=== PATIENT | male | born 1940 | race Caucasian/White ===

== ENCOUNTER 2021-11-21 09:41 | Outpatient (REF) | payer MEDICARE, MEDICAID, SELFPAY ==
[2021-11-21 10:48] LABS: Hematocrit 37.2 % (42.0-52.0); Hemoglobin 12.4 g/dl (14.0-18.0); Mean Corpuscular HGB Conc 33.3 g/dl (31.0-36.0); Mean Corpuscular Hemoglobin 31.7 pg (27.0-33.0); Mean Corpuscular Volume 95.1 fL (80.0-98.0); Mean Platelet Volume 10.4 fL (9.4-12.4); Platelet Count 264 X10*3/uL (160-400); Red Blood Count 3.91 X10*6/uL (4.60-5.80); Red Cell Distribution Width 16.9 % (11.0-16.0); White Blood Count 9.5 X10*3/uL (4.8-10.8)
[2021-11-21 11:13] LABS: Alanine Aminotransferase 11 U/L (0-40); Albumin Level 3.8 g/dL (3.5-5.0); Alkaline Phosphatase 115 U/L (39-117); Anion Gap 11 (12-20); Aspartate Amino Transferase 11 U/L (5-37); Bilirubin Total 0.8 mg/dL (0.0-1.0); Blood Urea Nitrogen 11 mg/dL (9-16); Calcium 9.1 mg/dL (8.4-10.2); Carbon Dioxide 29 mmol/L (22-29); Chloride 108 mmol/L (96-108); Cholesterol 136 mg/dL; Estimated Glomerular Filt Rate > 60; Glucose Fasting 88 mg/dL (60-99); HDL Cholesterol 24 mg/dL; LDL Cholesterol Calculated 93 mg/dl; Potassium 4.3 mmol/L (3.3-5.1); Sodium 144 mmol/L (135-145); Total Protein 6.6 g/dL (6.5-8.0); Triglycerides 96 mg/dL
[2021-11-21 11:35] LABS: TSH reflex Free T4 1.21 uIU/mL (0.32-4.0)
== END 2021-11-21 09:42 | disposition home or self-care (01) ==
LOC: HO.LAB 09:41
PROVIDERS: PCP Hospitalist; Visit Provider Hospitalist
DX: Z00.00 Encounter for general adult medical examination without abnormal findings (principal); Z13.220 Encounter for screening for lipoid disorders; Z13.29 Encounter for screening for other suspected endocrine disorder
CPT/HCPCS: 36415; 80053; 80061; 84443; 85027

== ENCOUNTER 2021-11-22 10:37 | Outpatient (REF) | payer MEDICARE, MEDICAID, SELFPAY ==
[2021-11-22 12:06] LABS: Iron 48 mcg/dL (45-160); Percent Iron Saturation 19 % (15-50); Total Iron Binding Capacity 250 mcg/dL (228-428); Unsaturated Iron Binding 202 ug/dL
[2021-11-22 12:23] LABS: Vitamin B12 187 pg/mL (200-900)
== END 2021-11-22 10:38 | disposition home or self-care (01) ==
LOC: HO.LAB 10:37
PROVIDERS: PCP Hospitalist; Visit Provider Hospitalist
DX: D64.9 Anemia, unspecified (principal)
CPT/HCPCS: 36415; 82607; 82746; 83540

== ENCOUNTER 2023-09-08 10:22 | Outpatient (AMB) | payer MEDICARE, MEDICAID, SELFPAY ==
--- NOTE | 2023-09-08 10:42 | MHC.PC.OV ---
Vital Signs 09/08/23 10:46 Height 5 ft 6 in Weight 163 lb BMI 26.3 BP 132/74 Blood Pressure Location Lt brachial Position Sitting Pulse 71 Pulse Source Pulse Oximeter Pulse Oximetry (%) 96 Oxygen Delivery Method Room Air Intake Visit Reasons: Transfered from [facility] Intake Note: Patient is here today for transfer of care from . Patient is here to follow-up after a visit the emergency department at [facility] on 08/04/23 then transfer to [facility] from 08/06/23 to 08/12/23. Hay Rake Operator Required: Yes Hay Rake Operator Language: Joint Supervisor Name: Rekha (Niece) Information Interpreted: non-clinical & clinical Gear Lapper: Present Accompanied by: Nephew or Niece Allergies Penicillins Allergy (Severe, Verified 09/08/23 11:20) Hives lisinopril Adverse Reaction (Verified 09/08/23 11:20) cough Medication List - Last Reconciled 09/08/23 by GARETT Mccarty-LUPE acetaminophen ER (Tylenol Arthritis Pain) 650 mg PO Q12H PRN 30 days aspirin 81 mg PO DAILY 30 days atorvastatin 80 mg PO BEDTIME 30 days carvedilol 3.125 mg PO BID 30 days ergocalciferol (vitamin D2) 1,250 mcg PO QWEEK furosemide 20 mg PO DAILY 30 days gabapentin 600 mg PO TID losartan 25 mg PO DAILY 30 days miscellaneous medical supply standard wheelchair miscellaneous medical supply Shower chair with back support miscellaneous medical supply wheel walker with seat omeprazole 20 mg PO DAILY potassium chloride ER 10 mEq PO BID 30 days quetiapine (Seroquel) 100 mg PO BEDTIME tamsulosin 0.4 mg PO DAILY ticagrelor (Brilinta) 90 mg PO BID 30 days Tobacco use date assessed: 09/08/23 Fall risk assessment: No Falls in past year Last assessed Fall Risk: 09/08/23 Dental Screening Dental Screen Date: 09/08/23 Did you have a dental visit in the last 12 months?: Yes Did you have a dental problem in the last 6 months where you did not have access to dental care?: No Was dental information given to patient?: Patient has dentist HPI HPI Comments History of Present Illness Details 83-year-old male with chronic small-vessel ischemic disease, multiple old infarcts throughout the basal ganglia, thalami and coronal radiata, diffuse cerebral volume loss, coronary artery disease S/P NSTEMI 2013 with drug eluting stent x 1, BPH, neuropathy, hypertension, hyperlipidemia, anxiety and depression, tortuosity of the thoracic aorta, CHF, cardiac pacemaker, GERD, tracheomalacia & OA who presents today for hospital discharge follow-up. He is accompanied by his niece Iwona who helps provide primary care for him in the home. I do not have the medical discharge at this time however the patient presents with the discharge summary. Niece reports that he was admitted to [facility] for shortness of breath and then transferred to [facility] on 08/06/2023 where he was admitted through 08/12/2023. He was admitted with an NSTEMI. He had 3 stents placed. He was sent home with orders to follow-up with [facility]. Has his 1st appointment 09/12/2023. Discharge medications include start: Aspirin 81 mg p.o. q.day indefinitely, Brilinta 90 mg p.o. b.i.d., losartan 25 mg p.o. q.day., Lasix 20 mg p.o. q.day, potassium chloride ER 10 mEq p.o. q.day. his Coreg was changed from 6.25 to 3.125 mg p.o. b.i.d. due to bradycardia. Lisinopril was stopped as this caused a cough. That is why the losartan was started. Labs reviewed. His HGB A1c was 5.4% in the setting of anemia. I do not see a diagnosis of diabetes in the chart. Nieces it they were testing his blood sugars at home however he has never been on any insulin or any antidiabetic medications. His labs in the hospital do show mild anemia which is chronic for him. He denies any overt signs or symptoms of bleeding. He was sent home with visiting nurse. He declined physical therapy. Wheelchair-bound mostly, uses cane for short distances. Since return home has been having a small amount of chest pain, in the left side of his chest, described as stabbing, that comes and goes? rare not all the time?. Last seconds. Self-limiting. Started 3 days ago. Occurred x 1 only. Does not have nitro on hand. Reports breathing is normal. No cough or sob. No bloody sputum. Not taking all meds as directed as sampson wasnt sure what he should/shouldnt be taking. So she was only giving him the newly prescribed medications and held off on all of his other meds w/ exception of omeprazole and gabapentin as she knows what these look like. Needs refills sent to [facility] in [place] - packaged meds Also needs current meds sent to [facility] so he can take meds while waiting on Mail order meds. After patient left, I was able to obtain d/c summary from [facility] which reports he presented to [facility] for hemoptysis. He was tx empiriaclly w/ AB presuming this was a PNA. A CT of the chest was done and showed small bilat pleural eff cc/w CHF and smaller nodular changes in bother lower lobes from likely PNA. Incidental finding of L adrenal nodule 1.4 cm [facility] Medical History (Updated 09/08/23 @ 16:44 by Amy Win, [facility]) Cardiac pacemaker History of multiple strokes Pacemaker Hypertension Surgical History (Updated 09/08/23 @ 11:05 by MICHELE Calderon) History of heart artery stent Social History (Updated 09/08/23 @ 10:44 by MICHELE Calderon) Housing: House Alcohol intake: never Patient Tobacco Use Status: Former Tobacco user (09/2022) e-Cigarette/Vaping Use: Never Used Second Hand Smoke Exposure: Yes service: No Current occupational status: disabled Cognitive needs: Yes (walker, wheel chair, cane) Hearing needs: No Vision needs: Yes (Glasses) Questionnaire PHQ-9 Over the last 2 weeks, how often have you been bothered by any of the following problems? 1. Little interest or pleasure in doing things: not at all 2. Feeling down, depressed, or hopeless: not at all 3. Trouble falling or staying asleep, or sleeping too much: not at all 4. Feeling tired or having little energy: not at all 5. Poor appetite or overeating: not at all 6. Feeling bad about yourself - or that you are a failure or have let yourself or your family down: not at all 7. Trouble concentrating on things, such as reading the newspaper or watching television: not at all 8. Moving or speaking so slowly that other people could have noticed. Or the opposite - being so fidgety or restless that you have been moving around a lot more than usual: not at all 9. Thoughts that you would be better off or of hurting yourself in some way: not at all Total score: 0 Depression Screening Interpretation: Negative Depression Screening Done: Yes Source: Developed by Drs. Micah Rooney, Blanka Nunes, Yasmany Amezquita and colleagues, with an educational naila from [employer]. Thrive Questionnaire Date Thrive assessed: 09/08/23 I am a: Patient What is your living situation today?: I have a steady place to live Within the past 12 months, did the food you bought not last and you didn't have the money to get more?: Never true Within the past 12 months, did you worry whether your food would run out before you got money to buy more?: Never true Do you have trouble paying for medicines?: No Do you have trouble getting transportation to medical appointments?: No Do you have trouble paying your heating and electricity bill?: No Do you have trouble taking care of your child, family member or friend?: No Do you have trouble with day-to-day activities such as bathing, preparing meals, shopping, managing finances, etc.?: No Are you currently unemployed and looking for a job?: No Are you interested in more education?: No Currently or been in a relationship where the following occur: no concerns reported THRIVE Score: 0 AUDIT C Alcohol Use Questionnaire (AUDIT-C) 1. How often do you have a drink containing alcohol?: Never Total Score: 0 DEMETRA-7 AMB Questionnaire DEMETRA-7 Date DEMETRA - 7 assessed: 09/08/23 Feeling nervous, anxious, or on edge: 1 = Several days Not being able to stop or control worryin = Not at all Worrying too much about different things: 0 = Not at all Trouble relaxin = Not at all Being so restless that it is hard to sit still: 0 = Not at all Becoming easily annoyed or irritable: 0 = Not at all Feeling afraid as if something awful might happen: 0 = Not at all Total DEMETRA-7 score (0-4 normal; 5-9 mild; 10-14 moderate; 15-21 severe): 1 Source: Developed by Drs. Micah Rooney, Blanka Nunes, Yasmany Amezquita and colleagues, with an educational naila from [employer]. Review of Systems Const All systems reviewed & are unremarkable except as noted in HPI and below Physical exam (Primary Care) Vital Signs: Last Vital Signs Pulse 71 09/08/23 10:46 BP 132/74 09/08/23 10:46 Pulse Ox 96 09/08/23 10:46 Oxygen Delivery Method Room Air 09/08/23 10:46 BMI result Body Mass Index 26.3 Tobacco/Smoking Status: Tobacco use Status Tobacco use date assessed 09/08/23 09/08/23 10:50 Patient Tobacco Use Status Former Tobacco user (09/2022) 09/08/23 11:07 e-Cigarette/Vaping Use Never Used 09/08/23 10:50 PHQ-9: PHQ-9 Score PHQ-9: Total score 0 09/08/23 11:29 Depression Screening Interpretation: Negative Thrive Assessment: Date of Thrive Assessment Date Thrive assessed 09/08/23 09/08/23 10:50 Currently or been in a relationship where the following occur: no concerns reported Const Other: Frail, chronically ill appearing, accompanied by Neice who helps w/ language barriers MMM RRR LS CTAB , dim throughout BLE with trace edema, decreased PP bilat, skin hairless with superficial crusting. Sitting in w/c with cane Assessment and Plan Assessment & Plan (1) NSTEMI (non-ST elevated myocardial infarction): Comment: NSTEMI w/ AIME x 3 08/2023 ASA indef. Brilinta for 1 year (stop 08/12/2024) NSTEMI 2013 w/ AIME [facility] Cards to Manage Code(s): I21.4 - Non-ST elevation (NSTEMI) myocardial infarction Plan: Total time spent caring for the patient today was 70 minutes. This includes time spent before the visit reviewing the chart, time spent during the visit, and time spent after the visit on documentation (2) CHF (congestive heart failure): Comment: Echo 08/2023, Results requested from [facility] and pending at the time of this note on lasix, coreg and losartan labs from today reveal stable findings potassium is at 4.2 it is on the 20 mEq use daily we will continue this he is euvolemic on exam today. We will continue him on Lasix as well as KCl supplementation. Code(s): I50.9 - Heart failure, unspecified Qualifiers: Heart failure type: unspecified Heart failure chronicity: chronic Qualified Code(s): I50.9 - Heart failure, unspecified (3) Anemia: Comment: CrCL 50.93 08/11/2023 Cr 1.0 08/11/2023 labs today Hemoglobin 12.8 hematocrit 39.1 Code(s): D64.9 - Anemia, unspecified Qualifiers: Anemia type: due to chronic kidney disease Chronic kidney disease stage: stage 3 (moderate) Chronic kidney disease stage 3 subtype: stage 3a (GFR 45-59) Qualified Code(s): N18.31 - Chronic kidney disease, stage 3a; D63.1 - Anemia in chronic kidney disease (4) Coronary artery disease with angina pectoris: Code(s): I25.119 - Atherosclerotic heart disease of [place] coronary artery with unspecified angina pectoris Qualifiers: Coronary Disease-Associated Artery/Lesion type: [place] artery [place] vs. transplanted heart: [place] heart Qualified Code(s): I25.119 - Atherosclerotic heart disease of [place] coronary artery with unspecified angina pectoris Plan: new RX for nitro, instructions reviewed in office how to take (5) PVD (peripheral vascular disease): Comment: statin, brilinta, ASA Code(s): I73.9 - Peripheral vascular disease, unspecified (6) CKD (chronic kidney disease) stage 3, GFR 30-59 ml/min: Comment: CrCL 50.93 08/11/2023 Cr 1.0 08/11/2023 Managed by Renal at [facility] BUN 14 creatinine 1.39 GFR 49 Code(s): N18.30 - Chronic kidney disease, stage 3 unspecified Qualifiers: Chronic kidney disease stage 3 subtype: stage 3a (GFR 45-59) Qualified Code(s): N18.31 - Chronic kidney disease, stage 3a (7) Adrenal nodule: Comment: 1.4 cm Left adrenal nodule CT [facility] 08/11/23 Will have staff send this report to Renal at [facility] to coordinate care and f/u. Code(s): E27.8 - Other specified disorders of adrenal gland Orders: Orders RT home sleep study Today I21.4 - Non-ST elevation (NSTEMI) myocardial infarction, I50.9 - Heart failure, unspecified Comprehensive [place]. Panel Fast Today D64.9 - Anemia, unspecified, I21.4 - Non-ST elevation (NSTEMI) myocardial infarction, I50.9 - Heart failure, unspecified Complete Blood Count no Diff Today D64.9 - Anemia, unspecified, I21.4 - Non-ST elevation (NSTEMI) myocardial infarction, I50.9 - Heart failure, unspecified Medications: New losartan 25 mg PO DAILY 30 days 30 tabs 1RF potassium chloride ER 10 mEq PO BID 30 days 60 caps 0RF nitroglycerin do not exceed 3 doses per episode 0.3 mg sublingual Q5M PRN 90 tabs 1RF chest pain 30 days ammonium lactate 12% apply to lower ext, avoid open areas 1 appl topical BID 385 grams 3RF 30 days atorvastatin 80 mg PO BEDTIME 30 tabs 0RF 30 days ticagrelor (Brilinta) 90 mg PO BID 60 tabs 0RF 30 days carvedilol 3.125 mg PO BID 60 tabs 0RF 30 days aspirin 81 mg PO DAILY 30 days 30 tabs 3RF carvedilol 3.125 mg PO BID 30 days 60 tabs 1RF furosemide 20 mg PO DAILY 30 days 30 tabs 1RF ticagrelor (Brilinta) 90 mg PO BID 30 days 60 tabs 1RF atorvastatin 80 mg PO BEDTIME 30 days 30 tabs 0RF aspirin 81 mg PO DAILY 30 tabs 3RF 30 days omeprazole 20 mg PO DAILY 30 caps 0RF 30 days potassium chloride ER 10 mEq PO BID 60 caps 0RF 30 days losartan 25 mg PO DAILY 30 tabs 0RF 30 days furosemide 20 mg PO DAILY 30 tabs 0RF 30 days Changed From gabapentin 600 mg PO TID 90 tabs 2RF M54.41 - Lumbago with sciatica, right side To gabapentin 600 mg PO TID 90 tabs 0RF 30 days M54.41 - Lumbago with sciatica, right side From tamsulosin 0.4 mg PO DAILY 90 caps 1RF To tamsulosin 0.4 mg PO DAILY 30 caps 0RF 30 days From quetiapine (Seroquel) 100 mg PO BEDTIME 90 tabs 3RF R45.1 - Restlessness and agitation To quetiapine (Seroquel) 100 mg PO BEDTIME 30 tabs 0RF 30 days R45.1 - Restlessness and agitation Discontinued vitamin B complex (B Complex-Vitamin B12 tablet) Discontinued Reason: Patient Completed Course 1 tab PO DAILY 90 tabs 3RF atorvastatin Discontinued Reason: More recent result 40 mg PO BEDTIME 90 tabs 3RF Patient Instructions: Come back to see me in about 1 month, sooner if any problems Coding Level of Care Code Est Pt Level 5 (85368) Diagnoses NSTEMI (non-ST elevated myocardial infarction) I21.4 Chronic congestive heart failure, unspecified heart failure type I50.9 Heart failure type: unspecified Heart failure chronicity: chronic 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 chronic kidney disease N18.31; D63.1 Anemia type: due to chronic kidney disease Chronic kidney disease stage: stage 3 (moderate) Chronic kidney disease stage 3 subtype: stage 3a (GFR 45-59) Coronary artery disease involving [place] coronary artery of [place] heart with angina pectoris I25.119 Coronary Disease-Associated Artery/Lesion type: [place] artery [place] vs. transplanted heart: [place] heart PVD (peripheral vascular disease) I73.9 Stage 3a chronic kidney disease N18.31 Chronic kidney disease stage 3 subtype: stage 3a (GFR 45-59) Adrenal nodule E27.8
[2023-09-08 10:46] VITALS: BP 132/74; PULSE 71; O2SAT 96; BMI 26.3
== END 2023-09-08 12:15 | disposition home or self-care (01) ==
PROVIDERS: PCP Hospitalist; Visit Provider Nurse Practitioner Family
DX: N18.31 Chronic kidney disease, stage 3a (principal); I50.9 Heart failure, unspecified; E27.8 Other specified disorders of adrenal gland; I73.9 Peripheral vascular disease, unspecified; I21.4 Non-ST elevation (NSTEMI) myocardial infarction; I25.119 Atherosclerotic heart disease of native coronary artery with unspecified angina pectoris; D63.1 Anemia in chronic kidney disease
CPT/HCPCS: 99215

== ENCOUNTER 2023-09-08 12:06 | Outpatient (REF) | payer MEDICARE, MEDICAID, SELFPAY ==
[2023-09-08 15:03] LABS: Hematocrit 39.1 % (42.0-52.0); Hemoglobin 12.8 g/dl (14.0-18.0); Mean Corpuscular HGB Conc 32.7 g/dl (31.0-36.0); Mean Corpuscular Hemoglobin 30.8 pg (27.0-33.0); Mean Platelet Volume 10.1 fL (9.4-12.4); Platelet Count 185 X10*3/uL (160-400); Red Blood Count 4.16 X10*6/uL (4.60-5.80); Red Cell Distribution Width 18.3 % (11.0-16.0); White Blood Count 7.8 X10*3/uL (4.8-10.8)
[2023-09-08 15:48] LABS: Alanine Aminotransferase 14 U/L (0-40); Albumin Level 3.9 g/dL (3.5-5.0); Alkaline Phosphatase 115 U/L (39-117); Anion Gap 11 (12-20); Aspartate Amino Transferase 16 U/L (5-37); Bilirubin Total 0.5 mg/dL (0.0-1.0); Blood Urea Nitrogen 14 mg/dL (9-16); Calcium 10.1 mg/dL (8.4-10.2); Carbon Dioxide 31 mmol/L (22-29); Chloride 106 mmol/L (96-108); Estimated Glomerular Filt Rate 49; Glucose Fasting 79 mg/dL (60-99); Potassium 4.2 mmol/L (3.3-5.1); Sodium 144 mmol/L (135-145); Total Protein 7.2 g/dL (6.5-8.0)
== END 2023-09-08 12:07 | disposition home or self-care (01) ==
LOC: HO.WFDLDS 12:06
PROVIDERS: Visit Provider Nurse Practitioner Family
DX: I21.4 Non-ST elevation (NSTEMI) myocardial infarction (principal); I50.9 Heart failure, unspecified; D64.9 Anemia, unspecified
CPT/HCPCS: 36415; 80053; 85027

== ENCOUNTER 2023-09-15 09:18 | Outpatient (AMB) | payer MEDICARE, MEDICAID, SELFPAY ==
--- NOTE | 2023-09-15 09:23 | MHC.PC.OV ---
Vital Signs 09/15/23 09:32 Height 5 ft 6 in Weight 164 lb BMI 26.5 BP 102/60 Blood Pressure Location Lt brachial Position Sitting Pulse 71 Pulse Source Pulse Oximeter Pulse Oximetry (%) 97 Oxygen Delivery Method Room Air Intake Visit Reasons: No sight in one eye Intake Note: pt states no sight in left eye and headache [id number] Certifier Required: No Allergies Penicillins Allergy (Severe, Verified 09/15/23 10:12) Hives lisinopril Adverse Reaction (Verified 09/15/23 10:12) cough Tobacco use date assessed: 09/15/23 Fall risk assessment: No Falls in past year Last assessed Fall Risk: 09/15/23 Dental Screening Dental Screen Date: 09/15/23 HPI HPI Comments History of Present Illness Details 83-year-old male with chronic small-vessel ischemic disease, multiple old infarcts throughout the basal ganglia, thalami and coronal radiata, diffuse cerebral volume loss, coronary artery disease S/P NSTEMI 2013 with drug eluting stent x 1, NSTEMI 07/2023 status post stent, BPH, neuropathy, hypertension, hyperlipidemia, anxiety and depression, tortuosity of the thoracic aorta, CHF, cardiac pacemaker, GERD, tracheomalacia & OA Accompanied today with niece Iwona Here today w/ c/o vision loss in the left eye he mentioned this for the first time on Friday at Card office, told provider no vision in L eye, assoc w headache that is severe all the time. CT scan ordered and pending Tells me today the vision in L eye has been gone for about 3 weeks, this occurred before the last hospitalization. Right eye is normal Denies trauma to the eye Optho unsure who [facility] pt states last appt was about 4 years ago. [facility] Medical History (Updated 09/08/23 @ 16:[address] [facility] Cardiac pacemaker History of multiple strokes Pacemaker Hypertension Surgical History (Updated 09/08/23 @ 11:05 by MICHELE Calderon) History of heart artery stent Social History (Updated 09/08/23 @ 10:44 by MICHELE Calderon) Housing: House Alcohol intake: never Patient Tobacco Use Status: Former Tobacco user (09/2022) e-Cigarette/Vaping Use: Never Used Second Hand Smoke Exposure: Yes service: No Current occupational status: disabled Cognitive needs: Yes (walker, wheel chair, cane) Hearing needs: No Vision needs: Yes (Glasses) Questionnaire PHQ-9 Over the last 2 weeks, how often have you been bothered by any of the following problems? Depression Screening Interpretation: Negative Depression Screening Done: Yes Source: Developed by Drs. Micah Rooney, Blanka Nunes, Yasmany Amezquita and colleagues, with an educational naila from [employer]. Thrive Questionnaire Date Thrive assessed: 09/08/23 Currently or been in a relationship where the following occur: no concerns reported THRIVE Score: 0 AUDIT C Alcohol Use Questionnaire (AUDIT-C) 1. How often do you have a drink containing alcohol?: Never 3. How often do you have six or more drinks on one occasion?: Never Total Score: 0 DEMETRA-7 AMB Questionnaire DEMETRA-7 Date DEMETRA - 7 assessed: 09/08/23 Source: Developed by Drs. Micah Rooney, Blanka Nunes, Yasmany Amezquita and colleagues, with an educational naila from [employer]. Review of Systems Const All systems reviewed & are unremarkable except as noted in HPI and below Physical exam (Primary Care) Vital Signs: Last Vital Signs Pulse 71 09/15/23 09:32 BP 102/60 09/15/23 09:32 Pulse Ox 97 09/15/23 09:32 Oxygen Delivery Method Room Air 09/15/23 09:32 BMI result Body Mass Index 26.5 Tobacco/Smoking Status: Tobacco use Status Tobacco use date assessed 09/15/23 09/15/23 09:32 Patient Tobacco Use Status Former Tobacco user (09/2022) 09/15/23 09:23 e-Cigarette/Vaping Use Never Used 09/15/23 09:23 Depression Screening Interpretation: Negative Thrive Assessment: Date of Thrive Assessment Date Thrive assessed 09/08/23 09/15/23 09:23 Currently or been in a relationship where the following occur: no concerns reported Const Other: Frail, chronically ill appearing, accompanied by Neice who helps w/ language barriers MMM RRR LS CTAB , dim throughout BLE with trace edema, decreased PP bilat, skin hairless with superficial crusting. Sitting in w/c with cane Eyes Visual Ortega: abnormal by confrontation peripheral vision loss on the left Alignment and Position: alignment normal Periorbital: periorbital findings normal Eyelids: Yes eyelids normal Conjunctivae: conjunctivae normal Sclerae: sclerae normal Pupils: Pupils not reactive on the left EOM: EOM abnormal Direct Ophthalmoscopy: no photophobia and decreased light reflex on the left Assessment and Plan Assessment & Plan (1) Sudden visual loss, left eye: Code(s): H53.132 - Sudden visual loss, left eye (2) Headache: Code(s): R51.9 - Headache, unspecified Qualifiers: Headache chronicity pattern: acute headache Headache type: unspecified Intractability: not intractable Qualified Code(s): R51.9 - Headache, unspecified Plan: Given that the visual in the left side was present prior to his admission to the [facility] for his NSTEMI with stenting, I do not think he needs to go to the emergency room. I do think he needs an emergent exam. I spent time calling different offices to see if I can coordinate an urgent visit today. The [facility] in [place] states that they do not work with his insurance. Based GI care will not see a patient that has not already established. His niece states that she knows where the eye doctor office is on [facility]. I did search the Internet and could not find in office. I told her to bring him there right now to see if they could get him in for an appointment. Business card given so that the eye doctor can call me if needed to coordinate care. A CT scan was already ordered stat and is pending through [facility]. He has no other neuro deficits that are concerning. 190 No call from Niece. Total time spent caring for the patient today was 70 minutes. This includes time spent before the visit reviewing the chart, time spent during the visit, and time spent after the visit on documentation This note is constructed using voice recognition software. While every effort has been made to ensure accuracy in automotive sales specialist, still errors may have been included Sometimes, these errors may affect the content or meaning of the given sentence . Coding Level of Care Code Est Pt Level 5 (57602) Diagnoses Sudden visual loss, left eye H53.132 Acute nonintractable headache, unspecified headache type R51.9 Headache chronicity pattern: acute headache Headache type: unspecified Intractability: not intractable
[2023-09-15 09:32] VITALS: BP 102/60; PULSE 71; O2SAT 97; BMI 26.5
== END 2023-09-15 10:35 | disposition home or self-care (01) ==
PROVIDERS: PCP Hospitalist; Visit Provider Nurse Practitioner Family
DX: H53.132 Sudden visual loss, left eye (principal); R51.9 Headache, unspecified
CPT/HCPCS: 99215

== ENCOUNTER 2023-10-07 12:53 | Outpatient (AMB) | payer MEDICARE, MEDICAID, SELFPAY ==
[2023-10-07 13:03] VITALS: BP 136/76; PULSE 80; RESP 12; TEMP 37.1; O2SAT 99
--- NOTE | 2023-10-07 13:03 | MHC.PC.OV ---
Vital Signs 10/07/23 13:03 Height 5 ft 6 in BMI Reason not done Patient refused/unable BP 136/76 Blood Pressure Location Lt brachial Position Sitting Respiration 12 Pulse 80 Pulse Source Pulse Oximeter Temp 98.8 F Temp Source Temporal Artery Scan Pulse Oximetry (%) 99 Oxygen Delivery Method Room Air Intake Visit Reasons: 1 MTH Follow up Intake Note: Patient is accompanied by his Myla braden who is also his caregiver and translating for todays appointment. Patient reports he has been getting acid reflux despite the Omeprazole and he has been experiencing body pains as well. Patient Support Assistant Required: Yes Patient Support Assistant Name: Amy Mcnamara Accompanied by: Nephew or Niece Allergies Penicillins Allergy (Severe, Verified 10/07/23 13:32) Hives lisinopril Adverse Reaction (Verified 10/07/23 13:32) cough Medication List - Last Reconciled 10/07/23 by Amy Win, RECEPTION- acetaminophen ER (Tylenol Arthritis Pain) 650 mg PO Q12H PRN 30 days acetazolamide 125 mg PO BID ammonium lactate 12% 1 appl topical BID 30 days aspirin 81 mg PO DAILY 30 days atorvastatin 80 mg PO BEDTIME 30 days brimonidine 0.2% 1 drp ophthalmic (eye) BID carvedilol 3.125 mg PO BID 30 days ergocalciferol (vitamin D2) 1,250 mcg PO QWEEK furosemide 20 mg PO DAILY 30 days gabapentin 600 mg PO TID 30 days latanoprost 0.005% 1 drp ophthalmic (eye) QPM losartan 25 mg PO DAILY 30 days miscellaneous medical supply standard wheelchair miscellaneous medical supply Shower chair with back support miscellaneous medical supply wheel walker with seat nitroglycerin 0.3 mg sublingual Q5M PRN 30 days omeprazole 20 mg PO DAILY 30 days potassium chloride ER 10 mEq PO BID 30 days quetiapine (Seroquel) 100 mg PO BEDTIME 30 days tamsulosin 0.4 mg PO DAILY 30 days ticagrelor (Brilinta) 90 mg PO BID 30 days Tobacco use date assessed: 09/15/23 HPI HPI Comments History of Present Illness Details 83-year-old male with chronic small-vessel ischemic disease, multiple old infarcts throughout the basal ganglia, thalami and coronal radiata, diffuse cerebral volume loss, coronary artery disease S/P NSTEMI 2012 with drug eluting stent x 1, BPH, neuropathy, hypertension, hyperlipidemia, anxiety and depression, tortuosity of the thoracic aorta, CHF, cardiac pacemaker, GERD, tracheomalacia & OA, cataracts bilat, glaucoma, former smoker Niece Iwona Here today to follow-up on visual loss in the left eye as well as chronic conditions. Since last visit he was able to see [facility] in [place] Dr Willy Gerber with bilat cataracts will be having an extraction bilat in December of 2023. 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 He had a follow up visit today. He was started eye drops of which he will waste picker at the pharmacy today. I talked to the niece about who he is seeing for renal as we have been trying to send the August 2023 cat scan showing the left adrenal mass to the cyanide pot tender however we have not been able to find out who he is being followed by. She is able to pull up the information today and states that she has an appointment with Dr Oliverio Whaley [phone] at [facility] on 01/21/2024 at 11:00. States that this offices aware of the left adrenal mass and an MRI was ordered however the patient does not able to stay still, lie flat, or tolerate any imaging. She will continue to work with this office on follow-up. Reports chronic daily pain. Taking Tylenol as needed and NSAIDs without great effect. However not taking every single day. Discussion had with patient as well as niece about palliative care versus comfort care versus aggressive treatment measures. Discussed the risks and benefits of both. Patient has decided that he wishes to continue aggressive treatment measures at this time. Does not wish to do prescribe any of his medications are reduce the amount of medical intervention at this time. He is aware that this limits our options for prescribing medications that could help to control his pain. He was made aware that we need to set a realistic pain goal which would be to decrease the daily pain that he is having. However he may not be totally pain-free. He a niece are in agreement. In the decision has been made to start him on Tylenol 2 g twice per day scheduled. He can have an additional 1 g per day as needed for breakthrough pain. Encouraged to avoid NSAIDs due to renal function. Finally reports years of heavy smoking and a family history of lung cancer. Reports sister had lung cancer. Wonders about any screening or testing for this. Reports that he was referred for a screening CT scan but once again he was not able to lie still or tolerate this procedure. Additional conversation was had around this and the decision was made not to pursue anything additional at this time. With the understanding that the niece already has a CT scan that can be done ordered by another provider should he want or be able to tolerate the CT scan for lung cancer screening. Today he does not present with any overt signs or symptoms such as hemoptysis or weight loss. Niece reports that she has not been able to get any of the medications that I have sent over to the previous pharmacy. Would like all prescriptions transferred over to [facility]. Unsure what the holdup with the medications were. They were using a mail away pharmacy as well as a local [facility]. I will have the nurse navigator look into this to help transfer his medications as appropriate. This referral has been placed today. She feels like she can manage setting up medication boxes for him and does not need a blister pack. [facility] Medical History (Updated 10/08/23 @ 07:47 [facility] Cardiac pacemaker History of multiple strokes Pacemaker Hypertension Surgical History (Updated 09/08/23 @ 11:05 by Nevaeh Mullen [facility]) History of heart artery stent Social History (Updated 10/07/23 @ 13:18 by Jordana Rubio CMA) Household Members: None Housing: House Alcohol intake: never Patient Tobacco Use Status: Former Tobacco user (09/2022) e-Cigarette/Vaping Use: Never Used Second Hand Smoke Exposure: Yes service: No Current occupational status: disabled Sexual orientation: Straight/Heterosexual Gender identity: Male Cognitive needs: Yes (walker, wheel chair, cane) Hearing needs: No Vision needs: Yes (Glasses) Questionnaire Thrive Questionnaire Date Thrive assessed: 09/08/23 DEMETRA-7 AMB Questionnaire DEMETRA-7 Date DEMETRA - 7 assessed: 09/08/23 Source: Developed by Drs. Miach Rooney, Blanka Nunes, Yasmnay Amezquita and colleagues, with an educational naila from [employer]. Review of Systems Const All systems reviewed & are unremarkable except as noted in HPI and below Physical exam (Primary Care) Vital Signs: Last Vital Signs Temp 98.8 F 10/07/23 13:03 Pulse 80 10/07/23 13:03 Resp 12 10/07/23 13:03 BP 136/76 10/07/23 13:03 Pulse Ox 99 10/07/23 13:03 Oxygen Delivery Method Room Air 10/07/23 13:03 Tobacco/Smoking Status: Tobacco use Status Tobacco use date assessed 09/15/23 10/07/23 13:20 Patient Tobacco Use Status Former Tobacco user (09/2022) 10/07/23 13:20 e-Cigarette/Vaping Use Never Used 10/07/23 13:20 Thrive Assessment: Date of Thrive Assessment Date Thrive assessed 09/08/23 10/07/23 13:20 Advance Care Planning discussion: Exists, not on file Date of discussion: 10/08/23 Who was present: Jefe Bustillo inpatient Time spent: 1-15 minutes, not on file Actual minutes spent: 15 Did not discuss due to Cultural/Spiritual beliefs: Yes Const Other: Frail, chronically ill appearing, accompanied by Neice who helps w/ language barriers MMM RRR LS CTAB , dim throughout BLE with trace edema, decreased PP bilat, skin hairless with with slight scaling, better than previously assessed. Sitting in w/c with cane Eyes Visual Ortega: abnormal by confrontation peripheral vision loss on the left Alignment and Position: alignment normal Periorbital: periorbital findings normal Eyelids: Yes eyelids normal Conjunctivae: conjunctivae normal Sclerae: sclerae normal Pupils: Pupils not reactive on the left EOM: EOM abnormal Direct Ophthalmoscopy: no photophobia and decreased light reflex on the left Assessment and Plan Assessment & Plan (1) Adrenal nodule: Comment: 1.4 cm Left adrenal nodule CT [facility] 08/11/23 Dr Oliverio Whaley [phone] at [facility] on 01/21/2024 at 11:00. Jefe reports his offices aware of the CT scan findings. MRI was ordered however patient is not able to tolerate. She will continue follow up with this office for further management Code(s): E27.8 - Other specified disorders of adrenal gland (2) CKD (chronic kidney disease) stage 3, GFR 30-59 ml/min: Comment: CrCL 50.93 08/11/2023 Cr 1.0 08/11/2023 Managed by Renal at [facility] Dr Oliverio WHALEY [phone] BUN 14 creatinine 1.39 GFR 49 Code(s): N18.30 - Chronic kidney disease, stage 3 unspecified Qualifiers: Chronic kidney disease stage 3 subtype: stage 3a (GFR 45-59) Qualified Code(s): N18.31 - Chronic kidney disease, stage 3a (3) Cataracts, bilateral: Comment: He is currently being followed by [facility] in [place] Dr Willy Gerber with bilat cataracts will be having an extraction bilat in December of 2023. 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 Continue follow up with Ophthalmology as well as eyedrops prescribed as well as Acetazolamide. Code(s): H40.50X0 - Glaucoma secondary to other eye disorders, unspecified eye, stage unspecified Qualifiers: Laterality: left Glaucoma stage: severe stage Qualified Code(s): H40.52X3 - Glaucoma secondary to other eye disorders, left eye, severe stage (5) Former smoker, stopped smoking in distant past: Comment: Reports that he was referred for a screening CT scan but once again he was not able to lie still or tolerate this procedure. Additional conversation was had around this and the decision was made not to pursue anything additional at this time. With the understanding that the niece already has a CT scan that can be done ordered by another provider should he want or be able to tolerate the CT scan for lung cancer screening. Today he does not present with any overt signs or symptoms such as hemoptysis or weight loss. Code(s): Z87.891 - Personal history of nicotine dependence (6) Generalized arthritis: Comment: Start him on Tylenol 2 g twice per day scheduled. He can have an additional 1 g per day as needed for breakthrough pain. Encouraged to avoid NSAIDs due to renal function Code(s): M19.90 - Unspecified osteoarthritis, unspecified site (7) Frailty syndrome in geriatric patient: Comment: CONVERSATION ABOUT GOALS OF CARE HAD TODAY. AT THIS TIME THE PATIENT DOES NOT WISH FOR PALLIATIVE CARE MEASURES. DOES NOT WISH HER DEEP PRESCRIBING. AND DOES NOT WISH TO REDUCE HIS MEDICAL INTERVENTION. WE WILL CONTINUE TO HAVE THESE CONVERSATIONS WITH THE PATIENT WELL THE FAMILY. Code(s): R54 - Age-related physical debility (8) Blind left eye: Comment: Due to glaucoma. Being managed by Dr Willy Walsh in [place]. Continue care as per ophthalmology Code(s): H54.40 - Blindness, one eye, unspecified eye Qualifiers: Right eye visual impairment category: right - unspecified impairment Qualified Code(s): H54.40 - Blindness, one eye, unspecified eye Plan This note is constructed using voice recognition software. While every effort has been made to ensure accuracy in coal crusher operator, still errors may have been included Sometimes, these errors may affect the content or meaning of the given sentence . Total time spent caring for the patient today was 60 minutes. This includes time spent before the visit reviewing the chart, time spent during the visit, and time spent after the visit on documentation I would like to see him back in another few weeks to follow up on chronic complex conditions. Orders: Referrals Nurse Navigator Referral R53.81 - Other malaise Medications: New acetaminophen AVAILABLE OTC. DO NOT EXCEED 3GM OR 6 TABS IN 24 HOURS. 1,000 mg (2 x 500 mg) PO TID 30 days PRN 180 caps 2RF fever or pain Changed From omeprazole 20 mg PO DAILY 30 days 30 caps 0RF To omeprazole 20 mg PO BID 30 days 60 caps 3RF Discontinued acetaminophen ER (Tylenol Arthritis Pain) Discontinued Reason: Doctor's Order 650 mg PO Q12H 30 days PRN 60 tabs 1RF pain Coding Level of Care Code Est Pt Level 5 (40890) Diagnoses Adrenal nodule E27.8 Stage 3a chronic kidney disease N18.31 Chronic kidney disease stage 3 subtype: stage 3a (GFR 45-59) Age-related nuclear cataract of both eyes H25.13 Cataract type: age-related Age-related cataract type: nuclear 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, severe stage H40.52X3 Laterality: left Glaucoma stage: severe stage Former smoker, stopped smoking in distant past Z87.891 Generalized arthritis M19.90 Frailty syndrome in geriatric patient R54 Blindness of left eye, unspecified right eye visual impairment category H54.40 Right eye visual impairment category: right - unspecified impairment Additional Codes Vital Signs *Quality* - Advance Care Planning discussion: Exists, not on file ([id number]) Vital Signs *Quality* - Time spent: 1-15 minutes, not on file ([id number]) Vital Signs *Quality* - Did not discuss due to Cultural/Spiritual beliefs: Yes ([id number])
== END 2023-10-07 14:01 | disposition home or self-care (01) ==
PROVIDERS: PCP Hospitalist; Visit Provider Nurse Practitioner Family
DX: E27.8 Other specified disorders of adrenal gland (principal); N18.31 Chronic kidney disease, stage 3a; H25.13 Age-related nuclear cataract, bilateral; H40.52X3 Glaucoma secondary to other eye disorders, left eye, severe stage; Z87.891 Personal history of nicotine dependence; M19.90 Unspecified osteoarthritis, unspecified site; R54 Age-related physical debility; H54.40 Blindness, one eye, unspecified eye; Z00.00 Encounter for general adult medical examination without abnormal findings
CPT/HCPCS: 1124F; 99215

== ENCOUNTER 2023-10-14 16:03 | Outpatient (AMB) | payer MEDICARE, MEDICAID, SELFPAY ==
--- NOTE | 2023-10-14 15:55 | MHC.PC.OV ---
Intake Visit Reasons: follow up on pt's last visit Intake Note: Provider will be speaking with Patient's niece Myla [phone] Massage Coordinator Required: No Accompanied by: Nephew or Niece Allergies Penicillins Allergy (Severe, Verified 10/14/23 15:56) Hives lisinopril Adverse Reaction (Verified 10/14/23 15:56) cough Tobacco use date assessed: 09/15/23 HPI HPI Comments History of Present Illness Details Given the COVID-19 pandemic, the patient was offered and has consented to a telemedicine visit with Amy Garcia NP 10/14/23 [id number] in lieu of a traditional in-office visit. Patient understands the risks, alternatives and benefits of a telemedicine visit. The patient has been informed of the limitations of a telemedicine visit, including the quality of self-reported information (e.g. vital signs and symptoms) as well as the inability to perform a hands-on physical exam by a healthcare provider. Patient understands that a traditional in-office visit may be required based on the findings of today's telemedicine visit. Patient also understands that their insurance will be billed for services rendered and that a copayment may be required. 83-year-old male with chronic small-vessel ischemic disease, multiple old infarcts throughout the basal ganglia, thalami and coronal radiata, diffuse cerebral volume loss, coronary artery disease S/P NSTEMI 2013 with drug eluting stent x 1, BPH, neuropathy, hypertension, hyperlipidemia, anxiety and depression, tortuosity of the thoracic aorta, CHF, cardiac pacemaker, GERD, tracheomalacia & OA, cataracts bilat, glaucoma, former smoker Niece Iwona spoke w/ Iwona A few questions about Uncle L adrenal nodule he thinks this is cancer He does not want to do any more MRI or CT scan, as he doesnt want to lie flat; Renal>Cards didnt want to go to this appt with Cards Discharged from [facility] as he has met his max potential (Patricia) Cancelled 3 medical appts so far; does not want open heart surgery; does not want to leave the house to go to medical appointments ,just wants to stay home. Keep saying that he is old. Hospice discussed at last office visit. Niece would like for this referral to be placed for consultation. Her mother is also involved in the medical decision-making for Michel. Michel's wishes at this time are to remain home and comfortable with little medical intervention. He was recently discharged from [facility] who does not offer hospice services. A referral will be placed to [facility]. The family requests that the niece remains the primary contact. If at all possible request this visit to be done with a Chilean speaking person so that Michel can hear 1st hand with a conversation is about. [facility] Medical History (Updated 10/14/23 @ 16:39 [facility] Cardiac pacemaker History of multiple strokes Pacemaker Hypertension Surgical History (Updated 09/08/23 @ 11:05 by Nevaeh Mullen A) History of heart artery stent Social History (Updated 10/07/23 @ 13:18 by Jordana Rubio [facility]) Household Members: None Housing: House Alcohol intake: never Patient Tobacco Use Status: Former Tobacco user (09/2022) e-Cigarette/Vaping Use: Never Used Second Hand Smoke Exposure: Yes service: No Current occupational status: disabled Sexual orientation: Straight/Heterosexual Gender identity: Male Cognitive needs: Yes (walker, wheel chair, cane) Hearing needs: No Vision needs: Yes (Glasses) Questionnaire Thrive Questionnaire Date Thrive assessed: 09/08/23 DEMETRA-7 AMB Questionnaire DEMETRA-7 Date DEMETRA - 7 assessed: 09/08/23 Source: Developed by Drs. Micah Rooney, Blanka Nunes, Yasmany Amezquita and colleagues, with an educational naila from [employer]. Physical exam (Primary Care) Tobacco/Smoking Status: Tobacco use Status Tobacco use date assessed 09/15/23 10/14/23 16:03 Patient Tobacco Use Status Former Tobacco user (09/2022) 10/14/23 16:03 e-Cigarette/Vaping Use Never Used 10/14/23 16:03 Thrive Assessment: Date of Thrive Assessment Date Thrive assessed 09/08/23 10/14/23 16:03 Telehealth Telehealth Location of provider rendering services: practice address Location of patient: address on file Patient Identification confirmed using: Name, : Yes Telehealth method: voice only Patient verbally consented to treatment: Yes Patient verbally consented to billing insurance company: Yes Patient informed of any privacy concerns related to visit: Yes Minutes spent on Phone/Video with Pt.: 29 Assessment and Plan Assessment & Plan (1) Frailty syndrome in geriatric patient: Comment: CONVERSATION ABOUT GOALS OF CARE HAD TODAY. PLAN FOR HOSPICE CONSULT WITH JEFF DYKES. ASKED LEVI TO KEEP ME UP TO DATE Code(s): R54 - Age-related physical debility (2) CHF (congestive heart failure): Comment: Echo 08/2023, Results requested from [facility] and pending at the time of this note on lasix, coreg and losartan labs from today reveal stable findings potassium is at 4.2 it is on the 20 mEq use daily we will continue this he is euvolemic on exam today. We will continue him on Lasix as well as KCl supplementation. Code(s): I50.9 - Heart failure, unspecified Qualifiers: Heart failure type: unspecified Heart failure chronicity: chronic Qualified Code(s): I50.9 - Heart failure, unspecified Orders: Referrals [facility] Referral I50.9 - Heart failure, unspecified, R54 - Age-related physical debility Coding Level of Care Code Tele Est Pt Level 3 (00505) Diagnoses Frailty syndrome in geriatric patient R54 Chronic congestive heart failure, unspecified heart failure type I50.9 Heart failure type: unspecified Heart failure chronicity: chronic
== END 2023-10-14 16:32 | disposition home or self-care (01) ==
PROVIDERS: PCP Hospitalist; Visit Provider Nurse Practitioner Family
DX: R54 Age-related physical debility (principal); I50.9 Heart failure, unspecified
CPT/HCPCS: 99443

== ENCOUNTER 2024-01-13 13:16 | Outpatient (AMB) | payer MEDICARE, MEDICAID, SELFPAY ==
--- NOTE | 2024-01-13 13:19 | A.OFFPC_ITS ---
Vital Signs 01/13/24 13:22 01/13/24 13:26 BMI Reason not done Patient refused/unable BP 142/64 H 144/76 H Blood Pressure Location Lt radial Lt brachial Position Sitting Sitting Respiration 16 Pulse 73 Pulse Source Pulse Oximeter Temp 98 F Temp Source Oral Pulse Oximetry (%) 99 Oxygen Delivery Method Room Air Intake Visit Reasons: Follow Up Intake Note: Follow up. Need medication to sleep. Ran out of bp medicaton. Trimmer Buffing Wheel Required: No Allergies Penicillins Allergy (Severe, Verified 01/13/24 13:20) Hives lisinopril Adverse Reaction (Verified 01/13/24 13:20) cough Medication List - Last Reconciled 01/18/24 by Chika Brunner MD acetaminophen 1,000 mg (2 x 500 mg) PO TID PRN 30 days acetazolamide 125 mg PO BID ammonium lactate 12% 1 appl topical BID 30 days aspirin 81 mg PO DAILY 30 days atorvastatin 80 mg PO BEDTIME brimonidine 0.2% 1 drp ophthalmic (eye) BID carvedilol 3.125 mg PO BID 30 days ergocalciferol (vitamin D2) 1,250 mcg PO QWEEK furosemide 20 mg PO DAILY 30 days gabapentin 600 mg PO TID 30 days latanoprost 0.005% 1 drp ophthalmic (eye) QPM lorazepam 0.5 mg PO TID PRN 28 days losartan 25 mg PO DAILY 30 days miscellaneous medical supply standard wheelchair miscellaneous medical supply Shower chair with back support miscellaneous medical supply wheel walker with seat nitroglycerin 0.3 mg sublingual Q5M PRN 30 days omeprazole 20 mg PO BID 30 days potassium chloride ER 10 mEq PO BID 30 days quetiapine (Seroquel) 100 mg PO BEDTIME 30 days tamsulosin 0.4 mg PO DAILY 30 days ticagrelor (Brilinta) 90 mg PO BID 30 days tramadol 50 mg PO BID PRN 7 days Tobacco use date assessed: 01/13/24 Fall risk assessment: 1 Fall in past year Last assessed Fall Risk: 01/13/24 Dental Screening Dental Screen Date: 09/15/23 HPI HPI Comments History of Present Illness Details 83-year-old male with complex past medic al history including but not limited to CVAs coronary artery disease S/P NSTEMI 2012 with drug eluting stent x 1, BPH, neuropathy, hypertension, hyperlipidemia, anxiety and depression, CHF, cardiac pacemaker, GERD, tracheomalacia & OA, cataracts bilat, glaucoma, former smoker, anxiety, chronic pain presenting for follow up. Accompanied by Elder Bustillo Patient was previously assessed and placed on hospice. Per PCPs last noted L adrenal nodule he thinks this is cancer He does not want to do any more MRI or CT scan, as he doesnt want to lie flat; Renal>Cards didnt want to go to this appt with Cards Discharged from [facility] as he has met his max potential (Patricia) Cancelled 3 medical appts so far; does not want open heart surgery; does not want to leave the house to go to medical appointments ,just wants to stay home. Keep saying that he is old. Hospice discussed at last office visit. Niece would like for this referral to be placed for consultation. Her mother is also involved in the medical decision-making for Michel. Michel's wishes at this time are to remain home and comfortable with little medical intervention. He was recently discharged from [facility] who does not offer hospice services. A referral will be placed to [facility] hospice. The family requests that the niece remains the primary contact. If at all possible request this visit to be done with a Sammarinese speaking person so that Michel can hear 1st hand with a conversation is about. He was discharged from hospice after he fell at home, was bleeding and in pain- niece says she called hospice but they were taking awhile to come over and she instead called the ambulance to go to the ER. He is in need of medication refills. [facility] Medical History (Updated 01/18/24 @ 10:48 by Chika Brunner MD) Cardiac pacemaker History of multiple strokes Pacemaker Hypertension Surgical History (Updated 09/08/23 @ 11:05 by MICHELE Calderon) History of heart artery stent Social History (Updated 10/07/23 @ 13:18 by Jordana Rubio CMA) Household Members: None Housing: House Alcohol intake: never Patient Tobacco Use Status: Former Tobacco user (09/2022) e-Cigarette/Vaping Use: Never Used Second Hand Smoke Exposure: Yes service: No Current occupational status: disabled Sexual orientation: Straight/Heterosexual Gender identity: Male Cognitive needs: Yes (walker, wheel chair, cane) Hearing needs: No Vision needs: Yes (Glasses) Questionnaire Thrive Questionnaire Date Thrive assessed: 09/08/23 DEMETRA-7 AMB Questionnaire DEMETRA-7 Date DEMETRA - 7 assessed: 09/08/23 Source: Developed by Drs. Micah Rooney, Blanka Nunes, Yasmany Amezquita and colleagues, with an educational naila from [employer]. Review of Systems Const Details: see HPI Physical exam (Primary Care) Vital Signs: Last Vital Signs Temp 98 F 01/13/24 13:22 Pulse 73 01/13/24 13:22 Resp 16 01/13/24 13:22 BP 144/76 H 01/13/24 13:26 Pulse Ox 99 01/13/24 13:22 Oxygen Delivery Method Room Air 01/13/24 13:22 Tobacco/Smoking Status: Tobacco use Status Tobacco use date assessed 01/13/24 01/13/24 13:23 Patient Tobacco Use Status Former Tobacco user (09/2022) 01/13/24 13:20 e-Cigarette/Vaping Use Never Used 01/13/24 13:20 Thrive Assessment: Date of Thrive Assessment Date Thrive assessed 09/08/23 01/13/24 13:20 Advance Care Planning discussion: Exists, not on file Const Other: Frail, chronically ill appearing, accompanied by Nede[place] who helps w/ language barriers MMM RRR LS CTAB , dim throughout BLE with trace edema, decreased PP bilat, skin hairless with with slight scaling, better than previously assessed. Sitting in w/c with cane Assessment and Plan Assessment & Plan (1) NSTEMI (non-ST elevated myocardial infarction): Comment: NSTEMI w/ AIME x 3 08/2023 ASA indef. Brilinta for 1 year (stop 08/12/2024) NSTEMI 2012 w/ AIME [facility] Cards to Manage Code(s): I21.4 - Non-ST elevation (NSTEMI) myocardial infarction (2) Physical deconditioning: Comment: They would like to revisit hospice care Code(s): R53.81 - Other malaise (3) CHF (congestive heart failure): Comment: continue f/up cardiology Code(s): I50.9 - Heart failure, unspecified Qualifiers: Heart failure type: unspecified Heart failure chronicity: chronic Qualified Code(s): I50.9 - Heart failure, unspecified (4) Frailty syndrome in geriatric patient: Comment: consider referral again to hospice Code(s): R54 - Age-related physical debility Medications: New lorazepam 0.5 mg PO TID 28 days PRN 84 tabs 0RF anxiety tramadol 50 mg PO BID 7 days PRN 14 tabs 0RF pain Refilled acetaminophen AVAILABLE OTC. DO NOT EXCEED 3GM OR 6 TABS IN 24 HOURS. 1,000 mg (2 x 500 mg) PO TID 30 days PRN 180 caps 2RF fever or pain quetiapine (Seroquel) 100 mg PO BEDTIME 30 days 30 tabs 0RF R45.1 - Restlessness and agitation omeprazole 20 mg PO BID 30 days 60 caps 3RF losartan 25 mg PO DAILY 30 days 30 tabs 0RF gabapentin 600 mg PO TID 30 days 90 tabs 0RF M54.41 - Lumbago with sciatica, right side furosemide 20 mg PO DAILY 30 days 30 tabs 0RF carvedilol 3.125 mg PO BID 30 days 60 tabs 0RF tamsulosin 0.4 mg PO DAILY 30 days 30 caps 1RF potassium chloride ER 10 mEq PO BID 30 days 60 caps 0RF carvedilol 3.125 mg PO BID 30 days 60 tabs 0RF atorvastatin 80 mg PO BEDTIME 90 tabs 1RF aspirin 81 mg PO DAILY 30 days 30 tabs 3RF Coding Level of Care Code Est Pt Level 5 (97676) Diagnoses NSTEMI (non-ST elevated myocardial infarction) I21.4 Physical deconditioning R53.81 Chronic congestive heart failure, unspecified heart failure type I50.9 Heart failure type: unspecified Heart failure chronicity: chronic Frailty syndrome in geriatric patient R54 Additional Codes Vital Signs *Quality* - Advance Care Planning discussion: Exists, not on file ([id number])
[2024-01-13 13:22] VITALS: BP 142/64; PULSE 73; RESP 16; TEMP 36.6; O2SAT 99
[2024-01-13 13:26] VITALS: BP 144/76
== END 2024-01-13 14:07 | disposition home or self-care (01) ==
PROVIDERS: PCP Hospitalist; Visit Provider Internal Medicine
DX: I50.9 Heart failure, unspecified (principal); I25.2 Old myocardial infarction; R54 Age-related physical debility; Z00.00 Encounter for general adult medical examination without abnormal findings
CPT/HCPCS: 1123F; 99215

== ENCOUNTER 2024-07-05 09:25 | Outpatient (AMB) | payer MEDICARE, MEDICAID, SELFPAY ==
--- NOTE | 2024-07-05 09:30 | MHC.PC.OV ---
Vital Signs 07/05/24 09:34 07/05/24 10:02 Height 5 ft 6 in BMI Reason not done Patient refused/unable BP 150/80 H 138/76 Blood Pressure Location Lt brachial Lt brachial Position Sitting Sitting Respiration 14 Pulse 75 Pulse Source Pulse Oximeter Pulse Oximetry (%) 98 Oxygen Delivery Method Room Air Intake Visit Reasons: follow up/refill meds Intake Note: follow up on meds and also needs refill on lorazepam. Switchboard Mechanic Required: Yes Switchboard Mechanic Name: patient refuse intreperter Trip Motor Operator: Present (niece) Accompanied by: niece Allergies Penicillins Allergy (Severe, Verified 07/05/24 09:47) Hives lisinopril Adverse Reaction (Verified 07/05/24 09:47) cough Medication List - Last Reconciled 07/05/24 by GARETT Mccarty- acetaminophen 1,000 mg (2 x 500 mg) PO TID PRN 30 days acetazolamide 125 mg PO BID ammonium lactate 12% 1 appl topical BID 30 days aspirin 81 mg PO DAILY 30 days atorvastatin 80 mg PO BEDTIME brimonidine 0.2% 1 drp ophthalmic (eye) BID carvedilol 3.125 mg PO BID 30 days ergocalciferol (vitamin D2) 1,250 mcg PO QWEEK furosemide 20 mg PO DAILY 30 days gabapentin 600 mg PO TID 30 days latanoprost 0.005% 1 drp ophthalmic (eye) QPM lorazepam 0.5 mg PO TID PRN 28 days losartan 25 mg PO DAILY 90 days miscellaneous medical supply standard wheelchair miscellaneous medical supply Shower chair with back support miscellaneous medical supply wheel walker with seat nitroglycerin 0.3 mg sublingual Q5M PRN 30 days omeprazole 20 mg PO BID 30 days potassium chloride ER 10 mEq PO BID 90 days quetiapine (Seroquel) 100 mg PO BEDTIME 30 days tamsulosin 0.4 mg PO DAILY 30 days ticagrelor (Brilinta) 90 mg PO BID 30 days tramadol 50 mg PO BID PRN 7 days Tobacco use date assessed: 01/13/24 Dental Screening Dental Screen Date: 09/15/23 HPI HPI Comments History of Present Illness Details 83-year-old male with chronic small-vessel ischemic disease, multiple old infarcts throughout the basal ganglia, thalami and coronal radiata, diffuse cerebral volume loss, coronary artery disease S/P NSTEMI 2013 with drug eluting stent x 1, BPH, neuropathy, hypertension, hyperlipidemia, anxiety and depression, tortuosity of the thoracic aorta, CHF, cardiac pacemaker, GERD, tracheomalacia & OA, cataracts bilat, glaucoma, former smoker Niece Iwona The patient is an 83-year-old male presenting with routine f/u. Since last office visit his hospice services were discontinued after a fall that caused bleeding which required an emergency room visit. The patient and his caregivers reported dissatisfaction with previous hospice care, citing challenges with care instructions and program requirements. Since the fall, the patient has been managing with support from personal care aides, providing approximately 49 hours of weekly assistance. He has experienced issues with medication management, having discontinued potassium due to experiencing leg weakness and stopped a previously administered pain medication prescribed by hospice. He reported the inability to self-ambulate effectively without a walker and noted difficulty with hand coordination, which affects his ability to manage daily tasks independently. Social History - Lives at home with part-time assistance from personal care aides (49 hours/week via [employer]). - Dependent on family support for additional care and emergencies. - Lacks 24/ in-home care coverage, leading to challenges in fulfilling self-care needs continuously. Review of Systems - Musculoskeletal: Reports weakness in legs; difficulty with fine motor skills. - Neurological: Reports difficulty handling objects; does not require constant supervision but has coordination issues. - Urinary: Utilizes a urinal bottle due to mobility limitations. - Ears, Eyes Nose, Throat: History of vision issues potentially impacting environment navigation. Exam Frail, chronically ill appearing, accompanied by Neice who helps w/ language barriers MMM RRR LS CTAB , dim throughout BLE with trace edema, decreased PP bilat, skin hairless with with slight scaling. Sitting in w/c with cane Alert oriented, has capacity to make his own decisions Plan - Post-fall care: Continue managing symptoms, prioritizing comfort and mobility at home. Evaluate potential for increasing CUT OUT AND MARKING MACHINE OPERATOR hours or altering agency services. - Medication/Prescription Management: Discontinue potassium supplements; review alternative pain management strategies. - Preventive Health: Encourage home safety measures, e.g., potential implementation of medical alert systems for fall detection and emergency response. - Monitoring: Schedule biannual visits to assess overall health status, manage ongoing medication needs, and adapt care plans as necessary. Patient was informed and verbally consented to the use of an ambient scribe for clinic note documentation during this visit. Discussion Notes During our consultation, we reviewed the patient's current management and hospice care status. Given the complications experienced, the plan to avoid re-engaging with hospice was agreed upon, with openness to exploring other agency options if necessary. Discussed the importance of maintaining regular health evaluations, with emphasis on comfort and dignity as care priorities. Offered assistance in facilitating communication with CUT OUT AND MARKING MACHINE OPERATOR agency to explore potential hour increases or adjustments. Reiterated importance of continuing medication management post-discontinuation of consensus medications. He wishes to be full comfort measures. He does not wish to have any invasive procedures. Does not want multiple medical appointments or frequent lab monitoring. At the same time he does not want hospice at this time as he did not feel like this benefit was helpful to him. He would like to proceed with a palliative comfort care plan of care. NETTE completed today Patient Instructions - Communicate with care agency ([facility]) to discuss care hours and potential adjustments. - Resume prescribed medications except where discontinued for safety (potassium). - Monitor health status in coordination with primary caregivers for any changes or emergent needs. - Schedule biannual visits for ongoing evaluation and care adjustment. - Utilize emergency contact procedures as appropriate ensuring response preparedness. Referral placed to nurse navigation to help with getting a lifeline. Goal is comfort measures, we will need to review the prescribing at future visits. I have sent him in a prescription for morphine ER 10 mg p.o. b.i.d.. He was previously prescribed morphine 30 mg ER from the hospice doctor. He has been without this for a couple of months. Does report positive pain relief from this. He was also prescribed tramadol however this did not provide benefit. I do need to see him at least twice per year. If his condition worsens, advised with the niece to let me know. Could always change next visit to video visit if he is unable to get out of bed. Total time spent caring for the patient today was 45 minutes. This includes time spent before the visit reviewing the chart, time spent during the visit, and time spent after the visit on documentation [facility] Medical History (Updated 07/05/24 @ 17:04 by TACOS Mccarty) Cardiac pacemaker History of multiple strokes Pacemaker Hypertension Surgical History (Updated 01/29/24 @ 11:05 by MICHELE Calderon) History of heart artery stent Social History (Updated 10/07/23 @ 13:18 by Jordana Rubio CMA) Household Members: None Housing: House Alcohol intake: never Patient Tobacco Use Status: Former Tobacco user (09/2022) e-Cigarette/Vaping Use: Never Used Second Hand Smoke Exposure: Yes service: No Current occupational status: disabled Sexual orientation: Straight/Heterosexual Gender identity: Male Cognitive needs: Yes (walker, wheel chair, cane) Hearing needs: No Vision needs: Yes (Glasses) Questionnaire PHQ-9 Over the last 2 weeks, how often have you been bothered by any of the following problems? 1. Little interest or pleasure in doing things: not at all 2. Feeling down, depressed, or hopeless: nearly every day 3. Trouble falling or staying asleep, or sleeping too much: nearly every day 4. Feeling tired or having little energy: several days 5. Poor appetite or overeating: not at all 6. Feeling bad about yourself - or that you are a failure or have let yourself or your family down: not at all 7. Trouble concentrating on things, such as reading the newspaper or watching television: several days 8. Moving or speaking so slowly that other people could have noticed. Or the opposite - being so fidgety or restless that you have been moving around a lot more than usual: not at all 9. Thoughts that you would be better off or of hurting yourself in some way: not at all Total score: 8 31854 - PHQ-9 Billing: Yes Source: Developed by Drs. Micah Rooney, Blanka Nunes, Yasmany Amezquita and colleagues, with an educational naila from [employer]. Thrive Questionnaire Date Thrive assessed: 07/05/24 I am a: Parent/Caregiver What is your living situation today?: I have a steady place to live Within the past 12 months, did the food you bought not last and you didn't have the money to get more?: Never true Within the past 12 months, did you worry whether your food would run out before you got money to buy more?: Never true Do you have trouble paying for medicines?: No Do you have trouble getting transportation to medical appointments?: No Do you have trouble paying your heating and electricity bill?: No Do you have trouble taking care of your child, family member or friend?: No Do you have trouble with day-to-day activities such as bathing, preparing meals, shopping, managing finances, etc.?: Yes Are you currently unemployed and looking for a job?: No Are you interested in more education?: No Please select the resources that you would like help with: None Currently or been in a relationship where the following occur: No concerns reported THRIVE Score: 0 AUDIT C Alcohol Use Questionnaire (AUDIT-C) 1. How often do you have a drink containing alcohol?: Never Total Score: 0 DEMETRA-7 AMB Questionnaire DEMETRA-7 Date DEMETRA - 7 assessed: 07/05/24 Feeling nervous, anxious, or on edge: 3 = Nearly every day Not being able to stop or control worryin = Not at all Worrying too much about different things: 0 = Not at all Trouble relaxin = Nearly every day Being so restless that it is hard to sit still: 1 = Several days Becoming easily annoyed or irritable: 0 = Not at all Feeling afraid as if something awful might happen: 0 = Not at all Total DEMETRA-7 score (0-4 normal; 5-9 mild; 10-14 moderate; 15-21 severe): 7 Source: Developed by Drs. Micah Rooney, Blanka Nunes, Yasmany Amezquita and colleagues, with an educational naila from [employer]. DEMETRA-7 Assessment Billing DEMETRA-7 Assessment Tool: DEMETRA-7 Assessment 02792 Physical exam (Primary Care) Vital Signs: Last Vital Signs Pulse 75 07/05/24 09:34 Resp 14 07/05/24 09:34 BP 138/76 07/05/24 10:02 Pulse Ox 98 07/05/24 09:34 Oxygen Delivery Method Room Air 07/05/24 09:34 Tobacco/Smoking Status: Tobacco use Status Tobacco use date assessed 01/13/24 07/05/24 09:32 Patient Tobacco Use Status Former Tobacco user (09/2022) 07/05/24 09:32 e-Cigarette/Vaping Use Never Used 07/05/24 09:32 PHQ-9: PHQ-9 Score PHQ-9: Total score 8 07/05/24 10:14 Thrive Assessment: Date of Thrive Assessment Date Thrive assessed 07/05/24 07/05/24 09:32 Currently or been in a relationship where the following occur: No concerns reported Advance Care Planning discussion: Completed/Scanned Date of discussion: 07/05/24 Who was present: pt and neice Forms completed: Comfort care/DNR Time spent: 16-45 minutes Actual minutes spent: 16 Office Procedures Office Procedure Misc Details: 72206 FIRST 30 MIN ACP DISCUSSION/COMPLETION #16 MINUTES Office Procedure Billing Code: AMB Procedure Billing Code (41159) Coding Level of Care Code Est Pt Level 5 (47889) Complex EM visit Add On G2211 Diagnoses Palliative care status Z51.5 Frailty syndrome in geriatric patient R54 Influenza vaccination declined Z28.21 DNR (do not resuscitate) Z66 Chronic congestive heart failure, unspecified heart failure type I50.9 Heart failure type: unspecified Heart failure chronicity: chronic NSTEMI (non-ST elevated myocardial infarction) I21.4 CPT Codes Office Procedure - Office Procedure Billing Code: AMB Procedure Billing Code ([id number]) Additional Codes DEMETRA-7 Assessment Billing - DEMETRA-7 Assessment Tool: DEMETRA-7 Assessment 74755 ([id number]) PHQ-9 - 74038 - PHQ-9 Billing: Yes ([id number]) Vital Signs *Quality* - Advance Care Planning discussion: Completed/Scanned ([id number]) Vital Signs *Quality* - Time spent: 16-45 minutes ([id number]) Assessment & Plan Assessment & Plan (1) Palliative care status: Code(s): Z51.5 - Encounter for palliative care Category: Medical (2) Frailty syndrome in geriatric patient: Code(s): R54 - Age-related physical debility Category: Medical (3) Influenza vaccination declined: Code(s): Z28.21 - Immunization not carried out because of patient refusal Category: Medical (4) DNR (do not resuscitate): Code(s): Z66 - Do not resuscitate Category: Medical (5) CHF (congestive heart failure): Comment: continue f/up cardiology Code(s): I50.9 - Heart failure, unspecified Category: Medical Qualifiers: Heart failure type: unspecified Heart failure chronicity: chronic Qualified Code(s): I50.9 - Heart failure, unspecified (6) NSTEMI (non-ST elevated myocardial infarction): Comment: NSTEMI w/ AIME x 3 08/2023 ASA indef. Brilinta for 1 year (stop 08/12/2024) NSTEMI 2012 w/ AIME Code(s): I21.4 - Non-ST elevation (NSTEMI) myocardial infarction Category: Medical Plan . Orders: Referrals Nurse Navigator Referral R54 - Age-related physical debility Medications: New morphine ER PALLIATIVE CARE PATIENT 10 mg PO Q12H 28 caps 0RF Changed From aspirin 81 mg PO DAILY 30 days 30 tabs 3RF To aspirin 81 mg PO DAILY 90 tabs 3RF From carvedilol 3.125 mg PO BID 30 days 60 tabs 0RF To carvedilol 3.125 mg PO BID 90 days 180 tabs 2RF From furosemide 20 mg PO DAILY 30 days 30 tabs 0RF To furosemide 20 mg PO DAILY 90 days 90 tabs 2RF From gabapentin 600 mg PO TID 30 days 90 tabs 0RF M54.41 - Lumbago with sciatica, right side To gabapentin 600 mg PO TID 90 days 270 tabs 2RF M54.41 - Lumbago with sciatica, right side From omeprazole 20 mg PO BID 30 days 60 caps 3RF To omeprazole 20 mg PO BID 90 days 180 caps 3RF From quetiapine (Seroquel) 100 mg PO BEDTIME 30 days 30 tabs 0RF R45.1 - Restlessness and agitation To quetiapine (Seroquel) 100 mg PO BEDTIME 90 tabs 2RF R45.1 - Restlessness and agitation From ticagrelor (Brilinta) 90 mg PO BID 30 days 60 tabs 0RF To ticagrelor (Brilinta) 90 mg PO BID 90 days 180 tabs 2RF From acetazolamide 125 mg PO BID To acetazolamide 125 mg PO BID 90 days 180 tabs 2RF From ergocalciferol (vitamin D2) 1,250 mcg PO QWEEK 4 caps 0RF To ergocalciferol (vitamin D2) 1,250 mcg PO QWEEK 90 days 13 caps 2RF From tamsulosin 0.4 mg PO DAILY 30 days 30 caps 1RF To tamsulosin 0.4 mg PO DAILY 90 days 90 caps 2RF Refilled losartan 25 mg PO DAILY 90 days 90 tabs 3RF atorvastatin 80 mg PO BEDTIME 90 tabs 2RF lorazepam 0.5 mg PO TID 28 days PRN 84 tabs 0RF anxiety Discontinued tramadol Discontinued Reason: Patient no longer taking 50 mg PO BID 7 days PRN 14 tabs 0RF pain potassium chloride ER Discontinued Reason: Patient no longer taking 10 mEq PO BID 90 days 180 caps 3RF
[2024-07-05 09:34] VITALS: BP 150/80; PULSE 75; RESP 14; O2SAT 98
[2024-07-05 10:02] VITALS: BP 138/76
== END 2024-07-05 10:11 | disposition home or self-care (01) ==
PROVIDERS: PCP Nurse Practitioner Family; Visit Provider Nurse Practitioner Family
DX: I50.9 Heart failure, unspecified (principal); I21.4 Non-ST elevation (NSTEMI) myocardial infarction; Z51.5 Encounter for palliative care; Z66 Do not resuscitate; R54 Age-related physical debility; Z28.21 Immunization not carried out because of patient refusal; Z00.00 Encounter for general adult medical examination without abnormal findings

== ENCOUNTER → 2024-07-05 09:25 | Outpatient (BNVA) | payer MEDICARE, MEDICAID, SELFPAY | PROVIDERS: PCP Nurse Practitioner Family; Visit Provider Nurse Practitioner Family | DX: I50.9 Heart failure, unspecified (principal); I21.4 Non-ST elevation (NSTEMI) myocardial infarction; R54 Age-related physical debility; Z66 Do not resuscitate; Z51.5 Encounter for palliative care | CPT/HCPCS: 96127; 99212; 99497 ==

== ENCOUNTER 2024-09-21 11:09 | Outpatient (AMB) | payer MEDICARE, MEDICAID, SELFPAY ==
--- NOTE | 2024-09-21 11:32 | A.OFFPC_ITS ---
Vital Signs 09/21/24 11:42 Height 5 ft 6 in Weight 164 lb 2 oz BMI 26.5 BP 100/64 Blood Pressure Location Rt brachial Position Sitting Respiration 14 Pulse 68 Pulse Source Pulse Oximeter Pulse Oximetry (%) 98 Oxygen Delivery Method Room Air Intake Visit Reasons: discharged on 09/13 from [facility] Note: Hospital follow up Double Corner Cutter Required: Yes Double Corner Cutter Name: lead consultant declined Accompanied by: Nephew or Niece Allergies Penicillins Allergy (Severe, Verified 09/21/24 12:22) Hives lisinopril Adverse Reaction (Verified 09/21/24 12:22) cough Medication List - Last Reconciled 09/21/24 by Amy Win, APPRENTICESHIP REPRESENTATIVE- acetaminophen 1,000 mg (2 x 500 mg) PO TID PRN 30 days acetazolamide 125 mg PO BID 90 days ammonium lactate 12% 1 appl topical BID 30 days aspirin 81 mg PO DAILY atorvastatin 80 mg PO BEDTIME brimonidine 0.2% 1 drp ophthalmic (eye) BID carvedilol 3.125 mg PO BID 90 days ergocalciferol (vitamin D2) 1,250 mcg PO QWEEK 90 days furosemide 20 mg PO DAILY 90 days gabapentin 600 mg PO TID 90 days latanoprost 0.005% 1 drp ophthalmic (eye) QPM lorazepam 0.5 mg PO TID PRN 28 days losartan 25 mg PO DAILY 90 days miscellaneous medical supply standard wheelchair miscellaneous medical supply Shower chair with back support miscellaneous medical supply wheel walker with seat morphine ER 10 mg PO Q12H nitroglycerin 0.3 mg sublingual Q5M PRN 30 days omeprazole 20 mg PO BID 90 days quetiapine (Seroquel) 100 mg PO BEDTIME tamsulosin 0.4 mg PO DAILY 90 days ticagrelor (Brilinta) 90 mg PO BID 90 days Tobacco use date assessed: 01/13/24 Fall risk assessment: No Falls in past year Last assessed Fall Risk: 09/21/24 Dental Screening Dental Screen Date: 09/15/23 HPI HPI Comments History of Present Illness Details 84-year-old male with chronic small-vess el ischemic disease, multiple old infarcts throughout the basal ganglia, thalami and coronal radiata, diffuse cerebral volume loss, coronary artery disease S/P NSTEMI 2012 with drug eluting stent x 1, BPH, neuropathy, hypertension, hyperlipidemia, anxiety and depression, tortuosity of the thoracic aorta, CHF, cardiac pacemaker, GERD, tracheomalacia & OA, cataracts bilat, glaucoma, former smoker Here today for a Transitional Care Management Visit Discharge summary was not reviewed as it was not available before, during or after the visit. It was requested. All of the details are from the Elder uBstillo. I have no other records to corroborate Admission Date: unknown Discharge Date: 09/13/24 Hospital: [facility] Date of interactive contact with Nurse Navigator: as documented in chart Pending diagnostic tests/treatments: unkown Pending consults: unknown DME: none according to elder PT/OT/REBAR WORKER: [facility] Aide/MOVIE SHOT CAMERA OPERATOR: Community Resources: Asst Living: Home Health: Hospice: Support group: Other: Referrals: Medications reconciled & updated. Reports 2 antibiotics which he completed. No other med changes. During todays TCM visit, the d/c summary was reviewed, along with the need for or follow-up on pending diagnostic tests and treatments, as necessary interaction with other health wild animal caretaker who will assume or reassume care of the beneficiary?s system-specific problems was done or is being worked on, education was provided to the beneficiary, family, guardian, and/or caregiver, referrals to establish or re-establish and arrange needed community resources we completed, assistance in scheduling required follow-up with community providers and services & finally updated medication list given to patient/caregiver He was initially admitted to the hospital with a urinary tract infection and subsequently treated with antibiotics before being discharged. Approximately one week later, he was re-admitted with a diagnosis of bacterial pneumonia and completed a course of two antibiotic pills provided at discharge. The patient reports persistent right-sided pleuritic pain, exacerbated by deep breathing. He also notes intermittent shortness of breath and mild fatigue but denies cough or fever post-treatment. The patient experiences unrelieved pain currently managed with [id number] Tylenol as his prescribed morphine was not covered by insurance following his exit from hospice care. The insurance had previously covered morphine when the patient was under hospice care in November. The patient remains agitated and reports disrupted sleep due to discomfort. In regards to his other chronic conditions, he cont to take all meds as prescribed. Euvolemic. No chest pain. No edema BLE. On statin, BB and ASA. Jeremy 1 year completed Aug 2024. Exam Frail, chronically ill appearing, accompanied by Nedeacon who helps w/ language barriers MMM RRR LS CTAB , dim throughout BLE no edema, decreased PP bilat, skin hairless with with slight scaling. Sitting in w/c with cane Alert oriented, has capacity to make his own decisions Discussion Notes During this visit, we extensively discussed the patient?s pain management challenges due to insurance issues related to morphine coverage cessation post- hospice. I have informed the patient that my team will follow up with the insurance company regarding possible coverage alternatives, like oxycodone. We discussed continuing the current medication regmine and keeping vigilant for any concerning symptoms that may warrant re-evaluation or imaging. I advised on utilizing my patient portal for direct communication as phone calls were not reliably reaching me. Patient Instructions - Continue using Tylenol for pain manage ment as needed. - Monitor symptoms including pain intens ity, shortness of breath, and any new or worsening symptoms. - Contact healthcare providers through t patient portal for more efficient communication. - Follow up with home healthcare provide r for possible continuation of nursing visits and inquire about additional services. - Please send me name of hospice agency you want to work with. - If any f/u is required after HDF ppw i s rec'd, I will communicate them. Plan The primary concerns revolve around managing the patient?s pain and monitoring his recovery from the recent bacterial pneumonia and urinary tract infection. I plan to coordinate with the nursing team and pharmacies to ensure a consistent management plan, particularly addressing the insurance coverage for medications. We will review alternatives such as oxycodone for pain management. Further diagnostic imaging may be reconsidered should symptoms escalate. Additionally, the possibility of reinstating hospice through local providers will be examined. Our goal is maintaining patient comfort and monitoring for any recurrence of infection-related symptoms. Any necessary changes to this plan will be communicated through our designated patient portal to ensure porter attention and adaptation of care. Patient was informed and verbally consented to the use of an ambient scribe for clinic note documentation during this visit. Total time spent caring for the patient today was 60 minutes. This includes time spent before the visit reviewing the chart, time spent during the visit, and time spent after the visit on documentation, reviewing laboratory results, diagnostic imaging, medications, performing a medically necessary evaluation, counseling on diagnoses, care coordination, ordering appropriate tests, ordering appropriate medications, review of tests performed by other providers, reporting test results with the patient, communication with other healthcare providers. [facility] Medical History (Updated 09/21/24 @ 15:38 by Amy Win, [facility]) Cardiac pacemaker History of multiple strokes Hypertension NSTEMI (non-ST elevated myocardial infarction) Pacemaker Surgical History History of heart artery stent Social History (Updated 09/21/24 @ 11:42 by Cammy Beltran CMA) Household Members: None Housing: House Alcohol intake: never Patient Tobacco Use Status: Former Tobacco user Cigarette Packs Per Day: 2 Years Smoked: 43 e-Cigarette/Vaping Use: Never Used Second Hand Smoke Exposure: Yes service: No Current occupational status: disabled Sexual orientation: Straight/Heterosexual Gender identity: Male Cognitive needs: Yes (walker, wheel chair, cane) Hearing needs: No Vision needs: Yes (Glasses) Questionnaire PHQ-9 Over the last 2 weeks, how often have you been bothered by any of the following problems? 1. Little interest or pleasure in doing things: several days 2. Feeling down, depressed, or hopeless: not at all 3. Trouble falling or staying asleep, or sleeping too much: several days 4. Feeling tired or having little energy: not at all 5. Poor appetite or overeating: several days 6. Feeling bad about yourself - or that you are a failure or have let yourself or your family down: not at all 7. Trouble concentrating on things, such as reading the newspaper or watching television: not at all 8. Moving or speaking so slowly that other people could have noticed. Or the opposite - being so fidgety or restless that you have been moving around a lot more than usual: not at all 9. Thoughts that you would be better off or of hurting yourself in some way: not at all Total score: 3 Depression Screening Interpretation: Negative Depression Screening Done: Yes 86488 - PHQ-9 Billing: Yes Source: Developed by Drs. Micah Rooney, Blanka Nunes, Yasmany Amezquita and colleagues, with an educational naila from [employer]. Thrive Questionnaire Date Thrive assessed: 09/21/24 I am a: Patient What is your living situation today?: I have a steady place to live Within the past 12 months, did the food you bought not last and you didn't have the money to get more?: I choose not to answer this question Within the past 12 months, did you worry whether your food would run out before you got money to buy more?: I choose not to answer this question Do you have trouble paying for medicines?: No Do you have trouble getting transportation to medical appointments?: No Do you have trouble paying your heating and electricity bill?: No Do you have trouble taking care of your child, family member or friend?: No Do you have trouble with day-to-day activities such as bathing, preparing meals, shopping, managing finances, etc.?: No Are you currently unemployed and looking for a job?: No Are you interested in more education?: No Please select the resources that you would like help with: None Currently or been in a relationship where the following occur: No concerns reported THRIVE Score: 0 AUDIT C Alcohol Use Questionnaire (AUDIT-C) 1. How often do you have a drink containing alcohol?: Never 3. How often do you have six or more drinks on one occasion?: Never Total Score: 0 Score Reviewed/Action Taken: Yes DEMETRA-7 AMB Questionnaire DEMETRA-7 Date DEMETRA - 7 assessed: 09/21/24 Feeling nervous, anxious, or on edge: 0 = Not at all Not being able to stop or control worryin = Not at all Worrying too much about different things: 0 = Not at all Trouble relaxin = Not at all Being so restless that it is hard to sit still: 0 = Not at all Becoming easily annoyed or irritable: 0 = Not at all Feeling afraid as if something awful might happen: 0 = Not at all Total DEMETRA-7 score (0-4 normal; 5-9 mild; 10-14 moderate; 15-21 severe): 0 Source: Developed by Drs. Micah Rooney, Blanka Nunes, Yasmany Amezquita and colleagues, with an educational naila from [employer]. DEMETRA-7 Assessment Billing DEMETRA-7 Assessment Tool: DEMETRA-7 Assessment 80039 Physical exam (Primary Care) Vital Signs: Last Vital Signs Pulse 68 09/21/24 11:42 Resp 14 09/21/24 11:42 BP 100/64 09/21/24 11:42 Pulse Ox 98 09/21/24 11:42 Oxygen Delivery Method Room Air 09/21/24 11:42 BMI result Body Mass Index 26.5 Tobacco/Smoking Status: Tobacco use Status Tobacco use date assessed 01/13/24 09/21/24 11:33 Patient Tobacco Use Status Former Tobacco user 09/21/24 11:42 e-Cigarette/Vaping Use Never Used 09/21/24 11:42 PHQ-9: PHQ-9 Score PHQ-9: Total score 3 09/21/24 14:03 Depression Screening Interpretation: Negative Thrive Assessment: Date of Thrive Assessment Date Thrive assessed 09/21/24 09/21/24 14:03 Currently or been in a relationship where the following occur: No concerns reported Coding Level of Care Code TCM High MDM <= 14 days Complex EM visit Add On G2211 Diagnoses Hospital discharge follow-up Z09 Chronic congestive heart failure, unspecified heart failure type I50.9 Heart failure type: unspecified Heart failure chronicity: chronic Stage 3a chronic kidney disease N18.31 Chronic kidney disease stage 3 subtype: stage 3a (GFR 45-59) Coronary artery disease involving kashia coronary artery of kashia heart with angina pectoris I25.119 Coronary Disease-Associated Artery/Lesion type: kashia artery [place] vs. transplanted heart: kashia heart DNR (do not resuscitate) Z66 Frailty syndrome in geriatric patient R54 Primary hypertension I10 Hypertension type: primary hypertension Old non-ST elevation myocardial infarction (NSTEMI) I25.2 Palliative care status Z51.5 PVD (peripheral vascular disease) I73.9 Restlessness and agitation R45.1 Pneumonia due to infectious organism, unspecified laterality, unspecified part of lung J18.9 Pneumonia type: due to unspecified organism Laterality: unspecified laterality Lung location: unspecified part of lung Additional Codes DEMETRA-7 Assessment Billing - DEMETRA-7 Assessment Tool: DEMETRA-7 Assessment 07346 ([id number]) PHQ-9 - 37905 - PHQ-9 Billing: Yes ([id number]) Assessment & Plan Assessment & Plan (1) Hospital discharge follow-up: Code(s): Z09 - Encounter for follow-up examination after completed treatment for conditions other than malignant neoplasm (2) CHF (congestive heart failure): Comment: continue f/up cardiology Code(s): I50.9 - Heart failure, unspecified Category: Medical Qualifiers: Heart failure type: unspecified Heart failure chronicity: chronic Qualified Code(s): I50.9 - Heart failure, unspecified (3) CKD (chronic kidney disease) stage 3, GFR 30-59 ml/min: Comment: CrCL 50.93 08/11/2023 Cr 1.0 08/11/2023 Managed by [facility] at [facility] Dr Oliverio QUINTERO [id number] BUN 14 creatinine 1.39 GFR 49 Code(s): N18.30 - Chronic kidney disease, stage 3 unspecified Category: Medical Qualifiers: Chronic kidney disease stage 3 subtype: stage 3a (GFR 45-59) Qualified Code(s): N18.31 - Chronic kidney disease, stage 3a (4) Coronary artery disease with angina pectoris: Code(s): I25.119 - Atherosclerotic heart disease of kashia coronary artery with unspecified angina pectoris Category: Medical Qualifiers: Coronary Disease-Associated Artery/Lesion type: kashia artery [place] vs. transplanted heart: kashia heart Qualified Code(s): I25.119 - Atherosclerotic heart disease of kashia coronary artery with unspecified angina pectoris (5) DNR (do not resuscitate): Code(s): Z66 - Do not resuscitate Category: Medical (6) Frailty syndrome in geriatric patient: Code(s): R54 - Age-related physical debility Category: Medical (7) Hypertension: Code(s): I10 - Essential (primary) hypertension Category: Medical Qualifiers: Hypertension type: primary hypertension Qualified Code(s): I10 - Essential (primary) hypertension (8) Old non-ST elevation myocardial infarction (NSTEMI): Comment: NSTEMI w/ AIME x 3 08/2023 ASA indef. Brilinta for 1 year (stop 08/12/2024) NSTEMI 2012 w/ AIME Code(s): I25.2 - Old myocardial infarction Category: Medical (9) Palliative care status: Code(s): Z51.5 - Encounter for palliative care Category: Medical (10) PVD (peripheral vascular disease): Comment: statin, ASA Code(s): I73.9 - Peripheral vascular disease, unspecified Category: Medical (11) Restlessness and agitation: Code(s): R45.1 - Restlessness and agitation Category: Medical (12) Pneumonia: Code(s): J18.9 - Pneumonia, unspecified organism Category: Medical Qualifiers: Pneumonia type: due to unspecified organism Laterality: unspecified laterality Lung location: unspecified part of lung Qualified Code(s): J18.9 - Pneumonia, unspecified organism Plan . Medications: Discontinued ticagrelor (Brilinta) Discontinued Reason: Doctor's Order 90 mg PO BID 90 days 180 tabs 2RF
[2024-09-21 11:42] VITALS: BP 100/64; PULSE 68; RESP 14; O2SAT 98; BMI 26.5
--- OUTSIDE RECORDS SUMMARY | 2024-09-21 12:41 | XMS_ITS ---
Author Organization [facility] Address [address] [place] [address] Phone Care Team Providers Care Rental Coordinator Name Role Phone Physician, No Pcp Primary Care Provider Unavaila ble Transitional Care Management Status:Identified (Enrolling) Start date:08/29/2024 Enrollment reason:Identified using hospital discharge data Case Team Name Relationship Phone Monica Wright LPN Care Manager(Responsible Staf f) Continued Care and Services Coordination
--- OUTSIDE RECORDS SUMMARY | 2024-09-21 12:42 | XMS_ITS | Encounter Summary ---
Author Organization [facility] Address [address] [place] [address] Care Team Providers Care Professor Of Communication Arts Name Role Phone Physician, No Pcp Primary Care Provider Unavaila ble Encounter Details Date Type Department Care Team (Late st Contact Info) Description 08/31/2024 Nurse Triage Internal Medicine - [address] [address] [place] [id number] Alyssa Son RN Social History Tobacco Use Types Packs/Day Years Used Date Smoking Tobacco: Former Cigarettes Q uit: 09/25/2022 Smokeless Tobacco: Never Alcohol Use Standard Drinks/Week Comments No 0 (1 standard drink = 0.6 oz pur e alcohol) Interpersonal Safety Answer Date Record ed Physical Abuse 09/12/2024 Verbal Abuse 09/12/2024 Sex and Gender Information Value Date Recorded Sex Assigned at Male 08/26/2024 4:33 PM EST Legal Sex Male 4:17 AM EST Gender Identity Male 08/26/2024 4:33 PM EST Sexual Orientation Straight 08/26/2024 4: 33 PM EST documented as of this encounter Functional Status * Are you deaf or do you have serious difficulty hearing? Answer Date of Assessment Author No 08/26/2024 5:33 PM EST Beth Gimenez RN * Are you blind or do you have serious difficulty seeing, even when wearing glasses? Answer Date of Assessment Author No 08/26/2024 5:33 PM EST Beth Gimenez RN * Do you have serious difficulty walking or climbing stairs? Answer Date of Assessment Author No 08/26/2024 5:33 PM Beth Castaneda RN * Do you have serious difficulty dressing or bathing? Answer Date of Assessment Author No 08/26/2024 5:33 PM Beth Castaneda RN * Because of a physical, mental, or emotional condition, do you have serious difficulty doing errandsalone such as visiting the doctor? Answer Date of Assessment Author No 08/26/2024 5:33 PM Beth Castaneda RN documented as of this encounter Mental Status * Because of a physical, mental, or emotional condition, do you have serious difficulty concentrating, remembering, or making decisions? (5 years old or older) Answer Entry Date Author No 08/26/2024 5:33 PM Beth Castaneda RN documented in this encounter Progress Notes * Alyssa Son RN - 09/15/2024 11:17 AM EST Spoke to MAGDALENO/Elisa (vr)- reports of pt seeing another PCP for two yrs now who is affiliated with [facility]. * Ledy Avila RN - 09/01/2024 10:02 AM EST Spoke with pt's niece Elisa George, [phone] ( emergency contact listed) Attempted to schedule an appt, she declined she states she is sick, she will call back * Sarah Morin MA - 08/31/2024 1:02 PM EST Patient: Michel George : 1940 PCP: Christiano Franco MD Clerical Manager: Monica Wright LPN Telephone contact attempted with patient and niece for initial TCM encounter . Call status: no answer - second attempt. Monica Wright LPN 08/31/2024 11:04 AM EST * Alyssa Son RN - 08/31/2024 11:35 AM EST See outreach nsg care mgmt tel. enc.-needs TCM appt. documented in this encounter Plan of Treatment Not on file documented as of this encounter Visit Diagnoses Not on filedocumented in this encounter Additional Health Concerns Infection Onset Date Last Indicated Resolved Time Respiratory Rule-Out 09/11/2024 09/11/2024 025 2:55 AM EST COVID-19 Rule-Out 09/11/2024 09/11/2024 09/11/2024 2:55 AM EST documented as of this encounter Care Teams Professor Of Communication Arts Relationship Specialty Start Date End Date Physician, No Pcp PCP - General 09/15/24 documented as of this encounter
--- OUTSIDE RECORDS SUMMARY | 2024-09-21 12:42 | XMS_ITS | Encounter Summary ---
Author Organization [employer] Address [address] [place] [address] Care Team Providers Care Employer Relations Representative Name Role Phone Christiano Franco MD Primary Care Provider [phone] Reason for Visit * Reason Comments Chest Pain Per ems coming from home - family states increased weakness, and 5/10 chest pain and diarrhea. Denies nausea, vomiting. - ASA 324mg- morphine 4mg- 400 NS * Auth/Cert (Routine) Specialty Diagnoses / Procedures Referred By Contac t Referred To Contact Diagnoses Shortness of breath SIRS (systemic inflammatory response syndrome) (CMS/HCC) Sepsis (CMS/HCC) Altered mental status, unspecified altered mental status type Procedures [facility] IP/OBS CARE INITIAL MODERATE LEVEL PER DAY Erik Roldan MD [address] [place] [address] Phone: tel: fax: [facility] [address] [place] [address] Phone: tel: Referral ID Status Reason Start Date Expiration Date Visits Re quested Visits Authorized [id number] 1 1 Encounter Details Date Type Department Care Team (Latest Contact Info) Description 08/26/2024 2:38 PM EST - 08/29/2024 6:20 PM EST Hospital Encounter [facility] [address] [place] [address] Marcela Ruffin DO [address] [place] [address] Erik Roldan MD [address] [place] [address] Elaina Jacques MD [address] [place] [address] Altered mental status, unspecified altered mental status type (Primary Dx); Shortness of breath; SIRS (systemic inflammatory response syndrome) (CMS/[facility]) Discharge Disposition: Home-Health Care Svc Social History Tobacco Use Types Packs/Day Years Used Date Smoking Tobacco: Former Cigarettes Q uit: 09/25/2022 Smokeless Tobacco: Never Alcohol Use Standard Drinks/Week Comments No 0 (1 standard drink = 0.6 oz pur e alcohol) Interpersonal Safety Answer Date Record ed Physical Abuse 08/27/2024 Verbal Abuse 08/27/2024 Sex and Gender Information Value Date Recorded Sex Assigned at Male 08/26/2024 4:33 PM EST Legal Sex Male 4:17 AM EST Gender Identity Male 08/26/2024 4:33 PM EST Sexual Orientation Straight 08/26/2024 4: 33 PM EST documented as of this encounter Last Filed Vital Signs Vital Sign Reading Time Taken Comments Blood Pressure 102/44 08/29/2024 7:25 AM EST Pulse 63 08/29/2024 7:25 AM EST Temperature 36.2 ??C (97.2 ??F) 08/29/2024 7:25 AM ES T Respiratory Rate 17 08/29/2024 7:25 AM EST Oxygen Saturation 92% 08/29/2024 7:25 AM EST Inhaled Oxygen Concentration - - Weight 71.9 kg (158 lb 9.6 oz) 08/29/2024 5:00 A M EST Height 170.2 cm (5' 7 ) 08/26/2024 9:01 PM EST Body Mass Index 24.84 08/26/2024 9:01 PM EST documented in this encounter Functional Status * Are you [...] Beth Castaneda RN documented in this encounter Discharge Summaries * Elaina Jacques MD - 08/29/2024 2:39 PM EST Images from the original note were not included. [place] DISCHARGE SUMMARY Patient Information Albaro Lopez : 1940 [84 y.o.] Admitting Provider Erik Roldan MD Discharge Provider Elaina Jacques MD, Elaina Jacques MD Primary Care Physician Christiano Franco MD Admission Date 08/26/2024 Discharge Date 08/29/2024 Summary of Hospital Problems Primary Discharge Diagnosis: Sepsis (CMS/HCC) Bacterial pneumonia Heart failure Delirium CAD Hypokalemia Discharge Destination: Home with services Code Status at Discharge: No CPR/Do Not Intubate Inpatient Consultants: None Procedures Performed Discharge Medications Medication List TAKE these medications aspirin 81 mg EC tablet Take 1 tablet (81 mg total) by mouth 1 (one) time each day. atorvastatin 80 mg tablet Commonly known as: LIPITOR Take 1 tablet (80 mg total) by mouth at bedtime. at bedtime. carvediloL 3.125 mg tablet Commonly known as: COREG Take 1 tablet (3.125 mg total) by mouth 2 (two) times a day. cefpodoxime 100 mg tablet Commonly known as: VANTIN Take 2 tablets (200 mg total) by mouth 2 (two) times a day for 5 days. clopidogreL 75 mg tablet Commonly known as: PLAVIX Take 1 tablet (75 mg total) by mouth 1 (one) time each day. furosemide 20 mg tablet Commonly known as: LASIX Take 1 tablet (20 mg total) by mouth 1 (one) time each day. gabapentin 600 mg tablet Commonly known as: NEURONTIN Take 1 tablet (600 mg total) by mouth 3 (three) times a day. losartan 25 mg tablet Commonly known as: COZAAR Take 1 tablet (25 mg total) by mouth 1 (one) time each day. omeprazole [address] capsule Commonly known as: PriLOSEC Take 1 capsule (20 mg total) by mouth 2 (two) times a day. QUEtiapine 100 mg tablet Commonly known as: SEROquel Take 1 tablet (100 mg total) by mouth at bedtime. tamsulosin 0.4 mg 24 hr capsule Commonly known as: FLOMAX Take 1 capsule (0.4 mg total) by mouth 1 (one) time each day. Hospital Course Summary CHIEF COMPLAINT Chest pain and altered mental status HISTORY OF PRESENT ILLNESS Mr. 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 The patient was reportedly in his usual state of health until the night prior to presentation when he developed chest pain and diarrhea. He had no associated fevers, chills, nausea, or vomiting. Today the patient had ongoing symptoms along with generalized weakness and EMS was activated. The patient was taken to the Emergency Department for further evaluation. En route,he was administered aspirin 324 mg, morphine 4 mg IV, and 400 mL normal saline. Vital signs were remarkable for tachycardia up to 140 bpm and a fever of 38.2 ??C. Laboratories were personally reviewed. CBC demonstrated a normal white blood cell count of 9,800 /uL with 90.1% neutrophils and mild anemia with a hemoglobin of 10.8 g/dL. Chemistries revealed stable chronic kidney disease and hypomagnesemia. Serial troponins were normal at 17 pg/mL and 21 pg/mL, respectively. BNP was minimally elevated at 118 pg/mL. Lactic acid was normal at 1.5 mmol/L. Urinalysis demonstrated mild pyuria. Urine toxicology was positive for opiates. Chest x-ray was personally reviewed and was rotated with possible events of left lower lobe consolidation. CT angiogram of the chest was personall y reviewed and did not endorse pneumonia or pulmonary embolism. Mild interstitial pulmonary edema was noted. ECG was personally reviewed revealed sinus tachycardia with incomplete right bundle branchblock and left ventricular hypertrophy with repolarization abnormality. Viral respiratory panel was negative. The patient was administered ceftriaxone, azithromycin, nebulizer treatments, and 0.5 liters of crystalloid. He was reportedly agitated and was given lorazepam 4 mg IV in divided doses and olanzapine 5 mg IM x 1. The Hospitalist service was consulted for admission. On evaluation, the patient is unable to provide any significant further history other than reporting that he is having pain in his right flank. He denies shortness of breath or cough. He not experiencing any chest discomfort. 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 Patient initially admitted with sepsis with unknown cause. Likely pneumonia chest x-ray done earlier showed pneumonia as a source with CT angiogram did not show any pneumonia. Started on IV ceftriaxone and added doxycycline . Doing better can be transition to oral antibiotics on discharge. Transition to cefpodoxime to be taken for another 5 days. Patient continues to be short of breath has a history of heart failure with recovered ejection fraction Repeat chest x-ray this morning showed pulmonary vascular congestion Looks euvolemic to me today. Will hold his Lasix. Resume his home medications Patient has had history of delirium during previous hospitalizations. Seems to be confused at this time. Will continue with his home Seroquel. Has been pleasant CAD on aspirin Plavix beta-carolyn and statin Hypokalemia potassium was repleted and 3.8 today. GERD on PPI BPH on tamsulosin DVT prophylaxis on Lovenox Patient is a DNR/DNI PT evaluation was done and patient will return home with services. PT recommending home PT. Patient will be discharged today. Physical Exam at time of Discharge BP (!) 102/44 (BP Location: Right arm, Patient Position: Lying) Pulse 63 Temp 36.2 ??C (97.2 ??F) (Temporal) Resp 17 Ht 1.702 m (67 ) Wt 71.9 kg (158 lb 9.6 oz) BMI 24.84 kg/m?? Physical Exam Appearance: No Acute Distress, Alert Head Exam: Normocephalic and Atraumatic Eyes: Mild Pallor, Sclera Anicteric, PERRL, EOMI Neck: Supple, Non-tender, No carotid bruit, thyromegaly or lymphadenopathy Pulmonary: No Accessory Muscle Use, diminished air entry at bases no rhonchi heard. Cardiovascular: S1 and S2 regular rate rhythm no murmurs rubs or gallops heard Abdominal Inspection: Normal, Soft, Non-tender, Bowel Sounds Present, No Hepatosplenomegaly Extremity: Peripheral Pulses are palpable and symmetrical, Musculoskeletal: No obvious joint pain, swelling or deformity Skin: Skin Color Normal, No rash or visible ulcer on limited examination Hematological: No lymphadenopathy or mass Neurologically alert oriented x3 no focal deficit Labs/Imaging XR Chest 1 View Result Date: 08/27/2024 Procedure: AP chest radiograph. HISTORY: SOB, abn CXR, heart failure suspected. COMPARISON: 08/26/2024. FINDINGS: Mildly hypoventilatory lordotic projection exam. Right diaphragmatic eventration. Slightly blunted left costophrenic angle which could represent pleural thickening or trace fluid. Mild pulmonary vascular congestion without overt edema. Heart size within normal limits for portable technique. Atherosclerotic calcifications of the aorta. Degenerative changes of the spine and shoulders. Mild pulmonary vascular congestion. Left sided pleural thickening versus trace pleural fluid. -------- FINAL REPORT -------- Dictated By: Blu Izquierdo Dictated Date: 08/27/2024 11:42 ET Assigned Physician: Blu Izquierdo Reviewed and Electronically Signed By: Blu Izquierdo Signed Date: 08/27/2024 11:44 ET Workstation ID: [id number] Transcribed By: Self Edit Transcribed Date: 08/27/2024 11:42 ET XR Chest 1 View Result Date: 08/27/2024 XR CHEST 1 VIEW INDICATION: Pain TECHNIQUE: XR CHEST 1 VIEW COMPARISON: 11/29/2023 FINDINGS/IMPRESSION: Patchy opacity in the left lower lung zones suspicious for pneumonia. Right lung is relatively clear. No pleural effusion or pneumothorax. Cardiac silhouette is normal in size. Bones are normal. -------- FINAL REPORT -------- Dictated By: HORACIO VILLAFUERTE Dictated Date: 08/27/2024 09:12 ET Assigned Physician: HORACIO VILLAFUERTE Reviewed and Electronically Signed By: HORACIO VILLAFUERTE Signed Date:08/27/2024 09:16 ET Workstation ID: [id number] Transcribed By: Self Edit Transcribed Date: 08/27/2024 09:[address] Angio Chest wo and/or w Contrast Result Date: 08/26/2024 CT angiography chest with contrast. 3D Postprocessing. Comparison: None Findings: Heart size is approaching the upper limits in size. The thoracic aorta is normal caliber. No acute pulmonary embolus.The visualized thyroid and mediastinum are unremarkable. Mild dependent atelectasis both lungs. Small right hepatic cysts. No acute fractures. 1. No pulmonary emboli. This document has been electronically signed by: Shraddha Maciel MD on 08/26/2024 21:58:59 No results found for: INR , PROTIME Lab Results Component Value Date NA 142 08/29/2024 K 3.8 08/29/2024 CL 109 08/29/2024 CO2 28 08/29/2024 GLUCOSE 83 08/29/2024 BUN 48 (H) 08/29/2024 CREATININE 1.86 (H) 08/29/2024 CALCIUM 7.9 (L) 08/29/2024 PROT 6.9 08/26/2024 ALBUMIN 3.7 08/26/2024 BILITOT 0.8 08/26/2024 AST 30 08/26/2024 ALT 25 08/26/2024 MG 2.5 08/29/2024 ALKPHOS 72 08/26/2024 EGFR 35 (L) 08/29/2024 Lab Results Component Value Date WBC 7.8 08/29/2024 HGB 9.4 (L) 08/29/2024 HCT 28.4 (L) 08/29/2024 MCV 98.6 (H) 08/29/2024 PLT 127 (L) 08/29/2024 Follow-Up Instructions and Recommendations [facility] [address] [facility] [address] Christiano Franco MD [address] [facility] [address] Follow up in 1 week(s) More than 30 minutes spent on the discharge summary. documented in this encounter Medications at Time of Discharge aspirin 81 mg EC tablet Take 1 tablet (81 mg total) by mouth 1 (one) time each day. 08/14/2023 losartan (COZAAR) 25 mg tablet Take 1 tablet (25 mg total) by mouth 1 (one) time each day. 08/12/2023 QUEtiapine (SEROquel) 100 mg tablet Take 1 tablet (100 mg total) by mouth at bedtime. 08/06/2023 atorvastatin (LIPITOR) 80 mg tablet Take 1 tablet (80 mg total) by mouth at bedtime. at bedtime. carvediloL (COREG) 3.125 mg tablet Take 1 tablet (3.125 mg total) by mouth 2 (two) times a day. clopidogreL (PLAVIX) 75 mg tablet Take 1 tablet (75 mg total) by mouth 1 (one) time each day. furosemide (LASIX) 20 mg tablet Take 1 tablet (20 mg total) by mouth 1 (one) time each day. gabapentin (NEURONTIN) 600 mg tablet Take 1 tablet (600 mg total) by mouth 3 (three) times a day. omeprazole (PriLOSEC) [address] capsule Take 1 capsule (20 mg total) by mouth 2 (two) times a day. tamsulosin (FLOMAX) 0.4 mg 24 hr capsule Take 1 capsule (0.4 mg total) by mouth 1 (one) time each day. cefpodoxime (VANTIN) 100 mg tablet Take 2 tablets (200 mg total) by mouth 2 (two) times a day for 5 days. 20 tablet 08/29/2024 09/03/2024 documented as of this encounter Ordered Prescriptions Prescription Sig Dispense Quantity Refills Last Filled Start Date End Date cefpodoxime (VANTIN) 100 mg tablet Take 2 tablets (200 mg total) by mouth 2 (two) times a day for 5 days. 20 tablet 08/29/2024 5 cefpodoxime (VANTIN) 100 mg tablet Take 2 tablets (200 mg total) by mouth 2 (two) times a day for 5 days. 20 tablet 08/29/2024 5 documented in this encounter Discharge Disposition Disposition Code Departure Means Destination Comment s Home-Health Care [facility] documented in this encounter Progress Notes * Chika Vega RN - 08/29/2024 2:22 PM EST 08/29/24 1422 Transportation Transportation at discharge [employer] providing transportation Myla What day is the transport expected? 08/29/24 What time is the transport expected? 1700 Final Discharge Disposition Home Health Care Services ([facility]) RN updated via Isaiah MEYER spoke with Myla by phone and coordinated continuous pickling line pickler helper time at 5pm. * Zahira Jensen PT - 08/29/2024 1:30 PM EST [facility] Physical Therapy Evaluation & Treatment PT Discharge Recommendations: Home PT Staff Recommendations for safe patient handling: assist of 1 with a walker Modified [place] Scale Score: Precautions Medical Precautions: Fall Risk Safety Interventions: Call sneed within reach, ID band on, Bed alarm Swallow Precautions: Modified Diet RUE Weight Bearing Status: Full LUE Weight Bearing Status: Full RLE Weight Bearing Status: Full LLE Weight Bearing Status: Full Fall prevention education provided including use of call light in hospital, use of appropriate assistive device, safe mobility techniques, and safety measures at home. PT Received On: 08/29/24 PT Start Time: 1330 PT Stop Time: 1400 PT Time Calculation (min): 30 min General Family/Caregiver Present: No Precautions Medical Precautions: Fall Risk Safety Interventions: Call sneed within reach, ID band on, Bed alarm Swallow Precautions: Modified Diet RUE Weight Bearing Status: Full LUE Weight Bearing Status: Full RLE Weight Bearing Status: Full LLE Weight Bearing Status: Full Cognition Overall Cognitive Status: Within Functional Limits Arousal/Alertness: Appropriate responses to stimuli Orientation Level: Disoriented to situation Following Commands: Follows all commands and directions without difficulty Hearing: Intact Vision: Intact Speech: Intact Integumentary: no acute issues noted History of Present Illness: Patient is a 84 y.o. male admitted to [facility] on 08/26/2024. Patient Active Problem List Diagnosis Sepsis ([facility]) Past Medical History: Diagnosis Date Actinic keratosis, hx of DX:Actinic keratosis, hx of Agitation DX:Agitation Anxiety 11/12/2012 DX:Anxiety Asthma 11/12/2012 DX:Asthma Basal cell carcinoma of skin 01/28/2013 DX:Basal cell carcinoma of skin Chronic pain 10/06/2012 DX:Chronic pain Diet-controlled diabetes mellitus ([facility]) DX:Diet-controlled diabetes mellitus ([facility]) Dysphagia 10/06/2012 DX:Dysphagia Fall DX:Fall; COMMENT: MECHANICAL Hemiplegia following CVA (cerebrovascular accident) ([facility]) 10/06/2012 DX:Hemiplegia following CVA (cerebrovascular accident) ([facility]) Hemoptysis DX:Hemoptysis Historical Medical DX 10/06/2012 DX:Hyperlipidemia LDL goal < 100 History of basal cell carcinoma 01/28/2013 DX:History of basal cell carcinoma; COMMENT: BCC 01/21 left ear (ulcerated, nodular) HTN (hypertension) 10/06/2012 DX:HTN (hypertension) Incidental lung nodule DX:Incidental lung nodule; COMMENT: ct chest doen prior tosurgery, no evidnece, to f/u with pt Insomnia 10/06/2012 DX:Insomnia Left inguinal hernia 01/26/2014 DX:Left inguinal hernia Low back pain 11/12/2012 DX:Low back pain Lumbar disc disease 10/06/2012 DX:Lumbar disc disease Microscopic hematuria DX:Microscopic hematuria NSTEMI (non-ST elevated myocardial infarction) ([facility]) 12/30/2013 DX:NSTEMI (non-ST elevated myocardial infarction) ([facility]) Presence of stent in left circumflex coronary artery 11/03/2013 DX:Presence of stent in left circumflex coronary artery Recurrent appendicitis DX:Recurrent appendicitis; COMMENT: s/p surgery in 02/2014 Throat pain 10/06/2012 DX:Throat pain Past Surgical History: Procedure Laterality Date APPENDECTOMY 02/21 PROCEDURE: ND APPENDEC INDICATED PURPOSE OTH MAJOR PX NOT SPX ESOPHAGOGASTRODUODENOSCOPY 03/14/14 PROCEDURE: ND ESOPHAGOGASTRODUODENOSCOPY TRANSORAL DIAGNOSTIC; COMMENT: erosive esophagitis and HH OTHER SURGICAL HISTORY PROCEDURE: ---- OTHER ----; COMMENT: 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 Social History Home Living Environment: Home Living Type of Home: Apartment Lives With: Significant other Home Adaptive Equipment: Walker - rolling, Rollator, Cane Home Living Comments: the pt also has children that assist at home and 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 Home Layout: One level Home Access: Level entry Prior Function Level of [place]: Independent with mobility and functional transfers Ambulation Status: Household ambulator Receives Help From: Family, snack bar attendant Indoor Mobility Assistance: Independent Prior Device Use: Walker Which is your dominant hand?: Right General Assessment I 08/29/24 1330 PT Last Visit PT Received On 08/29/24 General Family/Caregiver Present No PT Time Calculation PT Start Time 1330 PT Stop Time 1400 PT Time Calculation (min) 30 min Precautions Medical Precautions Fall Risk Safety Interventions Call sneed within reach;ID band on;Bed alarm Swallow Precautions Modified Diet RUE Weight Bearing Status Full LUE Weight Bearing Status Full RLE Weight Bearing Status Full LLE Weight Bearing Status Full Vital Signs Patient Identification Yes Pain Assessment Pain Assessment No/denies pain Cognition Overall Cognitive Status WFL Arousal/Alertness Appropriate responses to stimuli Following Commands Follows all commands and directions without difficulty Home Living Type of Home Apartment Lives With Significant other Home Adaptive Equipment Walker - rolling;Rollator;Cane Home Living Comments the pt also has children that assist at home and 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 Home Layout One level Home Access Level entry Prior Function Level of [place] Independent with mobility and functional transfers Ambulation Status Household ambulator Receives Help From Family;snack bar attendant Indoor Mobility Assistance Independent Prior Device Use Walker Activity Tolerance Endurance Tolerates less than 10 min exercise, no significant change in vital signs Activity Tolerance Comments the pt with SOB after ambulation 15' Static Sitting Balance Static Sitting-Level of Assistance Supervision Static Sitting-Balance Support Feet supported;No upper extremity supported Dynamic Sitting Balance Dynamic Sitting-Level of Assistance Supervision Dynamic Sitting-Balance Support Right upper extremity supported;Left upper extremity supported;Feetsupported Static Standing Balance Static Standing-Level of Assistance Contact guard Static Standing-Balance Support Right upper extremity supported;Left upper extremity supported Dynamic Standing Balance Dynamic Standing-Level of Assistance Contact guard Dynamic Standing-Balance Ambulation Dynamic Standing-Balance Support Right upper extremity supported;Left upper extremity supported Bed Mobility Sitting to Lying Assistance Supervision Lying to Sitting Assistance Supervision Transfers Sit to Stand Assistance Contact guard Sit to Stand Deficit Steadying Chair/Bed to Chair/Bed Transfer Assistance Contact guard (with use of a walker) Ambulation Walking Assistance Contact guard Walking Deficit (dec step length B and fatigues quicy needing a seated rest break) Device Rolling walker Distance Ambulated (ft) 15 (the pt was able to amb 15' x2) Stairs Reason(s) not performed: Not applicable RUE Assessment RUE Assessment Within Functional Limits LUE Assessment LUE Assessment Within Functional Limits RLE Assessment RLE Assessment Impaired RLE Assessment Comments B LE strength grossly 3-/5 LLE Assessment LLE Assessment Impaired PT Assessment PT Assessment Results Decreased strength;Decreased endurance Prognosis Good Medical Staff Made Aware Yes Plan PT Discharge Recommendations Home PT PT - Evaluation Status Complete PT Evaluation Time Entry PT Evaluation (Moderate) Time Entry 30 Treatment performed during evaluation: None performed ADDITIONAL COMMENTS: Chart reviewed. RN clears pt for session. Pt agrees to participate and presented in supine upon PT arrival. All lines in place. Medical precautions observed appropriately. Initiated education on the importance of PT, bed mobility safety, Transfer Safety, Ambulation Safety , Therapy Plan of Care, Home Safety, Energy Conservations strategies, and importance of OOB activity . Pt verbalized understanding. EXIT STATUS: Session ended with patient supine in bed, tray table and call light within reach, and RN made aware. Physical Therapy Assessment/Plan Albaro Lopez is a 84 y.o. male admitted to [facility] on 08/26/2024 for Shortness of breath [R06.02] SIRS (systemic inflammatory response syndrome) (CMS/HCC) [R65.10] Sepsis (CMS/HCC) [A41.9] Altered mental status, unspecified altered mental status type [R41.82] . Pt presents with decreasedBLE strength, balance deficits, decreased activity tolerance, and far below functional baseline. Ptperformed bed mobility Supervision, , Transfers with Contact guard, FWW and ambulates Contact guardwith FWW 15 ft . PT recommends Home PT when medically stable for safe discharge and to optimize functional mobility and independence. Goals Encounter Problems Encounter Problems (Active) There are no active problems. Encounter Problems (Resolved) There are no resolved problems. Education Documentation Mobility Training, taught by Zahira Jensen PT at 08/29/2024 2:54 PM. Learner: Patient Readiness: Acceptance Method: Explanation, Demonstration Response: Verbalizes Understanding Comment: Disucssed home with the pt and he states there is always someone home with him. Clarified with [facility] and he will have 24/7 care at home so is appropriate for dc to home with previous services and home PT to address endurance Education Comments No comments found. Zahira Jensen PT * Chika Vega RN - 08/29/2024 1:28 PM EST 08/29/24 1327 Transportation Transportation at discharge [employer] providing transportation Daughter at bedside for transportation at discharge What day is the transport expected? 08/29/24 What time is the transport expected? 1400 Final Discharge Disposition Home Health Care Services ([facility]) Patient discharging home with [facility] * Elaina Jacques MD - 08/29/2024 1:16 PM EST Images from the original note were not included. MIGDALIA PROGRESS NOTE Date: 08/29/2024 Author: Elaina Jacques MD Patient ID: Albaro Lopez is a 84 y.o. male : 1940 MR#: [id number] SUBJECTIVE Patient seen and examined this morning. No overnight events. Doing much better. Complaining of painin his extremities. Awaiting to be seen by PT. Current Medications: aspirin, 81 mg, oral, Daily atorvastatin, 80 mg, oral, Nightly carvediloL, 3.125 mg, oral, BID cefTRIAXone, 1 g, intravenous, q24h clopidogreL, 75 mg, oral, Daily doxycycline, 100 mg, oral, q12h MYLES enoxaparin, 40 mg, subcutaneous, q24h MYLES [START ON 08/30/2024] furosemide, 40 mg, oral, Daily gabapentin, 300 mg, oral, TID pantoprazole, 40 mg, oral, BID AC QUEtiapine, 100 mg, oral, Nightly sodium chloride, 10 mL, intravenous, BID tamsulosin, 0.4 mg, oral, Daily PRN medications: acetaminophen, albuterol, morphine, ondansetron (ZOFRAN-ODT) disintegrating tabletOR ondansetron, prochlorperazine OR prochlorperazine OR prochlorperazine, QUEtiapine, Insert peripheral IV AND Maintain IV access AND Saline lock IV AND sodium chloride AND sodium chloride OBJECTIVE Vitals: 08/29/24 0430 08/29/24 0442 08/29/24 0500 08/29/24 0725 BP: (!) 90/41 (!) 97/48 (!) 102/44 BP Location: Left arm Lower Right arm Patient Position: Lying Lying Lying Pulse: 66 65 63 Resp: 20 17 Temp: 36.7 ??C (98.1 ??F) 36.2 ??C (97.2 ??F) TempSrc: Temporal Temporal SpO2: 93% 92% Weight: 71.9 kg (158 lb 9.6 oz) Height: Physical Exam Appearance: No Acute Distress, Alert on 2 L nasal cannula Head Exam: Normocephalic and Atraumatic Eyes: Mild Pallor, Sclera Anicteric, PERRL, EOMI Neck: Supple, Non-tender, No carotid bruit, thyromegaly or lymphadenopathy Pulmonary: No Accessory Muscle Use, diminished air entry at bases no rhonchi heard. Cardiovascular: S1 and S2 regular rate rhythm no murmurs rubs or gallops heard Abdominal Inspection: Normal, Soft, Non-tender, Bowel Sounds Present, No Hepatosplenomegaly Extremity: Peripheral Pulses are palpable and symmetrical, Musculoskeletal: No obvious joint pain, swelling or deformity Skin: Skin Color Normal, No rash or visible ulcer on limited examination Hematological: No lymphadenopathy or mass Neurologically alert oriented x3 no focal deficit Results from last 7 days Lab Units 08/29/24 0548 SODIUM mmol/L 142 POTASSIUM mmol/L 3.8 CHLORIDE mmol/L 109 CO2 mmol/L 28 BUN mg/dL 48* CREATININE mg/dL 1.86* GLUCOSE mg/dL 83 CALCIUM mg/dL 7.9* Results from last 7 days Lab Units 08/29/24 0548 WBC AUTO K/mcL 7.8 HEMOGLOBIN g/dL 9.4* HEMATOCRIT % 28.4* PLATELETS K/mcL 127* Recent Results (from the past 168 hour(s)) Respiratory virus panel molecular study Collection Time: 08/26/24 3:48 PM Specimen: Nares; Swab Result Value Ref Range Adenovirus Detection by PCR Not Detected Not Detected Influenza A PCR Not Detected Not Detected Influenza B PCR Not Detected Not Detected Coronavirus 229E Not Detected Not Detected Coronavirus HKU1 Not Detected Not Detected Coronavirus OC43 Not Detected Not Detected Coronavirus NL63 Not Detected Not Detected Parainfluenza Virus 1 Not Detected Not Detected Parainfluenza Virus 2 Not Detected Not Detected Parainfluenza Virus 3 Not Detected Not Detected Parainfluenza Virus 4 Not Detected Not Detected RSV PCR Not Detected Not Detected Human Metapneumovirus A and B Not Detected Not Detected Rhinovirus/Enterovirus Not Detected Not Detected Bordetella pertussis Not Detected Not Detected Bordetella parapertussis Not Detected Not Detected Mycoplasma pneumo by PCR Not Detected Not Detected Chlamydia pneumoniae Not Detected Not Detected SARS COV-2 Not Detected Not Detected Culture urine Collection Time: 08/26/24 7:25 PM Specimen: Urine, Clean Catch Result Value Ref Range Culture, Urine <10,000 CFU/mL gram positive cocci, insignificant count, no further workup Blood Culture, Peripheral Draw #1 Collection Time: 08/26/24 10:10 PM Specimen: Blood, Venous Result Value Ref Range Culture, Blood No growth at 2 days Blood Culture, Peripheral Draw #2 Collection Time: 08/26/24 10:10 PM Specimen: Blood, Venous Result Value Ref Range Culture, Blood No growth at 2 days Imaging: XR Chest 1 View Narrative: Procedure: AP chest radiograph. HISTORY: SOB, abn CXR, heart failure suspected. COMPARISON: 08/26/2024. FINDINGS: Mildly hypoventilatory lordotic projection exam. Right diaphragmatic eventration. Slightly blunted left costophrenic angle which could represent pleural thickening or trace fluid. Mild pulmonary vascular congestion without overt edema. Heart size within normal limits for portable technique. Atherosc lerotic calcifications of the aorta. Degenerative changes of the spine and shoulders. Impression: Mild pulmonary vascular congestion. Left sided pleural thickening versus trace pleural fluid. -------- FINAL REPORT -------- Dictated By: Blu Izquierdo Dictated Date: 08/27/2024 11:42 ET Assigned Physician: Blu Izquierdo Reviewed and Electronically Signed By: Blu Izquierdo Signed Date: 08/27/2024 11:44 ET Workstation ID: [id number] Transcribed By: Self Edit Transcribed Date: 08/27/2024 11:42 ET XR Chest 1 View Narrative: XR CHEST 1 VIEW INDICATION: Pain TECHNIQUE: XR CHEST 1 VIEW COMPARISON: 11/29/2023 Impression: FINDINGS/IMPRESSION: Patchy opacity in the left lower lung zones suspicious for pneumonia. Right lung is relatively clear. No pleural effusion or pneumothorax. Cardiac silhouette is normal in size. Bones are normal. 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 Patient initially admitted with sepsis with unknown cause. Likely pneumonia chest x-ray done earlier showed pneumonia as a source with CT angiogram did not show any pneumonia. Started on IV ceftriaxone and added doxycycline . Doing better can be transition to oral antibiotics on discharge. Patient continues to be short of breath has a history of heart failure with recovered ejection fraction Repeat chest x-ray this morning showed pulmonary vascular congestion Looks euvolemic to me today. Will hold his Lasix. Continue to monitor. Patient has had history of delirium during previous hospitalizations. Seems to be confused at this time. Will continue with his home Seroquel. Likely may need Haldol for agitation CAD on aspirin Plavix beta-carolyn and statin Hypokalemia potassium was repleted and 3.8 today. Continue to monitor. GERD on PPI BPH on tamsulosin DVT prophylaxis on Lovenox Patient is a DNR/DNI PT evaluation to be done Disposition: Awaiting PT evaluation. Likely to be discharged within next 24 to 48 hours. * PEPITO White - 08/29/2024 10:30 AM EST Images from the original note were not included. [facility] [employer] TREATMENT NOTE NAME: Albaro Lopez DATE OF : 1940 ROOM: [address] [place] [address] Pt ID by: ZARINA trejo confirmed. DATE: 08/29/24 TIME CALCULATION: [employer] Start Time: 1030 [employer] Stop Time: 1045 [employer] Time Calculation (min): 15 min Regional Training Manager Required: (Yes : SENIOR HOUSEKEEPER NUMBER: #[id number] LANGUAGE: Mohawk) ADMISSION DIAGNOSIS: Shortness of breath [R06.02] SIRS (systemic inflammatory response syndrome) (CMS/HCC) [R65.10] Sepsis (CMS/HCC) [A41.9] Altered mental status, unspecified altered mental status type [R41.82] FAMILY/CAREGIVER PRESENT: No SUBJECTIVE SUBJECTIVE: Chart reviewed, and patient seen for [employer] follow up for ongoing dysphagia tx. Cleared byTHERESE Pitts for session. Per RN, Pt is 'doing good with diet'. Denies swallowing concerns. PRECAUTIONS: Swallow Precautions: Modified Diet Alert , Responsive, and Cooperative OBJECTIVE PAIN: VITALS: OXYGEN THERAPY: Oxygen Therapy: None (Room air) TREATMENTS: Treatments: Swallow Function SWALLOW FUNCTION: Swallow/Oral Function Treatment Time Entry: 15 Swallow Activity 1: Thin liquids: adequate labial seal around straw, WFL a-p, no cough or throat clear with single or consecutive sips of thin liquids. Swallow Activity 2: Regular solids: increased mastication time but functional oral prep, min oral residue that cleared with liquid washes, no cough or throat clear, no c/o globus. Swallow Activity 3: Discussion re: rationale for tx, trialing regular solids, preference for solidsat baseline, edu re: safe swallowing strategies. Swallow Comments: Pt reports preference for IDDSI 6/0 diet. ASPIRATION RISK: Diet Solids Recommendation: IDDSI Level 6 Soft and Bite Sized Diet Liquids Recommendation: Thin liquids Liquid Administration Via: Cup, Straw Compensatory Swallowing Strategies: Upright as possible for all oral intake, Remain upright for 20-30 minutes after meals, Alternate solids and liquids, Small bites/sips, Slow rate of intake Recommended Medication Route: PO Recommended Medication Administration: One pill at a time ADDITIONAL COMMENTS: Pt reports preference for IDDSI 6/0 diet. ASSESSMENT [employer] ASSESSMENT: [employer] Assessment Results: At baseline, Within functional limits Evaluation/Treatment Tolerance: Patient tolerated treatment well Comments: Limited trials per pt's limited food preferences, recommend nutrition consult Medical Staff Made Aware: Yes Comments: MD holly. DIET SOLIDS RECOMMENDATIONS: IDDSI Level 6 Soft and Bite Sized DIET LIQUIDS RECOMMENDATIONS: Thin liquids CURRENT DIET ORDERED: Dietary Orders (From admission, onward) Start Ordered 08/28/24 1028 Adult diet [facility]; Modified Consistency Options for Liquidsand Solids; IDDSI Level 6 Soft & Bite Sized; Requires Assistance Diet effective now Question Answer Comment Location [facility] Diet Type (req) Modified Consistency Options for Liquids and Solids Modified Consistency Options for Liquids and Solids IDDSI Level 6 Soft & Bite Sized Is the patient able to participate in meal ordering? Requires Assistance 08/28/24 1027 PLAN [employer] PLAN: Treatment/Interventions: Swallow function [employer] Plan: No skilled [employer] No Skilled [employer]: Independent with swallowing, At baseline function [employer] Frequency: 1 day per week [employer] Treatments per day: 1 time per day [employer] - Evaluation Status: Complete Diet Recommendations: IDDSI 6/0, soft and bite sized and thin liquids [employer] - OK to Discharge: Yes DISCHARGE RECOMMENDATIONS No Speech-Language Pathology ([employer]) services/needs at next level of care. EDUCATION EDUCATION: Education Documentation Modified Diet Training, taught by Dasha Manzano, [employer] at 08/29/2024 10:30 AM. Learner: Patient Readiness: Acceptance Method: Explanation, Regional Training Manager Response: Verbalizes Understanding Education Comments No comments found. GOALS GOALS: Encounter Problems Encounter Problems (Active) Template: Speech Therapy Problem: Swallowing Dates: Start: 08/28/24 Goal: Patient will tolerate the least restrictive diet consistency to allow for safe consumption ofdaily meals Dates: Start: 08/28/24 Expected End: 09/04/24 Description: Goal Type: LTG, Performance Level: Independent Outcomes Date/Time User Outcome 08/29/24 1053 PEPITO White Adequate for Discharge Goal: Patient will tolerate recommended food and liquid consistencies without clinical signs and symptoms of aspirations Dates: Start: 08/28/24 Expected End: 09/04/24 Description: Goal Type: STG, Performance Level: Independent Outcomes Date/Time User Outcome 08/29/24 1053 PEPITO White Adequate for Discharge Encounter Problems (Resolved) There are no resolved problems. Cosigned by PEPITO Raphael at 08/29/2024 4:47 PM EST Associated attestation - Liv Maza SLP - 08/29/2024 4:47 PM EST I attest that I, Brigitte Maza M.S.,[facility], was physically involved in the ongoing assessment, decision making, and interventions provided during today's patient care session. I have reviewed all documentation for today's 08/29/24, entered by Speech Therapy Fellow, Dasha Gibbs, and further attest that it is an accurate clinical record of today's encounter, including accurate and appropriatecharges. * Elaina Jacques MD - 08/28/2024 1:03 PM EST Images from the original note were not included. MIGDALIA PROGRESS NOTE Date: 08/28/2024 Author: Elaina Jacques MD Patient ID: Albaro Lopez is a 84 y.o. male : 1940 MR#: [id number] SUBJECTIVE Patient seen and examined this morning along with the camp dining room attendant. Patient mentions that hestill having pain in his extremities otherwise feeling fine. No overnight events. Breathing is a lot better today. Current Medications: aspirin, 81 mg, oral, Daily atorvastatin, 80 mg, oral, Nightly carvediloL, 3.125 mg, oral, BID cefTRIAXone, 1 g, intravenous, q24h clopidogreL, 75 mg, oral, Daily doxycycline, 100 mg, intravenous, q12h enoxaparin, 40 mg, subcutaneous, q24h MYLES furosemide, 40 mg, intravenous, Daily gabapentin, 300 mg, oral, TID pantoprazole, 40 mg, oral, BID AC QUEtiapine, 100 mg, oral, Nightly sodium chloride, 10 mL, intravenous, BID tamsulosin, 0.4 mg, oral, Daily PRN medications: acetaminophen, albuterol, haloperidol, morphine, ondansetron (ZOFRAN-ODT) disintegrating tablet OR ondansetron, prochlorperazine OR prochlorperazine OR prochlorperazine, QUEtiapine, Insert peripheral IV AND Maintain IV access AND Saline lock IV AND sodium chloride AND sodium chloride OBJECTIVE Vitals: 08/28/24 0347 08/28/24 0700 08/28/24 0900 08/28/24 1055 BP: 107/51 (!) 99/37 108/57 (!) 101/41 BP Location: Right arm Right arm Right arm Patient Position: Lying Lying Lying Pulse: 77 80 73 Resp: 18 18 20 Temp: 37.3 ??C (99.2 ??F) 37.1 ??C (98.7 ??F) 36.9 ??C (98.5 ??F) TempSrc: Temporal Temporal Temporal SpO2: 100% 97% 100% Weight: Height: Physical Exam Appearance: No Acute Distress, Alert on 2 L nasal cannula Head Exam: Normocephalic and Atraumatic Eyes: Mild Pallor, Sclera Anicteric, PERRL, EOMI Neck: Supple, Non-tender, No carotid bruit, thyromegaly or lymphadenopathy Pulmonary: No Accessory Muscle Use, diminished air entry at bases no rhonchi heard. Cardiovascular: S1 and S2 regular rate rhythm no murmurs rubs or gallops heard Abdominal Inspection: Normal, Soft, Non-tender, Bowel Sounds Present, No Hepatosplenomegaly Extremity: Peripheral Pulses are palpable and symmetrical, Musculoskeletal: No obvious joint pain, swelling or deformity Skin: Skin Color Normal, No rash or visible ulcer on limited examination Hematological: No lymphadenopathy or mass Neurologically alert oriented x3 no focal deficit Results from last 7 days Lab Units 08/28/24 0617 SODIUM mmol/L 140 POTASSIUM mmol/L 3.4* CHLORIDE mmol/L 106 CO2 mmol/L 27 BUN mg/dL 36* CREATININE mg/dL 1.80* GLUCOSE mg/dL 88 CALCIUM mg/dL 8.4* Results from last 7 days Lab Units 08/28/24 0617 WBC AUTO K/mcL 12.1* HEMOGLOBIN g/dL 9.7* HEMATOCRIT % 28.9* PLATELETS K/mcL 125* Recent Results (from the past 168 hour(s)) Respiratory virus panel molecular study Collection Time: 08/26/24 3:48 PM Specimen: Nares; Swab Result Value Ref Range Adenovirus Detection by PCR Not Detected Not Detected Influenza A PCR Not Detected Not Detected Influenza B PCR Not Detected Not Detected Coronavirus 229E Not Detected Not Detected Coronavirus HKU1 Not Detected Not Detected Coronavirus OC43 Not Detected Not Detected Coronavirus NL63 Not Detected Not Detected Parainfluenza Virus 1 Not Detected Not Detected Parainfluenza Virus 2 Not Detected Not Detected Parainfluenza Virus 3 Not Detected Not Detected Parainfluenza Virus 4 Not Detected Not Detected RSV PCR Not Detected Not Detected Human Metapneumovirus A and B Not Detected Not Detected Rhinovirus/Enterovirus Not Detected Not Detected Bordetella pertussis Not Detected Not Detected Bordetella parapertussis Not Detected Not Detected Mycoplasma pneumo by PCR Not Detected Not Detected Chlamydia pneumoniae Not Detected Not Detected SARS COV-2 Not Detected Not Detected Culture urine Collection Time: 08/26/24 7:25 PM Specimen: Urine, Clean Catch Result Value Ref Range Culture, Urine <10,000 CFU/mL gram positive cocci, insignificant count, no further workup Blood Culture, Peripheral Draw #1 Collection Time: 08/26/24 10:10 PM Specimen: Blood, Venous Result Value Ref Range Culture, Blood No growth at 24 hours Blood Culture, Peripheral Draw #2 Collection Time: 08/26/24 10:10 PM Specimen: Blood, Venous Result Value Ref Range Culture, Blood No growth at 24 hours Imaging: XR Chest 1 View Narrative: Procedure: AP chest radiograph. HISTORY: SOB, abn CXR, heart failure suspected. COMPARISON: 08/26/2024. FINDINGS: Mildly hypoventilatory lordotic projection exam. Right diaphragmatic eventration. Slightly blunted left costophrenic angle which could represent pleural thickening or trace fluid. Mild pulmonary vascular congestion without overt edema. Heart size within normal limits for portable technique. Atherosc lerotic calcifications of the aorta. Degenerative changes of the spine and shoulders. Impression: Mild pulmonary vascular congestion. Left sided pleural thickening versus trace pleural fluid. -------- FINAL REPORT -------- Dictated By: Blu Izquierdo Dictated Date: 08/27/2024 11:42 ET Assigned Physician: Blu Izquierdo Reviewed and Electronically Signed By: Blu Izquierdo Signed Date: 08/27/2024 11:44 ET Workstation ID: [id number] Transcribed By: Self Edit Transcribed Date: 08/27/2024 11:42 ET XR Chest 1 View Narrative: XR CHEST 1 VIEW INDICATION: Pain TECHNIQUE: XR CHEST 1 VIEW COMPARISON: 11/29/2023 Impression: FINDINGS/IMPRESSION: Patchy opacity in the left lower lung zones suspicious for pneumonia. Right lung is relatively clear. No pleural effusion or pneumothorax. Cardiac silhouette is normal in size. Bones are normal. 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 Patient initially admitted with sepsis with unknown cause. Likely pneumonia chest x-ray done earlier showed pneumonia as a source with CT angiogram did not show any pneumonia. Started on IV ceftriaxone and added doxycycline we will continue to monitor. Patient continues to be short of breath has a history of heart failure with recovered ejection fraction Repeat chest x-ray this morning showed pulmonary vascular congestion will discontinue IV fluids andstart him on IV Lasix. Echocardiogram t pending at this time. Continue with IV diuresis. Patient has had history of delirium during previous hospitalizations. Seems to be confused at this time. Will continue with his home Seroquel. Likely may need Haldol for agitation CAD on aspirin Plavix beta-carolyn and statin Hypokalemia will replete potassium 3.4 today. GERD on PPI BPH on tamsulosin DVT prophylaxis on Lovenox Patient is a DNR/DNI PT evaluation to be done Disposition: Will continue to monitor his symptoms. Likely to be transferred out of telemetry floortoday. * Silvana Chow, [employer] - 08/28/2024 9:29 AM EST Images from the original note were not included. Speech Language Pathology [facility] [employer] BEDSIDE SWALLOW EVALUATION NAME: Albaro Lopez DATE OF : 1940 ROOM: [address] [place] [address] [employer] Received On: 08/28/24 Regional Training Manager Required: (Yes : SENIOR HOUSEKEEPER NUMBER: [id number] LANGUAGE: Mohawk) TIME IN: 0835 TIME OUT: 0900 TOTAL TIME: 25 min MISSED TIME REASON: FAMILY/CAREGIVER PRESENT: No SUBJECTIVE SUBJECTIVE: Orders acknowledged/received, chart reviewed, and patient cleared by THERESE Pitts for swallow evaluation. Patient was resting in bed on 4.0L of O2 via nasal cannula upon arrival. Pt was oriented x2 and able to follow simple commands. Pt reported no difficulty w/ swallowing and a regular diet at baseline. RN reported no significant reports overnight. Pt had limited participation in evaluation due to pt's food preferences. Principal Problem: Sepsis (CMS/[facility]) Date Noted: 08/26/2024 Resolved Problems: * No resolved hospital problems. * Shortness of breath [R06.02] SIRS (systemic inflammatory response syndrome) (CMS/HCC) [R65.10] Sepsis (CMS/HCC) [A41.9] Altered mental status, unspecified altered mental status type [R41.82] No admission procedures for hospital encounter. PAST MEDICAL HISTORY: Past Medical History: Diagnosis Date Actinic keratosis, hx of DX:Actinic keratosis, hx of Agitation DX:Agitation Anxiety 11/12/2012 DX:Anxiety Asthma 11/12/2012 DX:Asthma Basal cell carcinoma of skin 01/28/2013 DX:Basal cell carcinoma of skin Chronic pain 10/06/2012 DX:Chronic pain Diet-controlled diabetes mellitus (CMS/HCC) DX:Diet-controlled diabetes mellitus (HCC) Dysphagia 10/06/2012 DX:Dysphagia Fall DX:Fall; COMMENT: MECHANICAL Hemiplegia following CVA (cerebrovascular accident) ([facility]) 10/06/2012 DX:Hemiplegia following CVA (cerebrovascular accident) ([facility]) Hemoptysis DX:Hemoptysis Historical Medical DX 10/06/2012 DX:Hyperlipidemia LDL goal < 100 History of basal cell carcinoma 01/28/2013 DX:History of basal cell carcinoma; COMMENT: BCC 01/21 left ear (ulcerated, nodular) HTN (hypertension) 10/06/2012 DX:HTN (hypertension) Incidental lung nodule DX:Incidental lung nodule; COMMENT: ct chest doen prior tosurgery, no evidnece, to f/u with pt Insomnia 10/06/2012 DX:Insomnia Left inguinal hernia 01/26/2014 DX:Left inguinal hernia Low back pain 11/12/2012 DX:Low back pain Lumbar disc disease 10/06/2012 DX:Lumbar disc disease Microscopic hematuria DX:Microscopic hematuria NSTEMI (non-ST elevated myocardial infarction) ([facility]) 12/30/2013 DX:NSTEMI (non-ST elevated myocardial infarction) ([facility]) Presence of stent in left circumflex coronary artery 11/03/2013 DX:Presence of stent in left circumflex coronary artery Recurrent appendicitis DX:Recurrent appendicitis; COMMENT: s/p surgery in 02/2014 Throat pain 10/06/2012 DX:Throat pain PAST SURGICAL HISTORY: Past Surgical History: Procedure Laterality Date APPENDECTOMY 02/21 PROCEDURE: ND APPENDEC INDICATED PURPOSE OTH MAJOR PX NOT SPX ESOPHAGOGASTRODUODENOSCOPY 03/14/14 PROCEDURE: ND ESOPHAGOGASTRODUODENOSCOPY TRANSORAL DIAGNOSTIC; COMMENT: erosive esophagitis and HH OTHER SURGICAL HISTORY PROCEDURE: ---- OTHER ----; COMMENT: 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 PRIOR LEVEL OF FUNCTIONING: Pt reported no difficulty swallowing prior to hospitalization. Pt reported a regular diet and thin liquids at baseline. IMAGING RESULTS: MRI Brain No results found for this or any previous visit. CT Head No results found for this or any previous visit. Chest Portable Results for orders placed during the hospital encounter of 08/26/24 XR Chest 1 View Narrative Procedure: AP chest radiograph. HISTORY: SOB, abn CXR, heart failure suspected. COMPARISON: 08/26/2024. FINDINGS: Mildly hypoventilatory lordotic projection exam. Right diaphragmatic eventration. Slightly blunted left costophrenic angle which could represent pleural thickening or trace fluid. Mild pulmonary vascular congestion without overt edema. Heart size within normal limits for portable technique. Atherosc lerotic calcifications of the aorta. Degenerative changes of the spine and shoulders. Impression Mild pulmonary vascular congestion. Left sided pleural thickening versus trace pleural fluid. -------- FINAL REPORT -------- Dictated By: Blu Izquierdo Dictated Date: 08/27/2024 11:42 ET Assigned Physician: Blu Izquierdo Reviewed and Electronically Signed By: Blu Izquierdo Signed Date: 08/27/2024 11:44 ET Workstation ID: [id number] Transcribed By: Self Edit Transcribed Date: 08/27/2024 11:42 ET Chest 2 View No results found for this or any previous visit. Chest CT Results for orders placed during the hospital encounter of 08/26/24 CT Angio Chest wo and/or w Contrast Narrative CT angiography chest with contrast. 3D Postprocessing. Comparison: None Findings: Heart size is approaching the upper limits in size. The thoracic aorta is normal caliber. No acute pulmonary embolus. The visualized thyroid and mediastinum are unremarkable. Mild dependent atelectasis both lungs. Small right hepatic cysts. No acute fractures. Impression 1. No pulmonary emboli. This document has been electronically signed by: Shraddha Maciel MD on 08/26/2024 21:58:59 NIH Stroke Scale: ALLERGIES: Allergies Allergen Reactions Penicillin Penicillin G Hives OBJECTIVE VITALS: OXYGEN THERAPY: Oxygen Therapy: Supplemental oxygen O2 Delivery Method: Nasal cannula O2 Flow Rate (L/min): 4 L/min DYSPHAGIA SYMPTOMS REPORTED BY PATIENT: Denies any swallowing issues NPO: no CURRENT DIET TEXTURES ORDERED: IDDSI Level 6 Soft and Bite-Sized IDDSI Level 0 Thin FEEDING METHOD: Independent MENTAL STATUS: Alert , Responsive, and Cooperative SWALLOW BASELINE ASSESSMENT: Respiratory Status: Oxygen via nasal cannula History of Intubation: No Behavior/Cognition: Alert, Cooperative, Pleasant mood Dentition: Edentulous upper, Some missing teeth Patient Positioning: Upright in bed Baseline Vocal Quality: Within Functional Limits MOTOR SPEECH: Labial ROM: Within Functional Limits Labial Symmetry: Within Functional Limits Lingual Appearance: Dry Lingual ROM: Within Functional Limits Lingual Symmetry: Within Functional Limits Facial ROM: Within Functional Limits Facial Symmetry: Within Functional Limits Velum: Within Functional Limits Mandible: Within Functional Limits Vocal Quality: Within Functional Limits Intelligibility: Intelligible 100% CONSISTENCIES ASSESSED: Yes Thin Presentation: Cup, Self Fed Oral: Within functional limits Pharyngeal: Throat clearing - delayed (x1 throat clear after first sip in 6 trials) Puree Presentation: Self Fed, Spoon Oral: Within functional limits Pharyngeal: Within Functional Limits Chopped/Soft & Bite Sized/ Mechanical Soft Presentation: Self Fed Oral: Within functional limits Pharyngeal: Within Functional Limits Comments: Pt refused to participate in additional trials as pt reported he did not want to eat anything but fruit and coffee despite education about purpose of assessment ASSESSMENT/RECOMMENDATIONS ASPIRATION RISK: Recommendations: Dysphagia treatment Diet Solids Recommendation: IDDSI Level 6 Soft and Bite Sized Diet Liquids Recommendation: Thin liquids Liquid Administration Via: Cup Compensatory Swallowing Strategies: Upright as possible for all oral intake, Remain upright for 20-30 minutes after meals, Alternate solids and liquids, Small bites/sips, Eat/feed slowly, Slow rate of intake Recommended Medication Route: PO Recommended Medication Administration: One pill at a time [employer] ASSESSMENT: [employer] Assessment Results: Within functional limits Evaluation/Treatment Tolerance: Treatment limited secondary to agitation Comments: Limited trials per pt's limited food preferences, recommend nutrition consult Medical Staff Made Aware: Yes Comments: Discuessed w/ RN and message sent to MD CURRENT DIET: Dietary Orders (From admission, onward) Start Ordered 08/27/24 1020 Adult diet [facility]; Modified Consistency Options for Liquidsand Solids; IDDSI Level 6 Soft & Bite Sized Diet effective now Question Answer Comment Location [facility] Diet Type (req) Modified Consistency Options for Liquids and Solids Modified Consistency Options for Liquids and Solids IDDSI Level 6 Soft & Bite Sized 08/27/24 1020 PLAN OF CARE [employer] PLAN Treatment/Interventions: Swallow function [employer] Plan: Skilled [employer] Frequency: 1 day per week [employer] Treatments per day: 1 time per day [employer] - Evaluation Status: Complete Diet Recommendations: IDDSI 6/0, soft and bite sized and thin liquids DISCHARGE RECOMMENDATIONS No Speech-Language Pathology ([employer]) services/needs at next level of care. EDUCATION Education Documentation Modified Diet Training, taught by Silvana Chow, [employer] at 08/28/2024 9:29 AM. Learner: Patient Readiness: Acceptance Method: Explanation Response: Verbalizes Understanding Comment: Pt was provided education about swallowing strategies and diet modifications. Education Comments No comments found. GOALS Encounter Problems Encounter Problems (Active) Template: Speech Therapy Problem: Swallowing Dates: Start: 08/28/24 Goal: Patient will tolerate the least restrictive diet consistency to allow for safe consumption ofdaily meals Dates: Start: 08/28/24 Expected End: 09/04/24 Description: Goal Type: LTG, Performance Level: Independent Goal: Patient will tolerate recommended food and liquid consistencies without clinical signs and symptoms of aspirations Dates: Start: 08/28/24 Expected End: 09/04/24 Description: Goal Type: STG, Performance Level: Independent Encounter Problems (Resolved) There are no resolved problems. Cosigned by PEPITO Raphael at 08/28/2024 6:36 PM EST Associated attestation - Liv Maza SLP - 08/28/2024 6:36 PM EST I attest that I, Brigitte Maza M.S.,[facility], was physically involved in the ongoing assessment, decision making, and interventions provided during today's patient care session. I have reviewed all documentation for today's 08/28/24, entered by Speech Therapy Fellow, Silvana Chow, and further attest that it is an accurate clinical record of today's encounter, including accurate and appropriate charges. * Elaina Jacques MD - 08/28/2024 8:41 AM EST [facility] Provider Response Note PATIENT: ALBARO LOPEZ : 1940 ADMIT DATE: 08/26/2024 11:03 PM DISCH DATE: RESPONDING PROVIDER #: [id number] PROVIDER RESPONSE TEXT: The patient has septic encephalopathy. QUERY TEXT: Encephalopathy is documented in the medical record. Please specify the type. ED Provider Notes 08/26/24 Dr. Ruffin 1916 Became increasingly agitated, with increased work of breathing and becoming tachypneic and desaturating to 85%. Was placed on a nonrebreather as he would not sit still and was very agitated, appears altered now. Family at bedside reports he usually takes Ativan 3 times daily 1 mg p.o. but ran out a week ago. Patient evaluated at bedside with Dr. Ruffin, advises to give patient 2 of IV Ativan... Patient was given Ativan however not responding enough, would not sit still for portable x-ray, pulling at lines, Dr. Ruffin advises 5 mg IM Zyprexa as well. Suspect there could be a component of Ativan withdrawal as he is typically been on it 3-4 times a day and ran out a week ago. On my exam patient does appear to be confused. Patient family stated that patient does get confused. Was placed on a nonrebreather as he would not sit still and was very agitated, appears altered now. At this time patient will be admitted to medical service for SIRS, altered mental status. History 08/27/24 Dr. Roldan Acute encephalopathy- Likely secondary to sepsis and hospitalization. The patient has had previous issues with delirium during hospitalizations. We will continue his home quetiapine and treat him with haloperidol as needed for agitated delirium. He will have frequent reorientation and melatonin to aid in maintaining an a ppropriate circadian cycle. Thank you for your attention to this matter. Josselyn Das RN, c [phone] The patient's clinical indicators include: Options provided: -- Due to medication(s) or drugs, Please specify the medication or drug(s) in the box. -- Metabolic -- Septic -- Toxic metabolic -- Other - I will add my own diagnosis -- Disagree - Not applicable / Not valid Query created by: Josselyn Das on 08/27/2024 4:36 PM Electronically signed by: ELAINA JACQUES MD 08/28/2024 8:41 AM * Courtney Koch RN - 08/28/2024 2:25 AM EST Goals: Identify possible barriers to meeting goals/advancing plan of care: Stability of the patient: Moderately Stable - Low risk of patient condition declining or worsening End of Shift Summary: * Josselyn Duran RN - 08/27/2024 5:03 PM EST 08/27/24 1703 Initial Transition Plan Initial Transition Plan Home Back up Transition Plan Back up Transition plan Home Health Care Discharge Planning Living Arrangements Spouse/significant other Type of Residence Private residence Assistive Devices Eyeglasses Support Systems Spouse/significant other;Immediate family Medication Coverage Has Med Coverage Under Insurance Plan Yes Medication Affordability No concerns related to payment for meds Anticipated Discharge Needs Discipline following for SNF placement Global Regulatory Affairs Manager Informed Choice Informed Choice Given? Yes GUILLE: 08/29 Plan: home self vs VNA- declines PT and SNF ( 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 49 h wk) Barriers: Echo HR 124, BP 156/109 UTI Tox + Therapy Eval: pending need Referral status: entered Auth status: na Last BM: unk Pharmacy: [facility] HCP: Yes Support Persons and Availability: Family PCP: Christiano Franco MD * Elaina Jacques MD - 08/27/2024 2:54 PM EST Images from the original note were not included. MIGDALIA PROGRESS NOTE Date: 08/27/2024 Author: Elaina Jacques MD Patient ID: Albaro Lopez is a 84 y.o. male : 1940 MR#: [id number] SUBJECTIVE Patient seen and examined earlier this morning. Earlier in the morning patient was feeling fine. Denied any complaints. Mentions that his abdomen was distended denied any shortness of breath later hebecame short of breath and was tachypneic. Looks mildly in respiratory distress a chest x-ray was ordered found to have pulmonary congestion Lasix ordered. Current Medications: aspirin, 81 mg, oral, Daily atorvastatin, 80 mg, oral, Nightly carvediloL, 3.125 mg, oral, BID cefTRIAXone, 1 g, intravenous, q24h clopidogreL, 75 mg, oral, Daily doxycycline, 100 mg, intravenous, q12h enoxaparin, 40 mg, subcutaneous, q24h MYLES furosemide, 40 mg, intravenous, Once [START ON 08/28/2024] furosemide, 40 mg, intravenous, Daily gabapentin, 300 mg, oral, TID pantoprazole, 40 mg, oral, BID AC QUEtiapine, 100 mg, oral, Nightly sodium chloride, 10 mL, intravenous, BID tamsulosin, 0.4 mg, oral, Daily PRN medications: acetaminophen, ondansetron (ZOFRAN-ODT) disintegrating tablet OR ondansetron, prochlorperazine OR prochlorperazine OR prochlorperazine, QUEtiapine, Insert peripheral IV AND Maintain IV access AND Saline lock IV AND sodium chloride AND sodium chloride OBJECTIVE Vitals: 08/27/24 0350 08/27/24 0800 08/27/24 0827 08/27/24 1244 BP: 124/60 (!) 156/109 (!) 154/75 BP Location: Right arm Right arm Patient Position: Lying Lying Pulse: (!) 114 (!) 126 (!) 124 83 Resp: 16 Temp: 37.6 ??C (99.7 ??F) 37.1 ??C (98.8 ??F) 37.7 ??C (99.8 ??F) TempSrc: Oral Temporal SpO2: 94% 100% 94% Weight: Height: Physical Exam Appearance: No Acute Distress, Alert on 2 L nasal cannula Head Exam: Normocephalic and Atraumatic Eyes: Mild Pallor, Sclera Anicteric, PERRL, EOMI Neck: Supple, Non-tender, No carotid bruit, thyromegaly or lymphadenopathy Pulmonary: No Accessory Muscle Use, diminished air entry at bases no rhonchi heard. Cardiovascular: S1 and S2 regular rate rhythm no murmurs rubs or gallops heard Abdominal Inspection: Normal, Soft, Non-tender, Bowel Sounds Present, No Hepatosplenomegaly Extremity: Peripheral Pulses are palpable and symmetrical, Musculoskeletal: No obvious joint pain, swelling or deformity Skin: Skin Color Normal, No rash or visible ulcer on limited examination Hematological: No lymphadenopathy or mass Neurologically alert oriented x3 no focal deficit Results from last 7 days Lab Units 08/27/24 0537 SODIUM mmol/L 139 POTASSIUM mmol/L 3.8 CHLORIDE mmol/L 108 CO2 mmol/L 23 BUN mg/dL 25 CREATININE mg/dL 1.41* GLUCOSE mg/dL 81 CALCIUM mg/dL 9.1 Results from last 7 days Lab Units 08/27/24 0537 WBC AUTO K/mcL 6.4 HEMOGLOBIN g/dL 9.4* HEMATOCRIT % 27.9* PLATELETS K/mcL 126* Recent Results (from the past 168 hour(s)) Respiratory virus panel molecular study Collection Time: 08/26/24 3:48 PM Specimen: Nares; Swab Result Value Ref Range Adenovirus Detection by PCR Not Detected Not Detected Influenza A PCR Not Detected Not Detected Influenza B PCR Not Detected Not Detected Coronavirus 229E Not Detected Not Detected Coronavirus HKU1 Not Detected Not Detected Coronavirus OC43 Not Detected Not Detected Coronavirus NL63 Not Detected Not Detected Parainfluenza Virus 1 Not Detected Not Detected Parainfluenza Virus 2 Not Detected Not Detected Parainfluenza Virus 3 Not Detected Not Detected Parainfluenza Virus 4 Not Detected Not Detected RSV PCR Not Detected Not Detected Human Metapneumovirus A and B Not Detected Not Detected Rhinovirus/Enterovirus Not Detected Not Detected Bordetella pertussis Not Detected Not Detected Bordetella parapertussis Not Detected Not Detected Mycoplasma pneumo by PCR Not Detected Not Detected Chlamydia pneumoniae Not Detected Not Detected SARS COV-2 Not Detected Not Detected Culture urine Collection Time: 08/26/24 7:25 PM Specimen: Urine, Clean Catch Result Value Ref Range Culture, Urine <10,000 CFU/mL gram positive cocci, insignificant count, no further workup Blood Culture, Peripheral Draw #1 Collection Time: 08/26/24 10:10 PM Specimen: Blood, Venous Result Value Ref Range Culture, Blood Culture in progress Blood Culture, Peripheral Draw #2 Collection Time: 08/26/24 10:10 PM Specimen: Blood, Venous Result Value Ref Range Culture, Blood Culture in progress Imaging: XR Chest 1 View Narrative: Procedure: AP chest radiograph. HISTORY: SOB, abn CXR, heart failure suspected. COMPARISON: 08/26/2024. FINDINGS: Mildly hypoventilatory lordotic projection exam. Right diaphragmatic eventration. Slightly blunted left costophrenic angle which could represent pleural thickening or trace fluid. Mild pulmonary vascular congestion without overt edema. Heart size within normal limits for portable technique. Atherosc lerotic calcifications of the aorta. Degenerative changes of the spine and shoulders. Impression: Mild pulmonary vascular congestion. Left sided pleural thickening versus trace pleural fluid. -------- FINAL REPORT -------- Dictated By: Blu Izquierdo Dictated Date: 08/27/2024 11:42 ET Assigned Physician: Blu Izquierdo Reviewed and Electronically Signed By: Blu Izquierdo Signed Date: 08/27/2024 11:44 ET Workstation ID: [id number] Transcribed By: Self Edit Transcribed Date: 08/27/2024 11:42 ET XR Chest 1 View Narrative: XR CHEST 1 VIEW INDICATION: Pain TECHNIQUE: XR CHEST 1 VIEW COMPARISON: 11/29/2023 Impression: FINDINGS/IMPRESSION: Patchy opacity in the left lower lung zones suspicious for pneumonia. Right lung is relatively clear. No pleural effusion or pneumothorax. Cardiac silhouette is normal in size. Bones are normal. 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 Patient initially admitted with sepsis with unknown cause. Chest x-ray done earlier showed pneumonia as a source with CT angiogram did not show any pneumonia. Will continue with IV Lasix that has been started on him. Patient continues to be short of breath has a history of heart failure with recovered ejection fraction Repeat chest x-ray this morning showed pulmonary vascular congestion will discontinue IV fluids andstart him on IV Lasix. Echocardiogram to be done. Patient has had history of delirium during previous hospitalizations. Seems to be confused at this time. Will continue with his home Seroquel. Likely may need Haldol for agitation CAD on aspirin Plavix beta-carolyn and statin GERD on PPI BPH on tamsulosin DVT prophylaxis on Lovenox Patient is a DNR/DNI * PEPITO Peña - 08/27/2024 1:00 PM EST Speech Language Pathology Therapy session was attempted for Albaro Lopez by PEPITO Peña on 08/27/2024. The patientwas unable to be seen for the following reason(s): Patient declined PO. Patient did swallow meds crushed in puree without difficulty. Plan for return visit: Tomorrow * PEPITO Peña - 08/27/2024 11:06 AM EST Speech Language Pathology Therapy session was attempted for Albaro Lopez by PEPITO Peña on 08/27/2024. The patientwas unable to be seen for the following reason(s): Patient very SOB, increased WOB. RN in with patient. Plan for return visit: Will return later today * Courtney Koch RN - 08/27/2024 5:15 AM EST Goals: Identify possible barriers to meeting goals/advancing plan of care: Stability of the patient: Moderately Stable - Low risk of patient condition declining or worsening End of Shift Summary: * Latisha De La Vega RN - 08/27/2024 1:23 AM EST ED RN HANDOFF (All Ortega Below Must Be Completed) Reason/Diagnosis for Admission: Shortness of Breath, AMS Type of Admission: Telemetry Already in a Hospital Bed: No Room Considerations/Precautions (ex: fever, diarrhea, or any infectious concerns): No Band Edger: Yes If YES, Cardiac Rhythm: SR Reason for Band Edger: presented with CP, SOB Current Mental Status: A/O x 4 Current Ambulation Status: ambulates with walker at baseline, has not ambulated here IV Access: Yes Field IV present: Yes Hx of Violence: No Fall Risk: Yes Yellow Bracelet Applied Yes Yellow Socks Applied Yes Patient Belongings inventoried and BL completed: Yes Patient belongings stored in the security closet: No Patient Medications stored in Pharmacy: No ED Summary of Care: Pt had CXR, Chest CTA for CP/SOB. Providers questioning and treating for possible R side PNA on CXR, Chest CTA negative for PE. During ER visit, pt became very restless/uncooperative, treated with zyprexa and IV ativan d/t daily dosing of ativan at home. Pt had not rec'd ativan at home as he has been out of med. Pt responded well to ativan and is aaox4, cooperative with care at this time. Submitted by and Phone Extension: Latisha [phone] * Donte Gimenez RN - 08/26/2024 6:00 PM EST Patient became tachy on monitor HR in 120's-130's- denies chest pain , sob. Provider notified. * Marcela Ruffin DO - 08/26/2024 2:37 PM EST Emergency Medicine Note Patient Name: Albaro Lopez Initial Evaluation: 08/26/2024 : 1940 Patient's PCP: Christiano Franco MD Emergency Physician: ASHOK Echevarria History of Present Illness Chief Complaint: Chief Complaint Patient presents with Chest Pain Per ems coming from home - family states increased weakness, and 5/10 chest pain and diarrhea. Denies nausea, vomiting. - ASA 324mg- morphine 4mg- 400 NS HPI: This is an 84-year-old Mohawk-speaking male past medical history significant for hypertension, hyperlipidemia, HFrEF, COPD, GERD, CAD status post stenting, presenting via EMS for reported chestpain last night, increased weakness, diarrhea, without nausea or vomiting. Received 324 mg aspirin from EMS as well as 4 mg of morphine and 400ml bolus of normal saline. Patient reports the chest pain is no longer present, states this happens every now and then and it comes and goes. Denies any fevers, chills, dizziness, lightheadedness, palpitations, back pain, abdominal pain, bowel or bladder abnormalities. Denies shortness of breath cough, congestion, hemoptysis, lower extremity swelling. Ashok vu also notes that he has been having chronic left lower back pain that radiates down his leg without any numbness, tingling, weakness, saddle anesthesia, urinary retention, incontinence. He is unable to tell me how long this has been going on for but states a while. ROS: I have performed a ROS with the pertinent positives and negatives documented in the history ofpresent illness. Previous History Past Medical History: Diagnosis Date Actinic keratosis, hx of DX:Actinic keratosis, hx of Agitation DX:Agitation Anxiety 11/12/2012 DX:Anxiety Asthma 11/12/2012 DX:Asthma Basal cell carcinoma of skin 01/28/2013 DX:Basal cell carcinoma of skin Chronic pain 10/06/2012 DX:Chronic pain Diet-controlled diabetes mellitus ([facility]) DX:Diet-controlled diabetes mellitus ([facility]) Dysphagia 10/06/2012 DX:Dysphagia Fall DX:Fall; COMMENT: MECHANICAL Hemiplegia following CVA (cerebrovascular accident) ([facility]) 10/06/2012 DX:Hemiplegia following CVA (cerebrovascular accident) ([facility]) Hemoptysis DX:Hemoptysis Historical Medical DX 10/06/2012 DX:Hyperlipidemia LDL goal < 100 History of basal cell carcinoma 01/28/2013 DX:History of basal cell carcinoma; COMMENT: BCC 01/21 left ear (ulcerated, nodular) HTN (hypertension) 10/06/2012 DX:HTN (hypertension) Incidental lung nodule DX:Incidental lung nodule; COMMENT: ct chest doen prior tosurgery, no evidnece, to f/u with pt Insomnia 10/06/2012 DX:Insomnia Left inguinal hernia 01/26/2014 DX:Left inguinal hernia Low back pain 11/12/2012 DX:Low back pain Lumbar disc disease 10/06/2012 DX:Lumbar disc disease Microscopic hematuria DX:Microscopic hematuria NSTEMI (non-ST elevated myocardial infarction) ([facility]) 12/30/2013 DX:NSTEMI (non-ST elevated myocardial infarction) ([facility]) Presence of stent in left circumflex coronary artery 11/03/2013 DX:Presence of stent in left circumflex coronary artery Recurrent appendicitis DX:Recurrent appendicitis; COMMENT: s/p surgery in 02/2014 Throat pain 10/06/2012 DX:Throat pain Past Surgical History: Procedure Laterality Date APPENDECTOMY 02/21 PROCEDURE: ND APPENDEC INDICATED PURPOSE OTH MAJOR PX NOT SPX ESOPHAGOGASTRODUODENOSCOPY 03/14/14 PROCEDURE: ND ESOPHAGOGASTRODUODENOSCOPY TRANSORAL DIAGNOSTIC; COMMENT: erosive esophagitis and HH OTHER SURGICAL HISTORY PROCEDURE: ---- OTHER ----; COMMENT: 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 Social History Tobacco Use Smoking status: Former Current packs/day: 0.00 Types: Cigarettes Quit date: 09/25/2022 Years since quittin.9 Smokeless tobacco: Never Substance Use Topics Alcohol use: No Drug use: No No family history on file. is allergic to penicillin and penicillin g. No current facility-administered medications on file prior to encounter. No current outpatient medications on file prior to encounter. Physical Exam ED Triage Vitals Temp Heart Rate Resp BP 08/26/24 1526 08/26/24 1526 08/26/24 1606 08/26/24 1526 (!) 38.3 ??C (100.9 ??F) (!) 125 19 127/69 SpO2 Temp src Heart Rate Source Patient Position 08/26/24 1526 -- -- -- 96 % BP Location FiO2 (%) 08/26/24 1606 -- Left arm GENERAL: No acute distress, nontoxic., 5 out of 5 motor, equal strength bilaterally, SKIN: Appropriate color for ethnicity, warm, dry. No rashes. HEENT: No stridor, no lymphadenopathy. NECK: Soft, supple, full ROM, Midline structures, nontender, no step-off, no deformity. CHEST: Heart regular rate and rhythm, no rubs, no gallops or murmurs. Chest wall is nontender to palpation. PULMONARY: Clear to auscultation bilaterally without any adventitious lung sounds. No increased work of breathing. ABDOMINAL: Soft, nondistended nontender with positive bowel sounds. : Deferred. MUSCULOSKELETAL: Normal tone 5 out of 5 motor, equal strength bilaterally. Distal circulation intact. Tender to palpation of the left lower back musculature without midline spinal tenderness, no deformity. NEURO: Alert and oriented x3, Cranial nerves II through XII are intact, sensation grossly intact tolight touch. PSYCHIATRIC: Normal affect, fluid speech, good eye contact and appropriate demeanor. Results Labs Reviewed COMPREHENSIVE METABOLIC PANEL - Abnormal Result Value Sodium 137 Potassium 4.1 Chloride 108 CO2 24 Anion Gap 5 Glucose 121 (*) BUN 23 Creatinine 1.43 (*) eGFR 49 (*) BUN/Creatinine Ratio 16.1 Calcium 10.0 AST (SGOT) 30 ALT (SGPT) 25 Alkaline Phosphatase 72 Total Protein 6.9 Albumin 3.7 Total Bilirubin 0.8 MAGNESIUM - Abnormal Magnesium 1.6 (*) B-TYPE NATRIURETIC PEPTIDE - Abnormal BNP 118 (*) CBC WITH AUTO DIFFERENTIAL - Abnormal WBC 9.8 RBC 3.40 (*) Hemoglobin 10.8 (*) Hematocrit 32.6 (*) MCV 97.3 MCH 32.2 (*) MCHC 33.1 RDW 18.3 (*) Platelets 151 MPV 10.9 NRBC 0.0 NRBC Absolute 0.00 Neutrophils Relative 90.1 Lymphocytes Relative 3.2 Monocytes Relative 4.4 Eosinophils Relative 0.6 Basophils Relative 0.2 Immature Granulocytes Relative 1.5 Neutrophils Absolute 8.80 (*) Lymphocytes Absolute 0.31 (*) Monocytes Absolute 0.43 Eosinophils Absolute 0.06 Basophils Absolute 0.02 Immature Granulocytes Absolute 0.15 (*) URINALYSIS WITH REFLEX MICROSCOPIC AND CULTURE - Abnormal Specific Kaycee Urine 1.027 pH, Urine 5.5 Leukocytes, Urine Small (*) Nitrite, Urine Negative Protein, Urine 30 (*) Glucose, Urine Negative Ketones, Urine Trace (*) Urobilinogen, Urine 0.2 Bilirubin, Urine Negative Blood, Urine Small (*) RBC, Urine 17.6 (*) WBC, Urine 18.2 (*) Squamous Epithelial, Urine 71 (*) Bacteria, Urine Negative Hyaline Casts, Urine 5.9 (*) SALICYLATE LEVEL - Abnormal Salicylate Level <1.7 (*) ACETAMINOPHEN LEVEL - Abnormal Acetaminophen Level <2.0 (*) VENOUS BLOOD GAS - Abnormal pH, Sherif 7.37 pCO2, Sherif 36 (*) pO2, Sherif 41 (*) HCO3, Venous 21.2 (*) O2 Sat, Sherif 68.4 Base Excess, Sherif -4.0 (*) RESPIRATORY VIRUS PANEL MOLECULAR STUDY - Normal Adenovirus Detection by PCR Not Detected Influenza A PCR Not Detected Influenza B PCR Not Detected Coronavirus 229E Not Detected Coronavirus HKU1 Not Detected Coronavirus OC43 Not Detected Coronavirus NL63 Not Detected Parainfluenza Virus 1 Not Detected Parainfluenza Virus 2 Not Detected Parainfluenza Virus 3 Not Detected Parainfluenza Virus 4 Not Detected RSV PCR Not Detected Human Metapneumovirus A and B Not Detected Rhinovirus/Enterovirus Not Detected Bordetella pertussis Not Detected Bordetella parapertussis Not Detected Mycoplasma pneumo by PCR Not Detected Chlamydia pneumoniae Not Detected SARS COV-2 Not Detected Narrative: Testing was performed using the [employer] Respiratory Pathogen PCR Assay. All results must be correlated with the clinical findings. Results should not be used as the sole basis for diagnosis. False Negative results may occur from the presence of sequence variants in the region targeted by the assay or the presence of inhibitors. Results may be affected by concurrent antiviral/antimicrobial therapy or levels of organisms that are below the limit of detection. TROPONIN I HIGH SENSITIVITY - Normal High Sensitivity Troponin I 17 Narrative: High levels of biotin in samples may falsely decrease hsTroponin values. Use caution when interpreting hsTroponin results in patients taking biotin who exhibit renal impairment (eGFR <60) or in patients taking more than 20 mg/day of biotin. TROPONIN I HIGH SENSITIVITY - Normal High Sensitivity Troponin I 21 Narrative: High levels of biotin in samples may falsely decrease hsTroponin values. Use caution when interpreting hsTroponin results in patients taking biotin who exhibit renal impairment (eGFR <60) or in patients taking more than 20 mg/day of biotin. LIPASE - Normal Lipase 19 ETHANOL - Normal Ethanol Level <3 CULTURE URINE CULTURE BLOOD CULTURE BLOOD CBC AND DIFFERENTIAL Narrative: The following orders were created for panel order CBC and differential. Procedure Abnormality Status --------- ------ CBC auto differential[[id number]] Abnormal Final result Please view results for these tests on the individual orders. URINALYSIS WITH REFLEX MICROSCOPIC AND CULTURE Narrative: The following orders were created for panel order Urinalysis with reflex microscopic and culture. Procedure Abnormality Status --------- ------ Urinalysis with reflex ...[[id number]] Abnormal Final result Ziegler urine culture tube[[id number]] Final result Please view results for these tests on the individual orders. DRUG ABUSE SCREEN 8A PANEL, URINE LACTATE, WITH REFLEX Abnormal Labs Reviewed COMPREHENSIVE METABOLIC PANEL - Abnormal; Notable for the following components: Result Value Glucose 121 (*) Creatinine 1.43 (*) eGFR 49 (*) All other components within normal limits MAGNESIUM - Abnormal; Notable for the following components: Magnesium 1.6 (*) All other components within normal limits B-TYPE NATRIURETIC PEPTIDE - Abnormal; Notable for the following components: BNP 118 (*) All other components within normal limits CBC WITH AUTO DIFFERENTIAL - Abnormal; Notable for the following components: RBC 3.40 (*) Hemoglobin 10.8 (*) Hematocrit 32.6 (*) MCH 32.2 (*) RDW 18.3 (*) Neutrophils Absolute 8.80 (*) Lymphocytes Absolute 0.31 (*) Immature Granulocytes Absolute 0.15 (*) All other components within normal limits URINALYSIS WITH REFLEX MICROSCOPIC AND CULTURE - Abnormal; Notable for the following components: Leukocytes, Urine Small (*) Protein, Urine 30 (*) Ketones, Urine Trace (*) Blood, Urine Small (*) RBC, Urine 17.6 (*) WBC, Urine 18.2 (*) Squamous Epithelial, Urine 71 (*) Hyaline Casts, Urine 5.9 (*) All other components within normal limits SALICYLATE LEVEL - Abnormal; Notable for the following components: Salicylate Level <1.7 (*) All other components within normal limits ACETAMINOPHEN LEVEL - Abnormal; Notable for the following components: Acetaminophen Level <2.0 (*) All other components within normal limits VENOUS BLOOD GAS - Abnormal; Notable for the following components: pCO2, Sherif 36 (*) pO2, Sherif 41 (*) HCO3, Venous 21.2 (*) Base Excess, Sherif -4.0 (*) All other components within normal limits CT Angio Chest wo and/or w Contrast Final Result 1. No pulmonary emboli. This document has been electronically signed by: Shraddha Maciel MD on 08/26/2024 21:58:59 XR Chest 1 View (Results Pending) I have discussed the incidental/abnormal imaging and/or lab abnormalities with the patient and haveinstructed them the need for further evaluation and workup with their primary care doctor. I have provided the patient with a paper copy of the abnormality. The laboratory results, imaging results and other diagnostic exam results were reviewed in the EMR. EKG Interpretation Sinus rhythm with PVCs at 90 bpm, QTc of 450. No acute ischemic changes noted when compared to previous study from 30 November 2023. Critical Care Time None Differential Diagnosis ACS Pneumonia Viral syndrome Lumbar strain Osteoarthritis PE Aortic dissection UTI ? Medical Decision Making Medications cefTRIAXone (ROCEPHIN) 1 g in sterile water 10 mL IV syringe (has no administration in time range) azithromycin (ZITHROMAX) 500 mg in sodium chloride 0.9 % 250 mL IVPB (has no administration in timerange) magnesium sulfate 2 gram/50 mL (4 %) IVPB 2 g (0 g intravenous Stopped 08/26/241949) sodium chloride 0.9 % bolus 500 mL (0 mL intravenous Stopped 08/26/241954) acetaminophen (TYLENOL) tablet 1,000 mg (1,000 mg oral Given 08/26/241905) LORazepam (ATIVAN) injection 2 mg (2 mg intravenous Given 08/26/241921) ipratropium-albuteroL (DUONEB) 0.5-2.5 mg/3 mL nebulizer solution 3 mL (3 mL nebulization Given 08/26/241926) OLANZapine (ZyPREXA) injection 5 mg (5 mg intramuscular Given 08/26/241932) LORazepam (ATIVAN) injection 2 mg (1 mg intravenous Given 08/26/242018) iopamidoL (ISOVUE-370) 370 mg iodine /mL (76 %) injection 100 mL (90 mL intravenous Given 08/26/242121) sodium chloride 0.9 % flush 10 mL (10 mL intravenous Given 08/26/242122) ED Course as of 08/26/242210 Shelia Aug 26, 2024 1650 Seen and evaluated. Patient was initially tachycardic to 125 on arrival with temp of 100.9 ??Fhowever without any treatment he is now with a heart rate of 88, temp of 98.8 ??F. He did receive morphine and IV fluids from EMS. He is not reporting any upper respiratory symptoms, does not appear to have a viral syndrome. He is not having any chest pain at this time and appears very comfortable stating he feels much better. Lab work is remarkable for magnesium of 1.6, will replete. Creatinine of 1.43, during an admission last year it was 3.7 and apparently previous to this was 1.25 so this appears to be his baseline. H&H of 10.8 and 32.6. BNP 118. Chest x-ray is pending, EKG is nonischemic sinus rhythm with frequent PVCs. Troponin of 17. Suspicion for ACS at this time given he is pain-free and the character of his pain does not seem consistent with ACS. While he is reporting chronic left lower back pain, he has no neurodeficits, appears comfortable, and no red flag symptoms for back pain. He has no leukocytosis. He does not have any risk factors for spinal epidural abscess and while he was briefly febrile, it is unclear why he was transiently febrile here. [YB] 1707 Viral panel is negative. [YB] 1840 Patient had a few episodes of tachycardia in the 140s that were intermittent and brief, however had a more persistent episode, EKG was obtained which showed sinus tachycardia with PVCs at 122 bpm. During this he seemed anxious, but denied any chest pain or palpitations. Patient was evaluated be dside with Dr. Ruffin who advises to give IV fluids, and continue infectious workup, obtain rectal temp. UA is pending. Patient has not yet gone for chest x- ray. [YB] 1917 Became increasingly agitated, with increased work of breathing and becoming tachypneic and desaturating to 85%. Was placed on a nonrebreather as he would not sit still and was very agitated, appears altered now. Family at bedside reports he usually takes Ativan 3 times daily 1 mg p.o. but ran out a week ago. Patient evaluated at bedside with Dr. Ruffin, advises to give patient 2 of IV Ativan,stat portable x-ray, CTA of the chest. Lung sounds are clear, does not appear fluid overloaded, hiscardiac workup was negative, suspect this could be behavioral in nature. [YB] 1924 Patient was given Ativan however not responding enough, would not sit still for portable x-ray, pulling at lines, Dr. Ruffin advises 5 mg IM Zyprexa as well. He is receiving a breathing blow-by breathing treatment as he will not allow for the mask to be placed on his face, per his daughter she reports during his last admission this happened as well and he had to be restrained in order to havefurther workup and treatment done. Suspect there could be a component of Ativan withdrawal as he istypically been on it 3-4 times a day and ran out a week ago. [YB] 2002 Heart rate has improved to 109, SpO2 in the mid 90s, he is no longer tachypneic however he still will not sit still frequently trying to get out of bed. [YB] 2119 On my individual interpretation of the chest x-ray appears to have a left lower lobe pneumoniawhen compared to the previous study, will give ceftriaxone and doxycycline. [YB] 2209 CTA without acute findings, does not confirm pneumonia. At this time patient will be admitted to medical service for SIRS, altered mental status. [YB] ED Course User Index [YB] ASHOK Echevarria Clinical Impressions as of 08/26/241 Shortness of breath Altered mental status, unspecified altered mental status type SIRS (systemic inflammatory response syndrome) ([facility]) Procedures Procedures Diagnosis 1. Altered mental status, unspecified altered mental status type 2. Shortness of breath CT Angio Chest wo and/or w Contrast CT Angio Chest wo and/or w Contrast 3. SIRS (systemic inflammatory response syndrome) ([facility]) Disposition Admit to Inpatient ED Prescriptions None Physician Attestation This is a split/shared visit with ASHOK Echevarria. I personally performed the medical decision making (MDM) for the care of this patient on 08/26/24 as documented below 84-year-old male presented hospital today for evaluation of increased weakness. On my exam patient does appear to be confused. Patient family stated that patient does get confused. The last time he got confused he had issues with his heart. Patient does go in and out with sinus tachycardia. Patient does have a fever here. I suspect patient likely has sepsis. Daughter was at bedside stated that patient was on 1 mg Ativan p.o. 3 times a day. He has not takenhis Ativan for past week because he has been out of it. On reassessment I was notified that patient is agitated and appears to be short of breath. I patient does not appear tachypneic. He is moving air well. Will plan to give him a DuoNeb treatment. Due to history of patient of possible benzodiazepine withdrawal. Will plan to give him 2 mg IV Ativan. 5 mg IM Zyprexa was given as well. Patient is agitated. We are unable to obtain any workup on the patient at this time. Patient still remains agitated at this time patient will be taken for emergent CTAof the chest to rule out PE given his tachycardia. Will plan to give patient additional 2 mg IV Ativan. On reassessment patient is protecting his airway. He is sedated at this time. CTA of the chest will be obtained. No sign of PE on his chest. Plan to admit the patient to the hospital for sepsis. Marcela Ruffin, 08/26/24 10:42 PM EST DO Virginia Lozada PA 08/26/24 1646 Yotam Block, PA 08/26/24 1703 Yotam Block, ASHOK 08/26/24 1705 Yotam Block, PA 08/26/24 2211 Marcela Ruffin DO 08/26/24 2248 documented in this encounter H&P Notes * Erik Roldan MD - 08/27/2024 2:43 AM EST Images from the original note were not included. [facility] Please contact author [Erik Roldan MD] via [employer]. Patient: Albaro Lopez Admission Date/Time: 08/26/2024 2:38 PM : 1940 [84 y.o.] Patient's PCP: Christiano Franco MD Attending Provider: Erik Roldan MD CHIEF COMPLAINT Chest pain and altered mental status HISTORY OF PRESENT ILLNESS Mr. 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 The patient was reportedly in his usual state of health until the nightprior to presentation when he developed chest pain and diarrhea. He had no associated fevers, chills, nausea, or vomiting. Today the patient had ongoing symptoms along with generalized weakness and EMS was activated. The patient was taken to the Emergency Department for further evaluation. En route, he was administered aspirin 324 mg, morphine 4 mg IV, and 400 mL normal saline. Vital signs were remarkable for tachycardia up to 140 bpm and a fever of 38.2 ??C. Laboratories were personally reviewed. CBC demonstrated a normal white blood cell count of 9,800 /uL with 90.1% neutrophils and mild anemia with a hemoglobin of 10.8 g/dL. Chemistries revealed stable chronic kidney disease and hypomagnesemia. Serial troponins were normal at 17 pg/mL and 21 pg/mL, respectively. BNP was minimally elevated at 118 pg/mL. Lactic acid was normal at 1.5 mmol/L. Urinalysis demonstrated mild pyuria. Urine toxicology was positive for opiates. Chest x-ray was personally reviewed and was rotated with possible events of left lower lobe consolidation. CT angiogram of the chest was personall y reviewed and did not endorse pneumonia or pulmonary embolism. Mild interstitial pulmonary edema was noted. ECG was personally reviewed revealed sinus tachycardia with incomplete right bundle branchblock and left ventricular hypertrophy with repolarization abnormality. Viral respiratory panel was negative. The patient was administered ceftriaxone, azithromycin, nebulizer treatments, and 0.5 liters of crystalloid. He was reportedly agitated and was given lorazepam 4 mg IV in divided doses and olanzapine 5 mg IM x 1. The Hospitalist service was consulted for admission. On evaluation, the patient is unable to provide any significant further history other than reporting that he is having pain in his right flank. He denies shortness of breath or cough. He not experiencing any chest discomfort. He lives at home with family and uses a walker for ambulation Functional status prior to presentation: Walker Review of Systems Constitutional - Denies fevers or chills. Denies unintended weight loss or gain. HEENT - Denies headache, vision changes, tinnitus, hearing loss, vocal hoarseness Respiratory - Denies shortness of breath, cough, wheezing, pleurisy Cardiovascular - Reports chest pain, now resolved. Denies palpitations, orthopnea, paroxysmal nocturnal dyspnea, lower extremity edema Gastrointestinal - Denies nausea, vomiting, diarrhea, abdominal pain, melena, hematochezia - Denies dysuria, hematuria, incontinence Musculoskeletal - Denies arthralgias, joint stiffness Skin - Denies rashes or lesions Neurological - Denies focal weakness, numbness, or paresthesias Endocrine - Denies polydipsia, polyuria, heat or cold intolerance Hematological - Denies easy bruising or history of bleeding diathesis MEDICAL HISTORY Past Medical History Past Medical History: Diagnosis Date Actinic keratosis, hx of DX:Actinic keratosis, hx of Agitation DX:Agitation Anxiety 11/12/2012 DX:Anxiety Asthma 11/12/2012 DX:Asthma Basal cell carcinoma of skin 01/28/2013 DX:Basal cell carcinoma of skin Chronic pain 10/06/2012 DX:Chronic pain Diet-controlled diabetes mellitus ([facility]) DX:Diet-controlled diabetes mellitus ([facility]) Dysphagia 10/06/2012 DX:Dysphagia Fall DX:Fall; COMMENT: MECHANICAL Hemiplegia following CVA (cerebrovascular accident) ([facility]) 10/06/2012 DX:Hemiplegia following CVA (cerebrovascular accident) ([facility]) Hemoptysis DX:Hemoptysis Historical Medical DX 10/06/2012 DX:Hyperlipidemia LDL goal < 100 History of basal cell carcinoma 01/28/2013 DX:History of basal cell carcinoma; COMMENT: BCC 01/21 left ear (ulcerated, nodular) HTN (hypertension) 10/06/2012 DX:HTN (hypertension) Incidental lung nodule DX:Incidental lung nodule; COMMENT: ct chest doen prior tosurgery, no evidnece, to f/u with pt Insomnia 10/06/2012 DX:Insomnia Left inguinal hernia 01/26/2014 DX:Left inguinal hernia Low back pain 11/12/2012 DX:Low back pain Lumbar disc disease 10/06/2012 DX:Lumbar disc disease Microscopic hematuria DX:Microscopic hematuria NSTEMI (non-ST elevated myocardial infarction) ([facility]) 12/30/2013 DX:NSTEMI (non-ST elevated myocardial infarction) ([facility]) Presence of stent in left circumflex coronary artery 11/03/2013 DX:Presence of stent in left circumflex coronary artery Recurrent appendicitis DX:Recurrent appendicitis; COMMENT: s/p surgery in 02/2014 Throat pain 10/06/2012 DX:Throat pain Past Surgical History Past Surgical History: Procedure Laterality Date APPENDECTOMY 02/21 PROCEDURE: ND APPENDEC INDICATED PURPOSE OTH MAJOR PX NOT SPX ESOPHAGOGASTRODUODENOSCOPY 03/14/14 PROCEDURE: ND ESOPHAGOGASTRODUODENOSCOPY TRANSORAL DIAGNOSTIC; COMMENT: erosive esophagitis and HH OTHER SURGICAL HISTORY PROCEDURE: ---- OTHER ----; COMMENT: 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 Social History The patient reports that he quit smoking about 23 months ago. His smoking use included cigarettes. He has never used smokeless tobacco. He reports that he does not drink alcohol and does not use drugs. Family History The patient's family history includes Bone cancer in his sister; Heart disease in his brother, father, and mother; Seizures in his son. Allergies The patient is allergic to penicillin and penicillin g. Home Medications No current facility-administered medications on file prior to encounter. Current Outpatient Medications on File Prior to Encounter Medication Sig Dispense Refill aspirin 81 mg EC tablet Take 1 tablet (81 mg total) by mouth 1 (one) time each day. losartan (COZAAR) 25 mg tablet Take 1 tablet (25 mg total) by mouth 1 (one) time each day. QUEtiapine (SEROquel) 100 mg tablet Take 1 tablet (100 mg total) by mouth at bedtime. atorvastatin (LIPITOR) 80 mg tablet Take 1 tablet (80 mg total) by mouth at bedtime. at bedtime. carvediloL (COREG) 3.125 mg tablet Take 1 tablet (3.125 mg total) by mouth 2 (two) times a day. clopidogreL (PLAVIX) 75 mg tablet Take 1 tablet (75 mg total) by mouth 1 (one) time each day. furosemide (LASIX) 20 mg tablet Take 1 tablet (20 mg total) by mouth 1 (one) time each day. gabapentin (NEURONTIN) 600 mg tablet Take 1 tablet (600 mg total) by mouth 3 (three) times a day. omeprazole (PriLOSEC) [address] capsule Take 1 capsule (20 mg total) by mouth 2 (two) times a day. tamsulosin (FLOMAX) 0.4 mg 24 hr capsule Take 1 capsule (0.4 mg total) by mouth 1 (one) time each day. OBJECTIVE Vitals Visit Vitals BP 112/74 (BP Location: Right arm, Patient Position: Lying) Pulse 90 Temp 37.5 ??C (99.5 ??F) (Oral) Resp 16 Temp (24hrs), Av.9 ??C (100.3 ??F), Min:37.1 ??C (98.8 ??F), Max:38.7 ??C (101.7 ??F) Body mass index is 27.1 kg/m??. No results found for: PTWT , PTHT Physical Examination General: Non-toxic appearing, talking in complete sentences, in no acute distress HEENT: Normocephalic, atraumatic. Pupils equal, round, reactive to light. Extra- ocular muscles intact. Sclera anicteric without injection. Conjunctivae pink, moist. Oropharyngeal exam deferred. Neck: Supple. No cervical and supraclavicular lymphadenopathy. No thyromegaly. Chest: Few basilar rales. No wheezes. Normal excursion. Cardiovascular: Regular rhythm, tachycardic. No murmurs, rubs, or gallops. JVP is 7 cm. No bruits. 2+ distal pulses. Abdomen: Soft, non-tender, non-distended. Normoactive bowel sounds. No hepatosplenomegaly. No masses. Back: No paraspinal or midline tenderness. Skin: No rashes or lesions. Extremities: Warm, well perfused. No clubbing, cyanosis, or edema. Neuro: Alert and oriented x1. Cranial nerves II-XII grossly intact. 5/5 strength upper and lower extremities bilaterally. Sensation grossly intact. ECG: Was ECG Performed? Yes . Sinus Rhythm? Yes. Signs of acute ischemia? No Further Interpretation: Sinus tachycardia with incomplete right bundle branch block and left ventricular hypertrophy with repolarization abnormality LAB RESULTS (most recent) HEMATOLOGY Lab Results Component Value Date WBC 9.8 08/26/2024 HGB 10.8 (L) 08/26/2024 HCT 32.6 (L) 08/26/2024 MCV 97.3 08/26/2024 PLT 151 08/26/2024 CHEMISTRY Lab Results Component Value Date GLUCOSE 121 (H) 08/26/2024 NA 137 08/26/2024 K 4.1 08/26/2024 CO2 24 08/26/2024 CL 108 08/26/2024 BUN 23 08/26/2024 CREATININE 1.43 (H) 08/26/2024 EGFR 49 (L) 08/26/2024 CALCIUM 10.0 08/26/2024 MG 1.6 (L) 08/26/2024 ANIONGAP 5 08/26/[address] Angio Chest wo and/or w Contrast Final Result 1. No pulmonary emboli. 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 Sepsis- After discussion with the ER provider, the patient will be admitted to the hospital. The patient isfebrile and tachycardic. While his total white blood cell count is normal, he has a left shift withover 90% neutrophils present, consistent with infection. The source of the infection is not clear. CT angiogram of the chest does not endorse any pneumonia as a source. Urinalysis had mild pyuria butno bacteria seen. He has no headache or nuchal rigidity to suggest meningitis. He does report some right flank pain and having diarrhea at home. He has had no diarrhea since his arrival to the hospital. We will check a CT of the abdomen pelvis with hopes to determine the source of the patient's infection. In the meantime he will be treated with ceftriaxone until a source is determined. Acute encephalopathy- Likely secondary to sepsis and hospitalization. The patient has had previous issues with delirium during hospitalizations. We will continue his home quetiapine and treat him with haloperidol as needed for agitated delirium. He will have frequent reorientation and melatonin to aid in maintaining an a ppropriate circadian cycle. Coronary artery disease- Continue aspirin 81 mg daily, clopidogrel 75 mg daily, carvedilol 3.125 mg twice daily, and atorvastatin 80 mg daily. 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 His last echocardiogram demonstrated an LVEF of 55-60%. Continue carvedilol as above. We will initially hold his losartan until it is clear his blood pressure remained stable. Gastroesophageal reflux disease- The patient's omeprazole be substituted with pantoprazole 40 mg twice daily. Benign prostatic hyperplasia- Continue tamsulosin 0.4 mg daily. Prophylaxis- Enoxaparin for DVT prophylaxis. CODE STATUS- DNR/DNI. The patient's niece, Elisa Lopez [phone], is his medical decision-maker in the event he is unable to make decisions for himself. Over 70 minutes were spent in initial evaluation and coordination of care for this patient. documented in this encounter Plan of Treatment Not on file documented as of this encounter Procedures Procedure Name Priority Date/Time Associated Diagnosis Comments TRANSTHORACIC ECHOCARDIOGRAM (TTE) COMPLETE W/ CONTRAST Routine 09/12/2024 10:39 AM EST Shortness of breath CBC WITH AUTO DIFFERENTIAL Routine 08/29/2024 5:48 AM EST CBC AND DIFFERENTIAL Routine 08/29/2024 5:48 AM EST MAGNESIUM Routine 08/29/2024 5:48 AM EST BASIC METABOLIC PANEL Routine 08/29/2024 5:48 AM EST CBC WITH AUTO DIFFERENTIAL Routine 08/28/2024 6:17 AM EST CBC AND DIFFERENTIAL Routine 08/28/2024 6:17 AM EST MAGNESIUM Routine 08/28/2024 6:17 AM EST BASIC METABOLIC PANEL Routine 08/28/2024 6:17 AM EST ECG 12-LEAD Routine 08/27/2024 1:06 PM EST XR CHEST 1 VIEW STAT 08/27/2024 11:36 AM EST CBC WITH AUTO DIFFERENTIAL Routine 08/27/2024 5:37 AM EST CBC AND DIFFERENTIAL Routine 08/27/2024 5:37 AM EST MAGNESIUM Routine 08/27/2024 5:37 AM EST BASIC METABOLIC PANEL Routine 08/27/2024 5:37 AM EST LACTATE STAT 08/26/2024 11:31 PM EST DRUG ABUSE SCREEN 8A PANEL, URINE STAT 08/26/2024 11:29 PM EST TROPONIN I HIGH SENSITIVITY STAT 08/26/2024 10:44 PM EST ECG 12-LEAD STAT 08/26/2024 10:28 PM EST LACTATE, WITH REFLEX STAT 08/26/2024 10:10 PM EST CULTURE BLOOD STAT 08/26/2024 10:10 PM EST CULTURE BLOOD STAT 08/26/2024 10:[address] ANGIO CHEST WO AND/OR W CONTRAST STAT 08/26/2024 9:24 PM EST Shortness of breath XR CHEST 1 VIEW STAT 08/26/2024 9:05 PM EST PROCALCITONIN Add-On 08/26/2024 8:59 PM EST VENOUS BLOOD GAS STAT 08/26/2024 8:59 PM EST SALICYLATE LEVEL STAT 08/26/2024 8:59 PM EST URINALYSIS WITH REFLEX MICROSCOPIC AND CULTURE STAT 08/26/2024 7:25 PM EST ZIEGLER URINE CULTURE TUBE STAT 08/26/2024 7:25 PM EST URINALYSIS WITH REFLEX MICROSCOPIC AND CULTURE STAT 08/26/2024 7:25 PM EST CULTURE URINE STAT 08/26/2024 7:25 PM EST ECG 12-LEAD STAT 08/26/2024 6:30 PM EST TROPONIN I HIGH SENSITIVITY STAT 08/26/2024 5:40 PM EST ECG 12-LEAD STAT 08/26/2024 3:54 PM EST RESPIRATORY VIRUS PANEL MOLECULAR STUDY STAT 08/26/2024 3:48 PM EST TROPONIN I HIGH SENSITIVITY STAT 08/26/2024 3:48 PM EST CBC WITH AUTO DIFFERENTIAL STAT 08/26/2024 3:48 PM EST CBC AND DIFFERENTIAL STAT 08/26/2024 3:48 PM EST B-TYPE NATRIURETIC PEPTIDE STAT 08/26/2024 3:48 PM EST MAGNESIUM STAT 08/26/2024 3:48 PM EST LIPASE STAT 08/26/2024 3:48 PM EST ETHANOL Add-On 08/26/2024 3:48 PM EST ACETAMINOPHEN LEVEL STAT Add-on 08/26/2024 3 :48 PM EST COMPREHENSIVE METABOLIC PANEL STAT 08/26/2024 3:48 PM EST ECG OUTSIDE 08/26/2024 ECG ANNOTATED 08/26/2024 documented in this encounter Results * (ABNORMAL) TRANSTHORACIC ECHOCARDIOGRAM (TTE) COMPLETE W/ CONTRAST (09/12/2024 10:39 AM EST) Left Atrium Minor [place] 6.5 cm CV PACS Left Atrium Major [place] 6.0 cm CV PACS LA Area Sys (A2C) 27 cm2 CV PACS LA Area Sys (A4C) 22 cm2 CV PACS LA Volume (BP) 80 mL CV PACS RA Area 16.4 cm2 CV PACS RA 2D Volume 42 mL CV PACS Aortic Sinus Valsalva 3.8 cm CV PACS Ascending Aorta 3.9 cm CV PACS IVSD 1.1(A) 0.6 - 1.0 cm CV PACS LVIDD 4.7 4.2 - 5.8 cm CV PACS LVIDS 3.6 2.5 - 4.0 cm CV PACS LVOT Diameter 1.9 cm CV PACS LVPWD 1.2(A) 0.6 - 1.0 cm CV PACS MV E' Tissue Velocity Lateral 7 cm/s CV PACS LVOT Area 2.8 cm2 CV PACS E Wave Deceleration Time 173 119 - 242 ms CV PACS MV Peak A Rob 1.44 m/s CV PACS MV Peak E Rob 1.35 m/s CV PACS RV S' 14 cm/s CV PACS TAPSE 19 mm CV PACS TR Peak Velocity 3.08 m/s CV PACS TR Peak Gradient 38 mmHg CV PACS Relative Wall Thickness ratio 0.51 CV PACS FS 23 % CV PACS LV Mass 2D 200 g CV PACS Ascending Aorta Index 2.06 cm/m2 CV PACS RA 2D Volume Index 22 mL/m2 CV PACS LVIDD Index 2.49 cm/m2 CV PACS LVIDS Index 1.90 cm/m2 CV PACS E/A Ratio 0.9 CV PACS E/E' Ratio Lateral 19 CV PACS LA Volume Index (BP) 42 mL/m2 CV PACS LV Mass Index 2D 106 g/m2 CV PACS BSA 1.91 m2 CV PACS Right Ventricular Peak Systolic Pressure 41 mmHg CV PACS Est. RA Pressure 3 mmHg CV PACS Anatomical Region Laterality Modality Ultrasound Narrative 09/13/2024 10:27 AM EST ?Left ventricle cavity size is normal.Left ventricle mild hypertrophy. No regional LV wall motion abnormalities noted. Left ventricular systolic function is in the normal range with an ejection fraction of 60-65%. ?Right ventricle cavity is normal. Right ventricular systolic function is normal. ?Mildly elevated right ventricular systolic pressure. ?Left atrium cavity is moderately dilated. ?No hemodynamically significant valve disease. ?See remainder of the report for additional findings. Left Ventricle Left ventricle cavity size is normal. There is mild hypertrophy. Systolic function is normal with an ejection fraction of 60-65%. There are no regional LV wall motion abnormalities. Indeterminate diastolic function. Right Ventricle Right ventricle cavity appears normal. Systolic function is normal. Left Atrium Left atrium cavity is moderately dilated. Right Atrium Right atrium cavity is normal. Mitral Valve The leaflets are mildly thickened. There is mild annular calcification. There is mild regurgitation. There is no evidence of mitral valve stenosis. Tricuspid Valve The leaflets exhibit normal excursion. There is mild regurgitation. There is no evidence of tricuspid valve stenosis. The right ventricular systolic pressure is mildly elevated. Aortic Valve The aortic valve is trileaflet. There is no regurgitation or stenosis. Pulmonic Valve Visualized portions of the pulmonic valve appear normal. There is no regurgitation or stenosis. Ascending Aorta The aorta appears normal in size. Pericardium Pericardium appears normal. There is no pericardial effusion. Study Details Overall the study quality was adequate. Definity contrast was given to enhance imaging. Elaina Jacques MD CV ECHO PROCEDURES Final Result * (ABNORMAL) CBC auto differential (08/29/2024 5:48 AM EST) WBC 7.8 4.8 - 10.8 K/mcL LAB HEMETOLOGY METHOD 08/29/2024 6:58 AM [facility] RBC 2.90(L) 4.50 - 5.50 M/mcL LAB HEMETOLOGY METHOD 08/29/2024 6:58 AM [facility] Hemoglobin 9.4(L) 13.5 - 17.5 g/dL LAB HEMETOLOGY METHOD 08/29/2024 6:58 AM [facility] Hematocrit 28.4(L) 42.0 - 54.0 % LAB HEMETOLOGY METHOD 08/29/2024 6:58 AM [facility] MCV 98.6(H) 79.0 - 98.0 FL LAB HEMETOLOGY METHOD 08/29/2024 6:58 AM [facility] MCH 32.6(H) 27.0 - 32.0 pcg LAB HEMETOLOGY METHOD 08/29/2024 6:58 AM [facility] MCHC 33.1 32.0 - 37.0 g/dL LAB HEMETOLOGY METHOD 08/29/2024 6:58 AM [facility] RDW 19.0(H) 11.0 - 15.0 % LAB HEMETOLOGY METHOD 08/29/2024 6:58 AM [facility] Platelets 127(L) 130 - 400 K/mcL LAB HEMETOLOGY METHOD 08/29/2024 6:58 AM [facility] MPV 12.3(H) 7.0 - 11.0 FL LAB HEMETOLOGY METHOD 08/29/2024 6:58 AM [facility] NRBC 0.0 <1.0 % LAB HEMETOLOGY METHOD 08/29/2024 6:58 AM [facility] NRBC Absolute 0.00 <0.10 K/mcL LAB HEMETOLOGY METHOD 08/29/2024 6:58 AM [facility] Neutrophils Relative 60.2 % LAB HEMETOLOGY METHOD 08/29/2024 6:58 AM [facility] Lymphocytes Relative 24.6 % LAB HEMETOLOGY METHOD 08/29/2024 6:58 AM [facility] Monocytes Relative 12.2 % LAB HEMETOLOGY METHOD 08/29/2024 6:58 AM [facility] Eosinophils Relative 1.8 % LAB HEMETOLOGY METHOD 08/29/2024 6:58 AM [facility] Basophils Relative 0.3 % LAB HEMETOLOGY METHOD 08/29/2024 6:58 AM [facility] Immature Granulocytes Relative 0.9 % LAB HEMETOLOGY METHOD 08/29/2024 6:58 AM [facility] Neutrophils Absolute 4.68 1.50 - 7.00 K/mcL LAB HEMETOLOGY METHOD 08/29/2024 6:58 AM [facility] Lymphocytes Absolute 1.91 1.00 - 5.00 K/mcL LAB HEMETOLOGY METHOD 08/29/2024 6:58 AM EST [facility] Monocytes Absolute 0.95 0.20 - 1.00 K/mcL LAB HEMETOLOGY METHOD 08/29/2024 6:58 AM EST [facility] Eosinophils Absolute 0.14 0.00 - 0.50 K/[facility] LAB HEMETOLOGY METHOD 08/29/2024 6:58 AM EST [facility] Basophils Absolute 0.02 0.00 - 0.20 K/[facility] LAB HEMETOLOGY METHOD 08/29/2024 6:58 AM EST [facility] Immature Granulocytes Absolute 0.07(H) 0.00 - 0.03 K/[facility] LAB HEMETOLOGY METHOD 08/29/2024 6:58 AM EST [facility] Blood Venous blood specimen / Unknown Venipuncture / Unknown 08/29/2024 5:48 AM EST 08/29/2024 6:45 AM EST us Elaina Jacques MD LAB BLOOD ORDERABLES Final Resul t Performing Organization Address City/[facility]/ZIP Co de Phone Number [facility] [address] [place] [address], * Magnesium (08/29/2024 5:48 AM EST) Magnesium 2.5 1.9 - 2.6 mg/dL LAB CHEMISTRY METHOD 08/29/2024 7:19 AM EST [facility] Blood Venous blood specimen / Unknown Venipuncture / Unknown 08/29/2024 5:48 AM EST 08/29/2024 6:45 AM EST us Elaina Jacques MD LAB BLOOD ORDERABLES Final Resul t [facility] [address] [place] [address], [place] [phone] * (ABNORMAL) Basic metabolic panel (08/29/2024 5:48 AM EST) Sodium 142 133 - 145 mmol/L LAB CHEMISTRY METHOD 08/29/2024 7:19 AM [facility] Potassium 3.8 3.5 - 5.5 mmol/L LAB CHEMISTRY METHOD 08/29/2024 7:19 AM [facility] Chloride 109 96 - 110 mmol/L LAB CHEMISTRY METHOD 08/29/2024 7:19 AM [facility] CO2 28 21 - 32 mmol/L LAB CHEMISTRY METHOD 08/29/2024 7:19 AM [facility] Anion Gap 5 3 - 11 LAB CHEMISTRY METHOD 08/29/2024 7:19 AM [facility] Glucose 83 70 - 100 mg/dL LAB CHEMISTRY METHOD 08/29/2024 7:19 AM [facility] BUN 48(H) 5 - 25 mg/dL LAB CHEMISTRY METHOD 08/29/2024 7:19 AM [facility] Creatinine 1.86(H) 0.70 - 1.30 mg/dL LAB CHEMISTRY METHOD 08/29/2024 7:19 AM [facility] eGFR 35(L) >=60 mL/min/1. 73m2 LAB CHEMISTRY METHOD 08/29/2024 7:19 AM [facility] Comment:Calculation based on the??Chronic Kidney Disease Epidemiology Collaboration (CKD-EPI) equation refit??without adjustment for race. BUN/Creatinine Ratio 25.8 LAB CHEMISTRY METHOD 08/29/2024 7:19 AM [facility] Calcium 7.9(L) 8.5 - 10.5 mg/dL LAB CHEMISTRY METHOD 08/29/2024 7:19 AM [facility] Blood Venous blood specimen / Unknown Venipuncture / Unknown 08/29/2024 5:48 AM EST 08/29/2024 6:45 AM EST us Elaina Jacques MD LAB BLOOD ORDERABLES Final Resul t [facility] [address] [place] [address], [place] [phone] * (ABNORMAL) CBC auto differential (08/28/2024 6:17 AM EST) WBC 12.1(H) 4.8 - 10.8 K/mcL LAB HEMETOLOGY METHOD 08/28/2024 7:03 AM [facility] RBC 3.00(L) 4.50 - 5.50 M/mcL LAB HEMETOLOGY METHOD 08/28/2024 7:03 AM [facility] Hemoglobin 9.7(L) 13.5 - 17.5 g/dL LAB HEMETOLOGY METHOD 08/28/2024 7:03 AM [facility] Hematocrit 28.9(L) 42.0 - 54.0 % LAB HEMETOLOGY METHOD 08/28/2024 7:03 AM [facility] MCV 98.0 79.0 - 98.0 FL LAB HEMETOLOGY METHOD 08/28/2024 7:03 AM [facility] MCH 32.9(H) 27.0 - 32.0 pcg LAB HEMETOLOGY METHOD 08/28/2024 7:03 AM [facility] MCHC 33.6 32.0 - 37.0 g/dL LAB HEMETOLOGY METHOD 08/28/2024 7:03 AM [facility] RDW 18.8(H) 11.0 - 15.0 % LAB HEMETOLOGY METHOD 08/28/2024 7:03 AM [facility] Platelets 125(L) 130 - 400 K/mcL LAB HEMETOLOGY METHOD 08/28/2024 7:03 AM [facility] MPV 11.2(H) 7.0 - 11.0 FL LAB HEMETOLOGY METHOD 08/28/2024 7:03 AM [facility] NRBC 0.0 <1.0 % LAB HEMETOLOGY METHOD 08/28/2024 7:03 AM [facility] NRBC Absolute 0.00 <0.10 K/mcL LAB HEMETOLOGY METHOD 08/28/2024 7:03 AM [facility] Neutrophils Relative 75.2 % LAB HEMETOLOGY METHOD 08/28/2024 7:03 AM [facility] Lymphocytes Relative 14.9 % LAB HEMETOLOGY METHOD 08/28/2024 7:03 AM [facility] Monocytes Relative 8.9 % LAB HEMETOLOGY METHOD 08/28/2024 7:03 AM [facility] Eosinophils Relative 0.1 % LAB HEMETOLOGY METHOD 08/28/2024 7:03 AM [facility] Basophils Relative 0.1 % LAB HEMETOLOGY METHOD 08/28/2024 7:03 AM [facility] Immature Granulocytes Relative 0.8 % LAB HEMETOLOGY METHOD 08/28/2024 7:03 AM [facility] Neutrophils Absolute 9.12(H) 1.50 - 7.00 K/mcL LAB HEMETOLOGY METHOD 08/28/2024 7:03 AM [facility] Lymphocytes Absolute 1.81 1.00 - 5.00 K/mcL LAB HEMETOLOGY METHOD 08/28/2024 7:03 AM [facility] Monocytes Absolute 1.08(H) 0.20 - 1.00 K/mcL LAB HEMETOLOGY METHOD 08/28/2024 7:03 AM [facility] Eosinophils Absolute 0.01 0.00 - 0.50 K/mcL LAB HEMETOLOGY METHOD 08/28/2024 7:03 AM EST [facility] Basophils Absolute 0.01 0.00 - 0.20 K/mcL LAB HEMETOLOGY METHOD 08/28/2024 7:03 AM EST [facility] Immature Granulocytes Absolute 0.10(H) 0.00 - 0.03 K/[facility] LAB HEMETOLOGY METHOD 08/28/2024 7:03 AM EST [facility] Blood Venous blood specimen / Unknown Venipuncture / Unknown 08/28/2024 6:17 AM EST 08/28/2024 6:51 AM EST us Elaina Jacques MD LAB BLOOD ORDERABLES Final Resul t Performing Organization Address City/[facility]/ZIP Co de Phone Number [facility] [address] [place] [address], [place] [phone] * Magnesium (08/28/2024 6:17 AM EST) Pathologist [facility] Magnesium 2.0 1.9 - 2.6 mg/dL LAB CHEMISTRY METHOD 08/28/2024 8:28 AM EST [facility] Blood Venous blood specimen / Unknown Venipuncture / Unknown 08/28/2024 6:17 AM EST 08/28/2024 6:51 AM EST us Elaina Jacques MD LAB BLOOD ORDERABLES Final Resul t [facility] [address] [place] [address], [place] [phone] * (ABNORMAL) Basic metabolic panel (08/28/2024 6:17 AM EST) Sodium 140 133 - 145 mmol/L LAB CHEMISTRY METHOD 08/28/2024 8:28 AM EST [facility] Potassium 3.4(L) 3.5 - 5.5 mmol/L LAB CHEMISTRY METHOD 08/28/2024 8:28 AM EST [facility] Chloride 106 96 - 110 mmol/L LAB CHEMISTRY METHOD 08/28/2024 8:28 AM [facility] CO2 27 21 - 32 mmol/L LAB CHEMISTRY METHOD 08/28/2024 8:28 AM [facility] Anion Gap 7 3 - 11 LAB CHEMISTRY METHOD 08/28/2024 8:28 AM [facility] Glucose 88 70 - 100 mg/dL LAB CHEMISTRY METHOD 08/28/2024 8:28 AM [facility] BUN 36(H) 5 - 25 mg/dL LAB CHEMISTRY METHOD 08/28/2024 8:28 AM [facility] Creatinine 1.80(H) 0.70 - 1.30 mg/dL LAB CHEMISTRY METHOD 08/28/2024 8:28 AM [facility] eGFR 37(L) >=60 mL/min/1. 73m2 LAB CHEMISTRY METHOD 08/28/2024 8:28 AM [facility] Comment:Calculation based on the??Chronic Kidney Disease Epidemiology Collaboration (CKD-EPI) equation refit??without adjustment for race. BUN/Creatinine Ratio 20.0 LAB CHEMISTRY METHOD 08/28/2024 8:28 AM [facility] Calcium 8.4(L) 8.5 - 10.5 mg/dL LAB CHEMISTRY METHOD 08/28/2024 8:28 AM [facility] Blood Venous blood specimen / Unknown Venipuncture / Unknown 08/28/2024 6:17 AM EST 08/28/2024 6:51 AM EST us Elaina Jacques MD LAB BLOOD ORDERABLES Final Resul t [facility] [address] [place] [address], * ECG 12 lead (08/27/2024 1:06 PM EST) Ventricular Rate ECG 89 BPM G[facility] Atrial Rate 89 BPM [facility] P-R Interval 168 ms GEMUSE QRS Duration 106 ms GEMUSE Q-T Interval 358 ms GEMUSE QTc 435 ms GEMUSE P Wave [place] 54 degrees GEMUSE R [place] -41 degrees GEMUSE T [place] 52 degrees GEMUSE ECG Interpretation Normal sinus rhythm Left axis deviation Nonspecific ST abnormality Abnormal ECG When compared with ECG of 26-AUG-2024 22:28, Premature ventricular complexes are no longer Present Minimal criteria for Septal infarct are no longer Present T wave inversion no longer evident in Lateral leads Confirmed by RAI CÁRDENAS ([id number]) on 08/27/2024 5:43:22 PM GEM[facility] 08/27/2024 1:06 PM EST 08/27/2024 5:43 PM EST us Elaina Jacques MD ECG ORDERABLES Final Result [facility] * XR Chest 1 View (08/27/2024 11:36 AM EST) Anatomical Region Laterality Modality Body Radiographic Kellie ging 08/27/2024 11:4 2 AM EST Impressions 08/27/2024 11:44 AM EST Mild pulmonary vascular congestion. ??Left sided pleural thickening versus trace pleural fluid. -------- FINAL REPORT -------- Dictated By: Blu Izquierdo Dictated Date: 08/27/2024 11:42 ET Assigned Physician: Blu Izquierdo Reviewed and Electronically Signed By: Blu Izquierdo Signed Date: 08/27/2024 11:44 ET Workstation ID: [id number] Transcribed By: Self Edit Transcribed Date: 08/27/2024 11:42 ET Narrative 08/27/2024 11:44 AM EST Procedure: AP chest radiograph. HISTORY: SOB, abn CXR, heart failure suspected. COMPARISON: 08/26/2024. FINDINGS: Mildly hypoventilatory lordotic projection exam. ??Right diaphragmatic eventration. ??Slightly blunted left costophrenic angle which could represent pleural thickening or trace fluid. ??Mild pulmonary vascular congestion without overt edema. ??Heart size within normal limits for portable technique. ??Atherosclerotic calcifications of the aorta. ??Degenerative changes of the spine and shoulders. Procedure Note Blu Izquierdo MD - 08/27/2024 Procedure: AP chest radiograph. HISTORY: SOB, abn CXR, heart failure suspected. COMPARISON: 08/26/2024. FINDINGS: Mildly hypoventilatory lordotic projection exam. Right diaphragmaticeventration. Slightly blunted left costophrenic angle which couldrepresent pleural thickening or trace fluid. Mild pulmonary vascularcongestion without overt edema. Heart size within normal limits forportable technique. Atherosclerotic calcifications of the aorta.Degenerative changes of the spine and shoulders. IMPRESSION: Mild pulmonary vascular congestion. Left sided pleural thickening versustrace pleural fluid. -------- FINAL REPORT -------- Dictated By: Blu Izquierdo Dictated Date: 08/27/2024 11:42 ET Assigned Physician: Blu Izquierdo Reviewed and Electronically Signed By: Blu Izquierdo Signed Date: 08/27/2024 11:44 ET Workstation ID: [id number] Transcribed By: Self Edit Transcribed Date: 08/27/2024 11:42 ET Elaina Jacques MD IMG XR PROCEDURES Final Result * (ABNORMAL) CBC auto differential (08/27/2024 5:37 AM EST) WBC 6.4 4.8 - 10.8 K/mcL LAB HEMETOLOGY METHOD 08/27/2024 8:04 AM [facility] RBC 2.90(L) 4.50 - 5.50 M/mcL LAB HEMETOLOGY METHOD 08/27/2024 8:04 AM [facility] Hemoglobin 9.4(L) 13.5 - 17.5 g/dL LAB HEMETOLOGY METHOD 08/27/2024 8:04 AM [facility] Hematocrit 27.9(L) 42.0 - 54.0 % LAB HEMETOLOGY METHOD 08/27/2024 8:04 AM [facility] MCV 97.9 79.0 - 98.0 FL LAB HEMETOLOGY METHOD 08/27/2024 8:04 AM [facility] MCH 33.0(H) 27.0 - 32.0 pcg LAB HEMETOLOGY METHOD 08/27/2024 8:04 AM [facility] MCHC 33.7 32.0 - 37.0 g/dL LAB HEMETOLOGY METHOD 08/27/2024 8:04 AM [facility] RDW 18.6(H) 11.0 - 15.0 % LAB HEMETOLOGY METHOD 08/27/2024 8:04 AM [facility] Platelets 126(L) 130 - 400 K/mcL LAB HEMETOLOGY METHOD 08/27/2024 8:04 AM [facility] MPV 11.0 7.0 - 11.0 FL LAB HEMETOLOGY METHOD 08/27/2024 8:04 AM [facility] NRBC 0.0 <1.0 % LAB HEMETOLOGY METHOD 08/27/2024 8:04 AM [facility] NRBC Absolute 0.00 <0.10 K/mcL LAB HEMETOLOGY METHOD 08/27/2024 8:04 AM [facility] Neutrophils Relative 75.3 % LAB HEMETOLOGY METHOD 08/27/2024 8:04 AM [facility] Lymphocytes Relative 9.8 % LAB HEMETOLOGY METHOD 08/27/2024 8:04 AM [facility] Monocytes Relative 12.3 % LAB HEMETOLOGY METHOD 08/27/2024 8:04 AM [facility] Eosinophils Relative 0.6 % LAB HEMETOLOGY METHOD 08/27/2024 8:04 AM [facility] Basophils Relative 0.3 % LAB HEMETOLOGY METHOD 08/27/2024 8:04 AM [facility] Immature Granulocytes Relative 1.7 % LAB HEMETOLOGY METHOD 08/27/2024 8:04 AM EST [facility] Neutrophils Absolute 4.82 1.50 - 7.00 K/[facility] LAB HEMETOLOGY METHOD 08/27/2024 8:04 AM EST [facility] Lymphocytes Absolute 0.63(L) 1.00 - 5.00 K/mcL LAB HEMETOLOGY METHOD 08/27/2024 8:04 AM EST [facility] Monocytes Absolute 0.79 0.20 - 1.00 K/[facility] LAB HEMETOLOGY METHOD 08/27/2024 8:04 AM EST [facility] Eosinophils Absolute 0.04 0.00 - 0.50 K/[facility] LAB HEMETOLOGY METHOD 08/27/2024 8:04 AM [facility] Basophils Absolute 0.02 0.00 - 0.20 K/mcL LAB HEMETOLOGY METHOD 08/27/2024 8:04 AM EST [facility] Immature Granulocytes Absolute 0.11(H) 0.00 - 0.03 K/mcL LAB HEMETOLOGY METHOD 08/27/2024 8:04 AM EST [facility] Blood Venous blood specimen / Unknown Venipuncture / Unknown 08/27/2024 5:37 AM EST 08/27/2024 7:47 AM EST Erik Roldan MD LAB BLOOD ORDERABLES Final Result [facility] [address] [place] [address], * (ABNORMAL) Magnesium (08/27/2024 5:37 AM EST) Magnesium 1.7(L) 1.9 - 2.6 mg/dL LAB CHEMISTRY METHOD 08/27/2024 8:41 AM EST [facility] [facility] Blood Venous blood specimen / Unknown Venipuncture / Unknown 08/27/2024 5:37 AM EST 08/27/2024 7:47 AM EST us Erik Roldan MD LAB BLOOD ORDERABLES Final Result [facility] [address] [place] [address], [place] [phone] * (ABNORMAL) Basic metabolic panel (08/27/2024 5:37 AM EST) Pathologist [facility] Sodium 139 133 - 145 mmol/L LAB CHEMISTRY METHOD 08/27/2024 8:45 AM [facility] Potassium 3.8 3.5 - 5.5 mmol/L LAB CHEMISTRY METHOD 08/27/2024 8:45 AM [facility] Chloride 108 96 - 110 mmol/L LAB CHEMISTRY METHOD 08/27/2024 8:45 AM [facility] CO2 23 21 - 32 mmol/L LAB CHEMISTRY METHOD 08/27/2024 8:45 AM [facility] Anion Gap 8 3 - 11 LAB CHEMISTRY METHOD 08/27/2024 8:45 AM [facility] Glucose 81 70 - 100 mg/dL LAB CHEMISTRY METHOD 08/27/2024 8:45 AM [facility] BUN 25 5 - 25 mg/dL LAB CHEMISTRY METHOD 08/27/2024 8:45 AM [facility] Creatinine 1.41(H) 0.70 - 1.30 mg/dL LAB CHEMISTRY METHOD 08/27/2024 8:45 AM [facility] eGFR 49(L) >=60 mL/min/1. 73m2 LAB CHEMISTRY METHOD 08/27/2024 8:45 AM [facility] Comment:Calculation based on the??Chronic Kidney Disease Epidemiology Collaboration (CKD-EPI) equation refit??without adjustment for race. BUN/Creatinine Ratio 17.7 LAB CHEMISTRY METHOD 08/27/2024 8:45 AM [facility] Calcium 9.1 8.5 - 10.5 mg/dL LAB CHEMISTRY METHOD 08/27/2024 8:45 AM EST [facility] Blood Venous blood specimen / Unknown Venipuncture / Unknown 08/27/2024 5:37 AM EST 08/27/2024 7:47 AM EST us Erik Roldan MD LAB BLOOD ORDERABLES Final Result Performing Organization Address [facility] Co de Phone Number [facility] [address] [place] [address], [place] [phone] * Lactate (08/26/2024 11:31 PM EST) [facility] Lactate 1.1 0.4 - 2.0 mmol/L LAB CHEMISTRY METHOD 08/27/2024 12:23 AM [facility] Blood Venous blood specimen / Unknown Venipuncture / Unknown 08/26/2024 11:31 PM EST 08/26/2024 11:56 PM EST us Erik Roldan MD LAB BLOOD ORDERABLES Final Result Performing Organization Address [facility] de Phone Number [facility] [address] [place] [address], [place] [phone] * (ABNORMAL) Drug abuse screen 8a panel, urine (08/26/2024 11:29 PM EST) [facility] Amphetamine Screen, Ur Negative Negative LAB CHEMISTRY METHOD 5 1:00 AM [facility] Comment:Certain OTC medicati ons containing ephedrine, phenylephrine, pseudoephedrine and phenylpropanolamine can cause false positive results. Barbiturate Screen, Ur Negative Negative LAB CHEMISTRY METHOD 5 1:00 AM [facility] Benzodiazepine Screen, Ur Negative Negative LAB CHEMISTRY METHOD 5 1:00 AM [facility] Cocaine Screen, Ur Negative Negative LAB CHEMISTRY METHOD 5 1:00 AM [facility] Opiate Screen, Ur Positive(A ) Negative LAB CHEMISTRY METHOD 5 1:00 AM [facility] Cannabinoid (THC) Screen, Ur Negative Negative LAB CHEMISTRY METHOD 5 1:00 AM [facility] Comment:Specimens from patie nts taking pantoprazole sodium (Protonix) have been shown to produce false positive results. Oxycodone Screen, Ur Negative Negative LAB CHEMISTRY METHOD 5 1:00 AM [facility] Fentanyl, Ur Negative Negative LAB CHEMISTRY METHOD 5 1:00 AM [facility] Urine Urine specimen obtained by clean catch procedure / Unknown Non-blood Collection / Unknown 08/26/2024 11:29 PM EST 08/27/2024 12:25 AM EST [facility] - 08/27/2024 1:00 AM EST Assay cutoffs: Amphetamines ? 1000 ng/mL Barbiturates ?200 ng/mL Benzodiazepines ?? 200 ng/mL Cocaine ? 300 ng/mL Fentanyl ?1 ng/mL Opiates ? 300 ng/mL Oxycodone ? 100 ng/mL THC ?50 ng/mL Semi-quantitative assay for screening purposes only. Unconfirmed screening result should not be used for non-medical purposes. *ALTERNATE METHOD CONFIRMATION DONE UPON REQUEST ONLY* Erik Roldan MD LAB URINE ORDERABLES Final Result [facility] [address] [place] [address], * Troponin I high sensitivity (08/26/2024 10:44 PM EST) [facility] High Sensitivity Troponin I 28 <=79 ng/L LAB CHEMISTRY METHOD 08/26/2024 11:18 PM EST [facility] Blood Venous blood specimen / Unknown Venipuncture / Unknown 08/26/2024 10:44 PM EST 08/26/2024 10:48 PM EST Narrative [facility] - 08/26/2024 11:18 PM EST High levels of biotin in samples may falsely decrease hsTroponin values. ??Use caution when interpreting hsTroponin results in patients taking biotin who exhibit renal impairment (eGFR <60) or in patients taking more than 20 mg/day of biotin. [employer] LAB BLOOD ORDERABLES Final Resul t Performing Organization Address City/[facility]/ZIP Co de Phone Number [facility] [address] [place] [address], [place] [phone] * ECG 12 lead (08/26/2024 10:28 PM EST) [facility] Ventricular Rate ECG 116 BPM GEMUSE Atrial Rate 116 BPM GEMUSE P-R Interval 176 ms GEMUSE QRS Duration 114 ms GEMUSE Q-T Interval 336 ms GEMUSE QTc 467 ms GEMUSE P Wave [place] 34 degrees GEMUSE R [place] -45 degrees GEMUSE T [place] 93 degrees GEMUSE ECG Interpretation Sinus tachycardia with occasional Premature ventricular complexes Left anterior fascicular block Left ventricular hypertrophy with repolarization abnormality Cannot rule out Septal infarct (cited on or before 26-AUG-2024) Abnormal ECG When compared with ECG of 26-AUG-2024 18:30, ST more depressed Lateral leads Confirmed by RAI CÁRDENAS ([id number]) on 08/27/2024 5:18:25 PM [facility] 08/26/2024 10:2 8 PM EST 08/27/2024 5:18 PM EST [employer] ECG ORDERABLES Final Result [facility] * Blood Culture, Peripheral Draw #2 (08/26/2024 10:10 PM EST) Culture, Blood No growth at 5 days 08/31/2024 11:01 PM EST [facility] Blood Venous blood specimen / Unknown Venipuncture / Unknown 08/26/2024 10:10 PM EST 08/26/2024 10:15 PM EST [facility] MICROBIOLOGY - GENERAL ORDER IONA Final Result Performing Organization Address City/[facility]/ZIP Co de Phone Number [facility] [address] [place] [address], [place] [phone] * Blood Culture, Peripheral Draw #1 (08/26/2024 10:10 PM EST) Culture, Blood No growth at 5 days 08/31/2024 11:01 PM EST [facility] Blood Venous blood specimen / Unknown Venipuncture / Unknown 08/26/2024 10:10 PM EST 08/26/2024 10:16 PM EST [facility] MICRO[facility] - GENERAL ORDER IONA Final Result Performing Organization Address City/[facility]/ZIP Co de Phone Number [facility] [address] [place] [address], [place] [phone] * Lactate, with reflex (08/26/2024 10:10 PM EST) LACTIC ACID 1.5 0.4 - 2.0 mmol/L LAB CHEMISTRY METHOD 08/26/2024 11:00 PM EST [facility] Blood Venous blood specimen / Unknown Venipuncture / Unknown 08/26/2024 10:10 PM EST 08/26/2024 10:16 PM EST [facility] BLOOD ORDERABLES Final Resul t [facility] [place] [facility] [address] [place] [address], [place] [phone] * CT Angio Chest wo and/or w Contrast (08/26/2024 9:24 PM EST) Anatomical Region Laterality Modality Body Computed Tomogra phy 08/26/2024 9:58 PM EST Impressions 08/26/2024 9:58 PM EST 1. No pulmonary emboli. This document has been electronically signed by: Shraddha Maciel MD on 08/26/2024 21:58:59 Narrative 08/26/2024 9:[address] angiography chest with contrast. 3D Postprocessing. Comparison: None Findings: Heart size is approaching the upper limits in size. The thoracic aorta is normal caliber. No acute pulmonary embolus. The visualized thyroid and mediastinum are unremarkable. Mild dependent atelectasis both lungs. Small right hepatic cysts. No acute fractures. Procedure Note Shraddha Maciel MD - 08/26/2024 CT angiography chest with contrast. 3D Postprocessing. Comparison: None Findings: Heart size is approaching the upper limits in size. The thoracic aorta is normal caliber. No acute pulmonary embolus. The visualized thyroid and mediastinum are unremarkable. Mild dependent atelectasis both lungs. Small right hepatic cysts. No acute fractures. IMPRESSION: 1. No pulmonary emboli. This document has been electronically signed by: Shraddha Helms MD on 08/26/2024 21:58:59 [place] DE DIOS IMG CT PROCEDURES Final Result * XR Chest 1 View (08/26/2024 9:05 PM EST) Anatomical Region Laterality Modality Body Radiographic Kellie ging 08/27/2024 9:12 AM EST Impressions 08/27/2024 9:16 AM EST FINDINGS/IMPRESSION: Patchy opacity in the left lower lung zones suspicious for pneumonia. ??Right lung is relatively clear. ??No pleural effusion or pneumothorax. ??Cardiac silhouette is normal in size. ??Bones are normal. -------- FINAL REPORT -------- Dictated By: HORACIO VILLAFUERTE Dictated Date: 08/27/2024 09:12 ET Assigned Physician: HORACIO VILLAFUERTE Reviewed and Electronically Signed By: HORACIO VILLAFUERTE Signed Date: 08/27/2024 09:16 ET Workstation ID: [id number] Transcribed By: Self Edit Transcribed Date: 08/27/2024 09:12 ET Narrative 08/27/2024 9:16 AM EST XR CHEST 1 VIEW INDICATION: ??Pain TECHNIQUE: XR CHEST 1 VIEW COMPARISON: 11/29/2023 Procedure Note Horacio Villafuerte MD - 08/27/2024 XR CHEST 1 VIEW INDICATION: Pain TECHNIQUE: XR CHEST 1 VIEW COMPARISON: 11/29/2023 IMPRESSION: FINDINGS/IMPRESSION: Patchy opacity in the left lower lung zonessuspicious for pneumonia. Right lung is relatively clear. No pleuraleffusion or pneumothorax. Cardiac silhouette is normal in size. Bonesare normal. -------- FINAL REPORT -------- Dictated By: HORACIO VILLAFUERTE Dictated Date: 08/27/2024 09:12 ET Assigned Physician: HORACIO VILLAFUERTE Reviewed and Electronically Signed By: HORACIO VILLAFUERTE Signed Date: 08/27/2024 09:16 ET Workstation ID: [id number] Transcribed By: Self Edit Transcribed Date: 08/27/2024 09:12 ET us Erik Roldan MD IMG XR PROCEDURES Final Res ult * (ABNORMAL) Procalcitonin (08/26/2024 8:59 PM EST) Procalcitonin 0.46(H) <=0.16 ng/mL LAB CHEMISTRY METHOD 08/27/2024 10:13 AM EST [facility] Blood Venous blood specimen / Unknown Venipuncture / Unknown 08/26/2024 8:59 PM EST 08/26/2024 9:03 PM EST [facility] - 08/27/2024 10:13 AM EST Procalcitonin > 2.00 ng/ml: Procalcitonin Levels above 2.00 ng/ml, on the first day of ICU admission represent a high risk for progression to severe sepsis and/or septic shock. Procalcitonin < 0.50 ng/ml: Procalcitonin levels below 0.50 ng/ml on the first day of ICU admission represent a low risk for progression to severe sepsis and/or septic shock. Concentrations <0.5 ng/mL do not exclude an infection, on account of local ized infections (without systemic signs) which can be associated with such low concentrations, or a systemic infection in its initial stages (<6 hours). Furthermore, increased procalcitonin can occur without infection. PCT concentrations between 0.5 and 2.0 ng/mL should be interpreted taking into account the patient's history. It is recommended to retest PCT within 6-24 hours if any concentrations <2.0 ng/mL are obtained. us Erik Roldan MD LAB BLOOD ORDERABLES Final Result [facility] [address] [place] [address], * (ABNORMAL) Venous blood gas (08/26/2024 8:59 PM EST) pH, Sherif 7.37 7.32 - 7.42 pH 08/26/2024 9:06 PM [facility] pCO2, Sherif 36(L) 41 - 51 mmHg 08/26/2024 9:06 PM [facility] pO2, Sherif 41(H) 25 - 40 mmHg 08/26/2024 9:06 PM [facility] HCO3, Venous 21.2(L) 22.0 - 26.0 mmol/L 08/26/2024 9:06 PM [facility] O2 Sat, Sherif 68.4 % 08/26/2024 9:06 PM [facility] Base Excess, Sherif -4.0(L) -2.0 - 2.0 mmol/L 08/26/2024 9:06 PM EST [facility] Blood Venous blood specimen / Unknown Venipuncture / Unknown 08/26/2024 8:59 PM EST 08/26/2024 9:03 PM EST us Marcela Ruffin LAB BLOOD ORDERABLES Sarina l Result Performing Organization Address City/[facility]/ZIP Co de Phone Number [facility] [address] [place] [address], [place] [phone] * (ABNORMAL) Salicylate level (08/26/2024 8:59 PM EST) Salicylate Level <1.7(L) 2.0 - 29.0 mg/dL LAB CHEMISTRY METHOD 08/26/2024 9:26 PM EST [facility] Blood Venous blood specimen / Unknown Venipuncture / Unknown 08/26/2024 8:59 PM EST 08/26/2024 9:03 PM EST Marcela Ruffin LAB BLOOD ORDERABLES Sarina l Result Performing Organization Address [facility] Co de Phone Number [facility] [address] [place] [address], [place] [phone] * Culture urine (08/26/2024 7:25 PM EST) Culture, Urine <10,000 CFU/mL gram positive cocci, insignificant count, no further workup 08/27/2024 2:05 PM EST [facility] Urine Urine specimen obtained by clean catch procedure / Unknown Non-blood Collection / Unknown 08/26/2024 7:25 PM EST 08/26/2024 8:35 PM EST us [place] DE DIOS LAB MICROBIOLOGY - GENERAL ORDER IONA Final Result Performing Organization Address City/[facility]/ZIP Co de Phone Number [facility] [address] [place] [address], [place] [phone] * Ziegler urine culture tube (08/26/2024 7:25 PM EST) [facility] Extra Tube Hold for add-ons. 08/26/2024 9:01 PM EST [facility] Comment:Auto resulted. Urine Urine specimen obtained by clean catch procedure / Unknown Non-blood Collection / Unknown 08/26/2024 7:25 PM EST 08/26/2024 7:46 PM EST [place] DE DIOS LAB URINE ORDERABLES Final Resul t [facility] [address] [place] [address], [place] [phone] * (ABNORMAL) Urinalysis with reflex microscopic and culture (08/26/2024 7:25 PM EST) [facility] Specific Kaycee Urine 1.027 1.003 - 1.030 LAB URINALYSIS - AUTOMATED METHOD 08/26/2024 8:35 PM [facility] pH, Urine 5.5 5.0 - 8.0 pH LAB URINALYSIS - AUTOMATED METHOD 08/26/2024 8:35 PM [facility] Leukocytes, Urine Small(A) Negative LAB URINALYSIS - AUTOMATED METHOD 08/26/2024 8:35 PM [facility] Nitrite, Urine Negative Negative LAB URINALYSIS - AUTOMATED METHOD 08/26/2024 8:35 PM [facility] Protein, Urine 30(A) <=Trace mg/dL LAB URINALYSIS - AUTOMATED METHOD 08/26/2024 8:35 PM [facility] Glucose, Urine Negative Negative mg/dL LAB URINALYSIS - AUTOMATED METHOD 08/26/2024 8:35 PM [facility] Ketones, Urine Trace(A) Negative mg/dL LAB URINALYSIS - AUTOMATED METHOD 08/26/2024 8:35 PM [facility] Urobilinogen, Urine 0.2 0.2 - 1.0 mg/dL LAB URINALYSIS - AUTOMATED METHOD 08/26/2024 8:35 PM [facility] Bilirubin, Urine Negative Negative LAB URINALYSIS - AUTOMATED METHOD 08/26/2024 8:35 PM [facility] Blood, Urine Small(A) Negative LAB URINALYSIS - AUTOMATED METHOD 08/26/2024 8:35 PM [facility] RBC, Urine 17.6(H) 0 - 4 /HPF LAB URINALYSIS - AUTOMATED METHOD 08/26/2024 8:35 PM [facility] WBC, Urine 18.2(H) 0 - 4 /HPF LAB URINALYSIS - AUTOMATED METHOD 08/26/2024 8:35 PM [facility] Squamous Epithelial, Urine 71(H) 0 - 60 /LPF LAB URINALYSIS - AUTOMATED METHOD 08/26/2024 8:35 PM [facility] Bacteria, Urine Negative Negative /HPF LAB URINALYSIS - AUTOMATED METHOD 08/26/2024 8:35 PM [facility] Hyaline Casts, Urine 5.9(H) 0 - 3 /LPF LAB URINALYSIS - AUTOMATED METHOD 08/26/2024 8:35 PM [facility] Urine Urine specimen obtained by clean catch procedure / Unknown Non-blood Collection / Unknown 08/26/2024 7:25 PM EST 08/26/2024 7:46 PM EST us [place] DE DIOS LAB URINE ORDERABLES Final Resul t [facility] [address] [place] [address], [place] [phone] * ECG 12 lead (08/26/2024 6:30 PM EST) Ventricular Rate ECG 122 BPM GEM[facility] Atrial Rate 122 BPM GEMUSE P-R Interval 144 ms GEMUSE QRS Duration 106 ms GEMUSE Q-T Interval 320 ms GEMUSE QTc 456 ms GEMUSE P Wave [place] 28 degrees GEMUSE R [place] -43 degrees GEMUSE T [place] 97 degrees GEMUSE ECG Interpretation Sinus tachycardia with Premature ventricular complexes or Fusion complexes Left axis deviation Incomplete right bundle branch block Left ventricular hypertrophy with repolarization abnormality Anteroseptal infarct , age undetermined Abnormal ECG When compared with ECG of 26-AUG-2024 15:54, (unconfirmed) Fusion complexes are now Present Anteroseptal infarct is now Present Confirmed by Ceferino PHELAN JAMES ([id number]) on 08/26/2024 9:45:21 PM [facility] 08/26/2024 6:30 PM EST 08/26/2024 9:45 PM EST [facility] ECG ORDERABLES Final Result Performing Organization Address City/[facility]/ZIP Co de Phone Number [facility] * Troponin I high sensitivity (08/26/2024 5:40 PM EST) [facility] High Sensitivity Troponin I 21 <=79 ng/L LAB CHEMISTRY METHOD 08/26/2024 6:37 PM EST [facility] Blood Venous blood specimen / Unknown Venipuncture / Unknown 08/26/2024 5:40 PM EST 08/26/2024 6:03 PM EST Narrative [facility] - 08/26/2024 6:37 PM EST High levels of biotin in samples may falsely decrease hsTroponin values. ??Use caution when interpreting hsTroponin results in patients taking biotin who exhibit renal impairment (eGFR <60) or in patients taking more than 20 mg/day of biotin. [facility] BLOOD ORDERABLES Final Resul t Performing Organization Address City/[facility]/ZIP Co de Phone Number [facility] [address] [place] [address], [place] [phone] * ECG 12 lead (08/26/2024 3:54 PM EST) Ventricular Rate ECG 90 BPM [facility] Atrial Rate 90 BPM GEM[facility] P-R Interval 130 ms GEMUSE QRS Duration 110 ms GEMUSE Q-T Interval 368 ms GEMUSE QTc 450 ms GEMUSE P Wave [place] -9 degrees GEMUSE R [place] -42 degrees GEMUSE T [place] 84 degrees GEMUSE ECG Interpretation Sinus rhythm with frequent Premature ventricular complexes Left axis deviation Left ventricular hypertrophy with repolarization abnormality Abnormal ECG When compared with ECG of 30-NOV-2023 17:11, Premature ventricular complexes are now Present ST elevation now present in Anterior leads Confirmed by Ceferino PHELAN JAMES ([id number]) on 08/26/2024 9:43:05 PM [facility] 08/26/2024 3:54 PM EST 08/26/2024 9:43 PM EST [place] Andrade PA ECG ORDERABLES Final Result Performing Organization Address [facility] Co de Phone Number [facility] * Ethanol (08/26/2024 3:48 PM EST) Ethanol Level <3 0 - 10 mg/dL LAB CHEMISTRY METHOD 08/26/2024 8:49 PM EST [facility] Blood Venous blood specimen / Unknown Venipuncture / Unknown 08/26/2024 3:48 PM EST 08/26/2024 4:00 PM EST Marcela Ruffin DO LAB BLOOD ORDERABLES Sarina l Result Performing Organization Address City/[facility]/ZIP Co de Phone Number [facility] [address] [place] [address], [place] [phone] * (ABNORMAL) Acetaminophen level (08/26/2024 3:48 PM EST) Acetaminophen Level <2.0(L) 10.0 - 30.0 mcg/mL LAB CHEMISTRY METHOD 08/26/2024 8:49 PM EST [facility] Blood Venous blood specimen / Unknown Venipuncture / Unknown 08/26/2024 3:48 PM EST 08/26/2024 4:00 PM EST Marcela Ruffin DO LAB BLOOD ORDERABLES Sarina l Result [facility] [address] [place] [address], [place] [phone] * Respiratory virus panel molecular study (08/26/2024 3:48 PM EST) Pathologist [facility] Adenovirus Detection by PCR Not Detected Not Detected LAB MICROBIOLOGY METHOD 08/26/2024 4:57 PM EST [facility] Influenza A PCR Not Detected Not Detected LAB MICROBIOLOGY METHOD 08/26/2024 4:57 PM EST [facility] Influenza B PCR Not Detected Not Detected LAB MICROBIOLOGY METHOD 08/26/2024 4:57 PM EST [facility] Coronavirus 229E Not Detected Not Detected LAB MICROBIOLOGY METHOD 08/26/2024 4:57 PM EST [facility] Coronavirus HKU1 Not Detected Not Detected LAB MICROBIOLOGY METHOD 08/26/2024 4:57 PM EST [facility] Coronavirus OC43 Not Detected Not Detected LAB MICROBIOLOGY METHOD 08/26/2024 4:57 PM EST [facility] Coronavirus NL63 Not Detected Not Detected LAB MICROBIOLOGY METHOD 08/26/2024 4:57 PM EST [facility] Parainfluenza Virus 1 Not Detected Not Detected LAB MICROBIOLOGY METHOD 08/26/2024 4:57 PM EST [facility] Parainfluenza Virus 2 Not Detected Not Detected LAB MICROBIOLOGY METHOD 08/26/2024 4:57 PM EST [facility] Parainfluenza Virus 3 Not Detected Not Detected LAB MICROBIOLOGY METHOD 08/26/2024 4:57 PM [facility] Parainfluenza Virus 4 Not Detected Not Detected LAB MICROBIOLOGY METHOD 08/26/2024 4:57 PM EST [facility] RSV PCR Not Detected Not Detected LAB MICROBIOLOGY METHOD 08/26/2024 4:57 PM EST [facility] Human Metapneumovirus A and B Not Detected Not Detected LAB MICROBIOLOGY METHOD 08/26/2024 4:57 PM EST [facility] Rhinovirus/Entero virus Not Detected Not Detected LAB MICROBIOLOGY METHOD 08/26/2024 4:57 PM EST [facility] Bordetella pertussis Not Detected Not Detected LAB MICROBIOLOGY METHOD 08/26/2024 4:57 PM EST [facility] Bordetella parapertussis Not Detected Not Detected LAB MICROBIOLOGY METHOD 08/26/2024 4:57 PM [facility] Mycoplasma pneumo by PCR Not Detected Not Detected LAB MICROBIOLOGY METHOD 08/26/2024 4:57 PM [facility] Chlamydia pneumoniae Not Detected Not Detected LAB MICROBIOLOGY METHOD 08/26/2024 4:57 PM [facility] SARS COV-2 Not Detected Not Detected LAB MICROBIOLOGY METHOD 08/26/2024 4:57 PM [facility] Swab Both anterior nares / Unknown Non-blood Collection / Unknown 08/26/2024 3:48 PM EST 08/26/2024 4:01 PM EST [facility] - 08/26/2024 4:57 PM EST Testing was performed using the [employer] Respiratory Pathogen PCR Assay. All results must be correlated with the clinical findings. Results should not be used as the sole basis for diagnosis. False Negative results may occur from the presence of sequence variants in the region targeted by the assay or the presence of inhibitors. Results may be affected by concurrent antiviral/antimicrobial therapy or levels of organisms that are below the limit of detection. us [place] DE DIOS LAB MICROBIOLOGY - GENERAL ORDER IONA Final Result [facility] [address] [place] [address], [place] [phone] * (ABNORMAL) CBC auto differential (08/26/2024 3:48 PM EST) [facility] WBC 9.8 4.8 - 10.8 K/mcL LAB HEMETOLOGY METHOD 08/26/2024 4:06 PM [facility] RBC 3.40(L) 4.50 - 5.50 M/mcL LAB HEMETOLOGY METHOD 08/26/2024 4:06 PM [facility] Hemoglobin 10.8(L) 13.5 - 17.5 g/dL LAB HEMETOLOGY METHOD 08/26/2024 4:06 PM [facility] Hematocrit 32.6(L) 42.0 - 54.0 % LAB HEMETOLOGY METHOD 08/26/2024 4:06 PM [facility] MCV 97.3 79.0 - 98.0 FL LAB HEMETOLOGY METHOD 08/26/2024 4:06 PM [facility] MCH 32.2(H) 27.0 - 32.0 pcg LAB HEMETOLOGY METHOD 08/26/2024 4:06 PM [facility] MCHC 33.1 32.0 - 37.0 g/dL LAB HEMETOLOGY METHOD 08/26/2024 4:06 PM [facility] RDW 18.3(H) 11.0 - 15.0 % LAB HEMETOLOGY METHOD 08/26/2024 4:06 PM [facility] Platelets 151 130 - 400 K/mcL LAB HEMETOLOGY METHOD 08/26/2024 4:06 PM [facility] MPV 10.9 7.0 - 11.0 FL LAB HEMETOLOGY METHOD 08/26/2024 4:06 PM [facility] NRBC 0.0 <1.0 % LAB HEMETOLOGY METHOD 08/26/2024 4:06 PM [facility] NRBC Absolute 0.00 <0.10 K/mcL LAB HEMETOLOGY METHOD 08/26/2024 4:06 PM [facility] Neutrophils Relative 90.1 % LAB HEMETOLOGY METHOD 08/26/2024 4:06 PM [facility] LAB Lymphocytes Relative 3.2 % LAB HEMETOLOGY METHOD 08/26/2024 4:06 PM [facility] Monocytes Relative 4.4 % LAB HEMETOLOGY METHOD 08/26/2024 4:06 PM [facility] Eosinophils Relative 0.6 % LAB HEMETOLOGY METHOD 08/26/2024 4:06 PM [facility] Basophils Relative 0.2 % LAB HEMETOLOGY METHOD 08/26/2024 4:06 PM [facility] Immature Granulocytes Relative 1.5 % LAB HEMETOLOGY METHOD 08/26/2024 4:06 PM [facility] Neutrophils Absolute 8.80(H) 1.50 - 7.00 K/mcL LAB HEMETOLOGY METHOD 08/26/2024 4:06 PM [facility] Lymphocytes Absolute 0.31(L) 1.00 - 5.00 K/mcL LAB HEMETOLOGY METHOD 08/26/2024 4:06 PM [facility] Monocytes Absolute 0.43 0.20 - 1.00 K/mcL LAB HEMETOLOGY METHOD 08/26/2024 4:06 PM [facility] Eosinophils Absolute 0.06 0.00 - 0.50 K/mcL LAB HEMETOLOGY METHOD 08/26/2024 4:06 PM [facility] Basophils Absolute 0.02 0.00 - 0.20 K/mcL LAB HEMETOLOGY METHOD 08/26/2024 4:06 PM [facility] Immature Granulocytes Absolute 0.15(H) 0.00 - 0.03 K/mcL LAB HEMETOLOGY METHOD 08/26/2024 4:06 PM EST [facility] Blood Venous blood specimen / Unknown Venipuncture / Unknown 08/26/2024 3:48 PM EST 08/26/2024 4:01 PM [place] [facility] [facility] [place]OD [place]LES Final Resul t Performing Organization Address City/[facility]/ZIP Co de Phone Number [facility] [address] [place] [address], [place] [phone] * (ABNORMAL) B-type natriuretic peptide (08/26/2024 3:48 PM EST) BNP 118(H) <=100 pcg/mL LAB CHEMISTRY METHOD 08/26/2024 4:37 PM EST [facility] Blood Venous blood specimen / Unknown Venipuncture / Unknown 08/26/2024 3:48 PM EST 08/26/2024 4:00 PM EST [facility] [place]LOOD ORDER[place]LES Final Resul t Performing Organization Address [facility]/ZIP Co de Phone Number [facility] [address] [place] [address], [place] [phone] * (ABNORMAL) Magnesium (08/26/2024 3:48 PM EST) Magnesium 1.6(L) 1.9 - 2.6 mg/dL LAB CHEMISTRY METHOD 08/26/2024 4:30 PM EST [facility] Blood Venous blood specimen / Unknown Venipuncture / Unknown 08/26/2024 3:48 PM EST 08/26/2024 4:00 PM EST [facility] [place] [facility] [facility] [place]LOOD ORDER[place]LES Final Resul t Performing Organization Address City/[facility]/ZIP Co de Phone Number [facility] [address] [place] [address], [place] [phone] * Lipase (08/26/2024 3:48 PM EST) Lipase 19 13 - 75 unit/L LAB CHEMISTRY METHOD 08/26/2024 4:30 PM [facility] Blood Venous blood specimen / Unknown Venipuncture / Unknown 08/26/2024 3:48 PM EST 08/26/2024 4:00 PM EST us [place] DE DIOS LAB BLOOD ORDERABLES Final Resul t [facility] [address] [place] [address], [place] [phone] * (ABNORMAL) Comprehensive metabolic panel (08/26/2024 3:48 PM EST) Sodium 137 133 - 145 mmol/L LAB CHEMISTRY METHOD 08/26/2024 4:30 PM [facility] Potassium 4.1 3.5 - 5.5 mmol/L LAB CHEMISTRY METHOD 08/26/2024 4:30 PM [facility] Chloride 108 96 - 110 mmol/L LAB CHEMISTRY METHOD 08/26/2024 4:30 PM [facility] CO2 24 21 - 32 mmol/L LAB CHEMISTRY METHOD 08/26/2024 4:30 PM [facility] Anion Gap 5 3 - 11 LAB CHEMISTRY METHOD 08/26/2024 4:30 PM [facility] Glucose 121(H) 70 - 100 mg/dL LAB CHEMISTRY METHOD 08/26/2024 4:30 PM [facility] BUN 23 5 - 25 mg/dL LAB CHEMISTRY METHOD 08/26/2024 4:30 PM [facility] Creatinine 1.43(H) 0.70 - 1.30 mg/dL LAB CHEMISTRY METHOD 08/26/2024 4:30 PM [facility] eGFR 49(L) >=60 mL/min/1. 73m2 LAB CHEMISTRY METHOD 08/26/2024 4:30 PM [facility] Comment:Calculation based on the??Chronic Kidney Disease Epidemiology Collaboration (CKD-EPI) equation refit??without adjustment for race. BUN/Creatinine Ratio 16.1 LAB CHEMISTRY METHOD 08/26/2024 4:30 PM [facility] Calcium 10.0 8.5 - 10.5 mg/dL LAB CHEMISTRY METHOD 08/26/2024 4:30 PM [facility] AST (SGOT) 30 10 - 42 unit/L LAB CHEMISTRY METHOD 08/26/2024 4:30 PM [facility] ALT (SGPT) 25 10 - 60 unit/L LAB CHEMISTRY METHOD 08/26/2024 4:30 PM [facility] Alkaline Phosphatase 72 42 - 121 unit/L LAB CHEMISTRY METHOD 08/26/2024 4:30 PM [facility] Total Protein 6.9 6.0 - 8.0 g/dL LAB CHEMISTRY METHOD 08/26/2024 4:30 PM [facility] Albumin 3.7 3.2 - 5.0 g/dL LAB CHEMISTRY METHOD 08/26/2024 4:30 PM [facility] Total Bilirubin 0.8 0.0 - 1.4 mg/dL LAB CHEMISTRY METHOD 08/26/2024 4:30 PM [facility] Blood Venous blood specimen / Unknown Venipuncture / Unknown 08/26/2024 3:48 PM EST 08/26/2024 4:00 PM EST us [place] DE DI[place] LAB BLOOD ORDERABLES Final Resul t [facility] [address] [place] [address], * Troponin I high sensitivity (08/26/2024 3:48 PM EST) High Sensitivity Troponin I 17 <=79 ng/L LAB CHEMISTRY METHOD 08/26/2024 4:30 PM EST [facility] Blood Venous blood specimen / Unknown Venipuncture / Unknown 08/26/2024 3:48 PM EST 08/26/2024 4:00 PM EST Narrative [facility] - 08/26/2024 4:30 PM EST High levels of biotin in samples may falsely decrease hsTroponin values. ??Use caution when interpreting hsTroponin results in patients taking biotin who exhibit renal impairment (eGFR <60) or in patients taking more than 20 mg/day of biotin. [place] DE DI[place] LAB BLOOD ORDERABLES Final Resul t [facility] [address] [place] [address], * ECG-Outside (08/26/2024) Provider Onbase ECG ORDERABLES Final Result * ECG-Annotated (08/26/2024) Provider Onbase MD ECG ORDERABLES Final Result documented in this encounter Visit Diagnoses Diagnosis Sepsis (CMS/HCC)- Primary Shortness of breath Altered mental status, unspecified altered mental status type SIRS (systemic inflammatory response syndrome) (CMS/HCC) Systemic inflammatory response syndrome, unspecified documented in this encounter Admitting Diagnoses Diagnosis Sepsis (CMS/HCC) documented in this encounter Administered Medications Inactive Administered Medications - up to 3 most recent administrations Medication Order MAR Action Action Date Dose Rate Site acetaminophen (TYLENOL) tablet 1,000 mg 1,000 mg, oral, Once, On Shelia 08/26/24 at 1855, For 1 dose Given 08/26/2024 7:06 PM EST 1,000 mg acetaminophen (TYLENOL) tablet 650 mg 650 mg, oral, Every 4 hours PRN, mild pain, headaches, fever - temperature GREATER than 38 C (100.4 F), Starting on Shelia 08/26/24 at 2309 Given 08/27/2024 11:04 PM EST 650 mg Given 08/27/2024 2:56 AM EST 650 mg albuterol 2.5 mg /3 mL (0.083 %) nebulizer solution 2.5 mg 2.5 mg, nebulization, Every 6 hours PRN, wheezing, Starting on Fri08/27/24 at 2316 aspirin EC tablet 81 mg 81 mg, oral, Daily, First dose on Fri08/27/24 at 0900, Do not crush, chew, or split. Given 08/29/2024 8:52 AM EST 81 mg Given 08/28/2024 8:59 AM EST 81 mg Given 08/27/2024 10:09 AM EST 81 mg atorvastatin (LIPITOR) tablet 80 mg 80 mg, oral, Nightly, First dose on Fri08/27/24 at 2100 Given 08/28/2024 9:52 PM EST 80 mg Given 08/27/2024 8:42 PM EST 80 mg azithromycin (ZITHROMAX) 500 mg in sodium chloride 0.9 % 250 mL IVPB 500 mg, intravenous, at 250 mL/hr, Administer over 60 Minutes, Once, On [facility] 08/26/24 at 2120, For 1 dose, Indication: Pneumonia, Community Acquired New Bag 08/26/2024 10:12 PM EST 500 mg 250 mL/hr carvediloL (COREG) tablet 3.125 mg 3.125 mg, oral, 2 times daily, First dose on Fri08/27/24 at 0900 Given 08/29/2024 8:52 AM EST 3.125 mg Given 08/28/2024 9:51 PM EST 3.125 mg Given 08/28/2024 8:59 AM EST 3.125 mg cefTRIAXone (ROCEPHIN) 1 g in sterile water 10 mL IV syringe 1 g, intravenous, at 200 mL/hr, Administer over 3 Minutes, Once, On [facility] 08/26/24 at 2120, For 1 dose, Do not administer simultaneously with any calcium containing solutions via a Y-site in any patient., Indication: Pneumonia, Community Acquired Given 08/26/2024 10:12 PM EST 1 g 200 mL/hr cefTRIAXone (ROCEPHIN) 1 g in sterile water 10 mL IV syringe 1 g, intravenous, at 200 mL/hr, Administer over 3 Minutes, Every 24 hours, First dose on Fri08/27/24 at 2200, For 7 days, Do not administer simultaneously with any calcium containing solutions via a Y-site in any patient., Indication: Urinary Tract/Genitourinary Given 08/28/2024 9:51 PM EST 1 g 200 mL/hr Given 08/27/2024 10:43 PM EST 1 g 200 mL/hr clopidogreL (PLAVIX) tablet 75 mg 75 mg, oral, Daily, First dose on Fri08/27/24 at 0900 Given 08/29/2024 9:00 AM EST 75 mg Given 08/28/2024 8:59 AM EST 75 mg Given 08/27/2024 10:09 AM EST 75 mg doxycycline (MONODOX) capsule 100 mg 100 mg, oral, Every 12 hours scheduled, First dose on Fri08/29/24 at 0915, For 6 days, Take with at least 8 ounces (large glass) of water, do not lie down for 30 minutes after, Indication: Pneumonia, Nosocomial Given 08/29/2024 9:08 AM EST 100 mg doxycycline (VIBRAMYCIN) 100 mg in sodium chloride 0.9 % 100 mL IVPB 100 mg, intravenous, at 100 mL/hr, Administer over 60 Minutes, Every 12 hours, First dose on Fri08/27/24 at 1215, For 7 days, Indication: Pneumonia, Nosocomial New Bag 08/29/2024 12:46 AM EST 100 mg 100 mL/hr New Bag 08/28/2024 12:14 PM EST 100 mg 100 mL/hr New Bag 08/27/2024 11:47 PM EST 100 mg 100 mL/hr enoxaparin (LOVENOX) injection 40 mg 40 mg, subcutaneous, Every 24 hours scheduled, First dose on Fri08/27/24 at 0900, Indication: VTE/PE Prophylaxis Given 08/29/2024 8:52 AM EST 40 mg Right Lower Abdomen Given 08/28/2024 8:59 AM EST 40 mg Le ft Lower Abdomen Given 08/27/2024 10:09 AM EST 40 mg L eft Lower Abdomen furosemide (LASIX) injection 20 mg 20 mg, intravenous, Once, On Fri08/27/24 at 2345, For 1 dose Given 08/27/2024 11:47 PM EST 20 mg furosemide (LASIX) injection 40 mg 40 mg, intravenous, Once, On Fri08/27/24 at 1515, For 1 dose Given 08/27/2024 3:51 PM EST 40 mg furosemide (LASIX) injection 40 mg 40 mg, intravenous, Daily, First dose on Fri08/28/24 at 0900 Given 08/28/2024 8:58 AM EST 40 mg furosemide (LASIX) tablet 40 mg 40 mg, oral, Daily, First dose on Fri08/30/24 at 0900 gabapentin (NEURONTIN) capsule 300 mg 300 mg, oral, 3 times daily, First dose on Fri08/27/24 at 0900 Given 08/29/2024 2:13 PM EST 300 mg Given 08/29/2024 8:52 AM EST 300 mg Given 08/28/2024 9:51 PM EST 300 mg iopamidoL (ISOVUE-370) 370 mg iodine /mL (76 %) injection 100 mL 100 mL, intravenous, Once in imaging, Starting on Fri08/26/24 at 2121, For 1 dose Given 08/26/2024 9:22 PM EST 90 mL ipratropium-albuteroL (DUONEB) 0.5-2.5 mg/3 mL nebulizer solution 3 mL 3 mL, nebulization, Once, On Fri08/26/24 at 1921, For 1 dose Given 08/26/2024 7:27 PM EST 3 mL lactated Ringer's bolus 500 mL 500 mL, intravenous, at 500 mL/hr, Administer over 1 Hours, Once, On Fri08/27/24 at 0300, For 1 dose New Bag 08/27/2024 2:41 AM EST 500 mL 500 mL/hr lactated Ringer's infusion 100 mL/hr, intravenous, Continuous, Starting on Fri08/26/24 at 2311, For 20 hours New Bag 08/26/2024 11:44 PM EST 100 mL/hr 100 mL/hr lactated Ringer's infusion 100 mL/hr, intravenous, Continuous, Starting on Fri08/27/24 at 1045, For 20 hours Rate/Dose Verify 08/27/2024 1:19 PM EST 100 mL/hr 100 mL/hr New Bag 08/27/2024 10:56 AM EST 100 mL/hr 100 mL/hr LORazepam (ATIVAN) injection 2 mg 2 mg, intravenous, Once, On [place] 08/26/24 at 1917, For 1 dose, Prior to IV use, lorazepam injection should be DILUTED with an equal volume of compatible solution; Rate of administration should NOT exceed 2 mg/min. Given 08/26/2024 7:22 PM EST 2 mg LORazepam (ATIVAN) injection 2 mg 2 mg, intravenous, Once, On Fri08/26/24 at 2013, For 1 dose, Prior to IV use, lorazepam injection should be DILUTED with an equal volume of compatible solution; Rate of administration should NOT exceed 2 mg/min. Given 08/26/2024 8:19 PM EST 1 mg magnesium sulfate 2 gram/50 mL (4 %) IVPB 2 g 2 g, intravenous, at 25 mL/hr, Administer over 2 Hours, Once, On Fri08/26/24 at 1713, For 1 dose New Bag 08/26/2024 5:50 PM EST 2 g 25 mL/hr magnesium sulfate 2 gram/50 mL (4 %) IVPB 2 g 2 g, intravenous, at 25 mL/hr, Administer over 2 Hours, Once, On Fri08/27/24 at 1045, For 1 dose New Bag 08/27/2024 10:56 AM EST 2 g 25 mL/hr morphine 2 mg/mL injection 1 mg 1 mg, intravenous, Once, On Fri08/27/24 at 1145, For 1 dose Given 08/27/2024 11:34 AM EST 1 mg morphine 2 mg/mL injection 1 mg 1 mg, intravenous, Every 6 hours PRN, IWOB, Starting on Fri08/27/24 at 1505 Given 08/27/2024 3:13 PM EST 1 mg OLANZapine (ZyPREXA) injection 5 mg 5 mg, intramuscular, Once, On Fri08/26/24 at 1926, For 1 dose, Reconstitute 10 mg vial with 2.1 mL SWFI. Resulting solution is ~5 mg/mL. Given 08/26/2024 7:33 PM EST 5 mg Right Deltoid ondansetron (PF) (ZOFRAN) injection 4 mg 4 mg, intravenous, Every 8 hours PRN, vomiting, nausea, Starting on Fri08/26/24 at 2309, -ONLY give IV if patient is unable to take orally. -If inadequate response within 30 minutes, proceed to next-line agent or contact provider if no further options ordered. ondansetron ODT (ZOFRAN-ODT) disintegrating tablet 4 mg 4 mg, oral, Every 8 hours PRN, vomiting, nausea, Starting on [place] 08/26/24 at 2309, -Give IV if patient is unable to take orally. -If inadequate response within 30 minutes, proceed to next-line agent or contact provider if no further options ordered. For ODT tablets: -Do not remove from blister pack until just before administering. -Patient should allow tablet to dissolve on tongue. pantoprazole (PROTONIX) EC tablet 40 mg 40 mg, oral, 2 times daily before meals, First dose on Fri08/27/24 at 0730, Do not crush, chew, or split. Given 08/29/2024 4:51 PM EST 40 mg Given 08/29/2024 8:52 AM EST 40 mg Given 08/28/2024 4:23 PM EST 40 mg potassium chloride (KLOR-CON M20) CR tablet 20 mEq 20 mEq, oral, Once, On Fri08/27/24 at 1045, For 1 dose, Best given with food and plenty of water to minimize gastric irritation. Tablet may be swallowed whole (do not crush/chew/suck on) OR broken in half and each half swallowed separately OR dissolved (whole tablet) in ~4 ounces of water (allow ~2 minutes to dissolve, stir well and administer immediately). Given 08/27/2024 11:32 AM EST 20 mEq potassium chloride (KLOR-CON M20) CR tablet 40 mEq 40 mEq, oral, Once, On 08/28/24 at 1330, For 1 dose, Tablet may be swallowed whole (do not crush/chew/suck on) OR broken in half and each half swallowed separately OR dissolved (whole tablet) in ~4 ounces of water (allow ~2 minutes to dissolve, stir well and administer immediately). Given 08/28/2024 2:06 PM EST 40 mEq prochlorperazine (COMPAZINE) injection 10 mg 10 mg, intravenous, Every 6 hours PRN, nausea, vomiting, Starting on [place] 08/26/24 at 2309, 2nd Line Option: -ONLY give IV if patient is unable to take orally. -Give IM if patient does not have IV Access -If inadequate response within 30 minutes, proceed to next-line agent or contact provider if no further options ordered. prochlorperazine (COMPAZINE) suppository 25 mg 25 mg, rectal, Every 12 hours PRN, nausea, vomiting, Starting on [place] 08/26/24 at 2309, 2nd Line Option: -ONLY give ND if patient is unable to take orally and cannot receive IV/IM. -If inadequate response within 30 minutes, proceed to next-line agent or contact provider if no further options ordered. prochlorperazine (COMPAZINE) tablet 10 mg 10 mg, oral, Every 6 hours PRN, nausea, vomiting, Starting on [place] 08/26/24 at 2309, 2nd Line Option: -Give IV or IM if patient is unable to take orally. -If inadequate response within 30 minutes, proceed to next-line agent or contact provider if no further options ordered. QUEtiapine (SEROquel) tablet 100 mg 100 mg, oral, Nightly, First dose on Fri08/27/24 at 2100 Given 08/28/2024 9:51 PM EST 100 mg Given 08/27/2024 8:42 PM EST 100 mg QUEtiapine (SEROquel) tablet 12.5 mg 12.5 mg, oral, 2 times daily PRN, Anxiety/Agitation, Starting on Fri08/27/24 at 1132 sodium chloride 0.9 % bolus 500 mL 500 mL, intravenous, at 1,000 mL/hr, Administer over 30 Minutes, Once, On [place] 08/26/24 at 1841, For 1 dose New Bag 08/26/2024 6:44 PM EST 500 mL 1000 mL/hr sodium chloride 0.9 % flush 10 mL 10 mL, intravenous, Once, On [place] 08/26/24 at 2122, For 1 dose Given 08/26/2024 9:23 PM EST 10 mL sodium chloride 0.9 % flush 10 mL 10 mL, intravenous, 2 times daily, First dose on [place] 08/26/24 at 2311 Given 08/29/2024 9:01 AM EST 10 mL Given 08/28/2024 9:52 PM EST 10 mL Given 08/28/2024 9:00 AM EST 10 mL sodium chloride 0.9 % flush 10 mL 10 mL, intravenous, As needed, line care, Starting on She[place] 08/26/24 at 2309 tamsulosin (FLOMAX) 24 hr capsule 0.4 mg 0.4 mg, oral, Daily, First dose on Fri08/27/24 at 0900, For oral administration: capsules should be swallowed whole (Do not crush, chew, or open). For tube administration: open capsule and administer with water (granules should NOT be crushed). Given 08/29/2024 8:52 AM EST 0.4 mg Given 08/28/2024 8:59 AM EST 0.4 mg Given 08/27/2024 10:09 AM EST 0.4 mg documented in this encounter Discontinued Medications Medication Sig Discontinue Reason Start Date End Da te cefpodoxime (VANTIN) 100 mg tablet Take 2 tablets (200 mg total) by mouth 2 (two) times a day for 5 days. 08/29/2024 08/29/2024 documented as of this encounter Historical Medications * This list may reflect changes made after this encounter. tamsulosin (FLOMAX) 0.4 mg 24 hr capsule Take 1 capsule (0.4 mg total) by mouth 1 (one) time each day. QUEtiapine (SEROquel) 100 mg tablet Take 1 tablet (100 mg total) by mouth at bedtime. 08/06/2023 omeprazole (PriLOSEC) [address] capsule Take 1 capsule (20 mg total) by mouth 2 (two) times a day. losartan (COZAAR) 25 mg tablet Take 1 tablet (25 mg total) by mouth 1 (one) time each day. 08/12/2023 gabapentin (NEURONTIN) 600 mg tablet Take 1 tablet (600 mg total) by mouth 3 (three) times a day. furosemide (LASIX) 20 mg tablet Take 1 tablet (20 mg total) by mouth 1 (one) time each day. clopidogreL (PLAVIX) 75 mg tablet Take 1 tablet (75 mg total) by mouth 1 (one) time each day. carvediloL (COREG) 3.125 mg tablet Take 1 tablet (3.125 mg total) by mouth 2 (two) times a day. atorvastatin (LIPITOR) 80 mg tablet Take 1 tablet (80 mg total) by mouth at bedtime. at bedtime. aspirin 81 mg EC tablet Take 1 tablet (81 mg total) by mouth 1 (one) time each day. 08/14/2023 added in this encounter Active and Recently Administered Medications Times are shown in EST. Scheduled Medication Order 08/27/2024 08/28/2024 08/29/2024 aspirin EC tablet 81 mg 81 mg, oral, Daily, First dose on Fri08/27/24 at 0900, Do not crush, chew, or split. 1009 (Given - Provider: Arlene Beaulieu RN) 0859 (Given - Provider: Gisselle Jack RN) 0852 (Given - Provider: Gisselle Jack RN) atorvastatin (LIPITOR) tablet 80 mg 80 mg, oral, Nightly, First dose on Fri08/27/24 at 2100 2041 (Given - Provider: Courtney Koch RN) 2151 (Given - Provider: Mehul Lara, THERESE) carvediloL (COREG) tablet 3.125 mg 3.125 mg, oral, 2 times daily, First dose on Fri08/27/24 at 0900 1009 (Given - Provider: Arlene Beaulieu RN)2041 (Given - Provider: Courtney Koch RN) 0859 (Given - Provider: Gisselle Jack RN)2150 (Given - Provider: Mehul Lara RN) 0852 (Given - Provider: Gisselle Jack RN) cefTRIAXone (ROCEPHIN) 1 g in sterile water 10 mL IV syringe 1 g, intravenous, at 200 mL/hr, Administer over 3 Minutes, Every 24 hours, First dose on Fri08/27/24 at 2200, For 7 days, Do not administer simultaneously with any calcium containing solutions via a Y-site in any patient., Indication: Urinary Tract/Genitourinary 2242 (Given - Provider: Courtney Koch RN) 2150 (Given - Provider: Mehul Lara, THERESE) clopidogreL (PLAVIX) tablet 75 mg 75 mg, oral, Daily, First dose on Fri08/27/24 at 0900 1009 (Given - Provider: Arlene Beaulieu RN) 0859 (Given - Provider: Gisselle Jack RN) 0900 (Given - Provider: Gisselle Jack RN) doxycycline (MONODOX) capsule 100 mg 100 mg, oral, Every 12 hours scheduled, First dose on Fri08/29/24 at 0915, For 6 days, Take with at least 8 ounces (large glass) of water, do not lie down for 30 minutes after, Indication: Pneumonia, Nosocomial 0908 (Given - Provider: Gisselle Jack RN) doxycycline (VIBRAMYCIN) 100 mg in sodium chloride 0.9 % 100 mL IVPB (CANCELED) 100 mg, intravenous, at 100 mL/hr, Administer over 60 Minutes, Every 12 hours, First dose on Fri08/27/24 at 1215, For 7 days, Indication: Pneumonia, Nosocomial 1237 (New Bag - Provider: Arlene Beaulieu RN)1418 (Stopped - Provider: Arlene Beaulieu RN)2347 (New Bag - Provider: Courtney Koch RN) 0047 (Stopped - Provider: Courtney Koch RN)1214 (New Bag - Provider: Gisselle Jack RN)1314 (Stopped - Provider: Gisselle Jack RN) 0046 (New Bag - Provider: Mehul Lara, THERESE)0146 (Stopped - Provider: Mehul Lara RN) enoxaparin (LOVENOX) injection 40 mg 40 mg, subcutaneous, Every 24 hours scheduled, First dose on Fri08/27/24 at 0900, Indication: VTE/PE Prophylaxis 1009 (Given - Provider: Arlene Beaulieu RN) 0859 (Given - Provider: Gisselle Jack RN) 0852 (Given - Provider: Gisselle Jack RN) furosemide (LASIX) injection 20 mg (COMPLETED) 20 mg, intravenous, Once, On Fri08/27/24 at 2345, For 1 dose 2347 (Given - Provider: Courtney Koch RN) furosemide (LASIX) injection 40 mg (COMPLETED) 40 mg, intravenous, Once, On Fri08/27/24 at 1515, For 1 dose 1551 (Given - Provider: Arlene Beualieu RN) furosemide (LASIX) injection 40 mg (CANCELED) 40 mg, intravenous, Daily, First dose on Fri08/28/24 at 0900 0858 (Given - Provider: Gisselle Jack RN) furosemide (LASIX) tablet 40 mg 40 mg, oral, Daily, First dose on Fri08/30/24 at 0900 gabapentin (NEURONTIN) capsule 300 mg 300 mg, oral, 3 times daily, First dose on Fri08/27/24 at 0900 1009 (Given - Provider: Arlene Beaulieu RN)1320 (Given - Provider: Arlene Beaulieu RN)2042 (Given - Provider: Courtney Koch RN) 0859 (Given - Provider: Gisselle Jack RN)1406 (Given - Provider: Gisselle Jack RN)2151 (Given - Provider: Mehul Lara RN) 0852 (Given - Provider: Gisselle Jack RN)1413 (Given - Provider: Gisselle Jack RN) lactated Ringer's bolus 500 mL (COMPLETED) 500 mL, intravenous, at 500 mL/hr, Administer over 1 Hours, Once, On Fri08/27/24 at 0300, For 1 dose 0241 (New Bag - Provider: Courtney Koch RN)0345 (Stopped - Provider: Courtney Koch RN) magnesium sulfate 2 gram/50 mL (4 %) IVPB 2 g (COMPLETED) 2 g, intravenous, at 25 mL/hr, Administer over 2 Hours, Once, On Fri08/27/24 at 1045, For 1 dose 1056 (New Bag - Provider: Arlene Beaulieu RN)1238 (Stopped - Provider: Arlene Beaulieu RN) morphine 2 mg/mL injection 1 mg (COMPLETED) 1 mg, intravenous, Once, On Fri08/27/24 at 1145, For 1 dose 1134 (Given - Provider: Arlene Beaulieu RN) pantoprazole (PROTONIX) EC tablet 40 mg 40 mg, oral, 2 times daily before meals, First dose on Fri08/27/24 at 0730, Do not crush, chew, or split. 0532 (Given - Provider: Courtney Koch RN)1619 (Given - Provider: Arlene Beaulieu RN) 0524 (Given - Provider: Courtney Koch RN)1623 (Given - Provider: Gisselle Jack RN) 0852 (Given - Provider: Gisselle Jack RN)1651 (Given - Provider: Gisselle Jack RN) potassium chloride (KLOR-CON M20) CR tablet 20 mEq (COMPLETED) 20 mEq, oral, Once, On Fri08/27/24 at 1045, For 1 dose, Best given with food and plenty of water to minimize gastric irritation. Tablet may be swallowed whole (do not crush/chew/suck on) OR broken in half and each half swallowed separately OR dissolved (whole tablet) in ~4 ounces of water (allow ~2 minutes to dissolve, stir well and administer immediately). 1132 (Given - Provider: Arlene Beaulieu RN) potassium chloride (KLOR-CON M20) CR tablet 40 mEq (COMPLETED) 40 mEq, oral, Once, On 08/28/24 at 1330, For 1 dose, Tablet may be swallowed whole (do not crush/chew/suck on) OR broken in half and each half swallowed separately OR dissolved (whole tablet) in ~4 ounces of water (allow ~2 minutes to dissolve, stir well and administer immediately). 1406 (Given - Provider: Gisselle Jack RN) QUEtiapine (SEROquel) tablet 100 mg 100 mg, oral, Nightly, First dose on Fri08/27/24 at 2100 2042 (Given - Provider: Courtney Koch RN) 215 (Given - Provider: Mehul Lara RN) sodium chloride 0.9 % flush 10 mL(Linked Group 1) 10 mL, intravenous, 2 times daily, First dose on Shelia 08/26/24 at 2311 1013 (Given - Provider: Arlene Beaulieu RN)2043 (Given - Provider: Courtney Koch RN) 0900 (Given - Provider: Gisselle Jack RN)2152 (Given - Provider: Mehul Lara RN) 0901 (Given - Provider: Gisselle Jack RN) tamsulosin (FLOMAX) 24 hr capsule 0.4 mg 0.4 mg, oral, Daily, First dose on Fri08/27/24 at 0900, For oral administration: capsules should be swallowed whole (Do not crush, chew, or open). For tube administration: open capsule and administer with water (granules should NOT be crushed). 1009 (Given - Provider: Arlnee Beaulieu RN) 0859 (Given - Provider: Gisselle Jack RN) 0852 (Given - Provider: Gisselle Jack RN) Continuous Medication Order 08/27/2024 08/28/2024 08/29/2024 lactated Ringer's infusion (CANCELED) 100 mL/hr, intravenous, Continuous, Starting on Fri08/27/24 at 1045, For 20 hours 1056 (New Bag - Provider: Arlene Beaulieu RN)1319 (Rate/Dose Verify - Provider: Arlene Beaulieu RN)1549 (Stopped - Provider: Arlene Beaulieu RN) PRN Medication Order 08/27/2024 08/28/2024 08/29/2024 acetaminophen (TYLENOL) tablet 650 mg 650 mg, oral, Every 4 hours PRN, mild pain, headaches, fever - temperature GREATER than 38 C (100.4 F), Starting on Shelia 08/26/24 at 2309 0256 (Given - Provider: Courtney Koch RN)2304 (Given - Provider: Courtney Koch RN) albuterol 2.5 mg /3 mL (0.083 %) nebulizer solution 2.5 mg 2.5 mg, nebulization, Every 6 hours PRN, wheezing, Starting on Fri08/27/24 at 2316 morphine 2 mg/mL injection 1 mg 1 mg, intravenous, Every 6 hours PRN, IWOB, Starting on Fri08/27/24 at 1505 1513 (Given - Provider: Arlene Beaulieu RN) ondansetron (PF) (ZOFRAN) injection 4 mg(Linked Group 2) 4 mg, intravenous, Every 8 hours PRN, vomiting, nausea, Starting on Shelia 08/26/24 at 2309, -ONLY give IV if patient is unable to take orally. -If inadequate response within 30 minutes, proceed to next-line agent or contact provider if no further options ordered. ondansetron ODT (ZOFRAN-ODT) disintegrating tablet 4 mg(Linked Group 2) 4 mg, oral, Every 8 hours PRN, vomiting, nausea, Starting on Shelia 08/26/24 at 2309, -Give IV if patient is unable to take orally. -If inadequate response within 30 minutes, proceed to next-line agent or contact provider if no further options ordered. For ODT tablets: -Do not remove from blister pack until just before administering. -Patient should allow tablet to dissolve on tongue. prochlorperazine (COMPAZINE) injection 10 mg(Linked Group 3) 10 mg, intravenous, Every 6 hours PRN, nausea, vomiting, Starting on Shelia 08/26/24 at 2309, 2nd Line Option: -ONLY give IV if patient is unable to take orally. -Give IM if patient does not have IV Access -If inadequate response within 30 minutes, proceed to next-line agent or contact provider if no further options ordered. prochlorperazine (COMPAZINE) suppository 25 mg(Linked Group 3) 25 mg, rectal, Every 12 hours PRN, nausea, vomiting, Starting on Shelia 08/26/24 at 2309, 2nd Line Option: -ONLY give ND if patient is unable to take orally and cannot receive IV/IM. -If inadequate response within 30 minutes, proceed to next-line agent or contact provider if no further options ordered. prochlorperazine (COMPAZINE) tablet 10 mg(Linked Group 3) 10 mg, oral, Every 6 hours PRN, nausea, vomiting, Starting on Shelia 08/26/24 at 2309, 2nd Line Option: -Give IV or IM if patient is unable to take orally. -If inadequate response within 30 minutes, proceed to next-line agent or contact provider if no further options ordered. QUEtiapine (SEROquel) tablet 12.5 mg 12.5 mg, oral, 2 times daily PRN, Anxiety/Agitation, Starting on Fri08/27/24 at 1132 sodium chloride 0.9 % flush 10 mL(Linked Group 1) 10 mL, intravenous, As needed, line care, Starting on Shelia 08/26/24 at 2309 Linked Groups Order Group 1: Insert peripheral IV (CANCELED) STAT, Once, On Fri08/26/24 at 2310, For 1 occurrence And Maintain IV access (CANCELED) Until discontinued, Starting on Fri08/26/24 at 2310, Until Specified And Saline lock IV (CANCELED) Routine, Once, On Shelia 08/26/24 at 2310, For 1 occurrence And sodium chloride 0.9 % flush 10 mLJump to med 10 mL, intravenous, 2 times daily, First dose on Fri08/26/24 at 2311 And sodium chloride 0.9 % flush 10 mLJump to med 10 mL, intravenous, As needed, line care, Starting on Fri08/26/24 at 2309 Group 2: ondansetron ODT (ZOFRAN-ODT) disintegrating tablet 4 mgJump to med 4 mg, oral, Every 8 hours PRN, vomiting, nausea, Starting on Shelia 08/26/24 at 2309, -Give IV if patient is unable to take orally. -If inadequate response within 30 minutes, proceed to next-line agent or contact provider if no further options ordered. For ODT tablets: -Do not remove from blister pack until just before administering. -Patient should allow tablet to dissolve on tongue. Or ondansetron (PF) (ZOFRAN) injection 4 mgJump to med 4 mg, intravenous, Every 8 hours PRN, vomiting, nausea, Starting on Shelia 08/26/24 at 2309, -ONLY give IV if patient is unable to take orally. -If inadequate response within 30 minutes, proceed to next-line agent or contact provider if no further options ordered. Group 3: prochlorperazine (COMPAZINE) tablet 10 mgJump to med 10 mg, oral, Every 6 hours PRN, nausea, vomiting, Starting on Shelia 08/26/24 at 2309, 2nd Line Option: -Give IV or IM if patient is unable to take orally. -If inadequate response within 30 minutes, proceed to next-line agent or contact provider if no further options ordered. Or prochlorperazine (COMPAZINE) injection 10 mgJump to med 10 mg, intravenous, Every 6 hours PRN, nausea, vomiting, Starting on Shelia 08/26/24 at 2309, 2nd Line Option: -ONLY give IV if patient is unable to take orally. -Give IM if patient does not have IV Access -If inadequate response within 30 minutes, proceed to next-line agent or contact provider if no further options ordered. Or prochlorperazine (COMPAZINE) suppository 25 mgJump to med 25 mg, rectal, Every 12 hours PRN, nausea, vomiting, Starting on Shelia 08/26/24 at 2309, 2nd Line Option: -ONLY give ND if patient is unable to take orally and cannot receive IV/IM. -If inadequate response within 30 minutes, proceed to next-line agent or contact provider if no further options ordered. documented in this encounter Orders Medications Ordered That Zhang ht Not Have Been Administered Count Last Ordered Date First Ordered Date furosemide (LASIX) tablet 40 mg 1 5 albuterol 2.5 mg /3 mL (0.08 3 %) nebulizer solution 2.5 mg 1 08/27/2024 haloperidol lactate (HALDOL) injection 1 mg 1 08/27/2024 QUEtiapine (SEROquel) tablet 12.5 mg 1 08/11 ondansetron (PF) (ZOFRAN) injection 4 mg 1 08/26/2024 ondansetron ODT (ZOFRAN-ODT) disintegrating tablet 4 mg 1 08/26/2024 prochlorperazine (COMPAZINE) injection 10 mg 1 08/26/2024 prochlorperazine (COMPAZINE) suppository 25 mg 1 08/26/2024 prochlorperazine (COMPAZINE) tablet 10 mg 1 08/26/2024 sodium chloride 0.9 % flush 10 mL 1 025 Nursing Count Last Ordered Date First Orde red Date STRAIGHT CATH 1 08/26/2024 PT Count Last Ordered Date First Orde red Date PT EVAL AND TREAT 1 08/28/2024 [employer] Count Last Ordered Date First Orde red Date [employer] SWALLOW EVAL [employer] TREAT 1 08/27/2024 Admission Count Last Ordered Date First Orde red Date ADMIT TO INPATIENT 1 08/26/2024 Transfer Count Last Ordered Date First Orde red Date TRANSFER PATIENT TO NEW UNIT 1 08/28/2024 ED TO FLOOR BED REQUEST 1 08/26/2024 Discharge Count Last Ordered Date First Orde red Date DISCHARGE PATIENT 1 08/29/2024 documented in this encounter Additional Health Concerns Infection Onset Date Last Indicated Resolved Time Respiratory Rule-Out 08/26/2024 08/26/2024 025 4:57 PM EST COVID-19 Rule-Out 08/26/2024 08/26/2024 08/26/2024 4:57 PM EST documented as of this encounter Care Teams Employer Relations Representative Relationship Specialty Start Date End Date Christiano Franco MD [address] [place] [id number] PCP - General Internal Medicine 07/12/15 09/14/24 documented as of this encounter
--- OUTSIDE RECORDS SUMMARY | 2024-09-21 12:42 | XMS_ITS | Clinical Summary ---
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 4 Active atorvastatin (LIPITOR) 80 mg tablet Take 1 tablet (80 mg total) by mouth at bedtime. at bedtime. Active carvediloL (COREG) 3.125 mg tablet Take 1 tablet (3.125 mg total) by mouth 2 (two) times a day. Active clopidogreL (PLAVIX) 75 mg tablet Take 1 tablet (75 mg total) by mouth 1 (one) time each day. Active furosemide (LASIX) 20 mg tablet Take 1 tablet (20 mg total) by mouth 1 (one) time each day. Active gabapentin (NEURONTIN) 600 mg tablet Take 1 tablet (600 mg total) by mouth 3 (three) times a day. Active losartan (COZAAR) 25 mg tablet Take 1 tablet (25 mg total) by mouth 1 (one) time each day. 4 Active omeprazole (PriLOSEC) [address] capsule Take 1 capsule (20 mg total) by mouth 2 (two) times a day. Active QUEtiapine (SEROquel) 100 mg tablet Take 1 tablet (100 mg total) by mouth at bedtime. 3 Active tamsulosin (FLOMAX) 0.4 mg 24 hr capsule Take 1 capsule (0.4 mg total) by mouth 1 (one) time each day. Active levoFLOXacin (LEVAQUIN) 750 mg tablet Take 1 tablet (750 mg total) by mouth every other day for 10 days. 3 each 5 09/24/19 25 Active cefpodoxime (VANTIN) 100 mg tablet Take 2 tablets (200 mg total) by mouth 2 (two) times a day for 5 days. 20 tablet 5 08/29/19 25 Discontinued cefpodoxime (VANTIN) 100 mg tablet Take 2 tablets (200 mg total) by mouth 2 (two) times a day for 5 days. 20 tablet 5 09/03/19 25 Active Problems Problem Noted Date Diagnosed Date HCAP (healthcare-associated pneumonia) 5 Sepsis 08/26/2024 Resolved Problems Problem Noted Date Diagnosed Date Resolved Date Community acquired pneumonia of right lung, unspecified part of lung 09/12/2024 09/13/2024 Community acquired pneumonia 09/11/2024 09/13/2024 Encounters Date Type Department Care Team Description 09/15/2024 Telephone Internal Medicine - [address] [phone] Christiano Franco MD 09/11/2024 12:39 AM EST - 09/13/2024 4:36 PM EST Hospital Encounter [facility] Surgical Unit [address] [place] [id number] Patria Schumacher MD Flores, Carlos M, MD Bell, Alistair A, MD Kokosadze, Estate, MD Community acquired pneumonia of right lung, unspecified part of lung (Primary Dx) Discharge Disposition: Home-Health Care [facility] 09/07/2024 Telephone Internal Medicine - [address] [phone] Christiano Franco MD vna 08/31/2024 Nurse Triage Internal Medicine - [address] [phone] Alyssa Son RN 08/26/2024 2:38 PM EST - 08/29/2024 6:20 PM EST Hospital Encounter [facility] Intermediate Care Unit [address] [place] [address] Marcela Ruffin DO Jones, Christopher, MD Mohani, Priya, MD Altered mental status, unspecified altered mental status type (Primary Dx); Shortness of breath; SIRS (systemic inflammatory response syndrome) ([facility]) Discharge Disposition: Home-Health Care c from Last 3 Months Surgical History Surgery Date Site/Laterality Comments OTHER SURGICAL HISTORY PROCEDURE: ---- OTHER ----; COMMENT: 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 ESOPHAGOGASTRODUODENOSCOPY 03/14/14 PROCEDURE: MD ESOPHAGOGASTRODUODENOSCOPY TRANSORAL DIAGNOSTIC; COMMENT: erosive esophagitis and HH APPENDECTOMY 02/21 PROCEDURE: MD APPENDEC INDICATED PURPOSE OTH MAJOR PX NOT SPX Medical History Medical History Date Comments Hemiplegia following CVA (cerebrovascular accident) ([facility]) 10/06/2012 DX:Hemiplegia fol lowing CVA (cerebrovascular accident) ([facility]) Chronic pain 10/06/2012 DX:Chronic pain Lumbar disc disease 10/06/2012 DX:Lumbar di sc disease Historical Medical DX 10/06/2012 DX:Hyperli pidemia LDL goal < 100 HTN (hypertension) 10/06/2012 DX:HTN (hyper tension) Throat pain 10/06/2012 DX:Throat pain Dysphagia 10/06/2012 DX:Dysphagia Insomnia 10/06/2012 DX:Insomnia Anxiety 11/12/2012 DX:Anxiety Asthma 11/12/2012 DX:Asthma Low back pain 11/12/2012 DX:Low back pain Basal cell carcinoma of skin 01/28/2013 DX: Basal cell carcinoma of skin 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 11/03/2013 DX:Presence of stent in left circumflex coronary artery NSTEMI (non-ST elevated myoc ardial infarction) ([facility]) 12/30/2013 DX:NSTEMI (non-ST elevated myocardial infarction) ([facility]) Left inguinal hernia 01/26/2014 DX:Left ing uinal hernia Recurrent appendicitis DX:Recurr ent appendicitis; COMMENT: s/p surgery in 02/2014 Incidental lung nodule DX:Incide ntal lung nodule; COMMENT: ct chest doen prior tosurgery, no evidnece, to f/u with pt Diet-controlled diabetes lorena litus (CMS/HCC) DX:Diet-controlled diabetes mellitus (HCC) Microscopic hematuria DX:Microsc opic hematuria History of basal cell carcinoma 01/28/2013 DX:History of basal cell carcinoma; COMMENT: BCC 01/21 left ear (ulcerated, nodular) Actinic keratosis, hx of DX:Acti gabriela keratosis, hx of Hemoptysis DX:Hemoptysis Agitation DX:Agitation Fall DX:Fall; COMMENT : MECHANICAL Family History Medical History Relation Name Comments Heart disease Brother Heart disease Father Heart disease Mother Bone cancer Sister Seizures Son Relation Name Status Comments Brother Heart disease Father Mother Sister cancer Son seizures Social History Tobacco Use Types Packs/Day Years [...] Orientation Straight 08/26/2024 4: 33 PM EST Obstetrics History Last Filed Vital Signs Vital Sign Reading Time Taken Comments Blood Pressure 152/58 09/13/2024 7:41 AM EST Pulse 65 09/13/2024 7:41 AM EST Temperature 36.4 ??C (97.5 ??F) 09/13/2024 7:41 AM ES T Respiratory Rate 18 09/13/2024 7:41 AM EST Oxygen Saturation 98% 09/13/2024 7:41 AM EST Inhaled Oxygen Concentration - - Weight 77.1 kg (169 lb 15.6 oz) 025 10:39 AM EST Height 170 cm (5' 6.93 ) 09/12/2024 10: 39 AM EST Body Mass Index 26.68 09/12/2024 10:39 AM EST Plan of Treatment Health Maintenance Due Date Last Done Comments COVID-19 Vaccine (#1) 1945 Pneumococcal Vaccine: 50+ Years (1 of 2 - PCV) 1947 Diabetes: Annual Foot Exam 1951 Diabetes: Annual Retina Eye Exam 1951 DTaP,Tdap,and Td Vaccines (1 - Tdap) 1960 Zoster Vaccines (1 of 2) 1991 RSV Immunization Patients 60+ Years Old (1 - 1-dose 75+ series) 2016 Cholesterol Screening (Lipid Panel) 07/14/2022 Depression Screening 07/14/2022 Medicare Annual Wellness Visit 07/14/2022 Social Influencers of Health Screening 07/14/2022 Diabetes: Annual Urine Albumin-Creatinine Ratio (uACR) 07/18/2022 Diabetes: Blood Sugar Control Test (HGBA1C) 07/18/2022 Influenza Vaccine (#1) 2024 Diabetes: Annual GFR (Glomerular Filtration Rate) 09/13/2025 09/13/2024, 09/12/2024, 09/11/2024, Additional history exists Falls Risk Assessment 09/13/2025 09/13/2024 Hypertension/CHF/CAD Annual BMP Blood Test 09/13/2025 09/13/2024, 09/12/2024, 09/11/2024, Additional history exists HIB Vaccines Aged Out No longer eligi ble based on patient's age to complete this topic HPV Vaccines Aged Out No longer eligi ble based on patient's age to complete this topic Hepatitis A Vaccines Aged Out No long er eligible based on patient's age to complete this topic Hepatitis B Vaccines Aged Out No long er eligible based on patient's age to complete this topic IPV Vaccines Aged Out No longer eligi ble based on patient's age to complete this topic MMR Vaccines Aged Out No longer eligi ble based on patient's age to complete this topic Meningococcal ACWY Vaccine Aged Out N o longer eligible based on patient's age to complete this topic RSV Immunization Patients Under 20 months Aged Out No longer eligible based on patient's age to complete this topic Varicella Vaccines Aged Out No longer eligible based on patient's age to complete this topic Procedures Procedure Name Priority Date/Time Associated Diagnosis Comments LEGIONELLA ANTIGEN URINE, EIA STAT 09/13/2024 9:40 AM EST MAGNESIUM Routine 09/13/2024 7:04 AM EST COMPLETE BLOOD COUNT Routine 09/13/2024 7:04 AM EST BASIC METABOLIC PANEL Routine 09/13/2024 7:04 AM EST TRANSTHORACIC ECHOCARDIOGRAM (TTE) COMPLETE W/ CONTRAST Routine 09/12/2024 10:39 AM EST Shortness of breath PROCALCITONIN Add-On 09/12/2024 5:18 AM EST CBC WITH AUTO DIFFERENTIAL Routine 09/12/2024 5:18 AM EST CBC AND DIFFERENTIAL Routine 09/12/2024 5:18 AM EST MAGNESIUM Routine 09/12/2024 5:18 AM EST BASIC METABOLIC PANEL Routine 09/12/2024 5:18 AM EST ECG ANNOTATED 09/12/2024 MRSA PCR Routine 09/11/2024 8:56 PM EST CULTURE BLOOD STAT 09/11/2024 3:12 PM EST CULTURE BLOOD STAT 09/11/2024 3:[address] CHEST/ABDOMEN/PELVIS WO CONTRAST Routine 09/11/2024 10:24 AM EST ZIEGLER URINE CULTURE TUBE STAT 09/11/2024 7:01 AM EST URINALYSIS WITH REFLEX MICROSCOPIC AND CULTURE STAT 09/11/2024 7:01 AM EST URINALYSIS WITH REFLEX MICROSCOPIC AND CULTURE STAT 09/11/2024 7:01 AM EST CULTURE URINE STAT 09/11/2024 7:01 AM EST XR CHEST 1 VIEW STAT 09/11/2024 6:46 AM EST LACTATE, WITH REFLEX STAT 09/11/2024 3:24 AM EST TROPONIN I HIGH SENSITIVITY STAT 09/11/2024 3:24 AM EST RESPIRATORY VIRUS PANEL MOLECULAR STUDY STAT 09/11/2024 1:49 AM EST HEPATIC FUNCTION PANEL STAT Add-on 1:48 AM EST PROTHROMBIN TIME WITH INR STAT 09/11/2024 1:48 AM EST ACTIVATED PARTIAL THROMBOPLASTIN TIME STAT 09/11/2024 1:48 AM EST CBC WITH AUTO DIFFERENTIAL STAT 09/11/2024 1:48 AM EST TROPONIN I HIGH SENSITIVITY STAT 09/11/2024 1:48 AM EST B-TYPE NATRIURETIC PEPTIDE STAT 09/11/2024 1:48 AM EST BASIC METABOLIC PANEL STAT 09/11/2024 1:48 AM EST CBC AND DIFFERENTIAL STAT 09/11/2024 1:48 AM EST ARTERIAL BLOOD GAS STAT 09/11/2024 1: 43 AM EST ECG 12-LEAD STAT 09/11/2024 1:04 AM EST CBC WITH AUTO DIFFERENTIAL Routine 08/29/2024 5:48 AM EST MAGNESIUM Routine 08/29/2024 5:48 AM EST CBC AND DIFFERENTIAL Routine 08/29/2024 5:48 AM EST BASIC METABOLIC PANEL Routine 08/29/2024 5:48 AM EST CBC WITH AUTO DIFFERENTIAL Routine 08/28/2024 6:17 AM EST MAGNESIUM Routine 08/28/2024 6:17 AM EST CBC AND DIFFERENTIAL Routine 08/28/2024 6:17 AM EST BASIC METABOLIC PANEL Routine 08/28/2024 6:17 AM EST ECG 12-LEAD Routine 08/27/2024 1:06 PM EST XR CHEST 1 VIEW STAT 08/27/2024 11:36 AM EST CBC WITH AUTO DIFFERENTIAL Routine 08/27/2024 5:37 AM EST MAGNESIUM Routine 08/27/2024 5:37 AM EST CBC AND DIFFERENTIAL Routine 08/27/2024 5:37 AM EST BASIC METABOLIC [...] SALICYLATE LEVEL STAT 08/26/2024 8:59 PM EST ZIEGLER URINE CULTURE TUBE STAT 08/26/2024 7:25 PM EST URINALYSIS WITH REFLEX MICROSCOPIC AND CULTURE STAT 08/26/2024 7:25 PM EST URINALYSIS WITH REFLEX MICROSCOPIC AND CULTURE STAT 08/26/2024 7:25 PM EST CULTURE URINE STAT 08/26/2024 7:25 PM EST ECG 12-LEAD STAT 08/26/2024 6:30 PM EST TROPONIN I HIGH SENSITIVITY STAT 08/26/2024 5:40 PM EST ECG 12-LEAD STAT 08/26/2024 3:54 PM EST ETHANOL Add-On 08/26/2024 3:48 PM EST ACETAMINOPHEN LEVEL STAT Add-on 08/26/2024 3 :48 PM EST CBC WITH AUTO DIFFERENTIAL STAT 08/26/2024 3:48 PM EST B-TYPE NATRIURETIC PEPTIDE STAT 08/26/2024 3:48 PM EST MAGNESIUM STAT 08/26/2024 3:48 PM EST LIPASE STAT 08/26/2024 3:48 PM EST COMPREHENSIVE METABOLIC PANEL STAT 08/26/2024 3:48 PM EST CBC AND DIFFERENTIAL STAT 08/26/2024 3:48 PM EST TROPONIN I HIGH SENSITIVITY STAT 08/26/2024 3:48 PM EST RESPIRATORY VIRUS PANEL MOLECULAR STUDY STAT 08/26/2024 3:48 PM EST ECG OUTSIDE 08/26/2024 ECG ANNOTATED 08/26/2024 from Last 3 Months Results * Legionella antigen urine, EIA (09/13/2024 9:40 AM EST) Pathologist [facility] Legionella Antigen, Ur Negative Negative 09/13/2024 10:50 AM EST [facility] Urine Urine specimen from urethra / Unknown Non-blood Collection / Unknown 09/13/2024 9:40 AM EST 09/13/2024 10:03 AM EST [facility] - 09/13/2024 10:50 AM EST Negative for Legionella pneumophilia serogroup 1 antigen. This presumptive result suggests no current or recent infection due to L. pneumophilia serogroup 1. Culture is recommended if Legionella infection is till suspected, as other serogroups and species of Legionella are not detected by this test. us Torito Keene MD LAB URINE ORDERABLES Final Re sult [facility] [address] [place] [address], * (ABNORMAL) Complete blood count (09/13/2024 7:04 AM EST) Pathologist [facility] WBC 10.9(H) 4.8 - 10.8 K/mcL LAB HEMETOLOGY METHOD 09/13/2024 7:52 AM EST [facility] RBC 2.90(L) 4.50 - 5.50 M/mcL LAB HEMETOLOGY METHOD 09/13/2024 7:52 AM EST [facility] Hemoglobin 9.3(L) 13.5 - 17.5 g/dL LAB HEMETOLOGY METHOD 09/13/2024 7:[address] [facility] Hematocrit 28.6(L) 42.0 - 54.0 % LAB HEMETOLOGY METHOD 09/13/2024 7:[address] [facility] MCV 97.9 79.0 - 98.0 FL LAB HEMETOLOGY METHOD 09/13/2024 7:[address] [facility] MCH 31.8 27.0 - 32.0 pcg LAB HEMETOLOGY METHOD 09/13/2024 7:52 AM EST [facility] MCHC 32.5 32.0 - 37.0 g/dL LAB HEMETOLOGY METHOD 09/13/2024 7:[address] [facility] RDW 18.1(H) 11.0 - 15.0 % LAB HEMETOLOGY METHOD 09/13/2024 7:[address] [facility] Platelets 226 130 - 400 K/mcL LAB HEMETOLOGY METHOD 09/13/2024 7:52 AM EST [facility] MPV 10.5 7.0 - 11.0 FL LAB HEMETOLOGY METHOD 09/13/2024 7:[address] [facility] NRBC 0.0 <1.0 % LAB HEMETOLOGY METHOD 09/13/2024 7:[address] [facility] NRBC Absolute 0.00 <0.10 K/mcL LAB HEMETOLOGY METHOD 09/13/2024 7:[address] [facility] Blood Venous blood specimen / Unknown Venipuncture / Unknown 09/13/2024 7:04 AM EST 09/13/2024 7:26 AM EST us Torito Keene MD LAB BLOOD ORDERABLES Final Re sult [facility] [address] [place] [address], * Magnesium (09/13/2024 7:04 AM EST) Only the most recent of6 resultswithin the time period is included. Pathologist [facility] Magnesium 2.0 1.9 - 2.6 mg/dL LAB CHEMISTRY METHOD 09/13/2024 8:[address] [facility] Blood Venous blood specimen / Unknown Venipuncture / Unknown 09/13/2024 7:04 AM EST 09/13/2024 7:26 AM EST us Torito Keene MD LAB BLOOD ORDERABLES Final Re sult [facility] [address] [place] [address], * (ABNORMAL) Basic metabolic panel (09/13/2024 7:04 AM EST) Only the most recent of6 resultswithin the time period is included. [facility] Sodium 139 133 - 145 mmol/L LAB CHEMISTRY METHOD 09/13/2024 8:[address] [facility] Potassium 3.8 3.5 - 5.5 mmol/L LAB CHEMISTRY METHOD 09/13/2024 8:[address] [facility] Chloride 107 96 - 110 mmol/L LAB CHEMISTRY METHOD 09/13/2024 8:[address] [facility] CO2 27 21 - 32 mmol/L LAB CHEMISTRY METHOD 09/13/2024 8:[address] [facility] Anion Gap 5 3 - 11 LAB CHEMISTRY METHOD 09/13/2024 8:[address] [facility] Glucose 90 70 - 100 mg/dL LAB CHEMISTRY METHOD 09/13/2024 8:[address] [facility] BUN 13 5 - 25 mg/dL LAB CHEMISTRY METHOD 09/13/2024 8:[address] [facility] Creatinine 1.21 0.70 - 1.30 mg/dL LAB CHEMISTRY METHOD 09/13/2024 8:06 AM EST [facility] eGFR 59(L) >=60 mL/min/1. 73m2 LAB CHEMISTRY METHOD 09/13/2024 8:06 AM EST [facility] Comment:Calculation based on the??Chronic Kidney Disease Epidemiology Collaboration (CKD-EPI) equation refit??without adjustment for race. BUN/Creatinine Ratio 10.7 LAB CHEMISTRY METHOD 09/13/2024 8:06 AM EST [facility] Calcium 8.9 8.5 - 10.5 mg/dL LAB CHEMISTRY METHOD 09/13/2024 8:06 AM EST [facility] Blood Venous blood specimen / Unknown Venipuncture / Unknown 09/13/2024 7:04 AM EST 09/13/2024 7:26 AM EST us Torito Keene MD LAB BLOOD ORDERABLES Final Re sult [facility] [address] [place] [address], [place] [phone] * (ABNORMAL) TRANSTHORACIC ECHOCARDIOGRAM (TTE) COMPLETE W/ CONTRAST (09/12/2024 10:39 AM EST) Left Atrium Minor Manning 6.5 cm CV PACS Left Atrium Major Manning 6.0 cm CV PACS LA Area Sys [...] CV ECHO PROCEDURES Final Result * (ABNORMAL) Procalcitonin (09/12/2024 5:18 AM EST) Only the most recent of2 resultswithin the time period is included. Procalcitonin 13.90(H) <=0.16 ng/mL LAB CHEMISTRY METHOD 09/12/2024 10:44 AM EST [facility] Blood Venous blood specimen / Unknown Venipuncture / Unknown 09/12/2024 5:18 AM EST 09/12/2024 5:48 AM EST Narrative [facility] - 09/12/2024 10:44 AM EST Procalcitonin > 2.00 ng/ml: Procalcitonin [...] if any concentrations <2.0 ng/mL are obtained. Torito Keene MD LAB BLOOD ORDERABLES Final Re sult [facility] [address] [place] [address], * (ABNORMAL) CBC auto differential (09/12/2024 5:18 AM EST) Only the most recent of6 resultswithin the time period is included. WBC 14.6(H) 4.8 - 10.8 K/mcL LAB HEMETOLOGY METHOD 09/12/2024 6:[address] [facility] RBC 2.50(L) 4.50 - 5.50 M/mcL LAB HEMETOLOGY METHOD 09/12/2024 6:[address] [facility] Hemoglobin 8.0(L) 13.5 - 17.5 g/dL LAB HEMETOLOGY METHOD 09/12/2024 6:[address] [facility] Hematocrit 25.2(L) 42.0 - 54.0 % LAB HEMETOLOGY METHOD 09/12/2024 6:[address] [facility] MCV 99.6(H) 79.0 - 98.0 FL LAB HEMETOLOGY METHOD 09/12/2024 6:[address] [facility] MCH 31.6 27.0 - 32.0 pcg LAB HEMETOLOGY METHOD 09/12/2024 6:[address] [facility] MCHC 31.7(L) 32.0 - 37.0 g/dL LAB HEMETOLOGY METHOD 09/12/2024 6:[address] [facility] RDW 18.3(H) 11.0 - 15.0 % LAB HEMETOLOGY METHOD 09/12/2024 6:[address] [facility] Platelets 212 130 - 400 K/mcL LAB HEMETOLOGY METHOD 09/12/2024 6:[address] [facility] MPV 10.8 7.0 - 11.0 FL LAB HEMETOLOGY METHOD 09/12/2024 6:[address] [facility] NRBC 0.0 <1.0 % LAB HEMETOLOGY METHOD 09/12/2024 6:[address] [facility] NRBC Absolute 0.00 <0.10 K/mcL LAB HEMETOLOGY METHOD 09/12/2024 6:[address] [facility] Neutrophils Relative 80.8 % LAB HEMETOLOGY METHOD 09/12/2024 6:[address] [facility] Lymphocytes Relative 9.3 % LAB HEMETOLOGY METHOD 09/12/2024 6:[address] [facility] Monocytes Relative 8.3 % LAB HEMETOLOGY METHOD 09/12/2024 6:[address] [facility] Eosinophils Relative 0.5 % LAB HEMETOLOGY METHOD 09/12/2024 6:[address] [facility] Basophils Relative 0.3 % LAB HEMETOLOGY METHOD 09/12/2024 6:[address] [facility] Immature Granulocytes Relative 0.8 % LAB HEMETOLOGY METHOD 09/12/2024 6:[address] [facility] Neutrophils Absolute 11.81(H) 1.50 - 7.00 K/mcL LAB HEMETOLOGY METHOD 09/12/2024 6:[address] [facility] Lymphocytes Absolute 1.36 1.00 - 5.00 K/mcL LAB HEMETOLOGY METHOD 09/12/2024 6:[address] [facility] Monocytes Absolute 1.21(H) 0.20 - 1.00 K/mcL LAB HEMETOLOGY METHOD 09/12/2024 6:[address] [facility] Eosinophils Absolute 0.07 0.00 - 0.50 K/mcL LAB HEMETOLOGY METHOD 09/12/2024 6:[address] [facility] Basophils Absolute 0.05 0.00 - 0.20 K/mcL LAB HEMETOLOGY METHOD 09/12/2024 6:22 AM EST [facility] Immature Granulocytes Absolute 0.12(H) 0.00 - 0.03 K/mcL LAB HEMETOLOGY METHOD 09/12/2024 6:22 AM EST [facility] Blood Venous blood specimen / Unknown Venipuncture / Unknown 09/12/2024 5:18 AM EST 09/12/2024 5:48 AM EST Ebony Kyler [place] LAB BLOOD ORDERABLES Final Resul t Performing Organization Address City/[facility]/ZIP Co de Phone Number [facility] [address] [place] [address], [place] [phone] * ECG-Annotated (09/12/2024) Only the most recent of2 resultswithin the time period is included. Provider Onbase MD ECG ORDERABLES Final Result * MRSA molecular study (09/11/2024 8:56 PM EST) MRSA Screen PCR Not Detected Not Detected LAB MICROBIOLOGY METHOD 09/11/2024 10:41 PM EST [facility] Swab Nasopharyngeal structure / Unknown Non-blood Collection / Unknown 09/11/2024 8:56 PM EST 09/11/2024 9:14 PM EST Ebony DE DIOS LAB MICROBIOLOGY - GENERAL ORDER IONA Final Result Performing Organization Address City/[facility]/ZIP Co de Phone Number [facility] [address] [place] [address], [place] [phone] * Culture blood (09/11/2024 3:12 PM EST) Only the most recent of4 resultswithin the time period is included. Culture, Blood No growth at 5 days 09/16/2024 4:01 PM EST [facility] Blood Venous blood specimen / Unknown Venipuncture / Unknown 09/11/2024 3:12 PM EST 09/11/2024 3:18 PM EST us Ebony DE DIOS LAB MICROBIOLOGY - GENERAL ORDER IONA Final Result [facility] ([facility] [address] [place] [address], [place] [phone] * CT Chest/Abdomen/Pelvis wo Contrast (09/11/2024 10:24 AM EST) Anatomical Region Laterality Modality Body Computed Tomogra phy 09/11/2024 1:56 PM EST Impressions 09/11/2024 2:16 PM EST Patchy multifocal opacities in the right lung, new compared with the recent chest CT on 08/26/2024, concerning for pneumonia. -------- FINAL REPORT -------- Dictated By: Blu Izquierdo Dictated Date: 09/11/2024 13:56 ET Assigned Physician: Blu Izquierdo Reviewed and Electronically Signed By: Blu Izquierdo Signed Date: 09/11/2024 14:16 ET Workstation ID: [id number] Transcribed By: Self Edit Transcribed Date: 09/11/2024 13:56 ET Narrative 09/11/2024 2:[address] chest, abdomen, and pelvis, 09/11/2024. HISTORY: Pneumonia, effusion or abscess suspected, xray done ?? aspiration. COMPARISON: Chest CT 08/26/2024. ??CT abdomen and pelvis 12/01/2023. TECHNIQUE: CT of the chest, abdomen, and pelvis without contrast, with coronal and sagittal reformats. Dose length product: ??1109 mGy-cm. FINDINGS: Lungs/pleura: Normal caliber central airways. ??Scarring and blebs at the apices, right greater than left, similar in appearance to the previous study. ??New patchy confluent and groundglass opacities in the inferior right upper lobe and throughout the right middle and lower lobe which are suspicious for pneumonia. ??No pleural effusion or pneumothorax. Mediastinum/david: Stable mildly prominent but not pathologically enlarged mediastinal lymph nodes. Evaluation of the david is limited without contrast. No visible hilar abnormality. Thoracic vasculature: Extensive atherosclerotic calcification of the great vessels. ??Normal caliber pulmonary arteries. Cardiac: Upper normal heart size. ??Severe coronary artery calcifications. ?? Chest wall: Mildly prominent bilateral axillary nodes, more prominent than on the previous study but not meeting size criteria for lymphadenopathy. Liver: Limited evaluation without intravenous contrast. ??There is a stable cyst in the superior right lobe and a few other smaller stable low-attenuation lesions which are likely cysts but too small for definitive characterization. ??No visible abnormality. Biliary: Normal gallbladder and biliary tree. Pancreas: Limited evaluation without intravenous contrast. ??Mild generalized parenchymal atrophy. Spleen: Limited evaluation without intravenous contrast. ??There are a few punctate calcified granulomas. Adrenal glands: A 1 cm left adrenal nodule. Kidneys: Limited evaluation without intravenous contrast. ??Punctate bilateral lower pole calculi. ??8 mm lesion exophytic from the posterior interpolar left kidney. ??This measures above fluid attenuation and is consistent with a hemorrhagic cyst as it is stable in size dating back to at least November 2013. Retroperitoneum: No mass or adenopathy. Abdominal vasculature: Moderate multifocal atherosclerotic calcification. Bowel/mesentery: No obstruction or adenopathy. ??No mass or ascites. ??Mild rectal fecal loading. ??Distal predominant colonic diverticulosis. ??Appendectomy. Abdominal wall: Normal. Pelvic nodes: Mildly prominent but not pathologically enlarged bilateral inguinal nodes. Pelvic organs: Moderately enlarged prostate gland with dystrophic calcifications. Bones: Diffusely demineralized. ??Mild degenerative changes of the shoulders. ??Prominent degenerative changes of the lumbar spine and moderate degenerative changes of the thoracic spine. Procedure Note Blu Izquierdo MD - 09/11/2024 CT chest, abdomen, and pelvis, 09/11/2024. HISTORY: Pneumonia, effusion or abscess suspected, xray done ?? aspiration. COMPARISON: Chest CT 08/26/2024. CT abdomen and pelvis 12/01/2023. TECHNIQUE: CT of the chest, abdomen, and pelvis without contrast, withcoronal and sagittal reformats. Dose length product: 1109 mGy-cm. FINDINGS: Lungs/pleura: Normal caliber central airways. Scarring and blebs at theapices, right greater than left, similar in appearance to the previousstudy. New patchy confluent and groundglass opacities in the inferiorright upper lobe and throughout the right middle and lower lobe which aresuspicious for pneumonia. No pleural effusion or pneumothorax. Mediastinum/david: Stable mildly prominent but not pathologically enlargedmediastinal lymph nodes. Evaluation of the david is limited withoutcontrast. No visible hilar abnormality. Thoracic vasculature: Extensive atherosclerotic calcification of the greatvessels. Normal caliber pulmonary arteries. Cardiac: Upper normal heart size. Severe coronary artery calcifications. Chest wall: Mildly prominent bilateral axillary nodes, more prominent thanon the previous study but not meeting size criteria for lymphadenopathy. Liver: Limited evaluation without intravenous contrast. There is a stablecyst in the superior right lobe and a few other smaller stablelow-attenuation lesions which are likely cysts but too small fordefinitive characterization. No visible abnormality. Biliary: Normal gallbladder and biliary tree. Pancreas: Limited evaluation without intravenous contrast. Mildgeneralized parenchymal atrophy. Spleen: Limited evaluation without intravenous contrast. There are a fewpunctate calcified granulomas. Adrenal glands: A 1 cm left adrenal nodule. Kidneys: Limited evaluation without intravenous contrast. Punctatebilateral lower pole calculi. 8 mm lesion exophytic from the posteriorinterpolar left kidney. This measures above fluid attenuation and isconsistent with a hemorrhagic cyst as it is stable in size dating back toat least November 2013. Retroperitoneum: No mass or adenopathy. Abdominal vasculature: Moderate multifocal atheroscleroticcalcification. Bowel/mesentery: No obstruction or adenopathy. No mass or ascites. Mildrectal fecal loading. Distal predominant colonic diverticulosis.Appendectomy. Abdominal wall: Normal. Pelvic nodes: Mildly prominent but not pathologically enlarged bilateralinguinal nodes. Pelvic organs: Moderately enlarged prostate gland with dystrophiccalcifications. Bones: Diffusely demineralized. Mild degenerative changes of theshoulders. Prominent degenerative changes of the lumbar spine andmoderate degenerative changes of the thoracic spine. IMPRESSION: Patchy multifocal opacities in the right lung, new compared with therecent chest CT on 08/26/2024, concerning for pneumonia. -------- FINAL REPORT -------- Dictated By: Blu Izquierdo Dictated Date: 09/11/2024 13:56 ET Assigned Physician: Blu Izquierdo Reviewed and Electronically Signed By: Blu Izquierdo Signed Date: 09/11/2024 14:16 ET Workstation ID: [id number] Transcribed By: Self Edit Transcribed Date: 09/11/2024 13:56 ET us Ricardo Moctezuma MD IMG CT PROCEDURES Final Resul t * (ABNORMAL) Urinalysis with reflex microscopic and culture (09/11/2024 7:01 AM EST) Only the most recent of2 resultswithin the time period is included. Specific Clay Urine 1.015 1.003 - 1.030 LAB URINALYSIS - AUTOMATED METHOD 09/11/2024 7:[address] [facility] pH, Urine 6.0 5.0 - 8.0 pH LAB URINALYSIS - AUTOMATED METHOD 09/11/2024 7:[address] [facility] Leukocytes, Urine Small(A) Negative LAB URINALYSIS - AUTOMATED METHOD 09/11/2024 7:[address] [facility] Nitrite, Urine Negative Negative LAB URINALYSIS - AUTOMATED METHOD 09/11/2024 7:[address] [facility] Protein, Urine Trace <=Trace mg/dL LAB URINALYSIS - AUTOMATED METHOD 09/11/2024 7:[address] [facility] Glucose, Urine Negative Negative mg/dL LAB URINALYSIS - AUTOMATED METHOD 09/11/2024 7:[address] [facility] Ketones, Urine Negative Negative mg/dL LAB URINALYSIS - AUTOMATED METHOD 09/11/2024 7:[address] [facility] Urobilinogen, Urine 0.2 0.2 - 1.0 mg/dL LAB URINALYSIS - AUTOMATED METHOD 09/11/2024 7:[address] [facility] Bilirubin, Urine Negative Negative LAB URINALYSIS - AUTOMATED METHOD 09/11/2024 7:[address] [facility] Blood, Urine Negative Negative LAB URINALYSIS - AUTOMATED METHOD 09/11/2024 7:[address] [facility] RBC, Urine 7.5(H) 0 - 4 /HPF LAB URINALYSIS - AUTOMATED METHOD 09/11/2024 7:[address] [facility] WBC, Urine 7.3(H) 0 - 4 /HPF LAB URINALYSIS - AUTOMATED METHOD 09/11/2024 7:[address] [facility] Squamous Epithelial, Urine 22 0 - 60 /LPF LAB URINALYSIS - AUTOMATED METHOD 09/11/2024 7:[address] [facility] Bacteria, Urine Negative Negative /HPF LAB URINALYSIS - AUTOMATED METHOD 09/11/2024 7:[address] [facility] Hyaline Casts, Urine 2.4 0 - 3 /LPF LAB URINALYSIS - AUTOMATED METHOD 09/11/2024 7:[address] [facility] Urine Urine specimen obtained by clean catch procedure / Unknown Non-blood Collection / Unknown 09/11/2024 7:01 AM EST 09/11/2024 7:38 AM EST Patria Schumacher MD LAB URINE ORDERABLES Fin al Result Performing Organization Address [facility] de Phone Number [facility] [address] [place] [address], * Ziegler urine culture tube (09/11/2024 7:01 AM EST) Only the most recent of2 resultswithin the time period is included. Extra Tube Hold for add-ons. 09/11/2024 9:[address] [facility] Comment:Auto resulted. Urine Urine specimen obtained by clean catch procedure / Unknown Non-blood Collection / Unknown 09/11/2024 7:01 AM EST 09/11/2024 7:38 AM EST Patria Schumacher MD LAB URINE ORDERABLES Fin al Result [facility] [address] [place] [address], [place] [phone] * Culture urine (09/11/2024 7:01 AM EST) Only the most recent of2 resultswithin the time period is included. Culture, Urine No growth 09/12/2024 7:53 AM EST [facility] Urine Urine specimen obtained by clean catch procedure / Unknown Non-blood Collection / Unknown 09/11/2024 7:01 AM EST 09/11/2024 7:51 AM EST us Patria Schumacher MD LAB MICROBIOLOGY - GENER AL ORDERABLES Final Result Performing Organization Address [facility]/State/[facility] Co de Phone Number [facility] [address] [place] [address], [place] [phone] * XR Chest 1 View (09/11/2024 6:46 AM EST) Only the most recent of3 resultswithin the time period is included. Anatomical Region Laterality Modality Body Radiographic Kellie ging 09/11/2024 8:03 AM EST Impressions 09/11/2024 8:04 AM EST Patchy right basilar opacities which could represent early pneumonia. -------- FINAL REPORT -------- Dictated By: Blu Izquierdo Dictated Date: 09/11/2024 08:03 ET Assigned Physician: Blu Izquierdo Reviewed and Electronically Signed By: Blu Izquierdo Signed Date: 09/11/2024 08:04 ET Workstation ID: [id number] Transcribed By: Self Edit Transcribed Date: 09/11/2024 08:03 ET Narrative 09/11/2024 8:04 AM EST Procedure: AP chest radiograph. HISTORY: dyspnea. COMPARISON: 08/27/2024. FINDINGS: Mildly elevated left hemidiaphragm with a right diaphragmatic eventration. ??Atherosclerotic calcifications of the aortic arch. ??Mild cardiomegaly. ??No pneumothorax. ??There are increasing patchy heterogeneous opacities at the right lung base which could represent an early pneumonia. Procedure Note Blu Izquierdo MD - 09/11/2024 Procedure: AP chest radiograph. HISTORY: dyspnea. COMPARISON: 08/27/2024. FINDINGS: Mildly elevated left hemidiaphragm with a right diaphragmatic eventration.Atherosclerotic calcifications of the aortic arch. Mild cardiomegaly.No pneumothorax. There are increasing patchy heterogeneous opacities atthe right lung base which could represent an early pneumonia. IMPRESSION: Patchy right basilar opacities which could represent early pneumonia. -------- FINAL REPORT -------- Dictated By: Blu Izquierdo Dictated Date: 09/11/2024 08:03 ET Assigned Physician: Blu Izquierdo Reviewed and Electronically Signed By: Blu Izquierdo Signed Date: 09/11/2024 08:04 ET Workstation ID: [id number] Transcribed By: Self Edit Transcribed Date: 09/11/2024 08:03 ET Patria Schumacher MD IMG XR PROCEDURES Final Result * Lactate, with reflex (09/11/2024 3:24 AM EST) Only the most recent of2 resultswithin the time period is included. LACTIC ACID 1.1 0.4 - 2.0 mmol/L LAB CHEMISTRY METHOD 09/11/2024 3:57 AM EST [facility] Blood Venous blood specimen / Unknown Venipuncture / Unknown 09/11/2024 3:24 AM EST 09/11/2024 3:30 AM EST Patria Schumacher MD LAB BLOOD ORDERABLES Fin al Result [facility] [address] [place] [address], [place] [phone] * Troponin I high sensitivity (09/11/2024 3:24 AM EST) Only the most recent of5 resultswithin the time period is included. [facility] High Sensitivity Troponin I 19 <=79 ng/L LAB CHEMISTRY METHOD 09/11/2024 3:58 AM EST [facility] Blood Venous blood specimen / Unknown Venipuncture / Unknown 09/11/2024 3:24 AM EST 09/11/2024 3:29 AM EST [facility] - 09/11/2024 3:58 AM EST High levels of biotin in samples may falsely decrease hsTroponin values. ??Use caution when interpreting hsTroponin results in patients taking biotin who exhibit renal impairment (eGFR <60) or in patients taking more than 20 mg/day of biotin. Patria Schumacher MD LAB BLOOD ORDERABLES Fin al Result [facility] [address] [place] [address], * Respiratory virus panel molecular study (09/11/2024 1:49 AM EST) Only the most recent of2 resultswithin the time period is included. [facility] Adenovirus Detection by PCR Not Detected Not Detected LAB MICROBIOLOGY METHOD 09/11/2024 2:[address] [facility] Influenza A PCR Not Detected Not Detected LAB MICROBIOLOGY METHOD 09/11/2024 2:[address] [facility] Influenza B PCR Not Detected Not Detected LAB MICROBIOLOGY METHOD 09/11/2024 2:[address] [facility] Coronavirus 229E Not Detected Not Detected LAB MICROBIOLOGY METHOD 09/11/2024 2:[address] [facility] Coronavirus HKU1 Not Detected Not Detected LAB MICROBIOLOGY METHOD 09/11/2024 2:[address] [facility] Coronavirus OC43 Not Detected Not Detected LAB MICROBIOLOGY METHOD 09/11/2024 2:[address] [facility] Coronavirus NL63 Not Detected Not Detected LAB MICROBIOLOGY METHOD 09/11/2024 2:[address] [facility] Parainfluenza Virus 1 Not Detected Not Detected LAB MICROBIOLOGY METHOD 09/11/2024 2:[address] [facility] Parainfluenza Virus 2 Not Detected Not Detected LAB MICROBIOLOGY METHOD 09/11/2024 2:[address] [facility] Parainfluenza Virus 3 Not Detected Not Detected LAB MICROBIOLOGY METHOD 09/11/2024 2:[address] [facility] Parainfluenza Virus 4 Not Detected Not Detected LAB MICROBIOLOGY METHOD 09/11/2024 2:[address] [facility] RSV PCR Not Detected Not Detected LAB MICROBIOLOGY METHOD 09/11/2024 2:[address] [facility] Human Metapneumovirus A and B Not Detected Not Detected LAB MICROBIOLOGY METHOD 09/11/2024 2:[address] [facility] Rhinovirus/Entero virus Not Detected Not Detected LAB MICROBIOLOGY METHOD 09/11/2024 2:[address] [facility] Bordetella pertussis Not Detected Not Detected LAB MICROBIOLOGY METHOD 09/11/2024 2:[address] [facility] Bordetella parapertussis Not Detected Not Detected LAB MICROBIOLOGY METHOD 09/11/2024 2:[address] [facility] Mycoplasma pneumo by PCR Not Detected Not Detected LAB MICROBIOLOGY METHOD 09/11/2024 2:[address] [facility] Chlamydia pneumoniae Not Detected Not Detected LAB MICROBIOLOGY METHOD 09/11/2024 2:[address] [facility] SARS COV-2 Not Detected Not Detected LAB MICROBIOLOGY METHOD 09/11/2024 2:[address] [facility] Swab Both anterior nares / Unknown Non-blood Collection / Unknown 09/11/2024 1:49 AM EST 09/11/2024 1:59 AM EST [facility] - 09/11/2024 2:55 AM EST Testing was performed using the [employer] Respiratory Pathogen PCR Assay. All results must [...] that are below the limit of detection. Patria Schumacher MD LAB MICROBIOLOGY - GENER AL ORDERABLES Final Result Performing Organization Address City/[facility] Co de Phone Number [facility] [address] [place] [address], [place] [phone] * APTT (09/11/2024 1:48 AM EST) aPTT 30.8 24.1 - 39.3 sec LAB COAGULATION METHOD 09/11/2024 2:16 AM EST [facility] Blood Venous blood specimen / Unknown Venipuncture / Unknown 09/11/2024 1:48 AM EST 09/11/2024 2:00 AM EST Patria Schumacher MD LAB BLOOD ORDERABLES Fin al Result Performing Organization Address [facility] de Phone Number [facility] [address] [place] [address], [place] [phone] * Protime-INR (09/11/2024 1:48 AM EST) Protime 12.7 10.6 - 13.9 sec LAB COAGULATION METHOD 09/11/2024 2:16 AM EST [facility] INR 1.0 LAB COAGULATION METHOD 09/11/2024 2:16 AM EST [facility] Blood Venous blood specimen / Unknown Venipuncture / Unknown 09/11/2024 1:48 AM EST 09/11/2024 2:00 AM EST Patria Schumacher MD LAB BLOOD ORDERABLES Fin al Result Performing Organization Address City/[facility]/ZIP Co de Phone Number [facility] [address] [place] [address], * B-type natriuretic peptide (09/11/2024 1:48 AM EST) Only the most recent of2 resultswithin the time period is included. BNP 41 <=100 pcg/mL LAB CHEMISTRY METHOD 09/11/2024 2:36 AM EST [facility] Blood Venous blood specimen / Unknown Venipuncture / Unknown 09/11/2024 1:48 AM EST 09/11/2024 2:00 AM EST Patria Schumacher MD LAB BLOOD ORDERABLES Fin al Result Performing Organization Address [facility] Co de Phone Number [facility] [address] [place] [address], [place] [phone] * Hepatic function panel (09/11/2024 1:48 AM EST) [facility] Total Protein 6.7 6.0 - 8.0 g/dL LAB CHEMISTRY METHOD 09/11/2024 3:[address] [facility] Albumin 3.2 3.2 - 5.0 g/dL LAB CHEMISTRY METHOD 09/11/2024 3:[address] [facility] Total Bilirubin 0.6 0.0 - 1.4 mg/dL LAB CHEMISTRY METHOD 09/11/2024 3:[address] [facility] Bilirubin, Direct 0.2 0.0 - 0.3 mg/dL LAB CHEMISTRY METHOD 09/11/2024 3:[address] [facility] Bilirubin, Indirect 0.4 0.0 - 1.1 mg/dL LAB CHEMISTRY METHOD 09/11/2024 3:[address] [facility] ALT (SGPT) 21 10 - 60 unit/L LAB CHEMISTRY METHOD 09/11/2024 3:[address] [facility] AST (SGOT) 17 10 - 42 unit/L LAB CHEMISTRY METHOD 09/11/2024 3:[address] [facility] Alkaline Phosphatase 79 42 - 121 unit/L LAB CHEMISTRY METHOD 09/11/2024 3:[address] [facility] Blood Venous blood specimen / Unknown Venipuncture / Unknown 09/11/2024 1:48 AM EST 09/11/2024 2:00 AM EST us Patria Schumacher MD LAB BLOOD ORDERABLES Fin al Result [facility] [address] [place] [address], [place] [phone] * (ABNORMAL) Arterial blood gas (09/11/2024 1:43 AM EST) pH, Arterial 7.48(H) 7.35 - 7.45 pH 09/11/2024 3:[address] [facility] pCO2, Arterial 34(L) 35 - 45 mmHg 09/11/2024 3:[address] [facility] pO2, Arterial 158(H) 80 - 100 mmHg 09/11/2024 3:[address] [facility] HCO3, Arterial 26.4(H) 22.0 - 26.0 mmol/L 09/11/2024 3:[address] [facility] O2 Sat, Arterial 100.0(H) 95.0 - 98.0 % 09/11/2024 3:[address] [facility] Base Excess, Arterial 1.9 -2.0 - 2.0 mmol/L 09/11/2024 3:[address] [facility] Wilbur Test Pass Pass, Unresponsi ve, Line 09/11/2024 3:[address] [facility] FIO2 09/11/2024 3:06 AM EST [facility] Comment:15 L Blood Arterial blood specimen / Unknown Arterial Puncture / Unknown 09/11/2024 1:43 AM EST 09/11/2024 1:45 AM EST Patria Schumacher MD LAB BLOOD ORDERABLES Fin al Result Performing Organization Address City/[facility]/ZIP Co de Phone Number [facility] [address] [place] [address], * ECG 12 lead (09/11/2024 1:04 AM EST) Only the most recent of5 resultswithin the time period is included. Ventricular Rate ECG 108 BPM GEMUSE Atrial Rate 108 BPM GEMUSE P-R Interval 130 ms GEMUSE QRS Duration 102 ms GEMUSE Q-T Interval 320 ms GEMUSE QTc 428 ms GEMUSE P Wave Manning -24 degrees GEMUSE R Manning -42 degrees GEMUSE T Manning 79 degrees GEMUSE ECG Interpretation Sinus tachycardia Left axis deviation Nonspecific ST and T wave abnormality Abnormal ECG When compared with ECG of 27-AUG-2024 13:06, No significant change was found Confirmed by ZO MIN ([id number]) on 09/12/2024 2:32:14 PM GEMUSE 09/11/2024 1:04 AM EST 09/12/2024 2:32 PM EST Patria Schumacher MD ECG ORDERABLES Final Re sult GEMUSE * Lactate (08/26/2024 11:31 PM EST) Lactate 1.1 0.4 - 2.0 mmol/L LAB CHEMISTRY METHOD 08/27/2024 12:23 AM EST [facility] Blood Venous blood specimen / Unknown Venipuncture / Unknown 08/26/2024 11:31 PM EST 08/26/2024 11:56 PM EST us Erik Roldan MD LAB BLOOD ORDERABLES Final Result [facility] [address] [place] [address], * (ABNORMAL) Drug abuse screen 8a panel, urine (08/26/2024 11:29 PM EST) Amphetamine Screen, Ur Negative Negative LAB CHEMISTRY METHOD 5 1:[address] [facility] Comment:Certain OTC medicati ons containing ephedrine, phenylephrine, pseudoephedrine and phenylpropanolamine can cause false positive results. Barbiturate Screen, Ur Negative Negative LAB CHEMISTRY METHOD 5 1:[address] [facility] Benzodiazepine Screen, Ur Negative Negative LAB CHEMISTRY METHOD 5 1:[address] [facility] Cocaine Screen, Ur Negative Negative LAB CHEMISTRY METHOD 5 1:[address] [facility] Opiate Screen, Ur Positive(A ) Negative LAB CHEMISTRY METHOD 5 1:[address] [facility] Cannabinoid (THC) Screen, Ur Negative Negative LAB CHEMISTRY METHOD 5 1:[address] [facility] Comment:Specimens from patie nts taking pantoprazole sodium (Protonix) have been shown to produce false positive results. Oxycodone Screen, Ur Negative Negative LAB CHEMISTRY METHOD 5 1:[address] [facility] Fentanyl, Ur Negative Negative LAB CHEMISTRY METHOD 5 1:[address] [facility] Urine Urine specimen obtained by clean catch procedure / Unknown Non-blood Collection / Unknown 08/26/2024 11:29 PM EST 08/27/2024 12:25 AM EST [facility] - 08/27/2024 1:00 AM EST Assay cutoffs: Amphetamines ? 1000 ng/mL Barbiturates ?200 ng/mL Benzodiazepines ?? 200 ng/mL Cocaine ? 300 ng/mL Fentanyl ?1 ng/mL Opiates ? 300 ng/mL Oxycodone ? 100 ng/mL THC ?50 ng/mL Semi-quantitative assay for screening purposes only. Unconfirmed screening result should not be used for non-medical purposes. *ALTERNATE METHOD CONFIRMATION DONE UPON REQUEST ONLY* us Erik Roldan MD LAB URINE ORDERABLES Final Result [facility] ([facility]) [facility] [address] [place] [address], [place] [phone] * CT Angio Chest wo and/or w [...] MD on 08/26/2024 21:58:59 [place] DE DIOS IMMinor CT PROCEDURES Final Result * (ABNORMAL) Venous blood gas (08/26/2024 8:59 PM EST) pH, Sherif 7.37 7.32 - 7.42 pH 08/26/2024 9:[address] [facility] pCO2, Sherif 36(L) 41 - 51 mmHg 08/26/2024 9:[address] [facility] pO2, Sherif 41(H) 25 - 40 mmHg 08/26/2024 9:[address] [facility] HCO3, Venous 21.2(L) 22.0 - 26.0 mmol/L 08/26/2024 9:[address] [facility] O2 Sat, Sherif 68.4 % 08/26/2024 9:[address] [facility] Base Excess, Sherif -4.0(L) -2.0 - 2.0 mmol/L 08/26/2024 9:[address] [facility] Blood Venous blood specimen / Unknown Venipuncture / Unknown 08/26/2024 8:59 PM EST 08/26/2024 9:03 PM EST Marcela Ruffin DO LAB BLOOD ORDERABLES Sarina l Result [facility] [address] [place] [address], * (ABNORMAL) Salicylate level (08/26/2024 8:59 PM EST) Salicylate Level <1.7(L) 2.0 - 29.0 mg/dL LAB CHEMISTRY METHOD 08/26/2024 9:[address] [facility] Blood Venous blood specimen / Unknown Venipuncture / Unknown 08/26/2024 8:59 PM EST 08/26/2024 9:03 PM EST Marcela Ruffin DO LAB BLOOD ORDERABLES Sarina l Result Performing Organization Address City/[facility]/ZIP Co de Phone Number [facility] [address] [place] [address], * Lipase (08/26/2024 3:48 PM EST) Lipase 19 13 - 75 unit/L LAB CHEMISTRY METHOD 08/26/2024 4:30 PM EST [facility] Blood Venous blood specimen / Unknown Venipuncture / Unknown 08/26/2024 3:48 PM EST 08/26/2024 4:00 PM EST Virginia DE DIOS LAB BLOOD ORDERABLES Final Resul t Performing Organization Address [facility]/ZIP Co de Phone Number [facility] [address] [place] [address], * Ethanol (08/26/2024 3:48 PM EST) Ethanol Level <3 0 - 10 mg/dL LAB CHEMISTRY METHOD 08/26/2024 8:49 PM EST [facility] Blood Venous blood specimen / Unknown Venipuncture / Unknown 08/26/2024 3:48 PM EST 08/26/2024 4:00 PM EST Marcela Ruffin DO LAB BLOOD ORDERABLES Sarina l Result Performing Organization Address City/[facility]/ZIP Co de Phone Number [facility] [address] [place] [address], * (ABNORMAL) Acetaminophen level (08/26/2024 3:48 PM EST) Acetaminophen Level <2.0(L) 10.0 - 30.0 mcg/mL LAB CHEMISTRY METHOD 08/26/2024 8:49 PM EST [facility] Blood Venous blood specimen / Unknown Venipuncture / Unknown 08/26/2024 3:48 PM EST 08/26/2024 4:00 PM EST Marcela Anderson Ruffin DO LAB BLOOD ORDERABLES Sarina l Result [facility] [address] [place] [address], [place] [phone] * (ABNORMAL) Comprehensive metabolic panel (08/26/2024 3:48 PM EST) Pathologist [facility] Sodium 137 133 - 145 mmol/L LAB CHEMISTRY METHOD 08/26/2024 4:[address] [facility] Potassium 4.1 3.5 - 5.5 mmol/L LAB CHEMISTRY METHOD 08/26/2024 4:[address] [facility] Chloride 108 96 - 110 mmol/L LAB CHEMISTRY METHOD 08/26/2024 4:[address] [facility] CO2 24 21 - 32 mmol/L LAB CHEMISTRY METHOD 08/26/2024 4:[address] [facility] Anion Gap 5 3 - 11 LAB CHEMISTRY METHOD 08/26/2024 4:[address] [facility] Glucose 121(H) 70 - 100 mg/dL LAB CHEMISTRY METHOD 08/26/2024 4:[address] [facility] BUN 23 5 - 25 mg/dL LAB CHEMISTRY METHOD 08/26/2024 4:[address] [facility] Creatinine 1.43(H) 0.70 - 1.30 mg/dL LAB CHEMISTRY METHOD 08/26/2024 4:[address] [facility] eGFR 49(L) >=60 mL/min/1. 73m2 LAB CHEMISTRY METHOD 08/26/2024 4:[address] [facility] Comment:Calculation based on the??Chronic Kidney Disease Epidemiology Collaboration (CKD-EPI) equation refit??without adjustment for race. BUN/Creatinine Ratio 16.1 LAB CHEMISTRY METHOD 08/26/2024 4:[address] [facility] Calcium 10.0 8.5 - 10.5 mg/dL LAB CHEMISTRY METHOD 08/26/2024 4:[address] [facility] AST (SGOT) 30 10 - 42 unit/L LAB CHEMISTRY METHOD 08/26/2024 4:[address] [facility] ALT (SGPT) 25 10 - 60 unit/L LAB CHEMISTRY METHOD 08/26/2024 4:[address] [facility] Alkaline Phosphatase 72 42 - 121 unit/L LAB CHEMISTRY METHOD 08/26/2024 4:[address] [facility] Total Protein 6.9 6.0 - 8.0 g/dL LAB CHEMISTRY METHOD 08/26/2024 4:[address] [facility] Albumin 3.7 3.2 - 5.0 g/dL LAB CHEMISTRY METHOD 08/26/2024 4:[address] [facility] Total Bilirubin 0.8 0.0 - 1.4 mg/dL LAB CHEMISTRY METHOD 08/26/2024 4:[address] [facility] Blood Venous blood specimen / Unknown Venipuncture / Unknown 08/26/2024 3:48 PM EST 08/26/2024 4:00 PM EST us [place] DE [facility]OS LAB BLOOD ORDERABLES Final Resul t [facility] [address] [place] [address], * ECG-Outside (08/26/2024) us Provider Onbase ECG ORDERABLES Final Result from Last 3 Months Insurance MEDICAID - [place] MEDICARE Advance Directives Documents on File Type Date Recorded Patient Hearings Reporter Expl anation Health Care Decision (hx) 12/05/2023 Elisa Gutierrez DVANCE DIRECTIVE Health Care Decision (hx) 02/09/2018 AD COUCH DIRECTIVE Health Care Decision (hx) 02/09/2018 AD COUCH DIRECTIVE Health Care Decision (hx) 02/09/2018 AD COUCH DIRECTIVE Health Care Decision (hx) 02/09/2018 AD COUCH DIRECTIVE Health Care Decision (hx) 02/09/2018 AD COUCH DIRECTIVE Health Care Decision (hx) 02/09/2018 AD COUCH DIRECTIVE Health Care Decision (hx) 02/09/2018 AD COUCH DIRECTIVE Health Care Decision (hx) 03/12/2013 AD COUCH DIRECTIVE Health Care Decision (hx) 03/12/2013 AD COUCH DIRECTIVE Health Care Decision (hx) 03/12/2013 AD COUCH DIRECTIVE Health Care Decision (hx) 03/12/2013 AD COUCH DIRECTIVE Health Care Decision (hx) 03/12/2013 AD COUCH DIRECTIVE Health Care Decision (hx) 03/12/2013 AD COUCH DIRECTIVE Health Care Decision (hx) 03/12/2013 AD COUCH DIRECTIVE * No CPR/Do Not Intubate (Latest Code Status on File) Date Activated Date Inactivated Comments 09/11/2024 3:06 PM 09/13/2024 6:42 PM This code stat us was ascertained in the following way: Code status discussion: discussion with healthcare pharmacy services representative To update the patient's code status, place a code status order. Do not modify or discontinue any currently active code status orders. * Full Code - Default Date Activated Date Inactivated Comments 09/11/2024 9:21 AM 09/11/2024 3:06 PM This is order is used when code status has not been discussed with the patient, or code status is otherwise unknown/unconfirmed To update the patient's code status, place a code status order. Do not modify or discontinue any currently active code status orders. * No CPR/Do Not Intubate Date Activated Date Inactivated Comments 08/27/2024 2:41 AM 08/29/2024 8:[address] [facility] was ascertained in the following way: Code status discussion: per living will or healthcare instructions To update the patient's code status, place a code status order. Do not modify or discontinue any currently active code status orders. * Full Code - Default Date Activated Date Inactivated Comments 08/26/2024 11:10 PM 08/27/2024 2:41 AM This is ord er is used when code status has not been discussed with the patient, or code status is otherwise unknown/unconfirmed To update the patient's code status, place a code status order. Do not modify or discontinue any currently active code status orders. Care Teams Leather Softener Relationship Specialty Start Date End Date Physician, No Pcp PCP - General 09/15/24
--- OUTSIDE RECORDS SUMMARY | 2024-09-21 12:42 | XMS_ITS | Encounter Summary ---
Author Organization [facility] Address [address] [place] [address] Care Team Providers Care Asset Protection Greeter Name Role Phone Physician, No Pcp Primary Care Provider Unavaila ble Encounter Details Date Type Department Care Team (Late st Contact Info) Description 09/15/2024 Telephone Internal Medicine - [address] [phone] Christiano Franco MD [address] [place] [id number] Social History Tobacco Use Types Packs/Day Years [...] hearing? Answer Date of Assessment Author No 09/12/2024 5:25 AM EST Gonzalo, Renea Salvador RN * Are you blind or do you have serious difficulty seeing, even when wearing glasses? Answer Date of Assessment Author No 09/12/2024 5:25 AM EST Doles, As soraya Salvador RN * Do you have serious difficulty walking or climbing stairs? Answer Date of Assessment Author Yes 09/12/2024 5:25 AM EST Doles, As soraya Salvador RN * Do you have serious difficulty dressing or bathing? Answer Date of Assessment Author Yes 09/12/2024 5:25 AM EST Doles, As soraya Salvador RN * Because of a physical, mental, or emotional condition, do you have serious difficulty doing errandsalone such as visiting the doctor? Answer Date of Assessment Author Yes 09/12/2024 5:25 AM EST Doles, As soraya Salvador RN documented as of this encounter Mental Status * Because of a physical, mental, or emotional condition, do you have serious difficulty concentrating, remembering, or making decisions? (5 years old or older) Answer Entry Date Author No 09/12/2024 5:25 AM EST Doles, As soraya Salvador RN documented in this encounter Progress Notes * Sarah Morin MA - 09/17/2024 3:30 PM EST No PCP on file. * Sarah Morin MA - 09/16/2024 8:25 AM EST Number listed not in service. Called another number in chart, male answered and states he doesn't speak [place] and disconnected the call. * Sarah Morin MA - 09/15/2024 11:00 AM EST Call status: no answer - second attempt. Monica Wright LPN 09/15/2024 10:38 AM EST * Ledy Avila RN - 09/15/2024 10:51 AM EST Pt needs hosp f/u appt * Ledy Avila RN - 09/15/2024 10:48 AM EST Director Product Safety Note: Unsuccessful Contact Attempt Patient: Michel George : 1940 PCP: Christiano Franco MD Director Product Safety: Monica Wright LPN Telephone contact attempted with Elisa for initial TCM encounter . Call status: no answer - second attempt. Monica Wright LPN 09/15/2024 10:38 AM EST documented in this encounter Plan of Treatment Not on file documented as of this encounter Visit Diagnoses Not on filedocumented in this encounter Care Teams Asset Protection Greeter Relationship Specialty Start Date End Date Physician, No Pcp PCP - General 09/15/24 documented as of this encounter
--- OUTSIDE RECORDS SUMMARY | 2024-09-21 12:42 | XMS_ITS | Encounter Summary ---
Author Organization [facility] Address [address] [place] [address] Care Team Providers Care Customer Care Manager Name Role Phone Christiano Franco MD Primary Care Provider Reason for Visit * Reason Comments Shortness of Breath * Auth/Cert (Routine) Specialty Diagnoses / Procedures Referred By Contac t Referred To Contact Diagnoses Community acquired pneumonia Community acquired pneumonia of right lung, unspecified part of lung Procedures [facility] IP/OBS CARE INITIAL MODERATE LEVEL PER DAY . Torito Keene MD [address] [place] [address] Phone: tel: fax: [facility] [address] [place] [address] Phone: tel: Referral ID Status Reason Start Date Expiration Date Visits Re quested Visits Authorized [id number] 1 1 Encounter Details Date Type Department Care Team (Late st Contact Info) Description 09/11/2024 12:39 AM EST - 09/13/2024 4:36 PM EST Hospital Encounter [facility] [address] [place] [address] Patria Schumacher MD [address] [place] [address] Ricardo Moctezuma MD [address] [place] [phone] Torito Keene MD [address] [place] [address] Russell Gonsalez MD [address] [place] [address] Community acquired pneumonia of right lung, unspecified part of lung (Primary Dx) Discharge Disposition: Home-Health Care Svc Social History [...] Mass Index 26.68 09/12/2024 10:39 AM EST documented in this encounter Functional Status * Are you deaf or do you have serious difficulty hearing? Answer Date of Assessment Author No 09/12/2024 5:25 AM EST Renea Sánchez RN * Are you blind or do [...] soraya Salvador RN documented in this encounter Discharge Summaries * Russell Gonsalez MD - 09/13/2024 12:44 PM EST Images from the original note were not included. TRAIL DISCHARGE SUMMARY Patient Information Michel George : 1940 [84 y.o.] Admitting Provider Torito Keene MD Discharge Provider Russell Gonsalez MD, Russell Gonsalez MD Primary Care Physician Christiano Franco MD Admission Date 09/11/2024 Discharge Date 09/13/2024 Primary/Secondary Diagnosis Healthcare-associated pneumonia Sepsis CAD CARLA CKD stage IIIa Hospital Course Summary 84-year-old male with PMH of CAD, NSTEMI in July 2023 requiring PCI (patient apparently refusedCABG), HTN, DM type II, COPD among others and recent admission 08/26 through 08/29 with pneumonia. Patient treated with cefpodoxime and at that time. He presents back with dyspnea. He was found to havefever, tachypnea and tachycardia. CT chest demonstrated right lung multifocal opacities which was new compared to 08/26/2024. Creatinine was 1.67, WBC 12.9, hemoglobin 9.5. Viral respiratory panel wasnegative. High sensitive troponin 15, 19. BNP 41. Patient was started on antibiotics and admitted. -Healthcare associated pneumonia. Multifocal opacities noted in right lung. During my evaluation patient denies any shortness of breath. He has no complaints and wants to go home. ART COORDINATOR done and recommended level 5 diet. QTc not prolonged. DC on Levaquin 750 mg every other day (3 pills) adjusted for renal dysfunction. Spoke to pt's relative, Rekha and script will be sent to [email or web address] in [place]. -Sepsis. Due to pneumonia. Presented with tachycardia, fever and leukocytosis. Sepsis resolved. Blood cultures remain sterile -History of CAD. noted that patient had echocardiogram during this admission. EF normal 60-65%. There is no significant valvular heart disease and no wall motion abnormalities. High sensitive troponin normal, 15, 19. BNP 41 and normal. No chest pain or evidence of heart failure. Patient will resume his home medications. -Acute kidney injury with underlying CKD stage IIIa. Creatinine improved to 1.2. From 1.67. >30 min spent on DC Follow-Up Instructions and Recommendations PCP in 1 week Follow Ups: No follow-up provider specified. Test Results Pending At Discharge: Pending Labs Order Current Status Culture blood Preliminary result Culture blood Preliminary result Discharge Medications Medication List TAKE these medications [...] mouth 2 (two) times a day. clopidogreL 75 mg tablet Commonly known as: PLAVIX Take 1 tablet (75 mg total) by mouth 1 (one) time each day. furosemide 20 mg tablet Commonly known as: LASIX Take 1 tablet (20 mg total) by mouth 1 (one) time each day. gabapentin 600 mg tablet Commonly known as: NEURONTIN Take 1 tablet (600 mg total) by mouth 3 (three) times a day. levoFLOXacin 750 mg tablet Commonly known as: LEVAQUIN Take 1 tablet (750 mg total) by mouth every other day for 10 days. Start taking on: September 14, 2024 losartan 25 mg tablet Commonly known as: [...] by mouth 1 (one) time each day. Physical Exam at time of Discharge General: Awake and alert not in acute distress Psychiatry: Mood stable. No overt agitation. Follows simple commands CVs: S1-S2 Pulmonary: No audible wheezes. Slightly decreased air entry and minimal crackles at right base. Does not appear to be tachypneic and appears comfortable when at rest and talking Extremity: No pedal pitting edema Vitals Vitals: 09/13/24 0741 BP: (!) 152/58 Pulse: 65 Resp: 18 Temp: 36.4 ??C (97.5 ??F) SpO2: 98% HEMATOLOGY Lab Results Component Value Date WBC 10.9 (H) 09/13/2024 HGB 9.3 (L) 09/13/2024 HCT 28.6 (L) 09/13/2024 MCV 97.9 09/13/2024 PLT 226 09/13/2024 INR 1.0 09/11/2024 CHEMISTRY Lab Results Component Value Date GLUCOSE 90 09/13/2024 NA 139 09/13/2024 K 3.8 09/13/2024 CO2 27 09/13/2024 CL 107 09/13/2024 BUN 13 09/13/2024 CREATININE 1.21 09/13/2024 EGFR 59 (L) 09/13/2024 CALCIUM 8.9 09/13/2024 MG 2.0 09/13/2024 ANIONGAP 5 09/13/2024 Transthoracic echocardiogram (TTE) complete with PRN contrast, bubble, strain, and 3D order panel Result Date: 09/13/2024 Left ventricle cavity size is normal.Left ventricle mild hypertrophy. No regional LV wall motion abnormalities noted. Left ventricular systolic function is in the normal range with an ejection fraction of 60-65%. Right ventricle cavity is normal. Right ventricular systolic function is normal. Mildly elevated right ventricular systolic pressure. Left atrium cavity is moderately dilated. No hemodynamically significant valve disease. See remainder of the report for additional findings. CT Chest/Abdomen/Pelvis wo Contrast Result Date: 09/11/2024 CT chest, abdomen, and pelvis, 09/11/2024. HISTORY: Pneumonia, effusion or abscess suspected, xray done ?? aspiration. COMPARISON: Chest CT 08/26/2024. CT abdomen and pelvis 12/01/2023. TECHNIQUE: CT of the chest, abdomen, and pelvis without contrast, with coronal and sagittal reformats. Dose length product: 1109 mGy-cm. FINDINGS: Lungs/pleura: Normal caliber central airways. Scarring and blebs at t he apices, right greater than left, similar in appearance to the previous study. New patchy confluent and groundglass opacities in the inferior right upper lobe and throughout the right middle and lower lobe which are suspicious for pneumonia. No pleural effusion or pneumothorax. Mediastinum/david: Stable mildly prominent but not pathologically enlarged mediastinal lymph nodes. Evaluation of the david is limited without contrast. No visible hilar abnormality. Thoracic vasculature: Extensive atherosclerotic calcification of the great vessels. Normal caliber pulmonary arteries. Cardiac: Upper normal heart size. Severe coronary artery calcifications. Chest wall: Mildly prominent bilateral axillary nodes, more prominent than on the previous study but not meeting size criteria for lymphadenopathy. Liver: Limited evaluation without intravenous contrast. There is a stable cyst in the superior right lobe and a few other smaller stable low-attenuation lesions which are likely cysts but too smallfor definitive characterization. No visible abnormality. Biliary: Normal gallbladder and biliary tree. Pancreas: Limited evaluation without intravenous contrast. Mild generalized parenchymal atrophy.Spleen: Limited evaluation without intravenous contrast. There are a few punctate calcified granulomas. Adrenal glands: A 1 cm left adrenal nodule. Kidneys: Limited evaluation without intravenous contrast. Punctate bilateral lower pole calculi. 8 mm lesion exophytic from the posterior interpolar left kidney. This measures above fluid attenuation and is consistent with a hemorrhagic cyst as it is stable in size dating back to at least November 2013. Retroperitoneum: No mass or adenopathy. Abdominalvasculature: Moderate multifocal atherosclerotic calcification. Bowel/mesentery: No obstruction or a denopathy. No mass or ascites. Mild rectal fecal loading. Distal predominant colonic diverticulosis. Appendectomy. Abdominal wall: Normal. Pelvic nodes: Mildly prominent but not pathologically enlarged bilateral inguinal nodes. Pelvic organs: Moderately enlarged prostate gland with dystrophic calcif ications. Bones: Diffusely demineralized. Mild degenerative changes of the shoulders. Prominent degenerative changes of the lumbar spine and moderate degenerative changes of the thoracic spine. Patchy multifocal opacities in the right lung, new compared with the recent chest CT on 08/26/2024,concerning for pneumonia. -------- FINAL REPORT -------- Dictated By: Blu Izquierdo Dictated Date: 09/11/2024 13:56 ET Assigned Physician: Blu Izquierdo Reviewed and Electronically Signed By: Blu Izquierdo Signed Date: 09/11/2024 14:16 ET Workstation ID: [id number] Transcribed By: Self Edit Transcribed Date: 09/11/2024 13:56 ET XR Chest 1 View Result Date: 09/11/2024 Procedure: AP chest radiograph. HISTORY: dyspnea. COMPARISON: 08/27/2024. FINDINGS: Mildly elevatedleft hemidiaphragm with a right diaphragmatic eventration. Atherosclerotic calcifications of the aortic arch. Mild cardiomegaly. No pneumothorax. There are increasing patchy heterogeneous opacities at the right lung base which could represent an early pneumonia. Patchy right basilar opacities which could represent early pneumonia. -------- FINAL REPORT -------- Dictated By: Blu Izquierdo Dictated Date: 09/11/2024 08:03 ET Assigned Physician: Blu Izquierdo Reviewed and Electronically Signed By: Blu Izquierdo Signed Date: 09/11/2024 08:04 ET Workstation ID: [id number] Transcribed By: Self Edit Transcribed Date: 09/11/2024 08:03 ET documented in this encounter Discharge Instructions * Discharge Instructions* Russell Gonsalez MD - 09/13/2024 12:54 PM EST You have been diagnosed with pneumonia. Your condition is stable and you will be discharged on oralantibiotic. Take levofloxacin/Levaquin every other day, starting from tomorrow (09/14/2024). For diet recommend minced and moist food to prevent aspiration. documented in this encounter Medications at Time of Discharge aspirin 81 mg EC tablet Take 1 tablet (81 mg total) by mouth 1 (one) time each day. 08/14/2023 atorvastatin (LIPITOR) 80 mg tablet Take 1 [...] by mouth 3 (three) times a day. levoFLOXacin (LEVAQUIN) 750 mg tablet Take 1 tablet (750 mg total) by mouth every other day for 10 days. 3 each 09/14/2024 09/24/2024 losartan (COZAAR) 25 mg tablet Take 1 tablet (25 mg total) by mouth 1 (one) time each day. 08/12/2023 omeprazole (PriLOSEC) [address] capsule Take 1 capsule (20 mg total) by mouth 2 (two) times a day. QUEtiapine (SEROquel) 100 mg tablet Take 1 tablet (100 mg total) by mouth at bedtime. 08/06/2023 tamsulosin (FLOMAX) 0.4 mg 24 hr capsule Take 1 capsule (0.4 mg total) by mouth 1 (one) time each day. documented as of this encounter Ordered Prescriptions Prescription Sig Dispense Quantity Refills Last Filled Start Date End Date levoFLOXacin (LEVAQUIN) 750 mg tablet Take 1 tablet (750 mg total) by mouth every other day for 10 days. 3 each 09/14/2024 09/24/2024 documented in this encounter Discharge Disposition Disposition Code Departure Means Destination Comment s Home-Health Care [facility] documented in this encounter Progress Notes * Ronda Chapa RN - 09/13/2024 2:49 PM EST 09/13/24 1449 Transportation Transportation at discharge Family Final Discharge Disposition Home Health Care Services Pt medically cleared for discharge. Dispo is home with services through [facility] Pt in agreement to [facility] services. Family to provide transportation. * PEPITO White - 09/13/2024 1:15 PM EST Images from the original note were not included. [facility] ART COORDINATOR TREATMENT NOTE NAME: Michel George DATE OF : 1940 ROOM: [address] [place] [address] Pt ID by: ZARINA trejo confirmed. 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 Cleared byRN for session. PRECAUTIONS: Medical Precautions: Fall Risk Safety Interventions: Call keene within reach Swallow Precautions: Modified Diet Alert and Responsive OBJECTIVE PAIN: Pt did not report pain. VITALS: OXYGEN THERAPY: Oxygen Therapy: None (Room air) TREATMENTS: Treatments: Swallow Function SWALLOW FUNCTION: Swallow/Oral Function Treatment Time Entry: 15 Swallow Activity 1: Pt politely declined trials. Pt confirmed IDDSI 5/0 is reflective of baseline diet. Pt declined trials of harder solids. Pt reporting preference for current diet recommendations. Provided education on safe swallowing strategies for use outside of hospital. Pt verbalized understanding. Diet Recommendations: IDDSI 5/0 ASPIRATION RISK: Diet Solids Recommendation: IDDSI Level 5 Minced and Moist Diet Liquids Recommendation: Thin liquids Compensatory Swallowing Strategies: Upright as possible for all oral intake, Remain upright for 20-30 minutes after meals, Alternate solids and liquids, Small bites/sips, Slow rate of intake Recommended Medication Route: PO Recommended Medication Administration: One pill at a time SPEECH AND LANGUAGE: COGNITION: ADDITIONAL COMMENTS: Comments: house sitter Ricardo #[id number] utilized. ASSESSMENT ART COORDINATOR ASSESSMENT: ART COORDINATOR Assessment Results: Swallowing impairments Evaluation/Treatment Tolerance: Patient tolerated treatment well Medical Staff Made Aware: Yes Comments: Note sent to , discussed w RN DIET SOLIDS RECOMMENDATIONS: IDDSI Level 5 Minced and Moist DIET LIQUIDS RECOMMENDATIONS: Thin liquids CURRENT DIET ORDERED: Dietary Orders (From admission, onward) Start Ordered 09/12/24 1511 Adult diet [facility]; Modified Consistency Options for Liquidsand Solids, Cardiac; IDDSI Level 5 Minced & Moist; Cardiac Diet effective now Question Answer Comment Location [facility] Diet Type (req) Modified Consistency Options for Liquids and Solids Diet Type (req) Cardiac Modified Consistency Options for Liquids and Solids IDDSI Level 5 Minced & Moist Diet Type (cardiac) Cardiac 09/12/24 1511 PLAN ART COORDINATOR PLAN: Treatment/Interventions: Swallow function ART COORDINATOR Plan: No skilled ART COORDINATOR No Skilled ART COORDINATOR: At baseline function, No acute ART COORDINATOR goals identified ART COORDINATOR Frequency: Follow-up visit only ART COORDINATOR Treatments per day: 1 time per day ART COORDINATOR Discharge Recommendations: Home independent Diet Recommendations: IDDSI 5/0 ART COORDINATOR - OK to Discharge: Yes DISCHARGE RECOMMENDATIONS No Speech-Language Pathology (ART COORDINATOR) services/needs at next level of care. EDUCATION EDUCATION: Education Documentation Teach proper swallowing techniques, taught by PEPITO White at 09/13/2024 1:15 PM. Learner: Patient Readiness: Acceptance Method: Explanation, Floriculture Teacher Response: Verbalizes Understanding Modified Diet Training, taught by PEPITO White at 09/13/2024 1:15 PM. Learner: Patient Readiness: Acceptance Method: Explanation, Floriculture Teacher Response: Verbalizes Understanding Education Comments No comments found. GOALS GOALS: Encounter Problems Encounter Problems (Active) Template: Speech Therapy Problem: Swallowing Dates: Start: 09/12/24 Goal: Patient will tolerate the least restrictive diet consistency to allow for safe consumption ofdaily meals Dates: Start: 09/12/24 Expected End: 09/19/24 Description: Goal Type: STG, Performance Level: Independent Outcomes Date/Time User Outcome 09/13/24 1343 PEPITO White Adequate for Discharge Goal: Patient will tolerate recommended food and liquid consistencies without clinical signs and symptoms of aspirations Dates: Start: 09/12/24 Expected End: 09/19/24 Description: Goal Type: STG, Performance Level: Independent Outcomes Date/Time User Outcome 09/13/24 1343 PEPITO White Adequate for Discharge Encounter Problems (Resolved) There are no resolved problems. Cosigned by PEPITO Raphael at 09/13/2024 2:04 PM EST Associated attestation - Liv Maza SLP - 09/13/2024 2:04 PM EST I attest that I, Brigitte Maza M.S.,[facility]-ART COORDINATOR, was physically involved in the ongoing assessment, decision making, and interventions provided during today's patient care session. I have reviewed all documentation for today's 09/13/24, entered by Speech Therapy Fellow, Dasha Gibbs, and further attest that it is an accurate clinical record of today's encounter, including accurate and appropriate charges. * Fiorella Rai RN - 09/13/2024 11:58 AM EST Goals: Ambulate Identify possible barriers to meeting goals/advancing plan of care: Language barrier. Stability of the patient: Moderately Stable - Low risk of patient condition declining or worsening End of Shift Summary: VSS. Explained care and medications to patient via senior reservations agent Evie #[phone]. Will continue to monitor. * PEPITO White - 09/13/2024 10:16 AM EST Therapy session was attempted for Michel George by PEPITO White on 09/13/2024. The patient was unable to be seen for the following reason(s): With other team members Plan for return visit: As soon as possible Cosigned by PEPITO Raphael at 09/13/2024 2:04 PM EST * Afshan Christensen RN - 09/13/2024 3:55 AM EST Problem: Swallowing Goal: Patient will tolerate the least restrictive diet consistency to allow for safe consumption ofdaily meals Outcome: Progressing Goal: Patient will tolerate recommended food and liquid consistencies without clinical signs and symptoms of aspirations Outcome: Progressing Goals: To recovery from PNA and gain strength back Identify possible barriers to meeting goals/advancing plan of care: Pt was recently admitted with sepsis last month; same dx of PNA ; weakened physical condition Stability of the patient: Moderately Stable - Low risk of patient condition declining or worsening End of Shift Summary: Pt transferred from [facility] at the beginning of shift. Cook Islander speaking primarilybut can understand some Khmer. VSS. No c/o cough or SOB. Cooperative with all meds and care. * Torito Keene MD - 09/12/2024 2:49 PM EST Images from the original note were not included. MIG[facility]ALIA PROGRESS NOTE Date: 09/12/2024 Author: Torito Keene MD Patient ID: Michel George is a 84 y.o. male : 1940 MR#: [id number] ASSESSMENT & PLAN Assessment/Plan Principal Problem: Community acquired pneumonia Michel George is a 84 y.o. male who has history of CAD with NSTEMI in July 2023 s/p PCI (patient refused CABG), also history of HTN, DM, COPD not on home oxygen. Recent admission 08/26-08/29 for sepsis and pneumonia. Patient received ceftriaxone and doxycycline, discharged on cefpodoxime. Patientnow returned to hospital with complaints of dyspnea. He was found to be febrile, tachypneic and tachycardic. CT chest showed right lung multifocal opacities. 1. Sepsis Patient fulfilled criteria for sepsis with pneumonia, tachycardia, fever, leukocytosis and CARLA. 2. Community-acquired pneumonia CT showed worse right lung opacities. Procalcitonin elevated at 13.9. MRSA panel negative, blood cultures negative to date. I will stop cefepime and vancomycin. I will continue with levofloxacin adjusted for kidney function. 3. CARLA on CKD stage III Creatinine of 1.67 on admission, improved to 1.07. Continue to follow BMP. 4. History of CAD Not current having chest pain. Normal BNP and troponins x 2. TTE was done in the ED, result pending. SUBJECTIVE Subjective No events overnight. Patient was seen in the ED. He said he was feeling better, no longer having chest pain or shortness of breath. He denied nausea, vomiting, fever, chills complained of Allergies Penicillin and Penicillin g Current Medications: aspirin, 81 mg, oral, Daily atorvastatin, 80 mg, oral, Nightly carvediloL, 3.125 mg, oral, BID clopidogreL, 75 mg, oral, Daily furosemide, 20 mg, oral, Daily gabapentin, 600 mg, oral, BID [START ON 09/13/2024] levoFLOXacin, 250 mg, oral, Daily losartan, 25 mg, oral, Daily pantoprazole, 40 mg, oral, BID AC polyetheylene glycol, 17 g, oral, Daily sodium chloride, 10 mL, intravenous, BID tamsulosin, 0.4 mg, oral, Daily PRN medications: acetaminophen, magnesium hydroxide, naloxone, ondansetron, oxyCODONE, [COMPLETED] Insert peripheral IV AND Maintain IV access AND Saline lock IV AND sodium chloride AND sodium chloride OBJECTIVE Vitals: 09/11/24 2045 09/11/24 2256 09/12/24 1039 09/12/24 1421 BP: 115/60 118/65 136/51 BP Location: Right arm Left arm Patient Position: Lying Pulse: 90 75 78 Resp: 16 18 Temp: 37.2 ??C (98.9 ??F) 37.8 ??C (100 ??F) TempSrc: Temporal SpO2: 96% 95% Weight: 77.1 kg (169 lb 15.6 oz) Height: 1.7 m (66.93 ) Physical Exam Vitals and nursing note reviewed. Constitutional: Appearance: Normal appearance. HENT: Head: Normocephalic and atraumatic. Nose: Nose normal. Mouth/Throat: Mouth: Mucous membranes are moist. Eyes: Extraocular Movements: Extraocular movements intact. Pupils: Pupils are equal, round, and reactive to light. Cardiovascular: Rate and Rhythm: Normal rate and regular rhythm. Pulmonary: Effort: No respiratory distress. Breath sounds: Rales (Right basilar crackles) present. No wheezing. Abdominal: General: There is no distension. Tenderness: There is no abdominal tenderness. Musculoskeletal: Right lower leg: No edema. Left lower leg: No edema. Skin: General: Skin is warm and dry. Neurological: General: No focal deficit present. Mental Status: He is alert. Mental status is at baseline. LABS HEMATOLOGY Lab Results Component Value Date WBC 14.6 (H) 09/12/2024 HGB 8.0 (L) 09/12/2024 HCT 25.2 (L) 09/12/2024 MCV 99.6 (H) 09/12/2024 PLT 212 09/12/2024 CHEMISTRY Lab Results Component Value Date GLUCOSE 91 09/12/2024 NA 140 09/12/2024 K 4.0 09/12/2024 CO2 28 09/12/2024 CL 108 09/12/2024 BUN 14 09/12/2024 CREATININE 1.07 09/12/2024 EGFR 69 09/12/2024 CALCIUM 8.6 09/12/2024 MG 2.0 09/12/2024 ANIONGAP 4 09/12/2024 Recent Results (from the past 168 hour(s)) Respiratory virus panel molecular study Collection Time: 09/11/24 1:49 AM Specimen: Nares; Swab Result Value Ref Range [...] Detected Not Detected Culture urine Collection Time: 09/11/24 7:01 AM Specimen: Urine, Clean Catch Result Value Ref Range Culture, Urine No growth Culture blood Collection Time: 09/11/24 3:12 PM Specimen: Blood, Venous Result Value Ref Range Culture, Blood Culture in progress Culture blood Collection Time: 09/11/24 3:12 PM Specimen: Blood, Venous Result Value Ref Range Culture, Blood Culture in progress MRSA molecular study Collection Time: 09/11/24 8:56 PM Specimen: Nasopharynx; Swab Result Value Ref Range MRSA Screen PCR Not Detected Not Detected Imaging: CT Chest/Abdomen/Pelvis wo Contrast Narrative: CT chest, abdomen, and pelvis, 09/11/2024. HISTORY: Pneumonia, effusion or abscess suspected, xray done ?? aspiration. COMPARISON: Chest CT 08/26/2024. CT abdomen and pelvis 12/01/2023. TECHNIQUE: CT of the chest, abdomen, and pelvis without contrast, with coronal and sagittal reformats. Dose length product: 1109 mGy-cm. FINDINGS: Lungs/pleura: Normal caliber central airways. Scarring and blebs at the apices, right greater than left, similar in appearance to the previous study. New patchy confluent and groundglass opacities inthe inferior right upper lobe and throughout the right middle and lower lobe which are suspicious for pneumonia. No pleural effusion or pneumothorax. Mediastinum/david: Stable mildly prominent but not pathologically enlarged mediastinal lymph nodes. Evaluation of the david is limited without contrast. No visible hilar abnormality. Thoracic vasculature: Extensive atherosclerotic calcification of the great vessels. Normal caliber pulmonary arteries. Cardiac: Upper normal heart size. Severe coronary artery calcifications. Chest wall: Mildly prominent bilateral axillary nodes, more prominent than on the previous study but not meeting size criteria for lymphadenopathy. Liver: Limited evaluation without intravenous contrast. There is a stable cyst in the superior right lobe and a few other smaller stable low-attenuation lesions which are likely cysts but too small for definitive characterization. No visible abnormality. Biliary: Normal gallbladder and biliary tree. Pancreas: Limited evaluation without intravenous contrast. Mild generalized parenchymal atrophy. Spleen: Limited evaluation without intravenous contrast. There are a few punctate calcified granulomas. Adrenal glands: A 1 cm left adrenal nodule. Kidneys: Limited evaluation without intravenous contrast. Punctate bilateral lower pole calculi. 8 mm lesion exophytic from the posterior interpolar left kidney. This measures above fluid attenuationand is consistent with a hemorrhagic cyst as it is stable in size dating back to at least November 2013. Retroperitoneum: No mass or adenopathy. Abdominal vasculature: Moderate multifocal atherosclerotic calcification. Bowel/mesentery: No obstruction or adenopathy. No mass or ascites. Mild rectal fecal loading. Distal predominant colonic diverticulosis. Appendectomy. Abdominal wall: Normal. Pelvic nodes: Mildly prominent but not pathologically enlarged bilateral inguinal nodes. Pelvic organs: Moderately enlarged prostate gland with dystrophic calcifications. Bones: Diffusely demineralized. Mild degenerative changes of the shoulders. Prominent degenerative changes of the lumbar spine and moderate degenerative changes of the thoracic spine. Impression: Patchy multifocal opacities in the right lung, new compared with the recent chest CT on08/26/2024, concerning for pneumonia. -------- FINAL REPORT -------- Dictated By: Blu Izquierdo Dictated Date: 09/11/2024 13:56 ET Assigned Physician: Blu Izquierdo Reviewed and Electronically Signed By: Blu Izquierdo Signed Date: 09/11/2024 14:16 ET Workstation ID: [id number] Transcribed By: Self Edit Transcribed Date: 09/11/2024 13:56 ET XR Chest 1 View Narrative: Procedure: AP chest radiograph. HISTORY: dyspnea. COMPARISON: 08/27/2024. FINDINGS: Mildly elevated left hemidiaphragm with a right diaphragmatic eventration. Atherosclerotic calcifications of the aortic arch. Mild cardiomegaly. No pneumothorax. There are increasing patchy heterogeneous opacities at the right lung base which could represent an early pneumonia. Impression: Patchy right basilar opacities which could represent early pneumonia. -------- FINAL REPORT -------- Dictated By: Blu Izquierdo Dictated Date: 09/11/2024 08:03 ET Assigned Physician: Blu Izquierdo Reviewed and Electronically Signed By: Blu Izquierdo Signed Date: 09/11/2024 08:04 ET Workstation ID: [id number] Transcribed By: Self Edit Transcribed Date: 09/11/2024 08:03 ET DAILY CARE CHECKLIST Length of Stay: VTE Prophylaxis: Subcutaneous enoxaparin Resuscitation: No CPR/Do Not Intubate IV Access: Peripheral Tubes, Catheters, Devices: None PCP: Christiano Franco MD Disposition: Likely discharge within 24 hours. Jefe Lanza was called for update but no response Torito Keene MD 09/12/24 2:49 PM EST * Socorro Barbosa, ART COORDINATOR - 09/12/2024 9:45 AM EST Images from the original note were not included. 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 Patient seen at bedside in ER, pending d/c today or tomorrow. 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 Principal Problem: Community acquired pneumonia Date Noted: 09/11/2024 Resolved Problems: * No resolved hospital problems. * Community acquired pneumonia [J18.9] No admission procedures for hospital encounter. PAST [...] COMMENT: MECHANICAL Hemiplegia following CVA (cerebrovascular accident) (CMS/HCC) 10/06/2012 DX:Hemiplegia following CVA (cerebrovascular accident) (HCC) Hemoptysis DX:Hemoptysis Historical Medical DX 10/06/2012 DX:Hyperlipidemia [...] DX:Microscopic hematuria NSTEMI (non-ST elevated myocardial infarction) ([facility]/HCC) 12/30/2013 DX:NSTEMI (non-ST elevated myocardial infarction) ([facility]) Presence of stent in left circumflex coronary artery 11/03/2013 DX:Presence of stent in left circumflex coronary artery Recurrent appendicitis DX:Recurrent appendicitis; COMMENT: s/p surgery in 02/2014 Throat pain 10/06/2012 DX:Throat pain PAST SURGICAL HISTORY: Past Surgical History: Procedure Laterality Date APPENDECTOMY 02/21 PROCEDURE: [place] APPENDEC INDICATED PURPOSE OTH MAJOR PX NOT SPX ESOPHAGOGASTRODUODENOSCOPY 03/14/14 PROCEDURE: [place] ESOPHAGOGASTRODUODENOSCOPY TRANSORAL DIAGNOSTIC; COMMENT: erosive esophagitis and HH OTHER SURGICAL HISTORY PROCEDURE: ---- OTHER ----; COMMENT: 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 PRIOR LEVEL OF FUNCTIONING: Pt reports baseline diet minced and moist d/t dentition and comfortability. Pt reports no coughing or bolus sensation with any po. MRI Brain No results found for this or any previous visit. CT Head No results found for this or any previous visit. Chest Portable Results for orders placed during the hospital encounter of 09/11/24 XR Chest 1 View Narrative Procedure: AP chest radiograph. HISTORY: dyspnea. COMPARISON: 08/27/2024. FINDINGS: Mildly elevated left hemidiaphragm with a right diaphragmatic eventration. Atherosclerotic calcifications of the aortic arch. Mild cardiomegaly. No pneumothorax. There are increasing patchy heterogeneous opacities at the right lung base which could represent an early pneumonia. Impression Patchy right basilar opacities which could represent early pneumonia. -------- FINAL REPORT -------- Dictated By: Blu Izquierdo Dictated Date: 09/11/2024 08:03 ET Assigned Physician: Blu Izquierdo Reviewed and Electronically Signed By: Blu Izquierdo Signed Date: 09/11/2024 08:04 ET Workstation ID: [id number] Transcribed By: Self Edit Transcribed Date: 09/11/2024 08:03 ET Chest 2 View No results found [...] by: Shraddha Maciel MD on 08/26/2024 21:58:59 ALLERGIES: Allergies Allergen Reactions Penicillin Penicillin G Hives OBJECTIVE VITALS: OXYGEN THERAPY: Oxygen Therapy: None (Room air) PAIN ASSESSMENT: TRACHEOSTOMY: Tracheostomy: No DYSPHAGIA SYMPTOMS REPORTED BY PATIENT: Denies any swallowing issues FEEDING METHOD: Independent ENDURANCE DURING MEALS: Good MENTAL STATUS: Alert , Responsive, and Cooperative SWALLOW BASELINE ASSESSMENT: Baseline Comments: Pt reports eating only soft foods at home that don't require mastication. Reports no cough or concerns w any po. Reports only taking small bites/sips baseline CURRENT DIET: Dietary Orders (From admission, onward) Start Ordered 09/11/24 0917 Adult diet [facility]; General; Regular Diet effective now Question Answer Comment Location [facility] Diet Type (req) General General Diet Regular 09/11/24 0921 MOTOR SPEECH: Labial ROM: Within Functional Limits Labial Symmetry: Within Functional Limits Labial Strength: Reduced (Laterally) Labial Sensation: Within Functional Limits Lingual Appearance: Riva Lingual ROM: Other (Comment) (reduced lateral both) Lingual Strength: Other (Comment) Lingual Sensation: Within Functional Limits Facial Strength: Reduced Vocal Quality: Within Functional Limits Intelligibility: Intelligible 100% Dysarthria : No CONSISTENCIES ASSESSED: Yes Thin Presentation: Cup Oral: Within functional limits Pharyngeal: Other (Comment) (Shortness pf breath noted after 1st large sip seemingly unrelated to swallow d/t isolated occurance. No s/sx aspiration in sequential trials) Amount: ~3oz trial 1, then ~1oz sequential trials Comments: Immediate clear vocal quality following each trial Puree Presentation: Self Fed Oral: Within functional limits Pharyngeal: Within Functional Limits Amount: 2 bites/ trials Ground/Minced & Moist/ Moist Ground Presentation: Spoon Oral: Within functional limits Pharyngeal: Within Functional Limits Amount: 2 bites/trials ART COORDINATOR ASSESSMENT: ART COORDINATOR Assessment Results: Swallowing impairments Medical Staff Made Aware: Yes Comments: Note sent to MD, discussed w RN PLAN OF CARE ART COORDINATOR PLAN Treatment/Interventions: Swallow function ART COORDINATOR Plan: Skilled ART COORDINATOR ART COORDINATOR Frequency: Follow-up visit only ART COORDINATOR Treatments per day: 1 time per day Diet Recommendations: IDDSI 5/0 minced and moist DISCHARGE RECOMMENDATIONS TBD EDUCATION Education Documentation Modified Diet Training, taught by PEPITO Sylvester at 09/12/2024 9:45 AM. Learner: Patient Readiness: Acceptance Method: Explanation, Floriculture Teacher Response: Verbalizes Understanding Education Comments No comments found. GOALS Encounter Problems Encounter Problems (Active) Template: Speech Therapy Problem: Swallowing Dates: Start: 09/12/24 Goal: Patient will tolerate the least restrictive diet consistency to allow for safe consumption ofdaily meals Dates: Start: 09/12/24 Expected End: 09/19/24 Description: Goal Type: STG, Performance Level: Independent Goal: Patient will tolerate recommended food and liquid consistencies without clinical signs and symptoms of aspirations Dates: Start: 09/12/24 Expected End: 09/19/24 Description: Goal Type: STG, Performance Level: Independent Encounter Problems (Resolved) There are no resolved problems. Cosigned by PEIPTO Raphael at 09/12/2024 5:11 PM EST Associated attestation - Liv Maza SLP - 09/12/2024 5:11 PM EST I attest that Brigitte Walters M.S.,CCC-ART COORDINATOR, was physically involved in the ongoing assessment, decision making, and interventions provided during today's patient care session. I have reviewed all documentation for today's 09/12/24, entered by Speech Therapy Fellow, Socorro Barbosa, and further attest that it is an accurate clinical record of today's encounter, including accurate and appropriate charges. * Emmy Dahl - 09/11/2024 10:46 PM EST PT transferred to hospital bed. Clean linen was provided and room was cleaned for comfort. PT repositioned for comfort with call keene within reach. Observer is bedside. THERESE bailon. Emmy Dahl 09/11/247 * Abimael Solomon RN - 09/11/2024 7:54 PM EST Sitter arrived for pt. Abimael Solomon RN 09/11/241953 * Abimael Solomon RN - 09/11/2024 7:02 PM EST Pt found wiping himself with random linens in the room. Pt incontinent of stool in bed. Pt seems very agitated and confused, needing to be redirected frequently from yelling. Pt frequently is pullingon IV tubing, disconnecting self, and laying and touching his feces. Pt needed to be cleaned and changed multiple times. Sitter requested from medical charge entry specialist. Abimael Solomon RN 09/11/24 1904 * Abimael Solomon RN - 09/11/2024 12:47 PM EST Pt refused meal tray. Pt convinced he needs oxygen despite O2 sat being 96-97%. Nasal cannula applied with no O2 flowing, patient calmed down and is resting comfortably. Abimael Solomon RN 09/11/24 1249 * Alison Gonzalez RN - 09/11/2024 7:30 AM EST Patient found to be incontinent of stool. Pericare provided and linens changed. Patient resting comfortably on stretcher. Stretcher locked, at lowest position. 2 gurney rails up. Call keene within reach. Yellow non-skid socks in place and patient educated on not getting up without assistance. * Ashly Davila RN - 09/11/2024 12:39 AM EST BIBA from home with complaints of SOB. Family on scene states he last presented like this he had a UTI. Started earlier today, possibly intermittent throughout the day. * Patria Schumacher MD - 09/11/2024 12:34 AM EST Emergency Medicine Note Patient Name: Michel George Initial Evaluation: 09/11/2024 : 1940 Patient's PCP: Christiano Franco MD Emergency Physician: Patria Schumacher MD History of Present Illness Chief Complaint: Chief Complaint Patient presents with Shortness of Breath HPI: 84-year-old male, [place] Islander-speaking only presenting via EMS from home with reported shortness of breath. Family reported to RN that when he gets short of breath he has a UTI . Patient was recently admitted to this hospital about 2 weeks ago with similar complaints of altered mental status. Patient is unable to give much history secondary to his clinical condition. He states that he feels short of breath and wants to wear an oxygen mask but his oxygen level is 100% on room air. His respiratory rate is high. He denies nausea or vomiting. Describes feeling globally weak and tired . No reports of productive cough. No dysuria or hematuria. ROS: I have performed a ROS with the pertinent positives and negatives documented in the history ofpresent illness. Previous History Past Medical History: Diagnosis Date Actinic keratosis, hx of DX:Actinic keratosis, hx of Agitation DX:Agitation Anxiety 11/12/2012 DX:Anxiety Asthma 11/12/2012 DX:Asthma Basal cell carcinoma of skin 01/28/2013 DX:Basal cell carcinoma of skin Chronic pain 10/06/2012 DX:Chronic pain Diet-controlled diabetes mellitus ([facility]/HCC) DX:Diet-controlled diabetes mellitus ([facility]) Dysphagia 10/06/2012 DX:Dysphagia Fall DX:Fall; COMMENT: MECHANICAL Hemiplegia following CVA (cerebrovascular accident) (CMS/HCC) 10/06/2012 DX:Hemiplegia following CVA (cerebrovascular accident) ([facility]) Hemoptysis DX:Hemoptysis Historical Medical DX 10/06/2012 DX:Hyperlipidemia [...] DX:Microscopic hematuria NSTEMI (non-ST elevated myocardial infarction) ([facility]) 12/30/2013 DX:NSTEMI (non-ST elevated myocardial infarction) ([facility]) Presence of stent in left circumflex coronary artery 11/03/2013 DX:Presence of stent in left circumflex coronary artery Recurrent appendicitis DX:Recurrent appendicitis; COMMENT: s/p surgery in 02/2014 Throat pain 10/06/2012 DX:Throat pain Past Surgical History: Procedure Laterality Date APPENDECTOMY 02/21 PROCEDURE: [place] APPENDEC INDICATED PURPOSE OTH MAJOR PX NOT SPX ESOPHAGOGASTRODUODENOSCOPY 03/14/14 PROCEDURE: [place] ESOPHAGOGASTRODUODENOSCOPY TRANSORAL DIAGNOSTIC; COMMENT: erosive esophagitis and HH OTHER SURGICAL HISTORY PROCEDURE: ---- OTHER ----; COMMENT: 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 Social History Tobacco Use Smoking status: Former Current packs/day: 0.00 Types: Cigarettes Quit date: 09/25/2022 Years since quittin.9 Smokeless tobacco: Never Substance Use Topics Alcohol use: No Drug use: No Family History Problem Relation Name Age of Onset Heart disease Mother Heart disease Father Bone cancer Sister Heart disease Brother Seizures Son is allergic to penicillin and penicillin g. No current facility-administered medications on file prior to encounter. Current Outpatient Medications on File Prior to Encounter Medication Sig Dispense Refill aspirin 81 mg EC tablet Take 1 tablet (81 mg total) by mouth 1 (one) time each day. atorvastatin (LIPITOR) 80 mg tablet Take [...] mouth 3 (three) times a day. losartan (COZAAR) 25 mg tablet Take 1 tablet (25 mg total) by mouth 1 (one) time each day. omeprazole (PriLOSEC) [address] capsule Take 1 capsule (20 mg total) by mouth 2 (two) times a day. QUEtiapine (SEROquel) 100 mg tablet Take 1 tablet (100 mg total) by mouth at bedtime. tamsulosin (FLOMAX) 0.4 mg 24 hr capsule Take 1 capsule (0.4 mg total) by mouth 1 (one) time each day. Physical Exam ED Triage Vitals [09/11/24 0052] Temp Heart Rate Resp BP (!) 39.3 ??C (102.7 ??F) (!) 111 (!) 30 (!) 143/75 SpO2 Temp Source Heart Rate Source Patient Position 100 % Oral Monitor Lying BP Location FiO2 (%) Right arm -- GENERAL: Ill-Appearing, appears uncomfortable. SKIN: Normal skin color for ethnicity, warm, dry, no rashes noted. HEENT: Normocephalic, atraumatic, no stridor, dry mucous membranes, dentition intact, EOMI. NECK: Soft, supple, full ROM, midline structures nontender, no step-offs, no deformities, no lymphadenopathy. CHEST: Heart regular tachycardia, no murmurs, symmetric chest rise and fall. PULMONARY: Clear to auscultation bilaterally, diminished at the bases, tachypnea, no wheezes/rhales/rhonchi. ABDOMINAL: Soft, nondistended, nontender, positive bowel sounds in all quadrants. : Deferred. MUSCULOSKELETAL: Normal tone, full range of motion, no deformities, no peripheral edema. NEURO: Alert and oriented x3, CN II through XII intact, equal strength and sensation bilateral upper and lower extremities, no focal neurologic deficits. PSYCHIATRIC: Flat affect, fluid speech, good eye contact and appropriate demeanor. Results Labs Reviewed BASIC METABOLIC PANEL - Abnormal Result Value Sodium 140 Potassium 4.2 Chloride 108 CO2 27 Anion Gap 5 Glucose 155 (*) BUN 16 Creatinine 1.67 (*) eGFR 40 (*) BUN/Creatinine Ratio 9.6 Calcium 8.7 CBC WITH AUTO DIFFERENTIAL - Abnormal WBC 12.5 (*) RBC 3.00 (*) Hemoglobin 9.5 (*) Hematocrit 29.6 (*) MCV 100.0 (*) MCH 32.1 (*) MCHC 32.1 RDW 18.6 (*) Platelets 246 MPV 10.5 NRBC 0.0 NRBC Absolute 0.00 Neutrophils Relative 86.0 Lymphocytes Relative 4.3 Monocytes Relative 7.6 Eosinophils Relative 0.6 Basophils Relative 0.3 Immature Granulocytes Relative 1.2 Neutrophils Absolute 10.71 (*) Lymphocytes Absolute 0.53 (*) Monocytes Absolute 0.94 Eosinophils Absolute 0.08 Basophils Absolute 0.04 Immature Granulocytes Absolute 0.15 (*) ARTERIAL BLOOD GAS - Abnormal pH, Arterial 7.48 (*) pCO2, Arterial 34 (*) pO2, Arterial 158 (*) HCO3, Arterial 26.4 (*) O2 Sat, Arterial 100.0 (*) Base Excess, Arterial 1.9 Wilbur Test Pass FIO2 URINALYSIS WITH REFLEX MICROSCOPIC AND CULTURE - Abnormal Specific [place] Urine 1.015 pH, Urine 6.0 Leukocytes, Urine Small (*) Nitrite, Urine Negative Protein, Urine Trace Glucose, Urine Negative Ketones, Urine Negative Urobilinogen, Urine 0.2 Bilirubin, Urine Negative Blood, Urine Negative RBC, Urine 7.5 (*) WBC, Urine 7.3 (*) Squamous Epithelial, Urine 22 Bacteria, Urine Negative Hyaline Casts, Urine 2.4 RESPIRATORY VIRUS PANEL MOLECULAR STUDY - Normal [...] Detected Narrative: Testing was performed using the Minimally invasive devices Respiratory Pathogen PCR Assay. All results must [...] that are below the limit of detection. B-TYPE NATRIURETIC PEPTIDE - Normal BNP 41 TROPONIN I HIGH SENSITIVITY - Normal High Sensitivity Troponin I 15 Narrative: High levels of biotin in samples may falsely decrease hsTroponin values. Use caution when interpreting hsTroponin results in patients taking biotin who exhibit renal impairment (eGFR <60) or in patients taking more than 20 mg/day of biotin. TROPONIN I HIGH SENSITIVITY - Normal High Sensitivity Troponin I 19 Narrative: High levels of biotin in samples may falsely decrease hsTroponin values. Use caution when interpreting hsTroponin results in patients taking biotin who exhibit renal impairment (eGFR <60) or in patients taking more than 20 mg/day of biotin. ACTIVATED PARTIAL THROMBOPLASTIN TIME - Normal aPTT 30.8 PROTHROMBIN TIME WITH INR - Normal Protime 12.7 INR 1.0 HEPATIC FUNCTION PANEL - Normal Total Protein 6.7 Albumin 3.2 Total Bilirubin 0.6 Bilirubin, Direct 0.2 Bilirubin, Indirect 0.4 ALT (SGPT) 21 AST (SGOT) 17 Alkaline Phosphatase 79 LACTATE, WITH REFLEX - Normal LACTIC ACID 1.1 CULTURE URINE CBC AND DIFFERENTIAL Narrative: The following orders were created for panel order CBC and differential. Procedure Abnormality Status --------- ------ CBC auto differential[[id number]] Abnormal Final result Please view results for these tests on the individual orders. URINALYSIS WITH REFLEX MICROSCOPIC AND CULTURE Narrative: The following orders were created for panel order Urinalysis with reflex microscopic and culture. Procedure Abnormality Status --------- ------ Urinalysis with reflex ...[[id number]] Abnormal Final result Ziegler urine culture tube[[id number]] Final result Please view results for these tests on the individual orders. Abnormal Labs Reviewed BASIC METABOLIC PANEL - Abnormal; Notable for the following components: Result Value Glucose 155 (*) Creatinine 1.67 (*) eGFR 40 (*) All other components within normal limits CBC WITH AUTO DIFFERENTIAL - Abnormal; Notable for the following components: WBC 12.5 (*) RBC 3.00 (*) Hemoglobin 9.5 (*) Hematocrit 29.6 (*) MCV 100.0 (*) MCH 32.1 (*) RDW 18.6 (*) Neutrophils Absolute 10.71 (*) Lymphocytes Absolute 0.53 (*) Immature Granulocytes Absolute 0.15 (*) All other components within normal limits ARTERIAL BLOOD GAS - Abnormal; Notable for the following components: pH, Arterial 7.48 (*) pCO2, Arterial 34 (*) pO2, Arterial 158 (*) HCO3, Arterial 26.4 (*) O2 Sat, Arterial 100.0 (*) All other components within normal limits URINALYSIS WITH REFLEX MICROSCOPIC AND CULTURE - Abnormal; Notable for the following components: Leukocytes, Urine Small (*) RBC, Urine 7.5 (*) WBC, Urine 7.3 (*) All other components within normal limits XR Chest 1 View Final Result Patchy right basilar opacities which could represent early pneumonia. -------- FINAL REPORT -------- Dictated By: Blu Izquierdo Dictated Date: 09/11/2024 08:03 ET Assigned Physician: Blu Izquierdo Reviewed and Electronically Signed By: Blu Izquierdo Signed Date: 09/11/2024 08:04 ET Workstation ID: [id number] Transcribed By: Self Edit Transcribed Date: 09/11/2024 08:[address] Chest/Abdomen/Pelvis wo Contrast (Results Pending) I have discussed the incidental/abnormal imaging and/or lab abnormalities with the patient and haveinstructed them the need for further evaluation and workup with their primary care doctor. I have provided the patient with a paper copy of the abnormality. The laboratory results, imaging results and other diagnostic exam results were reviewed in the EMR. EKG Interpretation Critical Care Time None ? Medical Decision Making Patient presents today with chieft complaint of shortness of breath. Differential diagnosis includes, but is not limited to, upper respiratory infection, pneumonia, COPD exacerbation, asthma exacerbation, CHF, pneumothorax, pleural effusion, pulmonary embolism, ACS. Broad-based work-up will be initiated to evaluate for etiology of patient's symptoms. Patient found to have a small pneumonia in the right lung. Given his white blood cell count, fever of 38.3 degrees here in the emergency department, we will treat as pneumonia with broad-spectrum antibiotics. He has received 2 L of IV fluid which improved his blood pressures. He remains 100% on an oxygen mask that is using medical air. He does not require supplemental oxygen at this time. Blood gas reflects a respiratory alkalosis, consistent with his respiratory rate that has been persistentlyhigh. Plan for admission to hospitalist for further care and evaluation. Medications sodium chloride 0.9 % flush 10 mL (10 mL intravenous Given 09/11/24 0941) And sodium chloride 0.9 % flush 10 mL (has no administration in time range) lactated Ringer's infusion (100 mL/hr intravenous New Bag 09/11/24 0929) acetaminophen (TYLENOL) tablet 650 mg (has no administration in time range) oxyCODONE (ROXICODONE) immediate release tablet 5 mg (has no administration in time range) naloxone (NARCAN) injection 0.04 mg (has no administration in time range) ondansetron (PF) (ZOFRAN) injection 4 mg (has no administration in time range) polyethylene glycol (MIRALAX) packet 17 g (17 g oral Not Given 09/11/24 0940) magnesium hydroxide (MILK OF MAGNESIA) 400 mg/5 mL suspension 30 mL (has no administration in time range) acetaminophen (TYLENOL) tablet 1,000 mg (1,000 mg oral Given 09/11/24 0202) lactated Ringer's bolus 1,000 mL (0 mL intravenous Stopped 09/11/24 3934) lactated Ringer's bolus 1,000 mL (0 mL intravenous Stopped 09/11/24 0648) cefTRIAXone (ROCEPHIN) 1 g in sterile water 10 mL IV syringe (1 g intravenous Given 09/11/24 0805) doxycycline (VIBRAMYCIN) 100 mg in sodium chloride 0.9 % 100 mL IVPB (0 mg intravenous Stopped 09/11/24 0913) Clinical Impressions as of 09/11/24 1022 Community acquired pneumonia of right lung, unspecified part of lung Procedures Procedures Diagnosis 1. Community acquired pneumonia of right lung, unspecified part of lung Disposition Observation ED Prescriptions None Physician Attestation Patria Schumacher MD 09/11/24 0848 Patria Schumacher MD 09/11/24 1022 documented in this encounter Plan of Treatment Not on file documented as of this encounter Procedures Procedure Name Priority Date/Time Associated Diagnosis Comments LEGIONELLA ANTIGEN URINE, EIA STAT 09/13/2024 9:40 AM EST COMPLETE BLOOD COUNT Routine 09/13/2024 7:04 AM EST MAGNESIUM Routine 09/13/2024 7:04 AM EST BASIC METABOLIC PANEL Routine 09/13/2024 7:04 AM EST PROCALCITONIN Add-On 09/12/2024 5:18 AM EST CBC [...] WO CONTRAST Routine 09/11/2024 10:24 AM EST URINALYSIS WITH REFLEX MICROSCOPIC AND CULTURE STAT 09/11/2024 7:01 AM EST ZIEGLER URINE CULTURE TUBE STAT [...] MOLECULAR STUDY STAT 09/11/2024 1:49 AM EST TROPONIN I HIGH SENSITIVITY STAT 09/11/2024 1:48 AM EST CBC WITH AUTO DIFFERENTIAL STAT 09/11/2024 1:48 AM EST ACTIVATED PARTIAL THROMBOPLASTIN TIME STAT 09/11/2024 1:48 AM EST PROTHROMBIN TIME WITH INR STAT 09/11/2024 1:48 AM EST CBC AND DIFFERENTIAL STAT 09/11/2024 1:48 AM EST B-TYPE NATRIURETIC PEPTIDE STAT 09/11/2024 1:48 AM EST HEPATIC FUNCTION PANEL STAT Add-on 1:48 AM EST BASIC METABOLIC PANEL STAT 09/11/2024 1:48 AM EST ARTERIAL BLOOD GAS STAT 09/11/2024 1: 43 AM EST ECG 12-LEAD STAT 09/11/2024 1:04 AM EST documented in this encounter Results * Legionella antigen urine, EIA (09/13/2024 9:40 AM EST) Pathologist [facility] Legionella Antigen, Ur Negative Negative 09/13/2024 10:50 AM EST [facility] Urine Urine specimen from urethra / Unknown Non-blood Collection / Unknown 09/13/2024 9:40 AM EST 09/13/2024 10:03 AM EST Narrative [facility] - 09/13/2024 10:50 AM EST Negative for Legionella pneumophilia serogroup 1 antigen. This presumptive result suggests no current or recent infection due to L. pneumophilia serogroup 1. Culture is recommended if Legionella infection is till suspected, as other serogroups and species of Legionella are not detected by this test. us Torito Keene MD LAB URINE ORDERABLES Final Re sult Performing Organization Address [facility]/ZIP Co de Phone Number [facility] [address] [place] [address], * Magnesium (09/13/2024 7:04 AM EST) [facility] Magnesium 2.0 1.9 - 2.6 mg/dL LAB CHEMISTRY METHOD 09/13/2024 8:06 AM EST [facility] Blood Venous blood specimen / Unknown Venipuncture / Unknown 09/13/2024 7:04 AM EST 09/13/2024 7:26 AM EST us Torito Keene MD LAB BLOOD ORDERABLES Final Re sult [facility] [address] [place] [address], * (ABNORMAL) Complete blood count (09/13/2024 7:04 AM EST) [facility] Signature WBC 10.9(H) 4.8 - 10.8 K/mcL LAB HEMETOLOGY METHOD 09/13/2024 7:52 AM [facility] RBC 2.90(L) 4.50 - 5.50 M/mcL LAB HEMETOLOGY METHOD 09/13/2024 7:52 AM [facility] Hemoglobin 9.3(L) 13.5 - 17.5 g/dL LAB HEMETOLOGY METHOD 09/13/2024 7:52 AM [facility] Hematocrit 28.6(L) 42.0 - 54.0 % LAB HEMETOLOGY METHOD 09/13/2024 7:52 AM [facility] MCV 97.9 79.0 - 98.0 FL LAB HEMETOLOGY METHOD 09/13/2024 7:52 AM [facility] MCH 31.8 27.0 - 32.0 pcg LAB HEMETOLOGY METHOD 09/13/2024 7:52 AM [facility] MCHC 32.5 32.0 - 37.0 g/dL LAB HEMETOLOGY METHOD 09/13/2024 7:52 AM [facility] RDW 18.1(H) 11.0 - 15.0 % LAB HEMETOLOGY METHOD 09/13/2024 7:52 AM [facility] Platelets 226 130 - 400 K/mcL LAB HEMETOLOGY METHOD 09/13/2024 7:52 AM [facility] MPV 10.5 7.0 - 11.0 FL LAB HEMETOLOGY METHOD 09/13/2024 7:52 AM [facility] NRBC 0.0 <1.0 % LAB HEMETOLOGY METHOD 09/13/2024 7:52 AM [facility] NRBC Absolute 0.00 <0.10 K/mcL LAB HEMETOLOGY METHOD 09/13/2024 7:52 AM [facility] Blood Venous blood specimen / Unknown Venipuncture / Unknown 09/13/2024 7:04 AM EST 09/13/2024 7:26 AM EST us Torito Keene MD LAB BLOOD ORDERABLES Final Re sult [facility] [address] [place] [address], * (ABNORMAL) Basic metabolic panel (09/13/2024 7:04 AM EST) Sodium 139 133 - 145 mmol/L LAB CHEMISTRY METHOD 09/13/2024 8:06 AM [facility] Potassium 3.8 3.5 - 5.5 mmol/L LAB CHEMISTRY METHOD 09/13/2024 8:06 AM [facility] Chloride 107 96 - 110 mmol/L LAB CHEMISTRY METHOD 09/13/2024 8:06 AM [facility] CO2 27 21 - 32 mmol/L LAB CHEMISTRY METHOD 09/13/2024 8:06 AM [facility] Anion Gap 5 3 - 11 LAB CHEMISTRY METHOD 09/13/2024 8:06 AM [facility] Glucose 90 70 - 100 mg/dL LAB CHEMISTRY METHOD 09/13/2024 8:06 AM [facility] BUN 13 5 - 25 mg/dL LAB CHEMISTRY METHOD 09/13/2024 8:06 AM [facility] Creatinine 1.21 0.70 - 1.30 mg/dL LAB CHEMISTRY METHOD 09/13/2024 8:06 AM [facility] eGFR 59(L) >=60 mL/min/1. 73m2 LAB CHEMISTRY METHOD 09/13/2024 8:06 AM EST [facility] Comment:Calculation based on the??Chronic Kidney Disease Epidemiology Collaboration (CKD-EPI) equation refit??without adjustment for race. BUN/Creatinine Ratio 10.7 LAB CHEMISTRY METHOD 09/13/2024 8:06 AM EST [facility] Calcium 8.9 8.5 - 10.5 mg/dL LAB CHEMISTRY METHOD 09/13/2024 8:06 AM EST [facility] Blood Venous blood specimen / Unknown Venipuncture / Unknown 09/13/2024 7:04 AM EST 09/13/2024 7:26 AM EST us Torito Keene MD LAB BLOOD ORDERABLES Final Re sult [facility] [address] [place] [address], * (ABNORMAL) Procalcitonin (09/12/2024 5:18 AM EST) Procalcitonin 13.90(H) <=0.16 ng/mL LAB CHEMISTRY METHOD 09/12/2024 10:44 AM EST [facility] Blood Venous blood specimen / Unknown Venipuncture / Unknown 09/12/2024 5:18 AM EST 09/12/2024 5:48 AM EST Narrative [facility] - 09/12/2024 10:44 AM [...] any concentrations <2.0 ng/mL are obtained. us Torito Keene MD LAB BLOOD ORDERABLES Final Re sult [facility] [address] [place] [address], * (ABNORMAL) CBC auto differential (09/12/2024 5:18 AM EST) WBC 14.6(H) 4.8 - 10.8 K/mcL LAB HEMETOLOGY METHOD 09/12/2024 6:22 AM [facility] RBC 2.50(L) 4.50 - 5.50 M/mcL LAB HEMETOLOGY METHOD 09/12/2024 6:22 AM [facility] Hemoglobin 8.0(L) 13.5 - 17.5 g/dL LAB HEMETOLOGY METHOD 09/12/2024 6:22 AM [facility] Hematocrit 25.2(L) 42.0 - 54.0 % LAB HEMETOLOGY METHOD 09/12/2024 6:22 AM [facility] MCV 99.6(H) 79.0 - 98.0 FL LAB HEMETOLOGY METHOD 09/12/2024 6:22 AM [facility] MCH 31.6 27.0 - 32.0 pcg LAB HEMETOLOGY METHOD 09/12/2024 6:22 AM [facility] MCHC 31.7(L) 32.0 - 37.0 g/dL LAB HEMETOLOGY METHOD 09/12/2024 6:22 AM [facility] RDW 18.3(H) 11.0 - 15.0 % LAB HEMETOLOGY METHOD 09/12/2024 6:22 AM [facility] Platelets 212 130 - 400 K/mcL LAB HEMETOLOGY METHOD 09/12/2024 6:22 AM [facility] MPV 10.8 7.0 - 11.0 FL LAB HEMETOLOGY METHOD 09/12/2024 6:22 AM [facility] NRBC 0.0 <1.0 % LAB HEMETOLOGY METHOD 09/12/2024 6:22 AM [facility] NRBC Absolute 0.00 <0.10 K/mcL LAB HEMETOLOGY METHOD 09/12/2024 6:22 AM [facility] Neutrophils Relative 80.8 % LAB HEMETOLOGY METHOD 09/12/2024 6:22 AM [facility] Lymphocytes Relative 9.3 % LAB HEMETOLOGY METHOD 09/12/2024 6:22 AM [facility] Monocytes Relative 8.3 % LAB HEMETOLOGY METHOD 09/12/2024 6:22 AM [facility] Eosinophils Relative 0.5 % LAB HEMETOLOGY METHOD 09/12/2024 6:22 AM [facility] Basophils Relative 0.3 % LAB HEMETOLOGY METHOD 09/12/2024 6:22 AM [facility] Immature Granulocytes Relative 0.8 % LAB HEMETOLOGY METHOD 09/12/2024 6:22 AM [facility] Neutrophils Absolute 11.81(H) 1.50 - 7.00 K/mcL LAB HEMETOLOGY METHOD 09/12/2024 6:22 AM [facility] Lymphocytes Absolute 1.36 1.00 - 5.00 K/mcL LAB HEMETOLOGY METHOD 09/12/2024 6:22 AM [facility] Monocytes Absolute 1.21(H) 0.20 - 1.00 K/mcL LAB HEMETOLOGY METHOD 09/12/2024 6:22 AM EST [facility] Eosinophils Absolute 0.07 0.00 - 0.50 K/mcL LAB HEMETOLOGY METHOD 09/12/2024 6:22 AM EST [facility] Basophils Absolute 0.05 0.00 - 0.20 K/mcL LAB HEMETOLOGY METHOD 09/12/2024 6:22 AM EST [facility] Immature Granulocytes Absolute 0.12(H) 0.00 - 0.03 K/[facility] LAB HEMETOLOGY METHOD 09/12/2024 6:22 AM EST [facility] Blood Venous blood specimen / Unknown Venipuncture / Unknown 09/12/2024 5:18 AM EST 09/12/2024 5:48 AM EST us Ebony DE DIOS LAB BLOOD ORDERABLES Final Resul t Performing Organization Address City/[facility]/ZIP Co de Phone Number [facility] [address] [place] [address], [place] [phone] * Magnesium (09/12/2024 5:18 AM EST) Pathologist [facility] Magnesium 2.0 1.9 - 2.6 mg/dL LAB CHEMISTRY METHOD 09/12/2024 6:14 AM EST [facility] Blood Venous blood specimen / Unknown Venipuncture / Unknown 09/12/2024 5:18 AM EST 09/12/2024 5:48 AM EST us Ebony DE DIOS LAB BLOOD ORDERABLES Final Resul t [facility] [address] [place] [address], [place] [phone] * Basic metabolic panel (09/12/2024 5:18 AM EST) Sodium 140 133 - 145 mmol/L LAB CHEMISTRY METHOD 09/12/2024 6:14 AM [facility] Potassium 4.0 3.5 - 5.5 mmol/L LAB CHEMISTRY METHOD 09/12/2024 6:14 AM [facility] Chloride 108 96 - 110 mmol/L LAB CHEMISTRY METHOD 09/12/2024 6:14 AM [facility] CO2 28 21 - 32 mmol/L LAB CHEMISTRY METHOD 09/12/2024 6:14 AM [facility] Anion Gap 4 3 - 11 LAB CHEMISTRY METHOD 09/12/2024 6:14 AM [facility] Glucose 91 70 - 100 mg/dL LAB CHEMISTRY METHOD 09/12/2024 6:14 AM [facility] BUN 14 5 - 25 mg/dL LAB CHEMISTRY METHOD 09/12/2024 6:14 AM [facility] Creatinine 1.07 0.70 - 1.30 mg/dL LAB CHEMISTRY METHOD 09/12/2024 6:14 AM [facility] eGFR 69 >=60 mL/min/1. 73m2 LAB CHEMISTRY METHOD 09/12/2024 6:14 AM [facility] Comment:Calculation based on the??Chronic Kidney Disease Epidemiology Collaboration (CKD-EPI) equation refit??without adjustment for race. BUN/Creatinine Ratio 13.1 LAB CHEMISTRY METHOD 09/12/2024 6:14 AM [facility] Calcium 8.6 8.5 - 10.5 mg/dL LAB CHEMISTRY METHOD 09/12/2024 6:14 AM [facility] Blood Venous blood specimen / Unknown Venipuncture / Unknown 09/12/2024 5:18 AM EST 09/12/2024 5:48 AM EST us Ebony DE DIOS LAB BLOOD ORDERABLES Final Resul t [facility] [address] [place] [address], [place] [phone] * ECG-Annotated (09/12/2024) Provider Onbase MD ECG ORDERABLES Final Result * MRSA molecular study (09/11/2024 8:56 PM EST) MRSA Screen PCR Not Detected Not Detected LAB MICROBIOLOGY METHOD 09/11/2024 10:41 PM EST [facility] Swab Nasopharyngeal structure / Unknown Non-blood Collection / Unknown 09/11/2024 8:56 PM EST 09/11/2024 9:14 PM EST Ebony DE DIOS LAB MICROBIOLOGY - GENERAL ORDER IONA Final Result [facility] [address] [place] [address], * Culture blood (09/11/2024 3:12 PM EST) Culture, Blood No growth at 5 days 09/16/2024 4:01 PM EST [facility] Blood Venous blood specimen / Unknown Venipuncture / Unknown 09/11/2024 3:12 PM EST 09/11/2024 3:18 PM EST Ebony DE DIOS LAB MICROBIOLOGY - GENERAL ORDER IONA Final Result [facility] [address] [place] [address], [place] [phone] * Culture blood (09/11/2024 3:12 PM EST) Culture, Blood No growth at 5 days 09/16/2024 4:01 PM EST [facility] Blood Venous blood specimen / Unknown Venipuncture / Unknown 09/11/2024 3:12 PM EST 09/11/2024 3:19 PM EST us Ebnoy DE DIOS LAB MICROBIOLOGY - GENERAL ORDER IONA Final Result [facility] [address] [place] [address], [place] [phone] * CT Chest/Abdomen/Pelvis wo Contrast (09/11/2024 10:24 [...] Signed Date: 09/11/2024 14:16 ET Workstation ID: [id number] Transcribed By: Self Edit Transcribed Date: 09/11/2024 [...] Signed Date: 09/11/2024 14:16 ET Workstation ID: [id number] Transcribed By: Self Edit Transcribed Date: 09/11/2024 13:56 ET Ricardo Moctezuma MD IMG CT PROCEDURES Final Resul t * Culture urine (09/11/2024 7:01 AM EST) Culture, Urine No growth 09/12/2024 7:53 AM EST [facility] Urine Urine specimen obtained by clean catch procedure / Unknown Non-blood Collection / Unknown 09/11/2024 7:01 AM EST 09/11/2024 7:51 AM EST Patria Schumacher MD LAB MICROBIOLOGY - GENER AL ORDERABLES Final Result Performing Organization Address [facility]/ZIP Co de Phone Number [facility] [address] [place] [address], [place] [phone] * Ziegler urine culture tube (09/11/2024 7:01 AM EST) Pathologist [facility] Extra Tube Hold for add-ons. 09/11/2024 9:01 AM EST [facility] Comment:Auto resulted. Urine Urine specimen obtained by clean catch procedure / Unknown Non-blood Collection / Unknown 09/11/2024 7:01 AM EST 09/11/2024 7:38 AM EST Patria Schumacher MD LAB URINE ORDERABLES Fin al Result Performing Organization Address City/[facility]/ZIP Co de Phone Number [facility] [address] [place] [address], [place] [phone] * (ABNORMAL) Urinalysis with reflex microscopic and culture (09/11/2024 7:01 AM EST) Pathologist [facility] Specific [place] Urine 1.015 1.003 - 1.030 LAB URINALYSIS - AUTOMATED METHOD 09/11/2024 7:51 AM EST [facility] pH, Urine 6.0 5.0 - 8.0 pH LAB URINALYSIS - AUTOMATED METHOD 09/11/2024 7:51 AM [facility] Leukocytes, Urine Small(A) Negative LAB URINALYSIS - AUTOMATED METHOD 09/11/2024 7:51 AM [facility] Nitrite, Urine Negative Negative LAB URINALYSIS - AUTOMATED METHOD 09/11/2024 7:51 AM [facility] Protein, Urine Trace <=Trace mg/dL LAB URINALYSIS - AUTOMATED METHOD 09/11/2024 7:51 AM [facility] Glucose, Urine Negative Negative mg/dL LAB URINALYSIS - AUTOMATED METHOD 09/11/2024 7:51 AM [facility] Ketones, Urine Negative Negative mg/dL LAB URINALYSIS - AUTOMATED METHOD 09/11/2024 7:51 AM [facility] Urobilinogen, Urine 0.2 0.2 - 1.0 mg/dL LAB URINALYSIS - AUTOMATED METHOD 09/11/2024 7:51 AM [facility] Bilirubin, Urine Negative Negative LAB URINALYSIS - AUTOMATED METHOD 09/11/2024 7:51 AM [facility] Blood, Urine Negative Negative LAB URINALYSIS - AUTOMATED METHOD 09/11/2024 7:51 AM [facility] RBC, Urine 7.5(H) 0 - 4 /HPF LAB URINALYSIS - AUTOMATED METHOD 09/11/2024 7:51 AM [facility] WBC, Urine 7.3(H) 0 - 4 /HPF LAB URINALYSIS - AUTOMATED METHOD 09/11/2024 7:51 AM [facility] Squamous Epithelial, Urine 22 0 - 60 /LPF LAB URINALYSIS - AUTOMATED METHOD 09/11/2024 7:51 AM [facility] Bacteria, Urine Negative Negative /HPF LAB URINALYSIS - AUTOMATED METHOD 09/11/2024 7:51 AM [facility] Hyaline Casts, Urine 2.4 0 - 3 /LPF LAB URINALYSIS - AUTOMATED METHOD 09/11/2024 7:51 AM EST [facility] Urine Urine specimen obtained by clean catch procedure / Unknown Non-blood Collection / Unknown 09/11/2024 7:01 AM EST 09/11/2024 7:38 AM EST us Patria Schumacher MD LAB URINE ORDERABLES Fin al Result [facility] [address] [place] [address], [place] [phone] * XR Chest 1 View (09/11/2024 6:46 AM EST) Anatomical Region Laterality Modality Body Radiographic Kellie ging 09/11/2024 8:03 AM EST Impressions 09/11/2024 8:04 AM EST Patchy right basilar opacities which could represent early pneumonia. -------- FINAL REPORT -------- Dictated By: Blu Izquierdo Dictated Date: 09/11/2024 08:03 ET Assigned Physician: Blu Izquierdo Reviewed and Electronically Signed By: Blu Izquierdo Signed Date: 09/11/2024 08:04 ET Workstation ID: [id number] Transcribed By: Self Edit Transcribed Date: 09/11/2024 [...] Signed Date: 09/11/2024 08:04 ET Workstation ID: [id number] Transcribed By: Self Edit Transcribed Date: 09/11/2024 08:03 ET Patria Schumacher MD IMG XR PROCEDURES Final Result * Lactate, with reflex (09/11/2024 3:24 AM EST) LACTIC ACID 1.1 0.4 - 2.0 mmol/L LAB CHEMISTRY METHOD 09/11/2024 3:57 AM EST [facility] Blood Venous blood specimen / Unknown Venipuncture / Unknown 09/11/2024 3:24 AM EST 09/11/2024 3:30 AM EST Patria Schumacher MD LAB BLOOD ORDERABLES Fin al Result [facility] [address] [place] [address], [place] [phone] * Troponin I high sensitivity (09/11/2024 3:24 AM EST) High Sensitivity Troponin I 19 <=79 ng/L LAB CHEMISTRY METHOD 09/11/2024 3:58 AM EST [facility] Blood Venous blood specimen / Unknown Venipuncture / Unknown 09/11/2024 3:24 AM EST 09/11/2024 3:29 AM EST Narrative [facility] - 09/11/2024 3:58 AM EST High levels of biotin in samples may falsely decrease hsTroponin values. ??Use caution when interpreting hsTroponin results in patients taking biotin who exhibit renal impairment (eGFR <60) or in patients taking more than 20 mg/day of biotin. Patria Schumacher MD LAB BLOOD ORDERABLES Fin al Result [facility] [address] [place] [address], * Respiratory virus panel molecular study (09/11/2024 1:49 AM EST) Pathologist [facility] Adenovirus Detection by PCR Not Detected Not Detected LAB MICROBIOLOGY METHOD 09/11/2024 2:55 AM EST [facility] Influenza A PCR Not Detected Not Detected LAB MICROBIOLOGY METHOD 09/11/2024 2:55 AM EST [facility] Influenza B PCR Not Detected Not Detected LAB MICROBIOLOGY METHOD 09/11/2024 2:55 AM EST [facility] Coronavirus 229E Not Detected Not Detected LAB MICROBIOLOGY METHOD 09/11/2024 2:55 AM EST [facility] Coronavirus HKU1 Not Detected Not Detected LAB MICROBIOLOGY METHOD 09/11/2024 2:55 AM EST [facility] Coronavirus OC43 Not Detected Not Detected LAB MICROBIOLOGY METHOD 09/11/2024 2:55 AM EST [facility] Coronavirus NL63 Not Detected Not Detected LAB MICROBIOLOGY METHOD 09/11/2024 2:55 AM EST [facility] Parainfluenza Virus 1 Not Detected Not Detected LAB MICROBIOLOGY METHOD 09/11/2024 2:55 AM EST [facility] Parainfluenza Virus 2 Not Detected Not Detected LAB MICROBIOLOGY METHOD 09/11/2024 2:55 AM EST [facility] Parainfluenza Virus 3 Not Detected Not Detected LAB MICROBIOLOGY METHOD 09/11/2024 2:55 AM EST [facility] Parainfluenza Virus 4 Not Detected Not Detected LAB MICROBIOLOGY METHOD 09/11/2024 2:55 AM EST [facility] RSV PCR Not Detected Not Detected LAB MICROBIOLOGY METHOD 09/11/2024 2:55 AM EST [facility] Human Metapneumovirus A and B Not Detected Not Detected LAB MICROBIOLOGY METHOD 09/11/2024 2:55 AM EST [facility] Rhinovirus/Entero virus Not Detected Not Detected LAB MICROBIOLOGY METHOD 09/11/2024 2:55 AM EST [facility] Bordetella pertussis Not Detected Not Detected LAB MICROBIOLOGY METHOD 09/11/2024 2:55 AM [facility] Bordetella parapertussis Not Detected Not Detected LAB MICROBIOLOGY METHOD 09/11/2024 2:55 AM [facility] Mycoplasma pneumo by PCR Not Detected Not Detected LAB MICROBIOLOGY METHOD 09/11/2024 2:55 AM EST [facility] Chlamydia pneumoniae Not Detected Not Detected LAB MICROBIOLOGY METHOD 09/11/2024 2:55 AM [facility] SARS COV-2 Not Detected Not Detected LAB MICROBIOLOGY METHOD 09/11/2024 2:55 AM [facility] Swab Both anterior nares / Unknown Non-blood Collection / Unknown 09/11/2024 1:49 AM EST 09/11/2024 1:59 AM EST [facility] - 09/11/2024 2:55 AM EST Testing was performed using the Minimally invasive devices Respiratory Pathogen PCR Assay. All results must [...] are below the limit of detection. us Patria Schumacher MD LAB MICROBIOLOGY - GENER AL ORDERABLES Final Result [facility] [address] [place] [address], [place] [phone] * Hepatic function panel (09/11/2024 1:48 AM EST) Total Protein 6.7 6.0 - 8.0 g/dL LAB CHEMISTRY METHOD 09/11/2024 3:01 AM EST [facility] Albumin 3.2 3.2 - 5.0 g/dL LAB CHEMISTRY METHOD 09/11/2024 3:01 AM EST [facility] Total Bilirubin 0.6 0.0 - 1.4 mg/dL LAB CHEMISTRY METHOD 09/11/2024 3:01 AM [facility] Bilirubin, Direct 0.2 0.0 - 0.3 mg/dL LAB CHEMISTRY METHOD 09/11/2024 3:01 AM [facility] Bilirubin, Indirect 0.4 0.0 - 1.1 mg/dL LAB CHEMISTRY METHOD 09/11/2024 3:01 AM [facility] ALT (SGPT) 21 10 - 60 unit/L LAB CHEMISTRY METHOD 09/11/2024 3:01 AM [facility] AST (SGOT) 17 10 - 42 unit/L LAB CHEMISTRY METHOD 09/11/2024 3:01 AM [facility] Alkaline Phosphatase 79 42 - 121 unit/L LAB CHEMISTRY METHOD 09/11/2024 3:01 AM [facility] Blood Venous blood specimen / Unknown Venipuncture / Unknown 09/11/2024 1:48 AM EST 09/11/2024 2:00 AM EST us Patria Schumacher MD LAB BLOOD ORDERABLES Fin al Result [facility] [address] [place] [address], [place] [phone] * [employer] (09/11/2024 1:48 AM EST) Surgical Specialty [facility] Protime 12.7 10.6 - 13.9 sec LAB COAGULATION METHOD 09/11/2024 2:16 AM EST [facility] INR 1.0 LAB COAGULATION METHOD 09/11/2024 2:16 AM EST [facility] Blood Venous blood specimen / Unknown Venipuncture / Unknown 09/11/2024 1:48 AM EST 09/11/2024 2:00 AM EST Patria Schumacher MD LAB BLOOD ORDERABLES Fin al Result Performing Organization Address City/[facility]/ZIP Co de Phone Number [facility] [address] [place] [address], [place] [phone] * APTT (09/11/2024 1:48 AM EST) [facility] aPTT 30.8 24.1 - 39.3 sec LAB COAGULATION METHOD 09/11/2024 2:16 AM EST [facility] Blood Venous blood specimen / Unknown Venipuncture / Unknown 09/11/2024 1:48 AM EST 09/11/2024 2:00 AM EST Patria Schumacher MD LAB BLOOD ORDERABLES Fin al Result Performing Organization Address City/[facility]/ZIP Co de Phone Number [facility] [address] [place] [address], [place] [phone] * (ABNORMAL) CBC auto differential (09/11/2024 1:48 AM EST) [facility] WBC 12.5(H) 4.8 - 10.8 K/[facility] LAB HEMETOLOGY METHOD 09/11/2024 2:04 AM EST [facility] RBC 3.00(L) 4.50 - 5.50 M/mcL LAB HEMETOLOGY METHOD 09/11/2024 2:04 AM EST [facility] Hemoglobin 9.5(L) 13.5 - 17.5 g/dL LAB HEMETOLOGY METHOD 09/11/2024 2:04 AM [facility] Hematocrit 29.6(L) 42.0 - 54.0 % LAB HEMETOLOGY METHOD 09/11/2024 2:04 AM [facility] MCV 100.0(H) 79.0 - 98.0 FL LAB HEMETOLOGY METHOD 09/11/2024 2:04 AM [facility] MCH 32.1(H) 27.0 - 32.0 pcg LAB HEMETOLOGY METHOD 09/11/2024 2:04 AM [facility] MCHC 32.1 32.0 - 37.0 g/dL LAB HEMETOLOGY METHOD 09/11/2024 2:04 AM [facility] RDW 18.6(H) 11.0 - 15.0 % LAB HEMETOLOGY METHOD 09/11/2024 2:04 AM [facility] Platelets 246 130 - 400 K/mcL LAB HEMETOLOGY METHOD 09/11/2024 2:04 AM [facility] MPV 10.5 7.0 - 11.0 FL LAB HEMETOLOGY METHOD 09/11/2024 2:04 AM [facility] NRBC 0.0 <1.0 % LAB HEMETOLOGY METHOD 09/11/2024 2:04 AM [facility] NRBC Absolute 0.00 <0.10 K/mcL LAB HEMETOLOGY METHOD 09/11/2024 2:04 AM [facility] Neutrophils Relative 86.0 % LAB HEMETOLOGY METHOD 09/11/2024 2:04 AM [facility] Lymphocytes Relative 4.3 % LAB HEMETOLOGY METHOD 09/11/2024 2:04 AM [facility] Monocytes Relative 7.6 % LAB HEMETOLOGY METHOD 09/11/2024 2:04 AM [facility] Eosinophils Relative 0.6 % LAB HEMETOLOGY METHOD 09/11/2024 2:04 AM [facility] Basophils Relative 0.3 % LAB HEMETOLOGY METHOD 09/11/2024 2:04 AM [facility] Immature Granulocytes Relative 1.2 % LAB HEMETOLOGY METHOD 09/11/2024 2:04 AM [facility] Neutrophils Absolute 10.71(H) 1.50 - 7.00 K/mcL LAB HEMETOLOGY METHOD 09/11/2024 2:04 AM [facility] Lymphocytes Absolute 0.53(L) 1.00 - 5.00 K/mcL LAB HEMETOLOGY METHOD 09/11/2024 2:04 AM [facility] Monocytes Absolute 0.94 0.20 - 1.00 K/mcL LAB HEMETOLOGY METHOD 09/11/2024 2:04 AM EST [facility] Eosinophils Absolute 0.08 0.00 - 0.50 K/mcL LAB HEMETOLOGY METHOD 09/11/2024 2:04 AM EST [facility] Basophils Absolute 0.04 0.00 - 0.20 K/mcL LAB HEMETOLOGY METHOD 09/11/2024 2:04 AM [facility] Immature Granulocytes Absolute 0.15(H) 0.00 - 0.03 K/mcL LAB HEMETOLOGY METHOD 09/11/2024 2:04 AM [facility] Blood Venous blood specimen / Unknown Venipuncture / Unknown 09/11/2024 1:48 AM EST 09/11/2024 2:00 AM EST us Patria Schumacher MD LAB BLOOD ORDERABLES Fin al Result [facility] [address] [place] [address], [place] [phone] * Troponin I high sensitivity (09/11/2024 1:48 AM EST) [facility] High Sensitivity Troponin I 15 <=79 ng/L LAB CHEMISTRY METHOD 09/11/2024 2:29 AM EST [facility] Blood Venous blood specimen / Unknown Venipuncture / Unknown 09/11/2024 1:48 AM EST 09/11/2024 2:00 AM EST Narrative [facility] - 09/11/2024 2:29 AM EST High levels of biotin in samples may falsely decrease hsTroponin values. ??Use caution when interpreting hsTroponin results in patients taking biotin who exhibit renal impairment (eGFR <60) or in patients taking more than 20 mg/day of biotin. Patria Schumacher MD LAB BLOOD ORDERABLES Fin al Result [facility] [address] [place] [address], [place] [phone] * B-type natriuretic peptide (09/11/2024 1:48 AM EST) [facility] BNP 41 <=100 pcg/mL LAB CHEMISTRY METHOD 09/11/2024 2:36 AM EST [facility] Blood Venous blood specimen / Unknown Venipuncture / Unknown 09/11/2024 1:48 AM EST 09/11/2024 2:00 AM EST Patria Schumacher MD LAB BLOOD ORDERABLES Fin al Result [facility] [address] [place] [address], [place] [phone] * (ABNORMAL) Basic metabolic panel (09/11/2024 1:48 AM EST) [facility] Sodium 140 133 - 145 mmol/L LAB CHEMISTRY METHOD 09/11/2024 3:00 AM [facility] Potassium 4.2 3.5 - 5.5 mmol/L LAB CHEMISTRY METHOD 09/11/2024 3:00 AM [facility] Chloride 108 96 - 110 mmol/L LAB CHEMISTRY METHOD 09/11/2024 3:00 AM [facility] CO2 27 21 - 32 mmol/L LAB CHEMISTRY METHOD 09/11/2024 3:00 AM [facility] Anion Gap 5 3 - 11 LAB CHEMISTRY METHOD 09/11/2024 3:00 AM [facility] Glucose 155(H) 70 - 100 mg/dL LAB CHEMISTRY METHOD 09/11/2024 3:00 AM [facility] BUN 16 5 - 25 mg/dL LAB CHEMISTRY METHOD 09/11/2024 3:00 AM [facility] Creatinine 1.67(H) 0.70 - 1.30 mg/dL LAB CHEMISTRY METHOD 09/11/2024 3:00 AM [facility] eGFR 40(L) >=60 mL/min/1. 73m2 LAB CHEMISTRY METHOD 09/11/2024 3:00 AM [facility] Comment:Calculation based on the??Chronic Kidney Disease Epidemiology Collaboration (CKD-EPI) equation refit??without adjustment for race. BUN/Creatinine Ratio 9.6 LAB CHEMISTRY METHOD 09/11/2024 3:00 AM [facility] Calcium 8.7 8.5 - 10.5 mg/dL LAB CHEMISTRY METHOD 09/11/2024 3:00 AM [facility] Blood Venous blood specimen / Unknown Venipuncture / Unknown 09/11/2024 1:48 AM EST 09/11/2024 2:00 AM EST us Patria Schumacher MD LAB BLOOD ORDERABLES Fin al Result [facility] [address] [place] [address], [place] [phone] * (ABNORMAL) Arterial blood gas (09/11/2024 1:43 AM EST) pH, Arterial 7.48(H) 7.35 - 7.45 pH 09/11/2024 3:06 AM [facility] pCO2, Arterial 34(L) 35 - 45 mmHg 09/11/2024 3:06 AM [facility] pO2, Arterial 158(H) 80 - 100 mmHg 09/11/2024 3:06 AM [facility] HCO3, Arterial 26.4(H) 22.0 - 26.0 mmol/L 09/11/2024 3:06 AM [facility] O2 Sat, Arterial 100.0(H) 95.0 - 98.0 % 09/11/2024 3:06 AM [facility] Base Excess, Arterial 1.9 -2.0 - 2.0 mmol/L 09/11/2024 3:06 AM [facility] Wilbur Test Pass Pass, Unresponsi ve, Line 09/11/2024 3:06 AM [facility] FIO2 09/11/2024 3:06 AM [facility] Comment:15 L Blood Arterial blood specimen / Unknown Arterial Puncture / Unknown 09/11/2024 1:43 AM EST 09/11/2024 1:45 AM EST us Patria Schumacher MD LAB BLOOD ORDERABLES Fin al Result [facility] [address] [place] [address], [place] [phone] * ECG 12 lead (09/11/2024 1:04 AM EST) Ventricular Rate ECG 108 BPM GEMUSE Atrial Rate 108 BPM GEMUSE P-R Interval 130 ms GEMUSE QRS Duration 102 ms GEMUSE Q-T Interval 320 ms GEMUSE QTc 428 ms GEMUSE P Wave [place] -24 degrees GEMUSE R [place] -42 degrees GEMUSE T [place] 79 degrees GEMUSE ECG Interpretation Sinus tachycardia Left axis deviation Nonspecific ST and T wave abnormality Abnormal ECG When compared with ECG of 27-AUG-2024 13:06, No significant change was found Confirmed by ZO MIN ([id number]) on 09/12/2024 2:32:14 PM GEMUSE 09/11/2024 1:04 AM EST 09/12/2024 2:32 PM EST us Patria Schumacher MD ECG ORDERABLES Final Re sult GEMUSE documented in this encounter Visit Diagnoses Diagnosis Community acquired pneumonia of right lung, unspecified part of lung Community acquired pneumonia of right lung, unspecified part of lung HCAP (healthcare-associated pneumonia) documented in this encounter Admitting Diagnoses Diagnosis Community acquired pneumonia Pneumonia, organism unspecified Community acquired pneumonia of right lung, unspecified part of lung documented in this encounter Administered Medications Inactive Administered Medications - up to 3 most recent administrations Medication Order MAR Action Action Date Dose Rate Site acetaminophen (TYLENOL) tablet 1,000 mg 1,000 mg, oral, Once, On 09/11/24 at 0133, For 1 dose Given 09/11/2024 2:02 AM EST 1,000 mg acetaminophen (TYLENOL) tablet 650 mg 650 mg, oral, Every 6 hours PRN, mild pain, fever - temperature GREATER than 38 C (100.4 F), Starting on 09/11/24 at 0916 Given 09/12/2024 9:08 PM EST 650 mg aspirin EC tablet 81 mg 81 mg, oral, Daily, First dose on 09/11/24 at 1507, Do not crush, chew, or split. Given 09/13/2024 9:33 AM EST 81 mg Given 09/12/2024 10:08 AM EST 81 mg Given 09/11/2024 4:30 PM EST 81 mg atorvastatin (LIPITOR) tablet 80 mg 80 mg, oral, Nightly, First dose on 09/11/24 at 2100 Given 09/12/2024 9:07 PM EST 80 mg Given 09/11/2024 8:45 PM EST 80 mg carvediloL (COREG) tablet 3.125 mg 3.125 mg, oral, 2 times daily, First dose on 09/11/24 at 2100 Given 09/13/2024 9:33 AM EST 3.125 mg Given 09/12/2024 9:07 PM EST 3.125 mg Given 09/12/2024 10:09 AM EST 3.125 mg cefepime (MAXIPIME) 2 g in sterile water 20 mL IV syringe 2 g, intravenous, at 240 mL/hr, Administer over 5 Minutes, Every 12 hours, First dose on 09/11/24 at 1600, For 7 days, Indication: Pneumonia, Nosocomial Given 09/12/2024 7:47 AM EST 2 g 240 mL/hr Given 09/11/2024 4:30 PM EST 2 g 240 mL/hr cefTRIAXone (ROCEPHIN) 1 g in sterile water 10 mL IV syringe 1 g, intravenous, at 200 mL/hr, Administer over 3 Minutes, Once, On 09/11/24 at 0800, For 1 dose, Do not administer simultaneously with any calcium containing solutions via a Y-site in any patient., Indication: Pneumonia, Community Acquired Given 09/11/2024 8:05 AM EST 1 g 2 00 mL/hr clopidogreL (PLAVIX) tablet 75 mg 75 mg, oral, Daily, First dose on 09/11/24 at 1507 Given 09/13/2024 9:34 AM EST 75 mg Given 09/12/2024 10:11 AM EST 75 mg Given 09/11/2024 4:30 PM EST 75 mg doxycycline (VIBRAMYCIN) 100 mg in sodium chloride 0.9 % 100 mL IVPB 100 mg, intravenous, at 100 mL/hr, Administer over 60 Minutes, Once, On 09/11/24 at 0830, For 1 dose, Indication: Pneumonia, Community Acquired New Bag 09/11/2024 8:10 AM EST 100 mg 100 mL/hr enoxaparin (LOVENOX) injection 40 mg 40 mg, subcutaneous, Every 24 hours scheduled, First dose on [place] 09/12/24 at 1530, Indication: VTE/PE Prophylaxis Given 09/13/2024 9:33 AM EST 40 mg Left Lower Abdomen Given 09/12/2024 3:42 PM EST 40 mg Le ft Upper Abdomen furosemide (LASIX) tablet 20 mg 20 mg, oral, Daily, First dose (after last modification) on 09/12/24 at 0900 Given 09/13/2024 9:33 AM EST 20 mg Given 09/12/2024 10:12 AM EST 20 mg gabapentin (NEURONTIN) capsule 600 mg 600 mg, oral, 2 times daily, First dose on 09/11/24 at 2100 Given 09/13/2024 9:34 AM EST 600 mg Given 09/12/2024 9:07 PM EST 600 mg Given 09/12/2024 10:11 AM EST 600 mg lactated Ringer's bolus 1,000 mL 1,000 mL, intravenous, at 1,000 mL/hr, Administer over 1 Hours, Once, On 09/11/24 at 0417, For 1 dose New Bag 09/11/2024 4:42 AM EST 1,000 mL 1000 mL/hr lactated Ringer's bolus 1,000 mL 1,000 mL, intravenous, at 1,000 mL/hr, Administer over 1 Hours, Once, On 09/11/24 at 0547, For 1 dose New Bag 09/11/2024 5:48 AM EST 1,000 mL 1000 mL/hr lactated Ringer's infusion 100 mL/hr, intravenous, Continuous, Starting on 09/11/24 at 0922, For 1 day New Bag 09/12/2024 7:51 AM EST 100 mL/hr 100 m L/hr Rate/Dose Verify 09/12/2024 3:11 AM EST 100 mL/hr 100 mL/ hr New Bag 09/12/2024 1:02 AM EST 100 mL/hr 100 mL/hr levoFLOXacin (LEVAQUIN) tablet 250 mg 250 mg, oral, Daily, First dose on Fri09/13/24 at 0900, For 4 doses, Dose is renally adjusted. 09/12/24 Administer 2 hours before or after multivitamins, antacids, or other products containinig polyvalent cations (i.e., calcium, iron, magnesium, selenium, zinc). IF RECEIVING ENTERAL NUTRITION: Hold tube feeds 2 hours before and 2 hours after administration., Indication: Pneumonia, Community Acquired Given 09/13/2024 9:34 AM EST 250 mg levoFLOXacin (LEVAQUIN) tablet 500 mg 500 mg, oral, Once, On 09/12/24 at 1030, For 1 dose, Dose is renally adjusted. 09/12/24 Administer 2 hours before or after multivitamins, antacids, or other products containinig polyvalent cations (i.e., calcium, iron, magnesium, selenium, zinc). IF RECEIVING ENTERAL NUTRITION: Hold tube feeds 2 hours before and 2 hours after administration., Indication: Pneumonia, Community Acquired Given 09/12/2024 12:13 PM EST 500 mg losartan (COZAAR) tablet 25 mg 25 mg, oral, Daily, First dose on 09/11/24 at 1507 Given 09/13/2024 9:34 AM EST 25 mg Given 09/12/2024 10:12 AM EST 25 mg Given 09/11/2024 4:30 PM EST 25 mg magnesium hydroxide (MILK OF MAGNESIA) 400 mg/5 mL suspension 30 mL 30 mL, oral, Daily PRN, constipation, Starting on 09/11/24 at 0916, 1st line for treatment of constipation - give scheduled if no bowel movement in past 24 hours naloxone (NARCAN) injection 0.04 mg 0.04 mg, intravenous, As needed, opioid reversal, IV Push every 1 min for 10 doses, Starting on 09/11/24 at 0916, For 10 doses, To Dilute: -Use 0.4 mg/mL vial , withdraw 1 mL and add 9 mL NS -FOLLOWING DILUTION, dose of 0.04 mg = 1 mL For PARTIAL Opioid Reversal: -For respiratory rate LESS than 10 or [place] Opioid-induced Sedation Scale (POSS) equal to 4 -May be repeated at 1 minute intervals to restore adequate respirations -Administer up to 10 doses (0.4 mg) ondansetron (PF) (ZOFRAN) injection 4 mg 4 mg, intravenous, Every 6 hours PRN, vomiting, nausea, Starting on 09/11/24 at 0916, -ONLY give IV if patient is unable to take orally. -If inadequate response within 30 minutes, proceed to next-line agent or contact provider if no further options ordered. oxyCODONE (ROXICODONE) immediate release tablet 5 mg 5 mg, oral, Every 4 hours PRN, moderate pain or when therapies for mild pain were not effective, Starting on 09/11/24 at 0916 pantoprazole (PROTONIX) EC tablet 40 mg 40 mg, oral, 2 times daily before meals, First dose on 09/11/24 at 1630, Do not crush, chew, or split. Given 09/12/2024 3:41 PM EST 40 mg Given 09/11/2024 4:30 PM EST 40 mg perflutren lipid microsphere (DEFINITY) 1.3 mL in sodium chloride 0.9% 8.7 mL injection 10 mL, intravenous, Administer over 10 Minutes, Once in imaging, Starting on 09/12/24 at 1040, For 1 dose Given 09/12/2024 10:40 AM EST 2 mL polyethylene glycol (MIRALAX) packet 17 g 17 g, oral, Daily, First dose on 09/11/24 at 0922, Bowel Regimen - for prevention of constipation QUEtiapine (SEROquel) tablet 100 mg 100 mg, oral, Nightly, First dose on 09/11/24 at 2100 Given 09/11/2024 8:46 PM EST 100 mg sodium chloride 0.9 % flush 10 mL 10 mL, intravenous, 2 times daily, First dose on 09/11/24 at 0922 Given 09/13/2024 9:32 AM EST 10 mL Given 09/12/2024 9:08 PM EST 10 mL Given 09/11/2024 8:46 PM EST 10 mL sodium chloride 0.9 % flush 10 mL 10 mL, intravenous, As needed, line care, Starting on 09/11/24 at 0916 tamsulosin (FLOMAX) 24 hr capsule 0.4 mg 0.4 mg, oral, Daily, First dose on 09/11/24 at 1507, For oral administration: capsules should be swallowed whole (Do not crush, chew, or open). For tube administration: open capsule and administer with water (granules should NOT be crushed). Given 09/13/2024 9:34 AM EST 0.4 mg Given 09/12/2024 10:12 AM EST 0.4 mg Given 09/11/2024 4:30 PM EST 0.4 mg vancomycin (VANCOCIN) IVPB 1,250 mg in 0.9 % sodium chloride 250 mL - CNR 1,250 mg (rounded from 1,156.5 mg = 15 mg/kg ? 77.1 kg), intravenous, at 166.7 mL/hr, Administer over 90 Minutes, Once, On 09/11/24 at 1700, For 1 dose, Indication: Pneumonia, Community Acquired New Bag 09/11/2024 7:02 PM EST 1,250 mg 166.7 mL/hr documented in this encounter Active and Recently Administered Medications Times are shown in EST. Scheduled Medication Order 09/11/2024 09/12/2024 09/13/2024 acetaminophen (TYLENOL) tablet 1,000 mg (COMPLETED) 1,000 mg, oral, Once, On 09/11/24 at 0133, For 1 dose 0202 (Given - Provider: Ashly Davila, THERESE) aspirin EC tablet 81 mg 81 mg, oral, Daily, First dose on 09/11/24 at 1507, Do not crush, chew, or split. 1630 (Given - Provider: Abimael Solomon RN - Comment: pt non compliant) 1008 (Given - Provider: Lashonda Sánchez RN) 0933 (Given - Provider: Fiorella Rai, THERESE) atorvastatin (LIPITOR) tablet 80 mg 80 mg, oral, Nightly, First dose on 09/11/24 at 2100 2044 (Given - Provider: Abimael Solomon RN) 2106 (Given - Provider: Afshan Christensen, THERESE) carvediloL (COREG) tablet 3.125 mg 3.125 mg, oral, 2 times daily, First dose on 09/11/24 at 2100 2045 (Given - Provider: Abimael Solomon RN) 1009 (Given - Provider: Lashonda Sánchze RN)210 (Given - Provider: Afshan Christensen RN) 0933 (Given - Provider: Fiorella Rai, THERESE) cefepime (MAXIPIME) 2 g in sterile water 20 mL IV syringe (CANCELED) 2 g, intravenous, at 240 mL/hr, Administer over 5 Minutes, Every 12 hours, First dose on 09/11/24 at 1600, For 7 days, Indication: Pneumonia, Nosocomial 1630 (Given - Provider: Abimael Solomon RN) 0747 (Given - Provider: Lashonda Sánchez RN) cefTRIAXone (ROCEPHIN) 1 g in sterile water 10 mL IV syringe (COMPLETED) 1 g, intravenous, at 200 mL/hr, Administer over 3 Minutes, Once, On 09/11/24 at 0800, For 1 dose, Do not administer simultaneously with any calcium containing solutions via a Y-site in any patient., Indication: Pneumonia, Community Acquired 0805 (Given - Provider: Alison Gonzalez RN) clopidogreL (PLAVIX) tablet 75 mg 75 mg, oral, Daily, First dose on 09/11/24 at 1507 1630 (Given - Provider: Abimael Solomon RN - Comment: pt non compliant) 101 (Given - Provider: Lashonda Sánchez RN) 0934 (Given - Provider: Fiorella Rai, RN) doxycycline (VIBRAMYCIN) 100 mg in sodium chloride 0.9 % 100 mL IVPB (COMPLETED) 100 mg, intravenous, at 100 mL/hr, Administer over 60 Minutes, Once, On 09/11/24 at 0830, For 1 dose, Indication: Pneumonia, Community Acquired 0810 (New Bag - Provider: Alison Gonzalez RN)0913 (Stopped - Provider: Alison Gonzalez RN) enoxaparin (LOVENOX) injection 40 mg 40 mg, subcutaneous, Every 24 hours scheduled, First dose on 09/12/24 at 1530, Indication: VTE/PE Prophylaxis 1542 (Given - Provider: Armin Hunt, THERESE) 0933 (Given - Provider: Fiorella Rai, RN) furosemide (LASIX) tablet 20 mg 20 mg, oral, Daily, First dose (after last modification) on 09/12/24 at 0900 1012 (Given - Provider: Lashonda Sánchez, THERESE) 0933 (Given - Provider: Fiorella Rai, THERESE) gabapentin (NEURONTIN) capsule 600 mg 600 mg, oral, 2 times daily, First dose on 09/11/24 at 2100 2045 (Given - Provider: Abimael Solomon RN) 1011 (Given - Provider: Lashonda Sánchez RN)210 (Given - Provider: Afshan Christensen RN) 0934 (Given - Provider: Fiorella Rai, THERESE) lactated Ringer's bolus 1,000 mL (COMPLETED) 1,000 mL, intravenous, at 1,000 mL/hr, Administer over 1 Hours, Once, On 09/11/24 at 0417, For 1 dose 0442 (New Bag - Provider: Ashly Davila RN)0534 (Stopped - Provider: Ashly Davila RN) lactated Ringer's bolus 1,000 mL (COMPLETED) 1,000 mL, intravenous, at 1,000 mL/hr, Administer over 1 Hours, Once, On 09/11/24 at 0547, For 1 dose 0548 (New Bag - Provider: Ashly Davila RN)0648 (Stopped - Provider: Ashly Davila RN) levoFLOXacin (LEVAQUIN) tablet 250 mg 250 mg, oral, Daily, First dose on Fri09/13/24 at 0900, For 4 doses, Dose is renally adjusted. 09/12/24 Administer 2 hours before or after multivitamins, antacids, or other products containinig polyvalent cations (i.e., calcium, iron, magnesium, selenium, zinc). IF RECEIVING ENTERAL NUTRITION: Hold tube feeds 2 hours before and 2 hours after administration., Indication: Pneumonia, Community Acquired 0934 (Given - Provider: Fiorella Rai RN) levoFLOXacin (LEVAQUIN) tablet 500 mg (COMPLETED) 500 mg, oral, Once, On Fri09/12/24 at 1030, For 1 dose, Dose is renally adjusted. 09/12/24 Administer 2 hours before or after multivitamins, antacids, or other products containinig polyvalent cations (i.e., calcium, iron, magnesium, selenium, zinc). IF RECEIVING ENTERAL NUTRITION: Hold tube feeds 2 hours before and 2 hours after administration., Indication: Pneumonia, Community Acquired 1213 (Given - Provider: Lashonda Sánchez RN) losartan (COZAAR) tablet 25 mg 25 mg, oral, Daily, First dose on 09/11/24 at 1507 1630 (Given - Provider: Abimael Solomon RN - Comment: pt non compliant) 1012 (Given - Provider: Lashonda Sánchez RN) 0934 (Given - Provider: Fiorella Rai RN) pantoprazole (PROTONIX) EC tablet 40 mg 40 mg, oral, 2 times daily before meals, First dose on 09/11/24 at 1630, Do not crush, chew, or split. 1630 (Given - Provider: Abimael Solomon, THERESE) 0758 (Not Given - Provider: Lashonda Sánchez RN - Reason: Patient/Resident/Ag ent refused - education provided )1541 (Given - Provider: Armin Hunt, RN) 0706 (Not Given - Provider: Afshan Christensen, THERESE - Reason: Patient/Resident/Agent refused - education provided )1630 (Canceled Entry - Provider: Automatic Discharge Provider - Comment: Automatically canceled at discontinue of medication order) perflutren lipid microsphere (DEFINITY) 1.3 mL in sodium chloride 0.9% 8.7 mL injection (COMPLETED) 10 mL, intravenous, Administer over 10 Minutes, Once in imaging, Starting on 09/12/24 at 1040, For 1 dose 1040 (Given - Provider: Jeanette Almanza) polyethylene glycol (MIRALAX) packet 17 g 17 g, oral, Daily, First dose on 09/11/24 at 0922, Bowel Regimen - for prevention of constipation 0940 (Not Given - Provider: Alison Gonzalez RN - Reason: Patient/Resident/Age nt refused - education provided ) 1013 (Hold - Provider: Lashonda Sánchez RN - Reason: Patient/Resident/Ag ent refused - education provided ) 0932 (Not Given - Provider: Fiorella Rai RN - Reason: Patient/Resident/Agent refused - education provided ) QUEtiapine (SEROquel) tablet 100 mg (CANCELED) 100 mg, oral, Nightly, First dose on 09/11/24 at 2100 2046 (Given - Provider: Abimael Solomon RN) sodium chloride 0.9 % flush 10 mL(Linked Group 1) 10 mL, intravenous, 2 times daily, First dose on 09/11/24 at 0922 0941 (Given - Provider: Alison Gnozalez RN)2046 (Given - Provider: Main Triplett RN) 0811 (Not Given - Provider: Lashonda Sánchez RN - Reason: Other - Comment: FLUIDS RUNNING)2108 (Given - Provider: Afshan Christensen, THERESE) 0932 (Given - Provider: Fiorella Rai, THERESE) tamsulosin (FLOMAX) 24 hr capsule 0.4 mg 0.4 mg, oral, Daily, First dose on 09/11/24 at 1507, For oral administration: capsules should be swallowed whole (Do not crush, chew, or open). For tube administration: open capsule and administer with water (granules should NOT be crushed). 1630 (Given - Provider: Abimael Solomon RN - Comment: pt non compliant) 1012 (Given - Provider: Lashonda Sánchez RN) 0934 (Given - Provider: Fiorella Rai RN) vancomycin (VANCOCIN) IVPB 1,250 mg in 0.9 % sodium chloride 250 mL - CNR (COMPLETED) 1,250 mg (rounded from 1,156.5 mg = 15 mg/kg ? 77.1 kg), intravenous, at 166.7 mL/hr, Administer over 90 Minutes, Once, On 09/11/24 at 1700, For 1 dose, Indication: Pneumonia, Community Acquired 190 (New Bag - Provider: Abimael Solomon RN - Comment: pharmacy just jeronimo down)212 (Stopped - Provider: Abimael Solomon RN) Continuous Medication Order 09/11/2024 09/12/2024 09/13/2024 lactated Ringer's infusion (CANCELED) 100 mL/hr, intravenous, Continuous, Starting on 09/11/24 at 0922, For 1 day 0939 (New Bag - Provider: Alison Gonzalez RN) 0102 (New Bag - Provider: Main Triplett RN)0311 (Rate/Dose Verify - Provider: Lashonda Sánchez RN)0751 (New Bag - Provider: Lashonda Sánchez RN)1214 (Stopped - Provider: Lashonda Sánchez RN) PRN Medication Order 09/11/2024 09/12/2024 09/13/2024 acetaminophen (TYLENOL) tablet 650 mg 650 mg, oral, Every 6 hours PRN, mild pain, fever - temperature GREATER than 38 C (100.4 F), Starting on 09/11/24 at 0916 2108 (Given - Provider: Myesha Christensen, THERESE) magnesium hydroxide (MILK OF MAGNESIA) 400 mg/5 mL suspension 30 mL 30 mL, oral, Daily PRN, constipation, Starting on 09/11/24 at 0916, 1st line for treatment of constipation - give scheduled if no bowel movement in past 24 hours naloxone (NARCAN) injection 0.04 mg 0.04 mg, intravenous, As needed, opioid reversal, IV Push every 1 min for 10 doses, Starting on 09/11/24 at 0916, For 10 doses, To Dilute: -Use 0.4 mg/mL vial , withdraw 1 mL and add 9 mL NS -FOLLOWING DILUTION, dose of 0.04 mg = 1 mL For PARTIAL Opioid Reversal: -For respiratory rate LESS than 10 or Pasero Opioid-induced Sedation Scale (POSS) equal to 4 -May be repeated at 1 minute intervals to restore adequate respirations -Administer up to 10 doses (0.4 mg) ondansetron (PF) (ZOFRAN) injection 4 mg 4 mg, intravenous, Every 6 hours PRN, vomiting, nausea, Starting on 09/11/24 at 0916, -ONLY give IV if patient is unable to take orally. -If inadequate response within 30 minutes, proceed to next-line agent or contact provider if no further options ordered. oxyCODONE (ROXICODONE) immediate release tablet 5 mg 5 mg, oral, Every 4 hours PRN, moderate pain or when therapies for mild pain were not effective, Starting on 09/11/24 at 0916 sodium chloride 0.9 % flush 10 mL(Linked Group 1) 10 mL, intravenous, As needed, line care, Starting on 09/11/24 at 0916 Linked Groups Order Group 1: Insert peripheral IV (COMPLETED) STAT, Once, On 09/11/24 at 0917, For 1 occurrence And Maintain IV access (CANCELED) Until discontinued, Starting on 09/11/24 at 0917, Until Specified And Saline lock IV (CANCELED) Routine, Once, On 09/11/24 at 0917, For 1 occurrence And sodium chloride 0.9 % flush 10 mLJump to med 10 mL, intravenous, 2 times daily, First dose on 09/11/24 at 0922 And sodium chloride 0.9 % flush 10 mLJump to med 10 mL, intravenous, As needed, line care, Starting on 09/11/24 at 0916 documented in this encounter Orders Medications Ordered That Zhang ht Not Have Been Administered Count Last Ordered Date First Ordered Date levoFLOXacin (LEVAQUIN) tablet 500 mg 1 09/2024 furosemide (LASIX) tablet 20 mg 1 magnesium hydroxide (MILK OF MAGNESIA) 400 mg/5 mL suspension 30 mL 1 09/11/2024 naloxone (NARCAN) injection 0.04 mg 1 09/11 ondansetron (PF) (ZOFRAN) injection 4 mg 1 09/11/2024 oxyCODONE (ROXICODONE) immed iate release tablet 5 mg 1 09/11/2024 polyethylene glycol (MIRALAX) packet 17 g 1 09/11/2024 sodium chloride 0.9 % flush 10 mL 1 025 vancomycin (VANCOCIN) 1,000 mg in sodium chloride 0.9 % 250 mL IVPB 1 09/11/2024 Lab Orders Without Results Count Last Ordered D ate First Ordered Date POCT GLUCOSE, BLOOD 4 09/13/2024 09/11/19 25 Consult Count Last Ordered Date First Orde red Date POST ACUTE HOME HEALTH CARE REQUEST 1 09/13 ART COORDINATOR Count Last Ordered Date First Orde red Date ART COORDINATOR SWALLOW EVAL AND TREAT 1 09/11/2024 IV Count Last Ordered Date First Orde red Date INSERT PERIPHERAL IV 1 09/11/2024 Admission Count Last Ordered Date First Orde red Date ADMIT TO INPATIENT 1 09/12/2024 INITIATE OBSERVATION STATUS 1 09/11/2024 Transfer Count Last Ordered Date First Orde red Date TRANSFER PATIENT TO NEW UNIT 1 09/12/2024 ED TO FLOOR BED REQUEST 1 09/11/2024 Discharge Count Last Ordered Date First Orde red Date DISCHARGE PATIENT 1 09/13/2024 documented in this encounter Additional Health Concerns Infection Onset Date Last Indicated Resolved Time Respiratory Rule-Out 09/11/2024 09/11/2024 025 2:55 AM EST COVID-19 Rule-Out 09/11/2024 09/11/2024 09/11/2024 2:55 AM EST documented as of this encounter Care Teams Customer Care Manager Relationship Specialty Start Date End Date Christiano Franco MD [address] [place] [id number] PCP - General Internal Medicine 07/12/15 09/14/24 documented as of this encounter
--- OUTSIDE RECORDS SUMMARY | 2024-09-21 12:42 | XMS_ITS | Encounter Summary ---
Author Organization [facility] Address [address] [place] [address] Care Team Providers Care Nuclear Medicine Pet Ct Technologist Name Role Phone Physician, No Pcp Primary Care Provider Unavaila ble Reason for Visit * Reason Onset Date Comments vna 09/07/2024 Encounter Details Date Type Department Care Team ([facility] st Contact Info) Description 09/07/2024 [facility] [address] [place] [phone] Christiano Franco MD [address] [place] [phone] vna Social History Tobacco Use Types Packs/Day Years [...] documented in this encounter Progress Notes * Vandana Lang LPN - 09/07/2024 1:39 PM EST Spoke to A nurse Nathalie she states multiple attempts to see pt but he refused services by not answering the door or telephone. * Isabell Rosenthal - 09/07/2024 11:37 AM EST VNA CALL Which A office is calling? [facility] Full name of caller: Nathalie The caller is A nurse Is the caller at the patients home?: no Reason for call: FYI pt refused services for homecare/nursing Does caller need an urgent call back? no Was CONTACT Telephone # obtained above?: yes Fax #: n/a documented in this encounter Plan of Treatment Not on file documented as of this encounter Visit Diagnoses Not on filedocumented in this encounter Additional Health Concerns Infection Onset Date Last Indicated Resolved Time Respiratory Rule-Out 09/11/2024 09/11/2024 025 2:55 AM EST COVID-19 Rule-Out 09/11/2024 09/11/2024 09/11/2024 2:55 AM EST documented as of this encounter Care Teams Nuclear Medicine Pet Ct Technologist Relationship Specialty Start Date End Date Physician, No Pcp PCP - General 09/15/24 documented as of this encounter
== END 2024-09-21 12:33 | disposition home or self-care (01) ==
PROVIDERS: PCP Nurse Practitioner Family; Visit Provider Nurse Practitioner Family
DX: I13.10 Hypertensive heart and chronic kidney disease without heart failure, with stage 1 through stage 4 chronic kidney disease, or unspecified chronic kidney disease (principal); I50.9 Heart failure, unspecified; N18.31 Chronic kidney disease, stage 3a; I25.119 Atherosclerotic heart disease of native coronary artery with unspecified angina pectoris; I73.9 Peripheral vascular disease, unspecified; Z09 Encounter for follow-up examination after completed treatment for conditions other than malignant neoplasm; Z66 Do not resuscitate; R54 Age-related physical debility; I25.2 Old myocardial infarction; Z51.5 Encounter for palliative care; R45.1 Restlessness and agitation; J18.9 Pneumonia, unspecified organism

== ENCOUNTER → 2024-09-21 11:09 | Outpatient (BNVA) | payer MEDICARE, MEDICAID, SELFPAY | PROVIDERS: PCP Nurse Practitioner Family; Visit Provider Nurse Practitioner Family | DX: Z09 Encounter for follow-up examination after completed treatment for conditions other than malignant neoplasm (principal); I13.0 Hypertensive heart and chronic kidney disease with heart failure and stage 1 through stage 4 chronic kidney disease, or unspecified chronic kidney disease; N18.31 Chronic kidney disease, stage 3a; I50.9 Heart failure, unspecified; I25.119 Atherosclerotic heart disease of native coronary artery with unspecified angina pectoris; R54 Age-related physical debility; I25.2 Old myocardial infarction; I73.9 Peripheral vascular disease, unspecified; R45.1 Restlessness and agitation; J18.9 Pneumonia, unspecified organism; Z66 Do not resuscitate | CPT/HCPCS: 96127; 99495 ==

== ENCOUNTER → 2024-10-08 23:59 | Outpatient (BNV) | payer MEDICARE, MEDICAID, SELFPAY | PROVIDERS: PCP Nurse Practitioner Family; Visit Provider Nurse Practitioner Family | DX: A41.9 Sepsis, unspecified organism (principal); I25.10 Atherosclerotic heart disease of native coronary artery without angina pectoris; N18.30 Chronic kidney disease, stage 3 unspecified | CPT/HCPCS: G0180 ==

== ENCOUNTER 2025-01-05 10:16 | Outpatient (AMB) | payer MEDICARE, MEDICAID, SELFPAY ==
--- NOTE | 2025-01-05 10:21 | MHC.PC.OV ---
Vital Signs 01/05/25 10:32 Height 5 ft 6 in BMI Reason not done Patient refused/unable BP 138/80 Blood Pressure Location Lt brachial Position Sitting Respiration 13 Pulse 58 Pulse Source Pulse Oximeter Temp 97.2 F Temp Source Oral Pulse Oximetry (%) 97 Oxygen Delivery Method Room Air Intake Visit Reasons: 6 mo 30 min f/u palliative care Intake Note: 6 Months follow up palliative care. Patient needs a letter for more insolvency practitioner hours explaining his diagnosis and reason why he cant be alone. Patient stop taking tramadol but kept falling and patient is wondering if he can get something else for the pain and discomfort. Patient also needs refill on med. Bag Builder Required: No Allergies Penicillins Allergy (Severe, Verified 01/05/25 10:47) Hives lisinopril Adverse Reaction (Verified 01/05/25 10:47) cough Medication List - Last Reconciled 01/05/25 by GLEN MccartyP- acetaminophen 1,000 mg (2 x 500 mg) PO TID PRN 30 days acetazolamide 125 mg PO BID 90 days ammonium lactate 12% 1 appl topical BID 30 days aspirin 81 mg PO DAILY atorvastatin 80 mg PO BEDTIME brimonidine 0.2% 1 drp ophthalmic (eye) BID carvedilol 3.125 mg PO BID 90 days ergocalciferol (vitamin D2) 1,250 mcg PO QWEEK 90 days furosemide 20 mg PO DAILY 90 days gabapentin 600 mg PO TID 90 days latanoprost 0.005% 1 drp ophthalmic (eye) QPM lorazepam 0.5 mg PO TID PRN 28 days losartan 25 mg PO DAILY 90 days miscellaneous medical supply standard wheelchair miscellaneous medical supply Shower chair with back support miscellaneous medical supply wheel walker with seat morphine ER 10 mg PO Q12H nitroglycerin 0.3 mg sublingual Q5M PRN 30 days omeprazole 20 mg PO BID 90 days quetiapine (Seroquel) 100 mg PO BEDTIME tamsulosin 0.4 mg PO DAILY 90 days Tobacco use date assessed: 01/05/25 Fall risk assessment: No Falls in past year Last assessed Fall Risk: 01/05/25 Dental Screening Dental Screen Date: 01/05/25 Did you have a dental visit in the last 12 months?: Yes Did you have a dental problem in the last 6 months where you did not have access to dental care?: No Was dental information given to patient?: Patient has dentist HPI HPI Comments History of Present Illness Details 84-year-old male with chronic small-vessel ischemic disease, 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 - Managed for coronary artery disease post-NSTEMI, currently on aspirin and atorvastatin. - Congestive heart failure treated with carvedilol, furosemide, and losartan. - Chronic GERD on omeprazole. - BPH managed with tamsulosin. - Peripheral neuropathy treated with gabapentin. - Glaucoma managed with eye drops. - Chronic pain previously managed with acetaminophen and tramadol, with tramadol discontinued due to falls. - History of pneumonia with recent hospitalization, no current hospitalizations. - Appetite is maintained; occasional chest pain reported. - Has [facility] services in home; a few hours per week. Needs more help in home. - cont to wish for comfort care. Review of Systems - Cardiovascular: Reports occasional chest pain. - Respiratory: Reports past difficulty breathing, no current issues. - Gastrointestinal: Denies current issues, GERD managed with omeprazole. - Genitourinary: Denies current issues, BPH managed. - Neurological: Reports neuropathy; denies acute neurological symptoms. - Musculoskeletal: Reports chronic pain, history of falls. - General: Reports maintained appetite. Exam Frail, chronically ill appearing, accompanied by Niece who helps w/ language barriers MMM RRR LS CTAB , dim throughout BLE no edema, decreased PP bilat, skin hairless with with slight scaling. Sitting in w/c with cane Alert oriented, has capacity to make his own decisions Discussion Notes I discussed with the patient the current challenges in obtaining morphine due to insurance and hospice status. We explored alternative analgesics, including the possibility of oxycodone extended-release, and I explained the need for pain management to avoid hospitalizations and maintain comfort at home. I advised a refill on current medications and discussed home care support. The patient is requesting telemedicine for future appointments given amount of pain in his legs. We will await a reevaluation by a certified court/medical interpreter to facilitate in-home services. Assessment and Plan 1. Coronary Artery Disease - Continue aspirin and atorvastatin. 2. Congestive Heart Failure - Continue current medications. - Monitor blood pressure. 3. Gastroesophageal Reflux Disease (GERD) - Continue omeprazole. 4. Benign Prostatic Hyperplasia (BPH) - Continue tamsulosin. 5. Peripheral Neuropathy - Continue gabapentin. 6. Chronic Pain - Attempt oxycodone ER. - Discontinue tramadol. 7. Glaucoma - Continue eye drops. 8. Palliative Care - Consider in-home services. - Discuss telemedicine visits. - Rogers Christensen referral for help Patient Instructions - Continue taking all prescribed medications as directed. - Monitor blood pressure at home regularly. - Contact your pharmacy to confirm medication refills. - Schedule a follow-up appointment in six months, potentially via phone. - Seek medical attention for any new or worsening symptoms. Consent Patient was informed and verbally consented to the use of an ambient scribe for clinic note documentation during this visit. Total time spent caring for the patient today was 45 minutes. This includes time spent before the visit reviewing the chart, time spent during the visit, and time spent after the visit on documentation, reviewing laboratory results, diagnostic imaging, medications, performing a medically necessary evaluation, counseling on diagnoses, care coordination, ordering appropriate tests, ordering appropriate medications, review of tests performed by other providers, reporting test results with the patient, communication with other healthcare providers. [facility] Medical History (Updated 01/05/25 @ 11:13 by GLEN MccartyFORMERLY [facility]) Cardiac pacemaker History of multiple strokes Hypertension NSTEMI (non-ST elevated myocardial infarction) Pacemaker Surgical History History of heart artery stent Social History (Updated 09/21/24 @ 11:42 by Cammy Beltran CMA) Household Members: None Housing: House Alcohol intake: never Patient Tobacco Use Status: Former Tobacco user Cigarette Packs Per Day: 2 Years Smoked: 43 e-Cigarette/Vaping Use: Never Used Second Hand Smoke Exposure: Yes service: No Current occupational status: disabled Sexual orientation: Straight/Heterosexual Gender identity: Male Cognitive needs: Yes (walker, wheel chair, cane) Hearing needs: No Vision needs: Yes (Glasses) Questionnaire PHQ-9 Over the last 2 weeks, how often have you been bothered by any of the following problems? 1. Little interest or pleasure in doing things: not at all 2. Feeling down, depressed, or hopeless: not at all 3. Trouble falling or staying asleep, or sleeping too much: not at all 4. Feeling tired or having little energy: not at all 5. Poor appetite or overeating: not at all 6. Feeling bad about yourself - or that you are a failure or have let yourself or your family down: not at all 7. Trouble concentrating on things, such as reading the newspaper or watching television: not at all 8. Moving or speaking so slowly that other people could have noticed. Or the opposite - being so fidgety or restless that you have been moving around a lot more than usual: not at all 9. Thoughts that you would be better off or of hurting yourself in some way: not at all Total score: 0 Depression Screening Interpretation: Negative Depression Screening Done: Yes 65118 - PHQ-9 Billing: Yes Source: Developed by Drs. Micah Rooney, Blanka Nnues, Yasmany Amezquita and colleagues, with an educational naila from [employer]. Thrive Questionnaire Date Thrive assessed: 01/05/25 I am a: Patient What is your living situation today?: I have a steady place to live Within the past 12 months, did the food you bought not last and you didn't have the money to get more?: I choose not to answer this question Within the past 12 months, did you worry whether your food would run out before you got money to buy more?: I choose not to answer this question Do you have trouble paying for medicines?: No Do you have trouble getting transportation to medical appointments?: No Do you have trouble paying your heating and electricity bill?: No Do you have trouble taking care of your child, family member or friend?: No Do you have trouble with day-to-day activities such as bathing, preparing meals, shopping, managing finances, etc.?: No Are you currently unemployed and looking for a job?: No Are you interested in more education?: No Please select the resources that you would like help with: None Currently or been in a relationship where the following occur: No concerns reported THRIVE Score: 0 AUDIT C Alcohol Use Questionnaire (AUDIT-C) 1. How often do you have a drink containing alcohol?: Never 3. How often do you have six or more drinks on one occasion?: Never Total Score: 0 Score Reviewed/Action Taken: Yes DEMETRA-7 AMB Questionnaire DEMETRA-7 Date DEMETRA - 7 assessed: 01/05/25 Feeling nervous, anxious, or on edge: 0 = Not at all Not being able to stop or control worryin = Not at all Worrying too much about different things: 0 = Not at all Trouble relaxin = Not at all Being so restless that it is hard to sit still: 0 = Not at all Becoming easily annoyed or irritable: 0 = Not at all Feeling afraid as if something awful might happen: 0 = Not at all Total DEMETRA-7 score (0-4 normal; 5-9 mild; 10-14 moderate; 15-21 severe): 0 Source: Developed by Drs. Micah Rooney, Blanka Nunes, Yasmany Amezquita and colleagues, with an educational naila from [employer]. DEMETRA-7 Assessment Billing DEMETRA-7 Assessment Tool: DEMETRA-7 Assessment 37333 Physical exam (Primary Care) Vital Signs: Last Vital Signs Temp 97.2 F 01/05/25 10:32 Pulse 58 01/05/25 10:32 Resp 13 01/05/25 10:32 BP 138/80 01/05/25 10:32 Pulse Ox 97 01/05/25 10:32 Oxygen Delivery Method Room Air 01/05/25 10:32 Tobacco/Smoking Status: Tobacco use Status Tobacco use date assessed 01/05/25 01/05/25 10:29 Patient Tobacco Use Status Former Tobacco user 01/05/25 10:29 e-Cigarette/Vaping Use Never Used 01/05/25 10:29 PHQ-9: PHQ-9 Score PHQ-9: Total score 0 01/05/25 10:29 Depression Screening Interpretation: Negative Thrive Assessment: Date of Thrive Assessment Date Thrive assessed 01/05/25 01/05/25 10:29 Currently or been in a relationship where the following occur: No concerns reported Coding Level of Care Code Est Pt Level 5 (38126) Diagnoses Palliative care encounter Z51.5 BPH loc w/o ur obs/LUTS N40.0 DNR (do not resuscitate) Z66 Cardiac pacemaker Z95.0 Chronic congestive heart failure, unspecified heart failure type I50.9 Heart failure type: unspecified Heart failure chronicity: chronic Chronic GERD K21.9 Chronic pain syndrome G89.4 Chronic pain type: chronic pain syndrome Stage 3a chronic kidney disease N18.31 Chronic kidney disease stage 3 subtype: stage 3a (GFR 45-59) Coronary artery disease involving [place] coronary artery of [place] heart with angina pectoris I25.119 Coronary Disease-Associated Artery/Lesion type: [place] artery [place] vs. 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 Laterality: left Glaucoma stage: severe stage History of multiple strokes Z86.73 Primary hypertension I10 Hypertension type: primary hypertension Old non-ST elevation myocardial infarction (NSTEMI) I25.2 Physical deconditioning R53.81 PVD (peripheral vascular disease) I73.9 Additional Codes DEMETRA-7 Assessment Billing - DEMETRA-7 Assessment Tool: DEMETRA-7 Assessment 13090 ([id number]) PHQ-9 - 65421 - PHQ-9 Billing: Yes ([id number]) Assessment & Plan Assessment & Plan (1) Palliative care encounter: Code(s): Z51.5 - Encounter for palliative care Category: Medical (2) BPH loc w/o ur obs/LUTS: Code(s): N40.0 - Benign prostatic hyperplasia without lower urinary tract symptoms Category: Medical (3) DNR (do not resuscitate): Code(s): Z66 - Do not resuscitate Category: Medical (4) Cardiac pacemaker: Code(s): Z95.0 - Presence of cardiac pacemaker Category: Medical (5) CHF (congestive heart failure): Comment: continue f/up cardiology Code(s): I50.9 - Heart failure, unspecified Category: Medical Qualifiers: Heart failure type: unspecified Heart failure chronicity: chronic Qualified Code(s): I50.9 - Heart failure, unspecified (6) Chronic GERD: Code(s): K21.9 - Gastro-esophageal reflux disease without esophagitis Category: Medical (7) Chronic pain: Code(s): G89.29 - Other chronic pain Category: Medical Qualifiers: Chronic pain type: chronic pain syndrome Qualified Code(s): G89.4 - Chronic pain syndrome (8) CKD (chronic kidney disease) stage 3, GFR 30-59 ml/min: Comment: CrCL 50.93 08/11/2023 Cr 1.0 08/11/2023 Managed by [facility] at [facility] Dr Oliverio QUINTERO [id number] BUN 14 creatinine 1.39 GFR 49 Code(s): N18.30 - Chronic kidney disease, stage 3 unspecified Category: Medical Qualifiers: Chronic kidney disease stage 3 subtype: stage 3a (GFR 45-59) Qualified Code(s): N18.31 - Chronic kidney disease, stage 3a (9) Coronary artery disease with angina pectoris: Code(s): I25.119 - Atherosclerotic heart disease of [place] coronary artery with unspecified angina pectoris Category: Medical Qualifiers: Coronary Disease-Associated Artery/Lesion type: [place] artery [place] vs. transplanted heart: [place] heart Qualified Code(s): I25.119 - Atherosclerotic heart disease of [place] coronary artery with unspecified angina pectoris (10) Frailty syndrome in geriatric patient: Code(s): R54 - Age-related physical debility Category: Medical (11) Generalized arthritis: Comment: Start him on Tylenol 2 g twice per day scheduled. He can have an additional 1 g per day as needed for breakthrough pain. 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 Continue follow up with Ophthalmology as well as eyedrops prescribed as well as Acetazolamide. Code(s): H40.50X0 - Glaucoma secondary to other eye disorders, unspecified eye, stage unspecified Category: Medical Qualifiers: Laterality: left Glaucoma stage: severe stage Qualified Code(s): H40.52X3 - Glaucoma secondary to other eye disorders, left eye, severe stage (13) History of multiple strokes: Code(s): Z86.73 - Personal history of transient ischemic attack (TIA), and cerebral infarction without residual deficits Category: Medical (14) Hypertension: Code(s): I10 - Essential (primary) hypertension Category: Medical Qualifiers: Hypertension type: primary hypertension Qualified Code(s): I10 - Essential (primary) hypertension (15) Old non-ST elevation myocardial infarction (NSTEMI): Comment: NSTEMI w/ AIME x 3 08/2023 ASA indef. Brilinta for 1 year (stop 08/12/2024) NSTEMI 2012 w/ AIME Code(s): I25.2 - Old myocardial infarction Category: Medical (16) Physical deconditioning: Comment: They would like to revisit hospice care Code(s): R53.81 - Other malaise Category: Medical (17) PVD (peripheral vascular disease): Comment: statin, ASA Code(s): I73.9 - Peripheral vascular disease, unspecified Category: Medical Plan . Orders: Referrals [facility]Hospice Referral I25.119 - Atherosclerotic heart disease of [place] coronary artery with unspecified angina pectoris, I50.9 - Heart failure, unspecified, R53.81 - Other malaise, Z51.5 - Encounter for palliative care, Z86.73 - Personal history of transient ischemic attack (TIA), and cerebral infarction without residual deficits Medications: New oxycodone ER Partial Fill upon patient request. 10 mg PO BID 60 tabs 0RF Refilled aspirin 81 mg PO DAILY 90 tabs 3RF gabapentin 600 mg PO TID 90 days 270 tabs 2RF M54.41 - Lumbago with sciatica, right side losartan 25 mg PO DAILY 90 days 90 tabs 3RF quetiapine (Seroquel) 100 mg PO BEDTIME 90 tabs 2RF R45.1 - Restlessness and agitation atorvastatin 80 mg PO BEDTIME 90 tabs 10RF carvedilol 3.125 mg PO BID 90 days 180 tabs 2RF furosemide 20 mg PO DAILY 90 days 90 tabs 2RF omeprazole 20 mg PO BID 90 days 180 caps 3RF tamsulosin 0.4 mg PO DAILY 90 days 90 caps 2RF acetaminophen AVAILABLE OTC. DO NOT EXCEED 3GM OR 6 TABS IN 24 HOURS. 1,000 mg (2 x 500 mg) PO TID 30 days PRN 180 caps 2RF fever or pain Discontinued ergocalciferol (vitamin D2) Discontinued Reason: Doctor's Order 1,250 mcg PO QWEEK 90 days 13 caps 2RF morphine ER PALLIATIVE CARE PATIENT Discontinued Reason: Insurance Denied 10 mg PO Q12H 28 caps 0RF
[2025-01-05 10:32] VITALS: BP 138/80; PULSE 58; RESP 13; TEMP 36.2; O2SAT 97
--- OUTSIDE RECORDS SUMMARY | 2025-01-05 11:14 | XMS_ITS | Clinical Summary ---
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 Atherosclerotic calcification of theaorta. Cardiomediastinal contours are within normal limits. Pleuralspaces appear clear. Degenerative changes of the spine. IMPRESSION: Hypoventilatory exam with no acute findings. -------- FINAL REPORT -------- Dictated By: Blu Izquierdo Dictated Date: 11/09/2024 10:13 ET Assigned Physician: Blu Izquierdo Reviewed and Electronically Signed By: Blu Izquierdo Signed Date: 11/09/2024 10:13 ET Workstation ID: [id number] Transcribed By: Self Edit Transcribed Date: 11/09/2024 10:13 ET Rogelio Garcia DO IMG XR PROCEDURES Final Res ult * (ABNORMAL) Manual differential (11/09/2024 9:40 AM EDT) Neutrophils % 70.0 % LAB HEMETOLOGY METHOD 11/09/2024 10:29 AM EDT [facility] Bands % 6.0 % LAB HEMETOLOGY METHOD 11/09/2024 10:29 AM EDT [facility] Lymphocytes % 8.0 % LAB HEMETOLOGY METHOD 11/09/2024 10:29 AM EDT [facility] Monocytes % 13.0 % LAB [facility]EMETOLOG[facility] Eosin[facility] % 3.0 % LAB HEMETOLOGY METHOD 11/09/2024 10:29 AM [facility] Basophils % 1.0 % LAB HEMETOLOGY METHOD 11/09/2024 10:29 AM [facility] Neutrophils Absolute Manual 11.97(H) 1.50 - 7.00 K/mcL LAB HEMETOLOGY METHOD 11/09/2024 10:29 AM [facility] Bands Absolute Manual 1.03(H) 0.00 - 0.00 K/mcL LAB HEMETOLOGY METHOD 11/09/2024 10:29 AM [facility] Lymphocytes Absolute 1.37 1.00 - 5.00 K/mcL LAB HEMETOLOGY METHOD 11/09/2024 10:29 AM [facility] Monocytes Absolute Manual 2.22(H) 0.20 - 1.00 K/mcL LAB HEMETOLOGY METHOD 11/09/2024 10:29 AM [facility] Eosinophils Absolute Manual 0.51(H) 0.00 - 0.50 K/mcL LAB HEMETOLOGY METHOD 11/09/2024 10:29 AM [facility] Basophils Absolute Manual 0.17 0.00 - 0.20 K/mcL LAB HEMETOLOGY METHOD 11/09/2024 10:29 AM [facility] Rbc Morphology See comment( A) Consistent with indices, Normal for LAB HEMETOLOGY METHOD 11/09/2024 10:29 AM [facility] Comment:RBC: Morphology agre es with CBC Platelet Morphology - WAM See Note(A) Normal LAB HEMETOLOGY METHOD 11/09/2024 10:29 AM [facility] Comment:PLT: Normal Blood Venous blood specimen / Unknown Venipuncture / Unknown 11/09/2024 9:40 AM EDT 11/09/2024 9:49 AM EDT Rogelio Garcia DO LAB BLOOD ORDERABLES Final Result [facility] [address] [place] [address], * (ABNORMAL) CBC auto differential (11/09/2024 9:40 AM EDT) [facility] WBC 17.1(H) 4.8 - 10.8 K/mcL LAB HEMETOLOGY METHOD 11/09/2024 10:29 AM [facility] RBC 3.50(L) 4.50 - 5.50 M/mcL LAB HEMETOLOGY METHOD 11/09/2024 10:29 AM [facility] Hemoglobin 10.6(L) 13.5 - 17.5 g/dL LAB HEMETOLOGY METHOD 11/09/2024 10:29 AM [facility] Hematocrit 33.0(L) 42.0 - 54.0 % LAB HEMETOLOGY METHOD 11/09/2024 10:29 AM [facility] MCV 95.1 79.0 - 98.0 FL LAB HEMETOLOGY METHOD 11/09/2024 10:29 AM [facility] MCH 30.5 27.0 - 32.0 pcg LAB HEMETOLOGY METHOD 11/09/2024 10:29 AM [facility] MCHC 32.1 32.0 - 37.0 g/dL LAB HEMETOLOGY METHOD 11/09/2024 10:29 AM [facility] RDW 19.1(H) 11.0 - 15.0 % LAB HEMETOLOGY METHOD 11/09/2024 10:29 AM [facility] Platelets 194 130 - 400 K/mcL LAB HEMETOLOGY METHOD 11/09/2024 10:29 AM EDT [facility] MPV 10.8 7.0 - 11.0 FL LAB HEMETOLOGY METHOD 11/09/2024 10:29 AM EDT [facility] NRBC 0.0 <1.0 % LAB HEMETOLOGY METHOD 11/09/2024 10:29 AM EDT [facility] NRBC Absolute 0.00 <0.10 K/[facility] LAB HEMETOLOGY METHOD 11/09/2024 10:29 AM EDT [facility] Blood Venous blood specimen / Unknown Venipuncture / Unknown 11/09/2024 9:40 AM EDT 11/09/2024 9:49 AM EDT Rogelio Garcia DO LAB BLOOD ORDERABLES Final Result Performing Organization Address City/[facility]/ZIP Co de Phone Number [facility] [address] [place] [address], [place] [phone] * (ABNORMAL) Sedimentation rate (11/09/2024 9:40 AM EDT) Pathologist [facility] Sed Rate 27(H) 0 - 20 mm/hr LAB HEMETOLOGY METHOD 11/09/2024 1:35 PM EDT [facility] Blood Venous blood specimen / Unknown Venipuncture / Unknown 11/09/2024 9:40 AM EDT 11/09/2024 9:49 AM EDT us Ed Johns MD LAB BLOOD ORDERABLES Final Res ult [facility] [address] [place] [address], [place] [phone] * Uric acid (11/09/2024 9:40 AM EDT) Uric Acid 9.1 3.7 - 9.2 mg/dL LAB CHEMISTRY METHOD 11/09/2024 1:06 PM EDT [facility] Blood Venous blood specimen / Unknown Venipuncture / Unknown 11/09/2024 9:40 AM EDT 11/09/2024 9:48 AM EDT Ed Johns MD LAB BLOOD ORDERABLES Final Res ult Performing Organization Address City/[facility]/ZIP Co de Phone Number [facility] [address] [place] [address], [place] [phone] * Magnesium (11/09/2024 9:40 AM EDT) Magnesium 2.2 1.9 - 2.6 mg/dL LAB CHEMISTRY METHOD 11/09/2024 10:21 AM EDT [facility] Blood Venous blood specimen / Unknown Venipuncture / Unknown 11/09/2024 9:40 AM EDT 11/09/2024 9:48 AM EDT us Rogelio Garcia DO LAB BLOOD ORDERABLES Final Result Performing Organization Address [facility]/ZIP Co de Phone Number [facility] [address] [place] [address], [place] [phone] * (ABNORMAL) Lactate (11/09/2024 9:40 AM EDT) Lactate 2.2(H) 0.4 - 2.0 mmol/L LAB CHEMISTRY METHOD 11/09/2024 10:30 AM EDT [facility] Blood Venous blood specimen / Unknown Venipuncture / Unknown 11/09/2024 9:40 AM EDT 11/09/2024 9:48 AM EDT us Rogelio Garcia DO LAB BLOOD ORDERABLES Final Result [facility] [address] [place] [address], [place] [phone] * (ABNORMAL) Urinalysis with reflex microscopic and culture (11/09/2024 8:34 AM EDT) Specific [place] Urine 1.008 1.003 - 1.030 LAB URINALYSIS - AUTOMATED METHOD 11/09/2024 9:29 AM [facility] pH, Urine 7.0 5.0 - 8.0 pH LAB URINALYSIS - AUTOMATED METHOD 11/09/2024 9:29 AM [facility] Leukocytes, Urine Trace(A) Negative LAB URINALYSIS - AUTOMATED METHOD 11/09/2024 9:29 AM [facility] Nitrite, Urine Negative Negative LAB URINALYSIS - AUTOMATED METHOD 11/09/2024 9:29 AM [facility] Protein, Urine Negative <=Trace mg/dL LAB URINALYSIS - AUTOMATED METHOD 11/09/2024 9:29 AM [facility] Glucose, Urine Negative Negative mg/dL LAB URINALYSIS - AUTOMATED METHOD 11/09/2024 9:29 AM [facility] Ketones, Urine Negative Negative mg/dL LAB URINALYSIS - AUTOMATED METHOD 11/09/2024 9:29 AM [facility] Urobilinogen, Urine 0.2 0.2 - 1.0 mg/dL LAB URINALYSIS - AUTOMATED METHOD 11/09/2024 9:29 AM [facility] Bilirubin, Urine Negative Negative LAB URINALYSIS - AUTOMATED METHOD 11/09/2024 9:29 AM [facility] Blood, Urine Small(A) Negative LAB URINALYSIS - AUTOMATED METHOD 11/09/2024 9:29 AM [facility] RBC, Urine 9.9(H) 0 - 4 /HPF LAB URINALYSIS - AUTOMATED METHOD 11/09/2024 9:29 AM [facility] WBC, Urine 2.8 0 - 4 /HPF LAB URINALYSIS - AUTOMATED METHOD 11/09/2024 9:29 AM EDT [facility] Squamous Epithelial, Urine 12 0 - 60 /LPF LAB URINALYSIS - AUTOMATED METHOD 11/09/2024 9:29 AM EDT [facility] Bacteria, Urine Negative Negative /HPF LAB URINALYSIS - AUTOMATED METHOD 11/09/2024 9:29 AM EDT [facility] Hyaline Casts, Urine 0.4 0 - 3 /LPF LAB URINALYSIS - AUTOMATED METHOD 11/09/2024 9:29 AM EDT [facility] Urine Urine specimen obtained by clean catch procedure / Unknown Non-blood Collection / Unknown 11/09/2024 8:34 AM EDT 11/09/2024 8:49 AM EDT Rogelio Garcia DO LAB URINE ORDERABLES Final Result [facility] [address] [place] [address], [place] [phone] * Ziegler urine culture tube (11/09/2024 8:34 AM EDT) Extra Tube Hold for add-ons. 11/09/2024 10:02 AM EDT [facility] Comment:Auto resulted. Urine Urine specimen obtained by clean catch procedure / Unknown Non-blood Collection / Unknown 11/09/2024 8:34 AM EDT 11/09/2024 8:49 AM EDT us Rogelio Garcia DO LAB URINE ORDERABLES Final Result Performing Organization Address City/[facility]/ZIP Co de Phone Number [facility] [address] [place] [address], [place] [phone] * Culture urine (11/09/2024 8:34 AM EDT) Culture, Urine No growth 11/10/2024 10:48 AM EDT [facility] Urine Urine specimen obtained by clean catch procedure / Unknown Non-blood Collection / Unknown 11/09/2024 8:34 AM EDT 11/09/2024 9:29 AM EDT us Rogelio Garcia DO LAB MICROBIOLOGY - GENERAL ORDERABLES Final Result [facility] [address] [place] [address], [place] [phone] from Last 3 Months Insurance MEDICAID - [place] MEDICARE Advance Directives Documents on File Type Date 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 Do not modify or discontinue any currently active code status orders. * No CPR/Do Not Intubate Date Activated Date Inactivated Comments 09/11/2024 3:06 PM 09/13/2024 6:42 PM This code stat us was ascertained in the following way: Code status discussion: discussion with healthcare medical collections representative To update the patient's code status, [...] currently active code status orders. Care Teams Ring Barker Operator Relationship Specialty Start Date End Date Physician, No Pcp PCP - General 09/15/24
== END 2025-01-05 14:39 | disposition home or self-care (01) ==
LOC: HO.HMCFM 10:16
PROVIDERS: PCP Nurse Practitioner Family; Visit Provider Nurse Practitioner Family
DX: I13.0 Hypertensive heart and chronic kidney disease with heart failure and stage 1 through stage 4 chronic kidney disease, or unspecified chronic kidney disease (principal); I50.9 Heart failure, unspecified; N18.31 Chronic kidney disease, stage 3a; Z51.5 Encounter for palliative care; N40.0 Benign prostatic hyperplasia without lower urinary tract symptoms; Z66 Do not resuscitate; Z95.0 Presence of cardiac pacemaker; K21.9 Gastro-esophageal reflux disease without esophagitis; G89.4 Chronic pain syndrome; I25.119 Atherosclerotic heart disease of native coronary artery with unspecified angina pectoris; R54 Age-related physical debility

== ENCOUNTER → 2025-01-05 10:16 | Outpatient (BNVA) | payer MEDICARE, MEDICAID, SELFPAY | PROVIDERS: PCP Nurse Practitioner Family; Visit Provider Nurse Practitioner Family | DX: N40.0 Benign prostatic hyperplasia without lower urinary tract symptoms (principal); I13.0 Hypertensive heart and chronic kidney disease with heart failure and stage 1 through stage 4 chronic kidney disease, or unspecified chronic kidney disease; N18.31 Chronic kidney disease, stage 3a; I50.9 Heart failure, unspecified; K21.9 Gastro-esophageal reflux disease without esophagitis; G89.4 Chronic pain syndrome; I25.119 Atherosclerotic heart disease of native coronary artery with unspecified angina pectoris; H40.52X3 Glaucoma secondary to other eye disorders, left eye, severe stage; I25.2 Old myocardial infarction; R53.81 Other malaise; I73.9 Peripheral vascular disease, unspecified; Z95.0 Presence of cardiac pacemaker; Z86.73 Personal history of transient ischemic attack (TIA), and cerebral infarction without residual deficits; Z66 Do not resuscitate; Z51.5 Encounter for palliative care | CPT/HCPCS: 96127; 99212 ==

== ENCOUNTER → 2025-02-25 23:59 | Outpatient (BNV) | payer MEDICARE, MEDICAID, SELFPAY | PROVIDERS: PCP Nurse Practitioner Family; Visit Provider Nurse Practitioner Family | DX: I69.354 Hemiplegia and hemiparesis following cerebral infarction affecting left non-dominant side (principal); I13.0 Hypertensive heart and chronic kidney disease with heart failure and stage 1 through stage 4 chronic kidney disease, or unspecified chronic kidney disease; N18.30 Chronic kidney disease, stage 3 unspecified; I50.32 Chronic diastolic (congestive) heart failure; I25.10 Atherosclerotic heart disease of native coronary artery without angina pectoris | CPT/HCPCS: G0180 ==

== ENCOUNTER 2025-03-02 08:37 | Outpatient (AMB) | payer MEDICARE, MEDICAID, SELFPAY ==
--- NOTE | 2025-03-02 08:34 | A.OFFPC_ITS ---
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: No Allergies Penicillins Allergy (Severe, Verified 03/02/25 09:08) Hives lisinopril Adverse Reaction (Verified 03/02/25 09:08) cough Medication List - Last Reconciled 03/02/25 by GARETT Mccarty- acetaminophen 1,000 mg (2 x 500 mg) PO TID PRN 30 days acetazolamide 125 mg PO BID 90 days ammonium lactate 12% 1 appl topical BID 30 days aspirin 81 mg PO DAILY atorvastatin 80 mg PO BEDTIME brimonidine 0.2% 1 drp ophthalmic (eye) BID carvedilol 3.125 mg PO BID 90 days furosemide 20 mg PO DAILY 90 days gabapentin 600 mg PO TID 90 days [Home BP monitor As directed] latanoprost 0.005% 1 drp ophthalmic (eye) QPM losartan 25 mg PO DAILY 90 days miscellaneous medical supply standard wheelchair miscellaneous medical supply Shower chair with back support miscellaneous medical supply wheel walker with seat nitroglycerin 0.3 mg sublingual Q5M PRN 30 days omeprazole 20 mg PO BID 90 days quetiapine (Seroquel) 100 mg PO BEDTIME tamsulosin 0.4 mg PO DAILY 90 days Tobacco use date assessed: 03/02/25 Fall risk assessment: 1 Fall in past year Last assessed Fall Risk: 03/02/25 Dental Screening Dental Screen Date: 03/02/25 Did you have a dental visit in the last 12 months?: Yes Did you have a dental problem in the last 6 months where you did not have access to dental care?: No HPI HPI Comments 2 History of Present Illness0 Details Niece Iwona 84-year-old male with chronic small-vess el ischemic disease, 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 PCP recs: Admission Date: 01/20/25 Discharge Date: 01/23/25 Hospital: [facility] DC to [facility] 01/24-02/07/25 Date of interactive contact with Nurse Navigator: as documented in chart Pending diagnostic tests/treatments: Pending consults: DME: PT/OT/POLL CLERK: via [employer] Home Health Aide/SUPERVISOR [employer]: Community Resources: Asst Living: Home Health: Hospice: Support group: Other: Referrals: Will need Neuro referral Cards [facility] APPT 03/17 at 0:910 Medications reconciled & updated. During todays TCM visit, the d/c summary was reviewed, along with the need for or follow-up on pending diagnostic tests and treatments, as necessary interaction with other health director of healthcare systems who will assume or reassume care of the beneficiary?s system-specific problems was done or is being worked on, education was provided to the beneficiary, family, guardian, and/or caregiver, referrals to establish or re-establish and arrange needed community resources we completed, assistance in scheduling required follow-up with community providers and services & finally updated medication list given to patient/caregiver History of Present Illness - The patient is an 84-year-old male pre senting with post-discharge care following a recent cerebrovascular accident. - Reviewed admission and rehab notes w/ him and neice. He is declining all f/u. 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 - Declines physical therapy and full cod e status was mistakenly recorded. He wishes to be DNR/DNI. The only reason he is not hospice is because this requires family to be present at all times; they are not able to do that. - No recent falls; complaints of headach e and tooth pain possibly indicating an infection. Needs dental extraction but dentist requested Cards clearance which was not granted as he has not followed up. - Taking all meds as directed. Other gautam n dental pain, offers no complaints. Review of Systems - Neurologic: Reports headache. - Cardiovascular: Denies recent falls; n otes past elevated blood pressure. - Respiratory: Denies coughing, wheezing , or choking. States recent breathing status as good. - Dental/Oral: Reports tooth pain with s uspected infection. - Musculoskeletal: Declined physical the rapy. - Allergies: Allergic to penicillin. Discussion Notes The patient, Michel, did not want aggressive follow-up post-cerebrovascular accident and prefers palliative care at home. There were discussions concerning recent changes in code status, which were altered to Full Code inadvertently, and the need to rectify this to comply with prior No CPR wishes. The patient or caregiver mentioned a dental concern that might involve infection, thus necessitating non-penicillin antibiotic prescription. Arrangements to assist with dental care were discussed, along with a continuation of current medications at the [facility]. Follow-up was suggested via phone to respect the patient's preferences. No immediate interventions aside from maintaining comfort and addressing the dental issue were prioritized. Assessment and Plan 1. Cerebrovascular Accident - Maintain palliative home care. - Update code status to No CPR. - Blood pressure control ongoing. 2. Tooth Infection - Clindamycin 150 TID x 7 - Contact dentist for evaluation, [facility] in [place], if i am able will clear for extraction for comfort; waiting on form from them. 3. Medication Management - Continue medications. 4. Health Management and Monitoring - Schedule follow-up in eight weeks via telehealth - Caregiver to monitor changes and adher e to medication. Patient Instructions - Keep taking your prescribed medication s. - supervisor safety deposit and take your medications, ref ills sent on all meds - Monitor for any changes in your condit ion and report immediately if needed. Consent Patient was informed and verbally consented to the use of an ambient scribe for clinic note documentation during this visit. Total time spent caring for the patient today was 50 minutes. This includes time spent before the visit reviewing the chart, time spent during the visit, and time spent after the visit on documentation, reviewing laboratory results, diagnostic imaging, medications, performing a medically necessary evaluation, counseling on diagnoses, care coordination, ordering appropriate tests, ordering appropriate medications, review of tests performed by other providers, reporting test results with the patient, communication with other healthcare providers. [facility] Medical History (Updated 03/02/25 @ 09:28 by Amy Win, [facility]) Cardiac pacemaker History of multiple strokes Hypertension NSTEMI (non-ST elevated myocardial infarction) Pacemaker Surgical History History of heart artery stent Social History (Updated 09/21/24 @ 11:42 by Cammy Beltran CMA) Household Members: None Housing: House Alcohol intake: never Patient Tobacco Use Status: Former Tobacco user Cigarette Packs Per Day: 2 Years Smoked: 43 Packs Per Year: 86 e-Cigarette/Vaping Use: Never Used Second Hand Smoke Exposure: Yes service: No Current occupational status: disabled Sexual orientation: Straight/Heterosexual Gender identity: Male Cognitive needs: Yes (walker, wheel chair, cane) Hearing needs: No Vision needs: Yes (Glasses) Questionnaire Thrive Questionnaire Date Thrive assessed: 09/21/24 DEMETRA-7 AMB Questionnaire DEMETRA-7 Date DEMETRA - 7 assessed: 01/05/25 Source: Developed by Drs. Micah Rooney, Blanka Nunes, Yasmany Amezquita and colleagues, with an educational naila from [employer]. Physical exam (Primary Care) Tobacco/Smoking Status: Tobacco use Status Tobacco use date assessed 03/02/25 03/02/25 08:36 Patient Tobacco Use Status Former Tobacco user 03/02/25 08:36 e-Cigarette/Vaping Use Never Used 03/02/25 08:36 Thrive Assessment: Date of Thrive Assessment Date Thrive assessed 09/21/24 03/02/25 08:36 Telehealth Telehealth Telehealth Platform: [facility] Location of provider rendering services: practice address Location of patient: address on file Patient Identification confirmed using: Name, : Yes Telehealth method: voice only Patient verbally consented to treatment: Yes Patient verbally consented to billing insurance company: Yes Patient informed of any privacy concerns related to visit: Yes Minutes spent on Phone/Video with Pt.: 15 Coding Level of Care Code TCM High MDM <= 14 days Complex EM visit Add On [id number] Diagnoses Hospital discharge follow-up Z09 Palliative care encounter Z51.5 DNR (do not resuscitate) Z66 Frailty syndrome in geriatric patient R54 History of multiple strokes Z86.73 Atrial tachycardia I47.19 Chronic pulmonary aspiration, sequela T17.908S Encounter type: sequela 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 chronic kidney disease N18.31; D63.1 Anemia type: due to chronic kidney disease Chronic kidney disease stage: stage 3 (moderate) Chronic kidney disease stage 3 subtype: stage 3a (GFR 45-59) Primary hypertension I10 Hypertension type: primary hypertension Dental infection K04.7 Assessment & Plan Assessment & Plan (1) Hospital discharge follow-up: Code(s): Z09 - Encounter for follow-up examination after completed treatment for conditions other than malignant neoplasm (2) Palliative care encounter: Code(s): Z51.5 - Encounter for palliative care Category: Medical (3) DNR (do not resuscitate): Code(s): Z66 - Do not resuscitate Category: Medical (4) Frailty syndrome in geriatric patient: Code(s): R54 - Age-related physical debility Category: Medical (5) History of multiple strokes: Code(s): Z86.73 - Personal history of transient ischemic attack (TIA), and cerebral infarction without residual deficits Category: Medical (6) Atrial tachycardia: Code(s): I47.19 - Other supraventricular tachycardia Category: Medical (7) Aspiration, chronic pulmonary: Code(s): T17.908A - Unspecified foreign body in respiratory tract, part unspecified causing other injury, initial encounter Category: Medical Qualifiers: Encounter type: sequela Qualified Code(s): T17.908S - Unspecified foreign body in respiratory tract, part unspecified causing other injury, sequela (8) Anemia: Comment: s/p blood transfusion 01/2025 Code(s): D64.9 - Anemia, unspecified Category: Medical Qualifiers: Anemia type: due to chronic kidney disease Chronic kidney disease stage: stage 3 (moderate) Chronic kidney disease stage 3 subtype: stage 3a (GFR 45-59) Qualified Code(s): N18.31 - Chronic kidney disease, stage 3a; D63.1 - Anemia in chronic kidney disease (9) Hypertension: Code(s): I10 - Essential (primary) hypertension Category: Medical Qualifiers: Hypertension type: primary hypertension Qualified Code(s): I10 - Essential (primary) hypertension (10) Dental infection: Code(s): K04.7 - Periapical abscess without sinus Plan . Medications: New 2 carvedilol must administer with a meal/food 6.25 mg PO BID 180 tabs 2RF clopidogrel (Plavix) 75 mg PO DAILY 90 tabs 2RF losartan 100 mg PO DAILY 90 tabs 2RF hydralazine 10 mg PO TID 270 tabs 2RF diltiazem HCl CD (Cartia XT) 120 mg PO DAILY 90 caps 2RF docusate sodium HOLD FOR LOOSE STOOLS 100 mg PO BID 180 caps 2RF clindamycin HCl (Cleocin HCl) 150 mg PO TID 21 caps 0RF Refilled 2 acetaminophen AVAILABLE OTC. DO NOT EXCEED 3GM OR 6 TABS IN 24 HOURS. 1,000 mg (2 x 500 mg) PO TID PRN 180 caps 2RF fever or pain 30 days Discontinued 2 losartan Discontinued Reason: Doctor's Order 25 mg PO DAILY 90 days 90 tabs 3RF oxycodone ER Partial Fill upon patient request. Discontinued Reason: Patient Completed Course 10 mg PO BID 60 tabs 0RF acetazolamide Discontinued Reason: Patient no longer taking 125 mg PO BID 90 days 180 tabs 2RF lorazepam Discontinued Reason: Patient Completed Course 0.5 mg PO TID 28 days PRN 84 tabs 0RF anxiety carvedilol Discontinued Reason: Doctor's Order 3.125 mg PO BID 90 days 180 tabs 2RF furosemide Discontinued Reason: Patient no longer taking 20 mg PO DAILY 90 days 90 tabs 2RF
--- OUTSIDE RECORDS SUMMARY | 2025-03-02 08:52 | XMS_ITS | Clinical Summary ---
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 025 2024 Active aspirin 81 mg EC tabletIndications: cerebral thromboembolism prevention Take 1 tablet (81 mg total) by mouth 1 (one) time each day. 30 each 025 2024 Active atorvastatin (LIPITOR) 80 mg tablet Take 1 tablet (80 mg total) by mouth at bedtime. at bedtime. 30 each 025 2024 Active carvediloL (COREG) 6.25 mg tablet Take 1 tablet (6.25 mg total) by mouth 2 (two) times a day. 60 each 025 2024 Active clopidogreL (PLAVIX) 75 mg tabletIndications: cerebral thromboembolism prevention Take 1 tablet (75 mg total) by mouth 1 (one) time each day. 30 each 025 2024 Active dilTIAZem CD (CARDIZEM CD) 120 mg 24 hr capsule Take 1 capsule (120 mg total) by mouth 1 (one) time each day. 30 each 025 2024 Active gabapentin (NEURONTIN) 300 mg capsule Take 1 capsule (300 mg total) by mouth every 8 (eight) hours. 90 each 025 2024 Active lidocaine 4 % patch Apply 1 patch topically 1 (one) time each day if needed for mild pain (left knee pain). 30 patch 025 2024 Active pantoprazole (PROTONIX) 40 mg EC tablet Take 1 tablet (40 mg total) by mouth 2 (two) times daily morning and afternoon. Do not crush, chew, or split. 60 each 2024 Active polyethylene glycol (MIRALAX) 17 gram packet Take 17 g by mouth at bedtime. 510 g 2024 Active QUEtiapine (SEROquel) 100 mg tabletIndications: mood disorder Take 1 tablet (100 mg total) by mouth at bedtime. 30 each 025 2024 Active tamsulosin (FLOMAX) 0.4 mg 24 hr capsule Take 1 capsule (0.4 mg total) by mouth 1 (one) time each day. 30 each 025 2024 Active docusate sodium (COLACE) 100 mg capsule Take 1 capsule (100 mg total) by mouth 2 (two) times a day. 60 each 025 2024 Active hydrALAZINE (APRESOLINE) 10 mg tablet Take 1 tablet (10 mg total) by mouth every 8 (eight) hours. 90 each 025 2024 Active losartan (COZAAR) 100 mg tablet Take 1 tablet (100 mg total) by mouth 1 (one) time each day. 30 each 025 2024 Active senna (SENOKOT) 8.6 mg tablet Take 2 tablets (17.2 mg total) by mouth at bedtime. 60 each 025 2024 Active aspirin 81 mg EC tablet Take 1 tablet (81 mg total) by mouth 1 (one) time each day. 024 2024 Discontinued atorvastatin (LIPITOR) 80 mg tablet Take 1 tablet (80 mg total) by mouth at bedtime. at bedtime. 2024 Discontinued omeprazole (PriLOSEC) [address] capsule Take 1 capsule (20 mg total) by mouth 2 (two) times a day. 2024 Discontinued(S top Taking at Discharge) QUEtiapine (SEROquel) 100 mg tablet Take 1 tablet (100 mg total) by mouth at bedtime. 023 2024 Discontinued tamsulosin (FLOMAX) 0.4 mg 24 hr capsule Take 1 capsule (0.4 mg total) by mouth 1 (one) time each day. 2024 Discontinued clopidogreL (PLAVIX) 75 mg tablet TAKE 1 TABLET BY MOUTH DAILY. 90 tablet 025 2024 Discontinued carvediloL (COREG) 6.25 mg tablet Take 1 tablet (6.25 mg total) by mouth 2 (two) times a day. 2024 Discontinued gabapentin (NEURONTIN) 400 mg capsule Take 1 capsule (400 mg total) by mouth every 8 (eight) hours. 0 2024 Discontinued(S top Taking at Discharge) acetaminophen (TYLENOL) 500 mg tablet Take 2 tablets (1,000 mg total) by mouth 3 (three) times a day for 10 days. 2024 Discontinued(S top Taking at Discharge) cyanocobalamin (VITAMIN B-12) 1,000 mcg/mL injection Inject 1 mL (1,000 mcg total) into the shoulder, thigh, or buttocks 1 (one) time each day for 3 doses. 025 2024 Discontinued(S top Taking at Discharge) dilTIAZem CD (CARDIZEM CD) 120 mg 24 hr capsule Take 1 capsule (120 mg total) by mouth 1 (one) time each day. 025 2024 Discontinued lidocaine 4 % patch Apply 1 patch topically 1 (one) time each day. 025 2024 Discontinued(S top Taking at Discharge) lidocaine 4 % patch Apply 1 patch topically 1 (one) time each day. 025 2024 Discontinued(S top Taking at Discharge) polyethylene glycol (MIRALAX) 17 gram packet Take 17 g by mouth at bedtime for 3 days. 025 2024 Discontinued(S top Taking at Discharge) levoFLOXacin (LEVAQUIN) 250 mg tablet Take 1 tablet (250 mg total) by mouth 1 (one) time each day for 7 days. 025 2024 Discontinued(S top Taking at Discharge) Active Problems Problem Noted Date Diagnosed Date CVA (cerebral vascular accident) ([facility] V24, [facility] V28) 01/24/2025 Stroke ([facility] V24, [facility] V28) 01/21/2025 Bilateral leg weakness 01/20/2025 Aspiration into respiratory tract 11/10/2024 FUO (fever of unknown origin) 11/09/2024 HCAP (healthcare-associated pneumonia) Sepsis ([facility] V24, [facility] V28) 08/26/2024 Resolved Problems Problem Noted Date Diagnosed Date Resolved Date Community acquired pneumonia of right lung, unspecified part of lung 09/12/2024 09/13/2024 Community acquired pneumonia 09/11/2024 09/13/2024 Encounters Date Type Department Care Team Description 02/02/2025 Plan of Care Documentation [facility] [address] [place] [address] 01/26/2025 Plan of Care Documentation [facility] [address] [place] [phone] 01/24/2025 12:56 PM EDT - 02/07/2025 10:20 AM EDT Hospital Encounter [facility] [address] [place] [address] Shirin Gordon, DO Discharge Disposition: Home-Health Care Svc 01/20/2025 8:00 AM EDT - 01/24/2025 12:48 PM EDT Hospital Encounter [facility] [address] [place] [address] Marisa Richey DO Flores, Carlos M, MD Kela, Kashyap Devendrabhai, MD Zipagan, Archie Jackson MD TIA (transient ischemic attack) (Primary Dx) Discharge Disposition: Jail Facility from Last 3 Months Surgical History Surgery Date Site/Laterality Comments OTHER SURGICAL HISTORY PROCEDURE: ---- OTHER ----; COMMENT: 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 ESOPHAGOGASTRODUODENOSCOPY 03/14/14 PROCEDURE: NE ESOPHAGOGASTRODUODENOSCOPY TRANSORAL DIAGNOSTIC; COMMENT: erosive esophagitis and HH APPENDECTOMY 02/21 PROCEDURE: NE APPENDEC INDICATED PURPOSE OTH MAJOR PX NOT SPX Medical History Medical History Date Comments Hemiplegia following CVA (cerebrovascular accident) ([facility] V24, [facility] V28) 10/06/2012 DX:Hemiplegia following CVA (cerebrovascular accident) ([facility]) Chronic pain 10/06/2012 DX:Chronic pain Lumbar disc [...] artery NSTEMI (non-ST elevated myoc ardial infarction) ([facility] V24, [facility] V28) 12/30/2013 DX:NSTEMI (non- ST elevated myocardial infarction) ([facility]) Left inguinal hernia 01/26/2014 DX:Left ing uinal hernia Recurrent appendicitis DX:Recurr ent appendicitis; COMMENT: s/p surgery in 02/2014 Incidental lung nodule DX:Incide ntal lung nodule; COMMENT: ct chest doen prior tosurgery, no evidnece, to f/u with pt Diet-controlled diabetes lorena litus ([facility] V24, [facility] V28) DX:Diet-controlled diabetes mellitus (HCC) Microscopic hematuria DX:Microsc [...] drink = 0.6 oz pur e alcohol) Health Literacy Answer Date Recorded How often do you need to hav e someone help you when you read instructions, pamphlets, or other written material from your doctor or pharmacy? Always 01/25/2025 Caregiver: How often do you need to have someone help you when you read instructions, pamphlets, or other written material from your doctor or pharmacy? Not on file 01/25/2025 Transportation Answer Date Recorded Has the lack of transportati on kept you from meetings, work, or from getting things needed for daily living? No Has the lack of transportati on kept you from medical appointments or from getting medications? No 01/25/2025 Social Isolation Answer Date Recorded How often do you feel lonely or isolated from those around you? Sometimes 02/07/2025 Food Risk Answer Date Recorded Within the past 12 months we worried whether our food would run out before we got money to buy more. Never true 02/02/2025 Within the past 12 months th e food we bought just didn't last and we didn't have money to get more. Never true 02/02/2025 Interpersonal Safety Answer Date Record ed Physical Abuse 01/24/2025 Verbal Abuse 01/24/2025 Sex and Gender Information Value Date Recorded Sex Assigned at Male 08/26/2024 4:33 PM EST Legal Sex Male 4:17 AM EST Gender Identity Male 08/26/2024 4:33 PM EST Sexual Orientation Straight 08/26/2024 4: 33 PM EST Obstetrics History Last Filed Vital Signs Vital Sign Reading Time Taken Comments Blood Pressure 165/75 02/07/2025 9:33 AM EDT Pulse 68 02/07/2025 9:33 AM EDT Temperature 36.8 C (98.2 F) 02/07/2025 7:41 AM EDT Respiratory Rate 14 02/07/2025 7:41 AM EDT Oxygen Saturation 99% 02/07/2025 7:41 AM EDT Inhaled Oxygen Concentration - - Weight 76.5 kg (168 lb 9.6 oz) 01/29/2025 9:00 A M EDT Height 170 cm (5' 6.93 ) 01/24/2025 7:17 AM EDT Body Mass Index 26.46 01/24/2025 7:17 AM EDT Plan of Treatment Upcoming Encounters Date Type Department Care Team (Late st Contact Info) Description 03/17/2025 9:10 AM EDT Office Visit [facility] [address] [facility] [address] [place] [phone] Krystle Whitt, LUDA [address] [place] [address] Health Maintenance Due Date Last Done Comments COVID-19 Vaccine (#1) 1946 Diabetes: Annual Foot Exam 1951 Diabetes: Annual Retina Eye Exam 1950 DTaP,Tdap,and Td Vaccines (1 - Tdap) 1960 Pneumococcal Vaccine: 50+ Years (1 of 2 - PCV) 1960 Zoster Vaccines (1 of 2) 1960 RSV Immunization Adult Patients (1 - 1-dose 75+ series) 2016 Medicare Annual Wellness Visit 07/14/2022 Diabetes: Annual Urine Albumin-Creatinine Ratio (uACR) 07/18/2022 Influenza Vaccine (#1) 2025 Diabetes: Blood Sugar Control Test (HGBA1C) 07/22/2025 01/20/2025 Diabetes: Annual GFR (Glomerular Filtration Rate) 02/04/2026 02/04/2025, 01/26/2025, 01/25/2025, Additional history exists Hypertension/CHF/CAD Annual BMP Blood Test 02/04/2026 02/04/2025, 01/26/2025, 01/25/2025, Additional history exists Falls Risk Assessment 02/07/2026 02/07/2025 Social Influencers of Health Screening 02/07/2026 02/07/2025 Cholesterol Screening (Lipid Panel) 01/21/2030 01/21/2025 Depression Screening Completed 02/07/2025 HIB Vaccines Aged Out No longer eligi [...] Procedure Name Priority Date/Time Associated Diagnosis Comments CBC WITH AUTO DIFFERENTIAL Routine 02/04/2025 6:12 AM EDT MAGNESIUM Routine 02/04/2025 6:12 AM EDT BASIC METABOLIC PANEL Routine 02/04/2025 6:12 AM EDT CBC AND DIFFERENTIAL Routine 02/04/2025 6:12 AM EDT LAVENDER - EDTA Routine 01/26/2025 5:33 AM EDT EXTRA TUBES Routine 01/26/2025 5:33 AM EDT BASIC METABOLIC PANEL Routine 01/26/2025 5:33 AM EDT CBC WITH AUTO DIFFERENTIAL Routine 01/25/2025 5:47 AM EDT COMPREHENSIVE METABOLIC PANEL Routine 01/25/2025 5:47 AM EDT CBC AND DIFFERENTIAL Routine 01/25/2025 5:47 AM EDT CBC WITH AUTO DIFFERENTIAL Routine 01/24/2025 6:01 AM EDT MAGNESIUM Timed 01/24/2025 6:01 AM EDT CBC AND DIFFERENTIAL Routine 01/24/2025 6:01 AM EDT BASIC METABOLIC PANEL Routine 01/24/2025 6:01 AM EDT CBC WITH AUTO DIFFERENTIAL Routine 01/23/2025 5:27 AM EDT MAGNESIUM Timed 01/23/2025 5:27 AM EDT CBC AND DIFFERENTIAL Routine 01/23/2025 5:27 AM EDT BASIC METABOLIC PANEL Routine 01/23/2025 5:27 AM EDT TRANSFUSE RED BLOOD CELLS Routine 01/22/2025 11:57 AM EDT TROPONIN I HIGH SENSITIVITY STAT 01/22/2025 9:11 AM EDT PREPARE RBC Routine 01/22/2025 8:51 AM EDT FERRITIN Add-On 01/22/2025 5:56 AM EDT VITAMIN B12 AND FOLATE STAT Add-on 5:56 AM EDT RETICULOCYTE COUNT Add-On 01/22/2025 5: 56 AM EDT IRON AND TIBC Add-On 01/22/2025 5:56 AM EDT CBC WITH AUTO DIFFERENTIAL Routine 01/22/2025 5:56 AM EDT MAGNESIUM Timed 01/22/2025 5:56 AM EDT CBC AND DIFFERENTIAL Routine 01/22/2025 5:56 AM EDT BASIC METABOLIC PANEL Routine 01/22/2025 5:56 AM EDT LACTATE STAT 01/22/2025 5:56 AM EDT CULTURE BLOOD STAT 01/22/2025 5:56 AM EDT CULTURE BLOOD STAT 01/22/2025 5:56 AM EDT POCT GLUCOSE BLOOD Routine 01/21/2025 8: 07 PM EDT ZIEGLER URINE CULTURE TUBE Routine 01/21/2025 4:44 PM EDT URINALYSIS WITH REFLEX MICROSCOPIC AND CULTURE Routine 01/21/2025 4:43 PM EDT URINALYSIS WITH REFLEX MICROSCOPIC AND CULTURE Routine 01/21/2025 4:43 PM EDT CULTURE URINE Routine 01/21/2025 4:43 PM EDT RESPIRATORY VIRUS PANEL MOLECULAR STUDY Routine 01/21/2025 3:39 PM EDT XR CHEST 1 VIEW STAT 01/21/2025 3:21 PM EDT ECG 12-LEAD STAT 01/21/2025 12:29 PM EDT TRANSTHORACIC ECHOCARDIOGRAM (TTE) COMPLETE W/ CONTRAST Routine 01/21/2025 11:52 AM EDT TIA (transient ischemic attack) PROCALCITONIN STAT Add-on 01/21/2025 6:03 AM EDT THYROID STIMULATING HORMONE WITH REFLEX TO FREE T4 AND FREE T3 Add-On 01/21/2025 6:03 AM EDT CBC WITH AUTO DIFFERENTIAL Routine 01/21/2025 6:03 AM EDT CBC AND DIFFERENTIAL Routine 01/21/2025 6:03 AM EDT MAGNESIUM Routine 01/21/2025 6:03 AM EDT BASIC METABOLIC PANEL Routine 01/21/2025 6:03 AM EDT LIPID PANEL WITH REFLEX TO DIRECT LDL Routine 01/21/2025 6:03 AM EDT MR BRAIN WO CONTRAST Routine 01/20/2025 5:10 PM EDT LACTATE, WITH REFLEX STAT 01/20/2025 9:56 AM EDT CULTURE BLOOD STAT 01/20/2025 9:56 AM EDT CULTURE BLOOD STAT 01/20/2025 9:56 AM EDT XR ELBOW 2 VIEWS RIGHT STAT 9:35 AM EDT XR KNEE 4+ VIEWS BILAT STAT 9:35 AM EDT XR HIPS 5+ VIEWS WO OR W PELVIS BILAT STAT 01/20/2025 9:35 AM EDT XR CHEST 2 VIEWS STAT 01/20/2025 9:35 AM EDT ZIEGLER URINE CULTURE TUBE STAT 01/20/2025 9:07 AM EDT URINALYSIS WITH REFLEX MICROSCOPIC AND CULTURE STAT 01/20/2025 9:07 AM EDT URINALYSIS WITH REFLEX MICROSCOPIC AND CULTURE STAT 01/20/2025 9:07 AM EDT CULTURE URINE STAT 01/20/2025 9:07 AM EDT HEMOGLOBIN A1C Add-On 01/20/2025 8:29 AM EDT TROPONIN I HIGH SENSITIVITY STAT 01/20/2025 8:29 AM EDT CBC WITH AUTO DIFFERENTIAL STAT 01/20/2025 8:29 AM EDT ACTIVATED PARTIAL THROMBOPLASTIN TIME STAT 01/20/2025 8:29 AM EDT TYPE AND SCREEN STAT 01/20/2025 8:29 AM EDT COMPREHENSIVE METABOLIC PANEL STAT 01/20/2025 8:29 AM EDT CBC AND DIFFERENTIAL STAT 01/20/2025 8:29 AM EDT ECG 12-LEAD STAT 01/20/2025 8:[address] HEAD STROKE WO CONTRAST STAT 01/20/2025 8:[address] ANGIO HEAD/NECK STROKE WO AND/OR W CONTRAST STAT 01/20/2025 8:20 AM EDT from Last 3 Months Results * (ABNORMAL) CBC auto differential (02/04/2025 6:12 AM EDT) Only the most recent of7 resultswithin the time period is included. WBC 6.5 4.8 - 10.8 K/mcL LAB HEMETOLOGY METHOD 02/04/2025 7:08 AM EDT [facility] RBC 3.20(L) 4.50 - 5.50 M/mcL LAB HEMETOLOGY METHOD 02/04/2025 7:08 AM EDT [facility] Hemoglobin 9.6(L) 13.5 - 17.5 g/dL LAB HEMETOLOGY METHOD 02/04/2025 7:08 AM [facility] Hematocrit 30.0(L) 42.0 - 54.0 % LAB HEMETOLOGY METHOD 02/04/2025 7:08 AM [facility] MCV 93.8 79.0 - 98.0 FL LAB HEMETOLOGY METHOD 02/04/2025 7:08 AM [facility] MCH 30.0 27.0 - 32.0 pcg LAB HEMETOLOGY METHOD 02/04/2025 7:08 AM [facility] MCHC 32.0 32.0 - 37.0 g/dL LAB HEMETOLOGY METHOD 02/04/2025 7:08 AM [facility] RDW 20.3(H) 11.0 - 15.0 % LAB HEMETOLOGY METHOD 02/04/2025 7:08 AM [facility] Platelets 209 130 - 400 K/mcL LAB HEMETOLOGY METHOD 02/04/2025 7:08 AM [facility] MPV 10.3 7.0 - 11.0 FL LAB HEMETOLOGY METHOD 02/04/2025 7:08 AM [facility] NRBC 0.0 <1.0 % LAB HEMETOLOGY METHOD 02/04/2025 7:08 AM [facility] NRBC Absolute 0.00 <0.10 K/mcL LAB HEMETOLOGY METHOD 02/04/2025 7:08 AM [facility] Neutrophils Relative 52.6 % LAB HEMETOLOGY METHOD 02/04/2025 7:08 AM [facility] Lymphocytes Relative 25.9 % LAB HEMETOLOGY METHOD 02/04/2025 7:08 AM [facility] Monocytes Relative 14.4 % LAB HEMETOLOGY METHOD 02/04/2025 7:08 AM [facility] Eosinophils Relative 3.2 % LAB HEMETOLOGY METHOD 02/04/2025 7:08 AM EDT [facility] Basophils Relative 0.8 % LAB HEMETOLOGY METHOD 02/04/2025 7:08 AM EDT [facility] Immature Granulocytes Relative 3.1 % LAB HEMETOLOGY METHOD 02/04/2025 7:08 AM EDT [facility] Neutrophils Absolute 3.43 1.50 - 7.00 K/mcL LAB HEMETOLOGY METHOD 02/04/2025 7:08 AM EDT [facility] Lymphocytes Absolute 1.69 1.00 - 5.00 K/mcL LAB HEMETOLOGY METHOD 02/04/2025 7:08 AM EDT [facility] Monocytes Absolute 0.94 0.20 - 1.00 K/mcL LAB HEMETOLOGY METHOD 02/04/2025 7:08 AM EDT [facility] Eosinophils Absolute 0.21 0.00 - 0.50 K/mcL LAB HEMETOLOGY METHOD 02/04/2025 7:08 AM EDT [facility] Basophils Absolute 0.05 0.00 - 0.20 K/mcL LAB HEMETOLOGY METHOD 02/04/2025 7:08 AM EDT [facility] Immature Granulocytes Absolute 0.20(H) 0.00 - 0.03 K/mcL LAB HEMETOLOGY METHOD 02/04/2025 7:08 AM EDT [facility] Blood Venous blood specimen / Unknown Venipuncture / Unknown 02/04/2025 6:12 AM EDT 02/04/2025 6:51 AM EDT us Carmen Bates NP LAB BLOOD ORDERABLES Final Resul t [facility] [address] [place] [address], * Magnesium (02/04/2025 6:12 AM EDT) Only the most recent of5 resultswithin the time period is included. Pathologist [facility] Magnesium 2.2 1.9 - 2.6 mg/dL LAB CHEMISTRY METHOD 02/04/2025 7:42 AM [facility] Blood Venous blood specimen / Unknown Venipuncture / Unknown 02/04/2025 6:12 AM EDT 02/04/2025 6:51 AM EDT us Carmen Bates NP LAB BLOOD ORDERABLES Final Resul t [facility] [address] [place] [address], [place] [phone] * Basic metabolic panel (02/04/2025 6:12 AM EDT) Only the most recent of6 resultswithin the time period is included. [facility] Sodium 142 133 - 145 mmol/L LAB CHEMISTRY METHOD 02/04/2025 7:42 AM [facility] Potassium 3.6 3.5 - 5.5 mmol/L LAB CHEMISTRY METHOD 02/04/2025 7:42 AM [facility] Chloride 107 96 - 110 mmol/L LAB CHEMISTRY METHOD 02/04/2025 7:42 AM [facility] CO2 29 21 - 32 mmol/L LAB CHEMISTRY METHOD 02/04/2025 7:42 AM [facility] Anion Gap 6 3 - 11 LAB CHEMISTRY METHOD 02/04/2025 7:42 AM [facility] Glucose 90 70 - 100 mg/dL LAB CHEMISTRY METHOD 02/04/2025 7:42 AM [facility] BUN 12 5 - 25 mg/dL LAB CHEMISTRY METHOD 02/04/2025 7:42 AM [facility] Creatinine 1.09 0.70 - 1.30 mg/dL LAB CHEMISTRY METHOD 02/04/2025 7:42 AM EDT [facility] eGFR 67 >=60 mL/min/1. 73m2 LAB CHEMISTRY METHOD 02/04/2025 7:42 AM EDT [facility] Comment:Calculation based on the Chronic Kidney Disease Epidemiology Collaboration (CKD-EPI) equation refit without adjustment for race. BUN/Creatinine Ratio 11.0 LAB CHEMISTRY METHOD 02/04/2025 7:42 AM EDT [facility] Calcium 9.0 8.5 - 10.5 mg/dL LAB CHEMISTRY METHOD 02/04/2025 7:42 AM EDT [facility] Blood Venous blood specimen / Unknown Venipuncture / Unknown 02/04/2025 6:12 AM EDT 02/04/2025 6:51 AM EDT Carmen Bates [employer] LAB BLOOD ORDERABLES Final Resul t Performing Organization Address City/[facility]/ZIP Co de Phone Number [facility] [address] [place] [address], [place] [phone] * Lavender tube (01/26/2025 5:33 AM EDT) Extra Tube Hold for add-ons. 01/26/2025 8:01 AM EDT [facility] Comment:Auto resulted. Blood Venous blood specimen / Unknown Venipuncture / Unknown 01/26/2025 5:33 AM EDT 01/26/2025 6:04 AM EDT us Shirin Gordon DO LAB BLOOD ORDERABLES Sarina l Result [facility] [address] [place] [address], [place] [phone] * (ABNORMAL) Comprehensive metabolic panel (01/25/2025 5:47 AM EDT) Only the most recent of2 resultswithin the time period is included. Sodium 143 133 - 145 mmol/L LAB CHEMISTRY METHOD 01/25/2025 7:07 AM [facility] Potassium 3.4(L) 3.5 - 5.5 mmol/L LAB CHEMISTRY METHOD 01/25/2025 7:07 AM [facility] Chloride 111(H) 96 - 110 mmol/L LAB CHEMISTRY METHOD 01/25/2025 7:07 AM [facility] CO2 26 21 - 32 mmol/L LAB CHEMISTRY METHOD 01/25/2025 7:07 AM [facility] Anion Gap 6 3 - 11 LAB CHEMISTRY METHOD 01/25/2025 7:07 AM [facility] Glucose 97 70 - 100 mg/dL LAB CHEMISTRY METHOD 01/25/2025 7:07 AM [facility] BUN 15 5 - 25 mg/dL LAB CHEMISTRY METHOD 01/25/2025 7:07 AM [facility] Creatinine 1.04 0.70 - 1.30 mg/dL LAB CHEMISTRY METHOD 01/25/2025 7:07 AM [facility] eGFR 71 >=60 mL/min/1. 73m2 LAB CHEMISTRY METHOD 01/25/2025 7:07 AM [facility] Comment:Calculation based on the Chronic Kidney Disease Epidemiology Collaboration (CKD-EPI) equation refit without adjustment for race. BUN/Creatinine Ratio 14.4 LAB CHEMISTRY METHOD 01/25/2025 7:07 AM [facility] Calcium 8.5 8.5 - 10.5 mg/dL LAB CHEMISTRY METHOD 01/25/2025 7:07 AM [facility] AST (SGOT) 25 10 - 42 unit/L LAB CHEMISTRY METHOD 01/25/2025 7:07 AM [facility] ALT (SGPT) 20 10 - 60 unit/L LAB CHEMISTRY METHOD 01/25/2025 7:07 AM [facility] Alkaline Phosphatase 80 42 - 121 unit/L LAB CHEMISTRY METHOD 01/25/2025 7:07 AM EDT [facility] Total Protein 5.8(L) 6.0 - 8.0 g/dL LAB CHEMISTRY METHOD 01/25/2025 7:07 AM EDT [facility] Albumin 2.7(L) 3.2 - 5.0 g/dL LAB CHEMISTRY METHOD 01/25/2025 7:07 AM EDT [facility] Total Bilirubin 0.7 0.0 - 1.4 mg/dL LAB CHEMISTRY METHOD 01/25/2025 7:07 AM EDT [facility] Blood Venous blood specimen / Unknown Venipuncture / Unknown 01/25/2025 5:47 AM EDT 01/25/2025 6:20 AM EDT Shirin Gordon DO LAB BLOOD ORDERABLES Sarina l Result [facility] [address] [place] [address], [place] [phone] * Transfuse RBC (01/22/2025 2:23 PM EDT) us Matilda DE DIOS BLOOD TRANSFUSION ORDERABL ES Final Result * Troponin I high sensitivity (01/22/2025 9:11 AM EDT) Only the most recent of2 resultswithin the time period is included. High Sensitivity Troponin I 56 <=79 ng/L LAB CHEMISTRY METHOD 01/22/2025 9:57 AM EDT [facility] Blood Venous blood specimen / Unknown Venipuncture / Unknown 01/22/2025 9:11 AM EDT 01/22/2025 9:16 AM EDT Narrative [facility] - 01/22/2025 9:57 AM EDT High levels of biotin in samples may falsely decrease hsTroponin values. Use caution when interpreting hsTroponin results in patients taking biotin who exhibit renal impairment (eGFR <60) or in patients taking more than 20 mg/day of biotin. Matilda DE DIOS LAB BLOOD ORDERABLES Final Result Performing Organization Address [facility]/ZIP Co de Phone Number [facility] [address] [place] [address], [place] [phone] * Prepare RBC: 1 Units (01/22/2025 8:51 AM EDT) [facility] Product Code [id number] 01/22/2025 11:58 AM EDT [facility] Unit Number [id number] 01/23/20 11:58 AM EDT [facility] Crossmatch Compatible 01/22/2025 9:28 AM EDT [facility] Dispense Status Transfused 01/22/2025 11:58 AM EDT [facility] Unit ABO Rh APOS 01/22/2025 11:58 AM EDT [facility] Unit Expiration Date Time [id number] 01/22/2025 11:58 AM EDT [facility] Unit Blood Type 6200 01/22/2025 11:58 AM EDT [facility] Blood Venous blood specimen / Unknown 01/22/2025 8:51 AM EDT 01/20/2025 8:41 AM EDT Matilda DE DIOS BLOOD BANK PRODUCT ORDERAB LES Final Result Performing Organization Address [facility]/ZIP Co de Phone Number [facility] [address] [place] [address], * (ABNORMAL) Vitamin B12 and folate (01/22/2025 5:56 AM EDT) [facility] Vitamin B-12 173(L) 250 - 900 pcg/mL LAB CHEMISTRY METHOD 01/22/2025 9:17 AM EDT [facility] Folate 12.8 2.8 - 17.0 ng/ml LAB CHEMISTRY METHOD 01/22/2025 9:17 AM EDT [facility] Blood Venous blood specimen / Unknown Venipuncture / Unknown 01/22/2025 5:56 AM EDT 01/22/2025 6:23 AM EDT Matilda DE DIOS LAB BLOOD ORDERABLES Final Result [facility] [address] [place] [address], [place] [phone] * (ABNORMAL) Iron and TIBC (01/22/2025 5:56 AM EDT) Iron 14(L) 50 - 160 mcg/dL LAB CHEMISTRY METHOD 01/22/2025 8:32 AM EDT [facility] TIBC 232(L) 250 - 450 mcg/dL LAB CHEMISTRY METHOD 01/22/2025 8:32 AM EDT [facility] Iron Saturation 6(L) 20 - 50 % LAB CHEMISTRY METHOD 01/22/2025 8:32 AM EDT [facility] Blood Venous blood specimen / Unknown Venipuncture / Unknown 01/22/2025 5:56 AM EDT 01/22/2025 6:23 AM EDT Matilda DE DIOS LAB BLOOD ORDERABLES Final Result [facility] [address] [place] [address], [place] [phone] * Culture blood (01/22/2025 5:56 AM EDT) Only the most recent of4 resultswithin the time period is included. Culture, Blood No growth at 5 days 01/27/2025 9:01 AM EDT [facility] Blood Venous blood specimen / Unknown Venipuncture / Unknown 01/22/2025 5:56 AM EDT 01/22/2025 6:22 AM EDT us Matilda DE DIOS LAB MICROBIOLOGY - GENERAL ORDERABLES Final Result Performing Organization Address [facility]/ZIP Co de Phone Number [facility] [address] [place] [address], [place] [phone] * (ABNORMAL) Reticulocyte count (01/22/2025 5:56 AM EDT) Retic Ct Abs 0.040 0.030 - 0.090 M/mcL LAB HEMETOLOGY METHOD 01/22/2025 8:00 AM EDT [facility] Retic Ct Pct 1.5 0.7 - 1.7 % LAB HEMETOLOGY METHOD 01/22/2025 8:00 AM EDT [facility] Immature Retic Fract 17.0(H) 2.3 - 15.9 % LAB HEMETOLOGY METHOD 01/22/2025 8:00 AM EDT [facility] Reticulocyte Hemoglobin 28.2(L) >29.0 pcg LAB HEMETOLOGY METHOD 01/22/2025 8:00 AM EDT [facility] Blood Venous blood specimen / Unknown Venipuncture / Unknown 01/22/2025 5:56 AM EDT 01/22/2025 6:27 AM EDT us Matilda DE DIOS LAB BLOOD ORDERABLES Final Result Performing Organization Address [facility]/ZIP Co de Phone Number [facility] [address] [place] [address], [place] [phone] * Lactate (01/22/2025 5:56 AM EDT) Lactate 0.7 0.4 - 2.0 mmol/L LAB CHEMISTRY METHOD 01/22/2025 6:58 AM EDT [facility] Blood Venous blood specimen / Unknown Venipuncture / Unknown 01/22/2025 5:56 AM EDT 01/22/2025 6:22 AM EDT Matilda DE DIOS LAB BLOOD ORDERABLES Final Result Performing Organization Address [facility]/ZIP Co de Phone Number [facility] [address] [place] [address], [place] [phone] * Ferritin (01/22/2025 5:56 AM EDT) Pathologist [facility] Ferritin 71 26 - 388 ng/mL LAB CHEMISTRY METHOD 01/22/2025 8:57 AM EDT [facility] Blood Venous blood specimen / Unknown Venipuncture / Unknown 01/22/2025 5:56 AM EDT 01/22/2025 6:23 AM EDT us Matilda DE DIOS LAB BLOOD ORDERABLES Final Result Performing Organization Address [facility] de Phone Number [facility] [address] [place] [address], [place] [phone] * POCT Glucose, blood (01/21/2025 8:07 PM EDT) Glucose POCT 97 70 - 100 mg/dL 01/21/2025 8:08 PM EDT [facility] POCT Comment RN Notified 01/21/2025 8:08 PM EDT [facility] Blood Capillary blood specimen / Unknown 01/21/2025 8:07 PM EDT 01/21/2025 8:09 PM EDT us Keon Price MD LAB POINT O F CARE TEST DOCKED DEVICE UNSOLICITED RESULTS Final Result Performing Organization Address City/[facility]/ZIP Co de Phone Number [facility] [address] [place] [address], [place] [phone] * Ziegler urine culture tube (01/21/2025 4:44 PM EDT) Only the most recent of2 resultswithin the time period is included. [facility] Extra Tube Hold for add-ons. 01/21/2025 6:01 PM EDT [facility] Comment:Auto resulted. Urine Urine specimen obtained by clean catch procedure / Unknown Non-blood Collection / Unknown 01/21/2025 4:44 PM EDT 01/21/2025 4:44 PM EDT Matilda DE DIOS LAB URINE ORDERABLES Final Result Performing Organization Address [facility]/ZIP Co de Phone Number [facility] [address] [place] [address], [place] [phone] * (ABNORMAL) Urinalysis with reflex microscopic and culture (01/21/2025 4:43 PM EDT) Only the most recent of2 resultswithin the time period is included. [facility] Specific [place] Urine 1.030 1.003 - 1.030 LAB URINALYSIS - AUTOMATED METHOD 01/21/2025 5:56 PM EDT [facility] pH, Urine 5.5 5.0 - 8.0 pH LAB URINALYSIS - AUTOMATED METHOD 01/21/2025 5:56 PM EDT [facility] Leukocytes, Urine Trace(A) Negative LAB URINALYSIS - AUTOMATED METHOD 01/21/2025 5:56 PM EDT [facility] Nitrite, Urine Negative Negative LAB URINALYSIS - AUTOMATED METHOD 01/21/2025 5:56 PM EDT [facility] Protein, Urine 100(A) <=Trace mg/dL LAB URINALYSIS - AUTOMATED METHOD 01/21/2025 5:56 PM EDT [facility] Glucose, Urine Negative Negative mg/dL LAB URINALYSIS - AUTOMATED METHOD 01/21/2025 5:56 PM EDT [facility] Ketones, Urine 15(A) Negative mg/dL LAB URINALYSIS - AUTOMATED METHOD 01/21/2025 5:56 PM T [facility] Urobilinogen, Urine 1.0 0.2 - 1.0 mg/dL LAB URINALYSIS - AUTOMATED METHOD 01/21/2025 5:56 PM EDT [facility] Bilirubin, Urine Negative Negative LAB URINALYSIS - AUTOMATED METHOD [facility]25 [facility] Blood, Urine Large(A) Negative LAB URINALYSIS - AUTOMATED METHOD 01/21/2025 5:56 PM [facility] RBC, Urine 10.0(H) 0 - 4 /HPF LAB URINALYSIS - AUTOMATED METHOD 01/21/2025 5:56 PM [facility] WBC, Urine 9.2(H) 0 - 4 /HPF LAB URINALYSIS - AUTOMATED METHOD 01/21/2025 5:56 PM [facility] Squamous Epithelial, Urine 57 0 - 60 /LPF LAB URINALYSIS - AUTOMATED METHOD 01/21/2025 5:56 PM [facility] Bacteria, Urine Negative Negative /HPF LAB URINALYSIS - AUTOMATED METHOD 01/21/2025 5:56 PM [facility] Hyaline Casts, Urine 10.0(H) 0 - 3 /LPF LAB URINALYSIS - AUTOMATED METHOD 01/21/2025 5:56 PM [facility] Urine Urine specimen obtained by clean catch procedure / Unknown 01/21/2025 4:43 PM EDT 01/21/2025 4:43 PM EDT us Matilda DE DIOS LAB URINE ORDERABLES Final Result [facility] [address] [place] [address], [place] [phone] * Culture urine (01/21/2025 4:43 PM EDT) Only the most recent of2 resultswithin the time period is included. [facility] Culture, Urine <10,000 CFU/mL gram positive cocci, insignificant count, no further workup 01/22/2025 3:18 PM EDT [facility] Urine Urine specimen obtained by clean catch procedure / Unknown 01/21/2025 4:43 PM EDT 01/21/2025 5:56 PM EDT Matilda DE DIOS LAB MICROBIOLOGY - GENERAL ORDERABLES Final Result [facility] [address] [place] [address], [place] [phone] * Respiratory virus panel molecular study (01/21/2025 3:39 PM EDT) [facility] Adenovirus Detection by PCR Not Detected Not Detected LAB MICROBIOLOGY METHOD 01/21/2025 4:44 PM EDT [facility] Influenza A PCR Not Detected Not Detected LAB MICROBIOLOGY METHOD 01/21/2025 4:44 PM EDT [facility] Influenza B PCR Not Detected Not Detected LAB MICROBIOLOGY METHOD 01/21/2025 4:44 PM EDT [facility] Coronavirus 229E Not Detected Not Detected LAB MICROBIOLOGY METHOD 01/21/2025 4:44 PM EDT [facility] Coronavirus HKU1 Not Detected Not Detected LAB MICROBIOLOGY METHOD 01/21/2025 4:44 PM EDT [facility] Coronavirus OC43 Not Detected Not Detected LAB MICROBIOLOGY METHOD 01/21/2025 4:44 PM EDT [facility] Coronavirus NL63 Not Detected Not Detected LAB MICROBIOLOGY METHOD 01/21/2025 4:44 PM EDT [facility] Parainfluenza Virus 1 Not Detected Not Detected LAB MICROBIOLOGY METHOD 01/21/2025 4:44 PM EDT [facility] Parainfluenza Virus 2 Not Detected Not Detected LAB MICROBIOLOGY METHOD 01/21/2025 4:44 PM EDT [facility] Parainfluenza Virus 3 Not Detected Not Detected LAB MICROBIOLOGY METHOD 01/21/2025 4:44 PM EDT [facility] Parainfluenza Virus 4 Not Detected Not Detected LAB MICROBIOLOGY METHOD 01/21/2025 4:44 PM EDT [facility] RSV PCR Not Detected Not Detected LAB MICROBIOLOGY METHOD 01/21/2025 4:44 PM EDT [facility] Human Metapneumovirus A and B Not Detected Not Detected LAB MICROBIOLOGY METHOD 01/21/2025 4:44 PM EDT [facility] Rhinovirus/Entero virus Not Detected Not Detected LAB MICROBIOLOGY METHOD 01/21/2025 4:44 PM EDT [facility] Bordetella pertussis Not Detected Not Detected LAB MICROBIOLOGY METHOD 01/21/2025 4:44 PM EDT [facility] Bordetella parapertussis Not Detected Not Detected LAB MICROBIOLOGY METHOD 01/21/2025 4:44 PM EDT [facility] Mycoplasma pneumo by PCR Not Detected Not Detected LAB MICROBIOLOGY METHOD 01/21/2025 4:44 PM EDT [facility] Chlamydia pneumoniae Not Detected Not Detected LAB MICROBIOLOGY METHOD 01/21/2025 4:44 PM EDT [facility] SARS COV-2 Not Detected Not Detected LAB MICROBIOLOGY METHOD 01/21/2025 4:44 PM EDT [facility] Swab Both anterior nares / Unknown Non-blood Collection / Unknown 01/21/2025 3:39 PM EDT 01/21/2025 3:49 PM EDT [facility] - 01/21/2025 4:44 PM EDT Testing was performed using the Marqui Respiratory Pathogen PCR Assay. All results must [...] that are below the limit of detection. Matilda DE DIOS LAB MICROBIOLOGY - GENERAL ORDERABLES Final Result [facility] ([facility] [address] [place] [address], [place] [phone] * XR Chest 1 View (01/21/2025 3:21 PM EDT) Anatomical Region Laterality Modality Body Radiographic Kellie ging 01/21/2025 3:31 PM EDT Impressions 01/21/2025 3:32 PM EDT FINDINGS/IMPRESSION: Low lung volumes with bronchovascular crowding and atelectasis at the bases. Stable cardiomediastinal contours without congestive heart failure. Stable rightward deviation of the upper trachea. -------- FINAL REPORT -------- Dictated By: Lulu Bonilla Dictated Date: 01/21/2025 15:31 ET Assigned Physician: Lulu Bonilla Reviewed and Electronically Signed By: Lulu Bonilla Signed Date: 01/21/2025 15:32 ET Workstation ID: [id number] Transcribed By: Self Edit Transcribed Date: 01/21/2025 15:31 ET Narrative 01/21/2025 3:32 PM EDT XR CHEST 1 VIEW INDICATION: fever TECHNIQUE: XR CHEST 1 VIEW COMPARISON: No priors available. Procedure Note Lulu Bonilla MD - 01/21/2025 XR CHEST 1 VIEW INDICATION: fever TECHNIQUE: XR CHEST 1 VIEW COMPARISON: No priors available. IMPRESSION: FINDINGS/IMPRESSION: Low lung volumes with bronchovascular crowding andatelectasis at the bases. Stable cardiomediastinal contours withoutcongestive heart failure. Stable rightward deviation of the uppertrachea. -------- FINAL REPORT -------- Dictated By: Lulu Bonilla Dictated Date: 01/21/2025 15:31 ET Assigned Physician: Lulu Bonilla Reviewed and Electronically Signed By: Lulu Bonilla Signed Date: 01/21/2025 15:32 ET Workstation ID: [id number] Transcribed By: Self Edit Transcribed Date: 01/21/2025 15:31 ET us Matilda DE DIOS IMG XR PROCEDURES Final Re sult * ECG 12 lead (01/21/2025 12:29 PM EDT) Only the most recent of2 resultswithin the time period is included. Ventricular Rate ECG 132 BPM GEMUSE Atrial Rate 133 BPM GEMUSE P-R Interval 104 ms GEMUSE QRS Duration 114 ms GEMUSE Q-T Interval 322 ms GEMUSE QTc 477 ms GEMUSE R [place] -35 degrees GEMUSE T [place] 82 degrees GEMUSE ECG Interpretation Sinus tachycardia with short NE Left axis deviation ST and T wave abnormality, consider lateral ischemia Abnormal ECG When compared with ECG of 20-JAN-2025 08:28, Incomplete left bundle branch block is no longer Present Confirmed by ANANYA TILLMAN ([id number]) on 01/22/2025 12:38:00 PM GEMUSE 01/21/2025 12:2 9 PM EDT 01/22/2025 12:38 PM EDT us Keon Price MD ECG ORDERABLES Fin al Result [facility] * (ABNORMAL) TRANSTHORACIC ECHOCARDIOGRAM (TTE) COMPLETE W/ CONTRAST (01/21/2025 11:52 AM EDT) Left Atrium Minor [place] 6.7 cm CV PACS Left Atrium Major [place] 6.9 cm CV PACS LA Area Sys (A2C) 28 cm2 CV PACS LA Area Sys (A4C) 25 cm2 CV PACS LA Volume (BP) 83 mL CV PACS RA Area 18.7 cm2 CV PACS RA 2D Volume 51 mL CV PACS AV Mean Gradient 8 mmHg CV PACS Ao VTI 34.4 cm CV PACS AV Peak Rob 2.0 m/s CV PACS AV Peak Gradient 15 mmHg CV PACS AV Area Continuity Equation 2.9 cm2 CV PACS AV Area Peak Velocity 2.4 cm2 CV PACS Aortic Sinus Valsalva 3.8 cm CV PACS Ascending Aorta 3.4 cm CV PACS IVC Proximal 1.9 cm CV PACS IVSD 0.9 0.6 - 1.0 cm CV PACS LVIDD 5.9(A) 4.2 - 5.8 cm CV PACS LVIDS 3.4 2.5 - 4.0 cm CV PACS LVOT Diameter 2.1 cm CV PACS LVOT Mean Rob 0.9 m/s CV PACS LVOT Mean Grad 4 mmHg CV PACS LVOT Peak VTI 28.6 cm CV PACS LVOT Peak Rob 1.4 m/s CV PACS LVOT Peak Gradient 8 mmHg CV PACS LVPWD 0.9 0.6 - 1.0 cm CV PACS MV E' Tissue Velocity Lateral 13 cm/s CV PACS MV E' Tissue Velocity Septal 7 cm/s CV PACS LVOT Area 3.5 cm2 CV PACS LVOT Stroke Volume 99 mL CV PACS MV Deceleration [place] 6.8 m/s2 CV PACS E Wave Deceleration Time 183 119 - 242 ms CV PACS MV PHT 54 ms CV PACS MV Peak A Rob 1.62 m/s CV PACS MV Peak E Rob 1.25 m/s CV PACS MV Mean Gradient 4 mmHg CV PACS MV Mean Gradient 4 mmHg CV PACS MV VTI 37.0 cm CV PACS Mitral Valve Max Velocity 1.7 m/s CV PACS MV Peak Gradient 11 mmHg CV PACS MV Area PHT 4.1 cm2 CV PACS MV Area Continuity Equation 2.7 cm2 CV PACS PV Acceleration Time 99 ms CV PACS RV Diastolic Basal Dimension 3.3 2.5 - 4.1 cm CV PACS RV S' 21 cm/s CV PACS TAPSE 28 mm CV PACS TR Peak Velocity 2.95 m/s CV PACS TR Peak Gradient 35 mmHg CV PACS E/E' Ratio Septal 18 CV PACS E/E' Ratio Averaged 14 CV PACS LVOT Stroke Index 51 mL/m2 CV PACS Relative Wall Thickness ratio 0.31 CV PACS LVOT:AV VTI Index 0.83 CV PACS FS 42 % CV PACS LV Mass 2D 210 g CV PACS Ascending Aorta Index 1.75 cm/m2 CV PACS MV VTI:LVOT VTI ratio 1.3 CV PACS LVOT flow 312 mL/s CV PACS RA 2D Volume Index 26 mL/m2 CV PACS CHRIS Index (VTI) 1.48 cm2/m2 CV PACS CHRIS Index (Pk Rob) 1.24 cm2/m2 CV PACS LVIDD Index 3.04 cm/m2 CV PACS LVIDS Index 1.75 cm/m2 CV PACS AV Velocity Ratio 0.70 CV PACS E/A Ratio 0.8 CV PACS E/E' Ratio Lateral 10 CV PACS LA Volume Index (BP) 43 mL/m2 CV PACS LV Mass Index 2D 108 g/m2 CV PACS BSA 1.97 m2 CV PACS Right Ventricular Peak Systolic Pressure 43 mmHg CV PACS Est. RA Pressure 8 mmHg CV PACS Anatomical Region Laterality Modality Ultrasound Narrative 01/21/2025 3:41 PM EDT Left ventricle cavity is mildly dilated. Left ventricular systolic function is in the normal range with an ejection fraction of 55-60%. No regional LV wall motion abnormalities noted. Right ventricle cavity is normal. Right ventricular systolic function is normal. The right ventricular systolic pressure is elevated at 43 mmHg. The left atrium is moderately enlarged. No hemodynamically significant valve disease. See remainder of the report for additional findings. Left Ventricle Left ventricle cavity is mildly dilated. Wall thickness is normal. Systolic function is normal with an ejection fraction of 55-60%. There are no regional LV wall motion abnormalities. Indeterminate diastolic function. Right Ventricle Right ventricle cavity appears normal. Systolic function is normal. Left Atrium Left atrium cavity is moderately dilated. Right Atrium Right atrium cavity is normal. IVC/SVC RA pressures is estimated to be 8 mmHg (IVC diameter <21 mm and decreases <50% during inspiration). Mitral Valve The leaflets are mildly thickened. There is annular calcification. There is trace regurgitation. There is no evidence of mitral valve stenosis. Tricuspid Valve Tricuspid valve structure is normal. There is trace regurgitation. There is no evidence of tricuspid valve stenosis. The right ventricular systolic pressure is elevated at 43 mmHg. Aortic Valve The aortic valve is trileaflet. Aortic annular calcification. There is no regurgitation or stenosis. Pulmonic Valve Pulmonic valve structure is normal. No significant pulmonic valve regurgitation. There is no evidence of pulmonic valve stenosis. Ascending Aorta The aorta appears normal in size. Transverse aorta not well visualized. Pericardium Pericardium appears normal. There is no pericardial effusion. Study Details Overall the study quality was suboptimal. Definity contrast was given to enhance imaging. us Matilda DE DIOS CV ECHO PROCEDURES Final R esult * Thyroid stimulating hormone with reflex to free t4 and free t3 (01/21/2025 6:03 AM EDT) [facility] TSH 0.62 0.40 - 4.00 mcIU/mL LAB CHEMISTRY METHOD 01/21/2025 2:59 PM EDT [facility] Blood Venous blood specimen / Unknown Venipuncture / Unknown 01/21/2025 6:03 AM EDT 01/21/2025 6:37 AM EDT us Matilda DE DIOS LAB BLOOD ORDERABLES Final Result [facility] [address] [place] [address], [place] [phone] * (ABNORMAL) Lipid panel with reflex to direct LDL (01/21/2025 6:03 AM EDT) [facility] Cholesterol 103 0 - 200 mg/dL LAB CHEMISTRY METHOD 01/21/2025 7:45 AM EDT [facility] Triglycerides 115 0 - 150 mg/dL LAB CHEMISTRY METHOD 01/21/2025 7:45 AM EDT [facility] HDL 31(L) >=40 mg/dL LAB CHEMISTRY METHOD 01/21/2025 7:45 AM EDT [facility] LDL Calculated 49 0 - 100 mg/dL LAB CHEMISTRY METHOD 01/21/2025 7:45 AM EDT [facility] VLDL Cholesterol Milind 23 mg/dL LAB CHEMISTRY METHOD 01/21/2025 7:45 AM EDT [facility] Non HDL Chol. (LDL+VLDL) 72 <145 mg/dL LAB CHEMISTRY METHOD 01/21/2025 7:45 AM EDT [facility] Chol/HDL Ratio 3.3 0.0 - 4.4 LAB CHEMISTRY METHOD 01/21/2025 7:45 AM EDT [facility] Blood Venous blood specimen / Unknown Venipuncture / Unknown 01/21/2025 6:03 AM EDT 01/21/2025 6:37 AM EDT us Socorro DE DIOS LAB BLOOD ORDERABLES Final Re sult [facility] [address] [place] [address], [place] [phone] * (ABNORMAL) Procalcitonin (01/21/2025 6:03 AM EDT) Procalcitonin 1.29(H) <=0.16 ng/mL LAB CHEMISTRY METHOD 01/22/2025 10:44 AM EDT [facility] Blood Venous blood specimen / Unknown Venipuncture / Unknown 01/21/2025 6:03 AM EDT 01/21/2025 6:37 AM EDT Narrative [facility] - 01/22/2025 10:44 AM EDT Procalcitonin > 2.00 ng/ml: Procalcitonin [...] any concentrations <2.0 ng/mL are obtained. us Matilda DE DIOS LAB BLOOD ORDERABLES Final Result [facility] ([facility] [address] [place] [address], * MR Brain wo Contrast (01/20/2025 5:10 PM EDT) Anatomical Region Laterality Modality Head and Neck Magnetic Resonan ce 01/20/2025 7:11 PM EDT Addenda Addendum by Stevie Fernandez MD on 01/20/2025 7:17 PM EDT ADDENDUM: This report was discussed with Val Galvan on Jan 20, 2025 19:16:00 EDT. This document has been electronically signed by: Judi Sequeira on 01/20/2025 19:17:01 Impressions 01/20/2025 7:11 PM EDT 1. Possible early acute left posterior parietal lobe infarct. 2. Segmental loss of flow void in the right V4 segment may be thrombus or high-grade stenosis. This document has been electronically signed by: Stevie Fernandez MD on 01/20/2025 19:11:49 Narrative 01/20/2025 7:11 PM EDT INDICATION: lower extremity weakness, eval for cva MR Brain without gadolinium Comparison: None Findings: Faint gyriform restricted diffusion along the left posterior parietal lobe without associated abnormality on T2 or FLAIR imaging may be artifact versus early infarct. No intracranial hemorrhage. Focal increased signal in the right V4 segment on T2 images possibly a nonocclusive thrombus or high-grade stenosis. Moderate volume loss. 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 Encephalomalacia in the right cerebellum and right frontal lobe. Periventricular and subcortical T2 white matter hyperintensities likely chronic small-vessel ischemic changes. No midline shift. No hydrocephalus. Vascular flow voids are intact. The orbits are normal. The sinuses and mastoid air cells are clear. No focal bone lesion. Procedure Note Stevie Fernandez MD - 01/20/2025 INDICATION: lower extremity weakness, eval for cva MR Brain without gadolinium Comparison: None Findings: Faint gyriform restricted diffusion along the left posterior parietallobe without associated abnormality on T2 or FLAIR imaging may be artifact versus early infarct. No intracranial hemorrhage. Focal increased signal in the right V4 segment on T2 images possibly a nonocclusive thrombus or high-grade stenosis. Moderate volume loss. 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 Encephalomalacia in the right cerebellum and right frontal lobe. Periventricular and subcortical T2 white matter hyperintensities likely chronic small-vessel ischemic changes. No midline shift. No hydrocephalus. Vascular flow voids are intact. The orbits are normal. The sinuses and mastoid air cells are clear. No focal bone lesion. IMPRESSION: 1. Possible early acute left posterior parietal lobe infarct. 2. Segmental loss of flow void in the right V4 segment may be thrombusor high-grade stenosis. This document has been electronically signed by: Stevie Fernandez MD on 01/20/2025 19:11:49 Socorro DE DIOS IMG MRI PROCEDURES Edited Res ult - Final * Lactate, with reflex (01/20/2025 9:56 AM EDT) LACTIC ACID 1.2 0.4 - 2.0 mmol/L LAB CHEMISTRY METHOD 01/20/2025 10:56 AM EDT [facility] Blood Venous blood specimen / Unknown Venipuncture / Unknown 01/20/2025 9:56 AM EDT 01/20/2025 10:24 AM EDT us Marisa Richey DO LAB BLOOD ORDERABLES Final Result [facility] [address] [place] [address], [place] [phone] * XR Hips 5+ Views wo or w Pelvis bilat (01/20/2025 9:35 AM EDT) Anatomical Region Laterality Modality Lower Extremities, Hip Bilateral Radiograp hic Imaging 01/20/2025 9:55 AM EDT Narrative 01/20/2025 9:56 AM EDT INDICATION: bilateral hip pain FINDINGS: 3 views of both hips were obtained. There is no evidence of fracture or dislocation. No radiopaque foreign body or periosteal reaction is noted. There is no significant soft tissue abnormality. Mild degenerative changes. CONCLUSION: No evidence of bilateral hip fracture or dislocation. -------- FINAL REPORT -------- Dictated By: Konrad Yoder Dictated Date: 01/20/2025 09:55 ET Assigned Physician: Konrad Yoder Reviewed and Electronically Signed By: Konrad Yoder Signed Date: 01/20/2025 09:56 ET Workstation ID: [id number] Transcribed By: Self Edit Transcribed Date: 01/20/2025 09:55 ET Procedure Note Konrad Yoder MD - 01/20/2025 INDICATION: bilateral hip pain FINDINGS: 3 views of both hips were obtained. There is no evidence offracture or dislocation. No radiopaque foreign body or periosteal reactionis noted. There is no significant soft tissue abnormality. Milddegenerative changes. CONCLUSION: No evidence of bilateral hip fracture or dislocation. -------- FINAL REPORT -------- Dictated By: Konrad Yoder Dictated Date: 01/20/2025 09:55 ET Assigned Physician: Konrad Yoder Reviewed and Electronically Signed By: Konrad Yoder Signed Date: 01/20/2025 09:56 ET Workstation ID: [id number] Transcribed By: Self Edit Transcribed Date: 01/20/2025 09:55 ET us Marisa Richey DO IMG XR PROCEDURES Final Res ult * XR Knee 4+ Views bilat (01/20/2025 9:35 AM EDT) Anatomical Region Laterality Modality Lower Extremities, Knee Bilateral Radiogra phic Imaging 01/20/2025 9:50 AM EDT Impressions 01/20/2025 9:53 AM EDT Mild degenerative changes with prepatellar soft tissue swelling on the right side. -------- FINAL REPORT -------- Dictated By: Konrad Yoder Dictated Date: 01/20/2025 09:50 ET Assigned Physician: Konrad Yoder Reviewed and Electronically Signed By: Konrad Yoder Signed Date: 01/20/2025 09:53 ET Workstation ID: [id number] Transcribed By: Self Edit Transcribed Date: 01/20/2025 09:50 ET Narrative 01/20/2025 9:53 AM EDT INDICATION: bilateral knee pain FINDINGS: 4 views of both knee were obtained. Mild medial joint space narrowing bilaterally. Prepatellar soft tissue swelling noted on the right side. No significant joint effusion on either side. Procedure Note Konrad Yoder MD - 01/20/2025 INDICATION: bilateral knee pain FINDINGS: 4 views of both knee were obtained. Mild medial joint space narrowing bilaterally. Prepatellar soft tissueswelling noted on the right side. No significant joint effusion on eitherside. IMPRESSION: Mild degenerative changes with prepatellar soft tissue swelling on theright side. -------- FINAL REPORT -------- Dictated By: Konrad Yoder Dictated Date: 01/20/2025 09:50 ET Assigned Physician: Konrad Yoder Reviewed and Electronically Signed By: Konrad Yoder Signed Date: 01/20/2025 09:53 ET Workstation ID: [id number] Transcribed By: Self Edit Transcribed Date: 01/20/2025 09:50 ET us Marisa Richey DO IMG XR PROCEDURES Final Res ult * XR Elbow 2 Views Right (01/20/2025 9:35 AM EDT) Anatomical Region Laterality Modality Upper Extremities, Elbow Right Radiogr aphic Imaging 01/20/2025 9:49 AM EDT Impressions 01/20/2025 9:49 AM EDT Normal elbow radiographs. [id number] -------- FINAL REPORT -------- Dictated By: Konrad Yoder Dictated Date: 01/20/2025 09:49 ET Assigned Physician: Konrad Yoder Reviewed and Electronically Signed By: Konrad Yoder Signed Date: 01/20/2025 09:49 ET Workstation ID: [id number] Transcribed By: Self Edit Transcribed Date: 01/20/2025 09:49 ET Narrative 01/20/2025 9:49 AM EDT INDICATION: pain FINDINGS: 2 views of the right elbow obtained. No prior studies available for comparison. No evidence of fracture or dislocation. No foreign body or periosteal reaction. No joint effusion or significant soft tissue abnormality. Procedure Note Konrad Yoder MD - 01/20/2025 INDICATION: pain FINDINGS: 2 views of the right elbow obtained. No prior studies availablefor comparison. No evidence of fracture or dislocation. No foreign body or periostealreaction. No joint effusion or significant soft tissue abnormality. IMPRESSION: Normal elbow radiographs. [id number] -------- FINAL REPORT -------- Dictated By: Konrad Yoder Dictated Date: 01/20/2025 09:49 ET Assigned Physician: Konrad Yoder Reviewed and Electronically Signed By: Konrad Yoder Signed Date: 01/20/2025 09:49 ET Workstation ID: [id number] Transcribed By: Self Edit Transcribed Date: 01/20/2025 09:49 ET Marisa Richey DO IMG XR PROCEDURES Final Res ult * XR Chest 2 Views (01/20/2025 9:35 AM EDT) Anatomical Region Laterality Modality Body Radiographic Kellie ging 01/20/2025 9:53 AM EDT Impressions 01/20/2025 9:55 AM EDT No evidence of active pulmonary disease. No significant change from the prior study. -------- FINAL REPORT -------- Dictated By: Konrad Yoder Dictated Date: 01/20/2025 09:53 ET Assigned Physician: Konrad Yoder Reviewed and Electronically Signed By: Konrad Yoder Signed Date: 01/20/2025 09:55 ET Workstation ID: [id number] Transcribed By: Self Edit Transcribed Date: 01/20/2025 09:53 ET Narrative 01/20/2025 9:55 AM EDT INDICATION: Extremity pain FINDINGS: Two views of the chest were obtained. Compared to multiple prior studies most recent from November 09, 2024. Mild left basilar atelectasis/scarring with slight elevation of the left hemidiaphragm laterally. Cardiomediastinal silhouette is normal in size and shape. Bony structures are within normal limits for the patient's age. Procedure Note Konrad Yoder MD - 01/20/2025 INDICATION: Extremity pain FINDINGS: Two views of the chest were obtained. Compared to multiple priorstudies most recent from November 09, 2024. Mild left basilar atelectasis/scarring with slight elevation of the lefthemidiaphragm laterally. Cardiomediastinal silhouette is normal in size and shape. Bony structures are within normal limits for the patient's age. IMPRESSION: No evidence of active pulmonary disease. No significant change from theprior study. -------- FINAL REPORT -------- Dictated By: Konrad Yoder Dictated Date: 01/20/2025 09:53 ET Assigned Physician: Konrad Yoder Reviewed and Electronically Signed By: Konrad Yoder Signed Date: 01/20/2025 09:55 ET Workstation ID: [id number] Transcribed By: Self Edit Transcribed Date: 01/20/2025 09:53 ET us Marisa Richey DO IMG XR PROCEDURES Final Res ult * APTT (01/20/2025 8:29 AM EDT) aPTT 30.0 24.1 - 39.3 sec LAB COAGULATION METHOD 01/20/2025 8:53 AM EDT [facility] Blood Venous blood specimen / Unknown Venipuncture / Unknown 01/20/2025 8:29 AM EDT 01/20/2025 8:41 AM EDT Marisa Richey DO LAB BLOOD ORDERABLES Final Result [facility] [address] [place] [address], [place] [phone] * Type and screen (01/20/2025 8:29 AM EDT) ABO Group A 01/20/2025 10:35 AM EDT [facility] Rh Type Positive 01/20/2025 10:35 AM EDT [facility] Antibody Screen Negative 01/20/2025 10:35 AM EDT [facility] Blood Venous blood specimen / Unknown Venipuncture / Unknown 01/20/2025 8:29 AM EDT 01/20/2025 8:41 AM EDT Marisa Richey DO LAB BLOOD BANK TEST ORDERAB LES Final Result Performing Organization Address [facility] Co de Phone Number [facility] [address] [place] [address], [place] [phone] * Hemoglobin A1c (01/20/2025 8:29 AM EDT) Hemoglobin A1C 6.3 <6.5 % LAB CHEMISTRY METHOD 01/20/2025 9:06 PM EDT [facility] Mean Bld Glu Estim. 134 mg/dL LAB CHEMISTRY METHOD 01/20/2025 9:06 PM EDT [facility] Blood Venous blood specimen / Unknown Venipuncture / Unknown 01/20/2025 8:29 AM EDT 01/20/2025 8:41 AM EDT Socorro DE DIOS LAB BLOOD ORDERABLES Final Re sult [facility] [address] [place] [address], * CT Head Stroke wo Contrast (01/20/2025 8:20 AM EDT) Anatomical Region Laterality Modality Head and Neck Computed Tomogra phy 01/20/2025 8:19 AM EDT Impressions 01/20/2025 8:23 AM EDT No acute intracranial findings. Multiple areas of encephalomalacia suggesting sequela of previous infarcts. Results communicated via the secure text messaging system to MARISA RICHEY. A Critical Document Only message has been documented for the office of MARISA RICHEY in the [email or web address] system on 01/20/2025 8:22 AM, Message ID [id number]. -------- FINAL REPORT -------- Dictated By: Blu Izquierdo Dictated Date: 01/20/2025 08:19 ET Assigned Physician: Blu Izquierdo Reviewed and Electronically Signed By: Blu Izquierdo Signed Date: 01/20/2025 08:23 ET Workstation ID: [id number] Transcribed By: Self Edit Transcribed Date: 01/20/2025 08:19 ET Narrative 01/20/2025 8:23 AM EDT PROCEDURE: Noncontrast head CT. HISTORY: Dizziness, non-specific. COMPARISON: 11/09/2024. TECHNIQUE: Noncontrast head CT with coronal and sagittal reformats. Dose length product: 857 mGy-cm. FINDINGS: BRAIN: There are stable areas of encephalomalacia in the cerebellar hemispheres, right greater than left, and in the posterior right occipital lobe, suggesting sequela of remote infarct. Stable small areas of encephalomalacia in the thalami, basal ganglia, and serna radiata bilaterally also suggesting sequela of remote small vessel infarcts. No hemorrhage, edema, mass, or extra-axial fluid collection. No CT evidence of an acute large vessel infarct. Ventricles and sulci are age commensurate. Atherosclerotic calcifications of the carotid siphons. ORBITS: Normal. SINUSES/MASTOIDS: Small left mario bullosa. CALVARIUM: Normal. OTHER: The skull base soft tissues are normal. Procedure Note Blu Izquierdo MD - 01/20/2025 PROCEDURE: Noncontrast head CT. HISTORY: Dizziness, non-specific. COMPARISON: 11/09/2024. TECHNIQUE: Noncontrast head CT with coronal and sagittal reformats. Dose length product: 857 mGy-cm. FINDINGS: BRAIN: There are stable areas of encephalomalacia in the cerebellarhemispheres, right greater than left, and in the posterior right occipitallobe, suggesting sequela of remote infarct. Stable small areas ofencephalomalacia in the thalami, basal ganglia, and serna radiatabilaterally also suggesting sequela of remote small vessel infarcts. Nohemorrhage, edema, mass, or extra-axial fluid collection. No CT evidenceof an acute large vessel infarct. Ventricles and sulci are agecommensurate. Atherosclerotic calcifications of the carotid siphons. ORBITS: Normal. SINUSES/MASTOIDS: Small left mario bullosa. CALVARIUM: Normal. OTHER: The skull base soft tissues are normal. IMPRESSION: No acute intracranial findings. Multiple areas of encephalomalacia suggesting sequela of previousinfarcts. Results communicated via the secure text messaging system to MARISA PANTOJA. A Critical Document Only message has been documented for the office ofMARISA RICHEY in the [email or web address] system on01/20/2025 8:22 AM, Message ID [id number]. -------- FINAL REPORT -------- Dictated By: Blu Izquierdo Dictated Date: 01/20/2025 08:19 ET Assigned Physician: Blu Izquierdo Reviewed and Electronically Signed By: Blu Izquierdo Signed Date: 01/20/2025 08:23 ET Workstation ID: [id number] Transcribed By: Self Edit Transcribed Date: 01/20/2025 08:19 ET us Marisa Richey DO IMG CT PROCEDURES Final Res ult * CT Angio Head/Neck Stroke wo and/or w Contrast (01/20/2025 8:20 AM EDT) Anatomical Region Laterality Modality Head and Neck Computed Tomogra phy 01/20/2025 8:27 AM EDT Impressions 01/20/2025 8:43 AM EDT CTA of the brain and neck demonstrates mild to moderate atherosclerotic changes without aneurysm, thrombosis or occlusion. -------- FINAL REPORT -------- Dictated By: Konrad Yoder Dictated Date: 01/20/2025 08:27 ET Assigned Physician: Konrad Yoder Reviewed and Electronically Signed By: Konrad Yoder Signed Date: 01/20/2025 08:43 ET Workstation ID: [id number] Transcribed By: Self Edit Transcribed Date: 01/20/2025 08:34 ET Narrative 01/20/2025 8:43 AM EDT INDICATION: Dizziness TECHNIQUE: CTA of the brain and neck performed with a total of 90 cc Isovue-370 administered intravenously without incident. Arterial phase imaging of the brain and neck and delayed phase imaging of the brain obtained. Axial, coronal and sagittal imaging reviewed including MIPS. 3D multiplanar reconstructions performed on a computer workstation. CT source data was analyzed using [employer] artificial intelligence software to assist stroke clinical decision making with regard to diagnosis of large vessel occlusion. Scanner: [email or web address] 128slice VCT Dose reduction technique: ASIR (Adaptive statistical iterative reconstruction) and/or AEC (automated exposure control) Dose: total exam DLP 2952 mGY per cm COMPARISON: No prior studies are available for comparison. FINDINGS: Arterial phase: Aortic arch: Mild atherosclerotic changes. Mild motion artifact. Patent proximal arch vessels. Right carotid: Tortuous proximal common carotid artery. Mild plaque along the carotid bifurcation without stenosis. Left carotid: Widely patent left common carotid artery. Mild ossified plaque along the carotid bulb without stenosis. Subclavian/vertebral: Patent bilateral subclavian arteries with mild nonobstructive plaque. Limited evaluation the proximal vertebral arteries secondary to suboptimal opacification and motion with focal plaque and moderate stenosis along the origin on the left side. Widely patent right side. Mid cervical vertebral arteries are well-opacified and normal in caliber. Intracranial vessels: Moderate stenosis along the right vertebral artery distally. Vertebral arteries join to form the basilar artery which is slightly small in caliber and supplies both posterior cerebral arteries. Nonopacified posterior communicating arteries. Moderate atherosclerotic plaque along the intracranial ICAs. Mildly diseased proximal middle cerebral arteries otherwise patent. Patent bilateral anterior cerebral arteries without definitive anterior communicating artery. Delayed phase: Widely patent dural sinuses. CT neck: No cervical lymphadenopathy. Parotid, submandibular and thyroid glands are within normal limits for the patient's age. No parapharyngeal or retropharyngeal soft tissue swelling. Lung apices demonstrate emphysematous changes. Mild precarinal lymphadenopathy. Bony structures: Demonstrate degenerative changes. Multiple dental caries. Patient is partially edentulous. Procedure Note Konrad Yoder MD - 01/20/2025 INDICATION: Dizziness TECHNIQUE: CTA of the brain and neck performed with a total of 90 ccIsovue-370 administered intravenously without incident. Arterial phaseimaging of the brain and neck and delayed phase imaging of the brainobtained. Axial, coronal and sagittal imaging reviewed including MIPS. 3Dmultiplanar reconstructions performed on a computer workstation. CT source data was analyzed using [employer] artificial intelligencesoftware to assist stroke clinical decision making with regard todiagnosis of large vessel occlusion. Scanner: [email or web address] 128slice VCT Dose reduction technique: ASIR (Adaptive statistical iterativereconstruction) and/or AEC (automated exposure control) Dose: total exam DLP 2952 mGY per cm COMPARISON: No prior studies are available for comparison. FINDINGS: Arterial phase: Aortic arch: Mild atherosclerotic changes. Mild motion artifact. Patentproximal arch vessels. Right carotid: Tortuous proximal common carotid artery. Mild plaque alongthe carotid bifurcation without stenosis. Left carotid: Widely patent left common carotid artery. Mild ossifiedplaque along the carotid bulb without stenosis. Subclavian/vertebral: Patent bilateral subclavian arteries with mildnonobstructive plaque. Limited evaluation the proximal vertebral arteriessecondary to suboptimal opacification and motion with focal plaque andmoderate stenosis along the origin on the left side. Widely patent rightside. Mid cervical vertebral arteries are well-opacified and normal incaliber. Intracranial vessels: Moderate stenosis along the right vertebral arterydistally. Vertebral arteries join to form the basilar artery which isslightly small in caliber and supplies both posterior cerebral arteries.Nonopacified posterior communicating arteries. Moderate atherosclerotic plaque along the intracranial ICAs. Mildlydiseased proximal middle cerebral arteries otherwise patent. Patentbilateral anterior cerebral arteries without definitive anteriorcommunicating artery. Delayed phase: Widely patent dural sinuses. CT neck: No cervical lymphadenopathy. Parotid, submandibular and thyroidglands are within normal limits for the patient's age. No parapharyngealor retropharyngeal soft tissue swelling. Lung apices demonstrate emphysematous changes. Mild precarinallymphadenopathy. Bony structures: Demonstrate degenerative changes. Multiple dental caries. Patient is partially edentulous. IMPRESSION: CTA of the brain and neck demonstrates mild to moderate atheroscleroticchanges without aneurysm, thrombosis or occlusion. -------- FINAL REPORT -------- Dictated By: Konrad Yoder Dictated Date: 01/20/2025 08:27 ET Assigned Physician: Konrad Yoder Reviewed and Electronically Signed By: Konrad Yoder Signed Date: 01/20/2025 08:43 ET Workstation ID: [id number] Transcribed By: Self Edit Transcribed Date: 01/20/2025 08:34 ET Marisa Richey DO IMG CT PROCEDURES Final Res ult from Last 3 Months Insurance MEDICAID - [place] MEDICARE Advance Directives Documents on File Type Date Recorded Patient Director Of [employer] Expl anation Advance Directives and Living Will 02/11/2025 3:21 PM PROXY Health Care Decision (hx) 12/05/2023 Elisa Gutierrez [...] Decision (hx) 03/12/2013 AD COUCH DIRECTIVE * Full Code - Default (Latest Code Status on File) Date Activated Date Inactivated Comments 01/24/2025 2:53 PM 02/07/2025 12:52 PM This is ord er is used when code status has not been discussed with the patient, or code status is otherwise unknown/unconfirmed To update the patient's code status, place a code status order. Do not modify or discontinue any currently active code status orders. * Full Code - Default Date Activated Date Inactivated Comments 01/20/2025 2:06 PM 01/24/2025 12:56 PM This is ord er is used when code status has not been discussed with the patient, or code status is otherwise unknown/unconfirmed To update the patient's code status, place a code status order. Do not modify or discontinue any currently active code status orders. * No CPR/Do Not Intubate Date Activated Date Inactivated Comments 11/09/2024 3:03 [...] way: Code status discussion: discussion with healthcare field marketing representative To update the patient's code status, [...] discontinue any currently active code status orders. Healthcare Agents on File Name Relationship Healthcare Agent Relationshi p Communication Elisa [facility] Health Care Agent Karen [facility] Health Care Agent Care Teams [employer] Machine Operator Relationship Specialty Start Date End Date Amy Win FNP [address] [place] [address] Dr Plascencia, MICHELLE [phone] PCP - General Nurse Practitioner 01/25/25
[2025-03-02 09:11] VITALS: BP 142/70; O2SAT 99
== END 2025-03-02 09:35 | disposition home or self-care (01) ==
LOC: HO.HMCFM 08:37
PROVIDERS: PCP Nurse Practitioner Family; Visit Provider Nurse Practitioner Family
DX: I12.9 Hypertensive chronic kidney disease with stage 1 through stage 4 chronic kidney disease, or unspecified chronic kidney disease (principal); N18.31 Chronic kidney disease, stage 3a; I47.19 Other supraventricular tachycardia; R54 Age-related physical debility; Z09 Encounter for follow-up examination after completed treatment for conditions other than malignant neoplasm; D63.1 Anemia in chronic kidney disease; Z51.5 Encounter for palliative care; Z66 Do not resuscitate; Z86.73 Personal history of transient ischemic attack (TIA), and cerebral infarction without residual deficits; T17.908S Unspecified foreign body in respiratory tract, part unspecified causing other injury, sequela; K04.7 Periapical abscess without sinus

== ENCOUNTER 2025-06-13 08:15 | Outpatient (AMB) | payer MEDICARE, MEDICAID, SELFPAY ==
--- OUTSIDE RECORDS SUMMARY | 2025-06-08 07:00 | XMS_ITS | Encounter Summary ---
Author Organization [facility] Address [address] [place] [address] Care Team Providers Care Compliance Representative Dealer Name Role Phone Amy Win Primary Care Provider Reason for Visit * Reason Comments 30 day ROCT * Cardiac Stress Testing (Routine) - Closed Specialty Diagnoses / Procedures Referred By Dinora lentz Referred To Contact Cardiology Diagnoses Atrial tachycardia (CMS/HCC V24) History of CVA (cerebrovascular accident) Procedures Cardiac event monitor GA EXTERNAL PATIENT ACTIVATED ECG DOWNLOAD W RESULTS & INTERP <= 30 DAYS GA EXTERNAL PAT AUTO ACTIVATED ECG INCLUDING TRANSMISSION UP TO 30 DAYS GA EXTERNAL MOBILE CV TELEMETRY W ECG RECORDING <=30D PHYSCIAN REV & INTERP GA EXTERNAL MOBILE CV TELEMETRY W ECG RECORDING TECH SUPPORT UP TO 30 DAYS GA ECG UP TO 30 DAYS RECORDING Krystle Whitt NP [address] [place] [address] Phone: tel: fax: Referral ID Status Reason Start Date Expiration Date Visits Re quested Visits Authorized [id number] Closed 06/01/2025 06/01/2026 1 1 Encounter Details Date Type Department Care Team (Latest Contact Info) Description 06/08/2025 8:00 AM EDT Ancillary Procedure [facility] [address] [place] [address] Atrial tachycardia (CMS/HCC V24); History of CVA (cerebrovascular accident) Social History Tobacco Use Types Packs/Day Years [...] Safety Answer Date Record ed Physical Abuse Unrecognized value 01/24/2025 Verbal Abuse Unrecognized value 01/24/2025 Sex and Gender Information Value Date [...] 5:25 AM EST Renea Sánchez RN * Do you have serious difficulty walking or climbing stairs? Answer Date of Assessment Author Yes 09/12/2024 5:25 AM EST Gonzalo, Renea Salvador RN * Do you have serious [...] soraya Salvador RN documented in this encounter Plan of Treatment Pending Results Name Type Priority Associated Diagnoses Date /Time Cardiac event monitor Cardiac Services Routine Atrial tachycardia ([facility]/HCC V24) History of CVA (cerebrovascular accident) 06/08/2025 2:09 PM EDT documented as of this encounter Visit Diagnoses Diagnosis Atrial tachycardia (CMS/HCC V24) Other specified cardiac dysrhythmias History of CVA (cerebrovascular accident) Transient ischemic attack (TIA), and cerebral infarction without residual deficits documented in this encounter Additional Health Concerns Assessment Noted Time PHQ-9 Depression Total Score: 0 02/08/20 9:06 AM EDT documented as of this encounter Care Teams Compliance Representative Dealer Relationship Specialty Start Date End Date Amy Win FNP [address] [place] [address] [place] [phone] PCP - General Nurse Practitioner 01/25/25 documented as of this encounter
--- NOTE | 2025-06-13 08:19 | A.OFFVIS_ITS ---
Intake Vital Signs 06/13/25 08:36 Height 5 ft 6 in Weight 173 lb 4 oz BMI 28.0 BP 132/72 Blood Pressure Location Rt brachial Position Sitting Respiration 12 Pulse 62 Pulse Source Pulse Oximeter Temp 97.2 F Temp Source Oral Pulse Oximetry (%) 99 Oxygen Delivery Method Room Air Intake Visit Reasons: Med Management Intake Note: AWV. Patient was put on a heart monitor last week at [facility] cardiology. Quality Assurance Monitor Body Required: Yes Quality Assurance Monitor Body Language: Taper Operator Name: Jori [id number] Allergies Penicillins Allergy (Severe, Verified 06/13/25 08:57) Hives lisinopril Adverse Reaction (Verified 06/13/25 08:57) cough Medication List - Last Reconciled 06/13/25 by GLEN MccartyP- acetaminophen 1,000 mg (2 x 500 mg) PO TID PRN 30 days ammonium lactate 12% 1 appl topical BID 30 days aspirin 81 mg PO DAILY atorvastatin 80 mg PO BEDTIME brimonidine 0.2% 1 drp ophthalmic (eye) BID carvedilol 6.25 mg PO BID clindamycin HCl (Cleocin HCl) 150 mg PO TID clopidogrel (Plavix) 75 mg PO DAILY diltiazem HCl CD (Cartia XT) 120 mg PO DAILY docusate sodium 100 mg PO BID gabapentin 600 mg PO TID 90 days [Home BP monitor As directed] hydralazine 10 mg PO TID latanoprost 0.005% 1 drp ophthalmic (eye) QPM losartan 100 mg PO DAILY miscellaneous medical supply standard wheelchair miscellaneous medical supply Shower chair with back support miscellaneous medical supply wheel walker with seat nitroglycerin 0.3 mg sublingual Q5M PRN 30 days omeprazole 20 mg PO BID 90 days quetiapine (Seroquel) 100 mg PO BEDTIME tamsulosin 0.4 mg PO DAILY 90 days Do you need a note to return to daycare/school/sports/work: No HPI HPI Comments History of Present Illness Details Here today for AWV. The Medicare Annual Wellness Visit (AWV) is a yearly appointment with a health professional to identify health risks and help reduce them and to create or update a personalized prevention plan. During a Medicare AWV, health professionals should also review any current opioid prescriptions, detect any cognitive impairment, and establish or update medical and family history. 84-year-old Dive[place] speaking male with c hronic small-vessel ischemic disease, multiple old infarcts throughout the basal ganglia, thalami and coronal radiata, diffuse cerebral volume loss, coronary artery disease S/P NSTEMI 2013 with drug eluting stent x 1, BPH, neuropathy, hypertension, hyperlipidemia, anxiety and depression, tortuosity of the thoracic aorta, CHF, cardiac pacemaker, GERD, tracheomalacia & OA, cataracts bilat, glaucoma, former smoker, atrial tachycardia, chronic aspiration d/t dysphagia (puree diet), prediabetes, chronic anemia Quality Assurance Monitor Body [id number] Here w/ SOIL SORT WORKER, Magda Duenas, not family. preferred contact phone [phone] (her # per his request) SurgHx: Y FHx: Y SocHx: Y Health Maintenance: See scanned preventative medicine assessment with personalized health plan and screening schedule. Colon: Declined Vaccines: Declined all AAA screen: NA EKG: Declined [place] of Care: As documented in chart Visual Acuity: wears glasses, blind L eye, eye exam 1 week ago. Will be having cataracts removed Hearing Screening: [facility] [place] hearing test. ACP: MOLST on file DNR/DNI. HCP updated today, Magda Duenas, scanned into chart. Dietary/Nutrition/Exercise Edu provided: Y During the course of the visit the patient was educated and counseled about appropriate screening and preventative services. Patient instructions were provided to the patient in written or electronic format. I have reviewed and verified the above information. History of Present Illness The patient is an 84-year-old male presenting for his annual Medicare wellness visit. He has a complex medical history and wishes to continue with cgbqdix-szeadoxs-sqocb care and avoid invasive procedures. The patient has not been hospitalized since February. Multiple chronic conditions: - The patient's complex past medical his tory includes chronic small vessel ischemic disease with old infarcts, diffuse cerebral volume loss, coronary artery disease status post-stenting in 2013, BPH, neuropathy, hypertension, hyperlipidemia, anxiety, depression, a tortuous thoracic aorta, CHF with a cardiac pacemaker, GERD, trichomyalgia, osteoarthritis, bilateral cataracts, glaucoma, atrial tachycardia, chronic aspiration due to dysphagia requiring a pureed diet, prediabetes, and anemia. - He reports his pain is stable and attr ibutes it to his inability to walk. - Current medications include aspirin, a torvastatin, carvedilol, diltiazem, gabapentin, hydralazine, losartan, omeprazole, and quetiapin & eye drops. - The patient declines to have any lab d raws at this time. Specialist Follow-up: - The patient is seeing a spider assembler & Optho. - The patient is under the care of an op hthalmologist and has cataract surgery scheduled for his eyes. Palliative Care: - A previous attempt to enroll the patie nt in a hospice program for increased in-home care services fell through because his previous caregiver, his nedeacon Bustillo, was not available to meet with the program staff. He reports he has no relationship with Iris, wants her removed from all of his medical care as she was not doing her job. - His new caregiver is supportive of ree nrolling in hospice to obtain more services and help. - A request has been made for a position al bed which can be provided by hospice/palliative care. Hearing Loss: - His caregiver reports that the patient 's ear frequently feels bogged and he does not hear well, requesting a referral for a hearing test. Memory Impairment: - The patient reports significant memory impairment, stating he instantly forgets everything, which is why he cannot answer phone calls. Past Medical History - Chronic small vessel ischemic disease with multiple old infarcts throughout the basal ganglia, thalamus, and serna radiata - Diffuse cerebral volume loss - Coronary artery disease - Benign prostatic hyperplasia - Neuropathy - Hypertension - Hyperlipidemia - Anxiety and Depression - Tortuous thoracic aorta - Congestive heart failure - Gastroesophageal reflux disease - Trichomyalgia - Osteoarthritis - Bilateral cataracts - Glaucoma - Atrial tachycardia - Chronic aspiration secondary to dyspha heidi - Prediabetes - Anemia - History of hospitalization in February Past Surgical History - Coronary artery stenting with a drug-e luting stent in 2012 - Cardiac pacemaker placement Family History No change Social History - Tobacco use: Former smoker. - Functional Status: Patient reports roopa ng unable to walk. Walker/Wheel chair Handicap placard form completed today & returned at time of visit. - Diet: Requires a pureed diet due to dy sphagia. - Support System: Receives care from a n ew caregiver via a SOIL SORT WORKER service. Review of Systems - HEENT: Reports ears feeling bogged a nd hearing loss. - Neurological: Patient reports memory l oss, stating he instantly forget everything. - Musculoskeletal: Reports inability to walk and associated pain. - General: Reports feeling cold. Physical Exam General: Well developed, well nourished, in no acute distress. Appears stated age. Chronically ill appearing, accompanied by Christine. Head: Normocephalic, atraumatic. Eyes: Pupils are equal, round and reactive to light and accommodation. Conjunctivae are clear. Scleras nonicteric bilat. Ears: TMs clear AU, EACS WNL Nose: Patent, without discharge. Neck: No carotid bruit bilat. Supple, no adenopathy or thyromegaly. Breast: Edu on SBE Lungs: Clear to auscultation bilaterally. No rales, rhonchi or wheeze noted. Good air flow in all wheeler. Heart: Regular rate and rhythm. No murmurs, click, rubs or gallops are noted. Abdomen: Bowel sounds present in all quadrants. The abdomen is soft, nontender, with no masses or organomegaly noted. No hernias are noted. : Deferred. Reviewed CELSA & recommendations Pulses: Peripheral pulses are equal and palpable bilaterally. Extremities: BLE no edema, decreased PP bilat, skin hairless with with slight scaling. Sitting in w/c with cane Neurologic: Gait and station normal. Cranial Nerves 2-12 intact. Motor strength grossly symmetrical and intact. No sensory loss. Balance normal. Alert oriented, has capacity to make his own decisions Skin: No rashes, ulcers, or lesions noted. Turgor is good. Skin color is good. Hair and nails are without abnormalities. Psych: Normal eye contact, affect and mood appropriate, and normal interactions. Patient is alert and appropriate to context. Results A1c 5.6 % today. Medical Decision Making This is an 84-year-old male with a complex medical history who presented for his annual Medicare wellness visit. We confirmed his goals of care, which remain focused on comfort measures, and he wishes to avoid invasive procedures. He continues to defer lab work, which is reasonable given his care preferences. Given the patient's significant debility and the new caregiver's support, a ferrer intervention is re-engaging with hospice/palliative services. A new referral will be placed to provide additional in-home support to [facility] for nursing services, and access to durable medical equipment such as a positional bed, which was specifically requested. For his new complaint of hearing difficulty, a referral for an audiogram is indicated. The patient's ophthalmological care is appropriately managed externally, with cataract surgery already scheduled. To address his mobility limitations, a disability parking placard application was completed. The patient will continue his current medication regimen and is scheduled for a follow-up in six months. Plan 1. Annual Wellness Visit - Reaffirmed patient's goals of care, fo cusing on comfort measures and avoidance of invasive procedures. - Addressed health maintenance, includin g discussion of influenza vaccine and specialist follow-up. - The patient declines laboratory studie s at this time. 2. Palliative Care - Will place a new referral for hospice care evaluation to provide increased in- home support and services. - Will have nursing staff investigate ob taining a positional bed through durable medical equipment services. 3. Chronic Medical Conditions - Continue current medications, includin g aspirin, atorvastatin, carvedilol, diltiazem, gabapentin, hydralazine, losartan, omeprazole, and quetiapine. - Follow-up with cardiology as scheduled . 4. Hearing Loss - Will place a referral for a hearing te st based on caregiver's report of patient's difficulty hearing. 5. Bilateral Cataracts - Continue with plan for scheduled catar act surgery with his capacity planner. 6. Mobility Impairment -Completed the application for a disabil ity parking placard. 7. Follow-Up - Recommend follow-up clinic visit in ap proximately six months, or sooner if any changes occur. Health Maintenance - Annual Medicare wellness visit complet ed. - Influenza vaccine was offered. - Lab work was deferred by the patient. - A new referral for hospice care evalua tion will be placed. - A referral for a hearing test will be placed. - Paperwork for a disability parking andre card will be completed. - Patient has an upcoming cataract surge ry. - The patient is scheduled to follow up in approximately six months. Patient Instructions - Please make sure to update your contac t information at the front loader residential driver to list your caregiver's phone number as the primary contact. - Continue taking all of your current me dications as prescribed. - We are putting in a new referral for h ospice care. This program can provide more help and services for you in your home. - We are also referring you for a hearin g test to check your hearing. - We have completed the form for you to get a disability parking permit. - Continue with your plan to have catara ct surgery. - Please schedule a follow-up appointmen t in about six months, or call us sooner if you have any new problems or concerns. Consent The patient verbally consented to have his caregiver's phone number listed as his primary contact information in his chart, as he has difficulty answering calls himself due to memory issues. Patient was informed and verbally consented to the use of an ambient scribe for clinic note documentation during this visit. An additional 30 minutes was spent addressing the problem(s) noted at todays visit. This includes time spent before the visit reviewing the chart, time spent during the visit, and time spent after the visit on documentation reviewing laboratory results, diagnostic imaging, medications, performing a medically necessary evaluation, counseling on diagnoses, care coordination, ordering appropriate tests, ordering appropriate medications, review of tests performed by other providers, reporting test results with the patient, communication with other healthcare providers. [facility] Medical History (Updated 06/13/25 @ 09:21 by Amy Win [facility]) Cardiac pacemaker History of multiple strokes Hypertension NSTEMI (non-ST elevated myocardial infarction) Pacemaker Pneumonia Surgical History History of heart artery stent Social History (Updated 09/21/24 @ 11:42 by Cammy Beltran CMA) Household Members: None Housing: House Alcohol intake: never Patient Tobacco Use Status: Former Tobacco user Cigarette Packs Per Day: 2 Years Smoked: 43 e-Cigarette/Vaping Use: Never Used Second Hand Smoke Exposure: Yes service: No Current occupational status: disabled Sexual orientation: Straight/Heterosexual Gender identity: Male Cognitive needs: Yes (walker, wheel chair, cane) Hearing needs: No Vision needs: Yes (Glasses) Questionnaire Medicare Wellness Checkup What is your age?: 80 or older What gender do you identify with?: male During the past 4 weeks, how much have you been bothered by emotional problems such as feeling anxious, depressed, irritable, sad or downhearted, and blue?: not at all During the past 4 weeks, has your physical & emotional health limited your social activities with family, friends, neighbors, or groups?: not at all During the past 4 weeks, how much bodily pain have you generally had?: moderate pain During the past 4 weeks, was someone available to help you if you needed & wanted help?: yes, as much as I wanted During the past 4 weeks, what was the hardest physical activity you could do for at least 2 minutes?: very light Can you get to places out of walking distance without help? (For eg., can you travel alone on buses, taxis or drive your car?): No Can you go shopping for groceries or clothes without someone's help?: No Can you prepare your own meals?: No Can you do your housework without help?: No Because of any health problems, do you need the help of another person with your personal care needs such as eating, bathing, dressing or getting around the house?: Yes Can you handle your own money without help?: No During the past 4 weeks, how would you rate your health in general?: fair During the past 4 weeks how have things been going for you?: good & bad parts about equal Are you having difficulties driving your car?: not applicable, I don't use a car Do you always fasten your seat belt when you are in a car?: yes, usually During past 4 weeks, have you been bothered by the following: never: Sexual problems?, Trouble eating well?, Teeth or denture problems?, Problems using the telephone? and Tiredness or fatigue? and sometimes: Falling or dizzy when standing up Have you fallen 2 or more times in the past year?: Yes Are you afraid of falling?: Yes Are you a smoker?: no During the past 4 weeks, how many drinks of wine, beer, or other alcoholic beverages did you have?: no alcohol at all Do you exercise for about 20 minutes 3 or more times a week?: no, I usually do not exercise this much Have you been given information to help with the following?: no: Hazards in your house that might hurt you? and no: Keeping track of your medications? How often do you have trouble taking medicines the way you have been told to take them?: I always take medicine as prescribed How confident are you that you can control & manage most of your health problems?: very confident What is your race?: or origin or descent Activity of Daily Living Bathing - sponge bath, tub bath or shower: receives help in bathing more than one body part (or not bathed) Dressing - getting clothes from closets & drawers, including inner/outer garments & fasteners.: receives help getting clothes or getting dressed, or stay s undressed Toileting - going to the 'toilet room' for urine/bowel elimination & cleaning self/arranging clothes: receives help going to toilet room, cleaning self or arranging clothes Transfer: moves in & out of bed or chair with help Continence: has occasional 'accidents' Feeding: feeds self except getting help in cutting meat/buttering bread Total Score: 2 Information obtained from: patient Using telephone: needs assistance Traveling: dependent Shopping: dependent Preparing meals: dependent Housework: dependent Taking medicine: dependent Managing money: dependent PHQ-9 Over the last 2 weeks, how often have you been bothered by any of the following problems? 1. Little interest or pleasure in doing things: not at all 2. Feeling down, depressed, or hopeless: not at all 3. Trouble falling or staying asleep, or sleeping too much: not at all 4. Feeling tired or having little energy: not at all 5. Poor appetite or overeating: not at all 6. Feeling bad about yourself - or that you are a failure or have let yourself or your family down: not at all 7. Trouble concentrating on things, such as reading the newspaper or watching television: not at all 8. Moving or speaking so slowly that other people could have noticed. Or the opposite - being so fidgety or restless that you have been moving around a lot more than usual: not at all 9. Thoughts that you would be better off or of hurting yourself in some way: not at all Total score: 0 Depression Screening Interpretation: Negative Depression Screening Done: Yes 27358 - PHQ-9 Billing: Yes Source: Developed by Drs. Micah Rooney, Blanka Nunes, Yasmany Amezquita and colleagues, with an educational naila from [employer]. Physical Exam Vital Signs: Last Vital Signs Temp 97.2 F 06/13/25 08:36 Pulse 62 06/13/25 08:36 Resp 12 06/13/25 08:36 BP 132/72 06/13/25 08:36 Pulse Ox 99 06/13/25 08:36 Oxygen Delivery Method Room Air 06/13/25 08:36 BMI result Body Mass Index 28.0 Office Procedures Vision Screening Right Eye: 20/40 Left Eye: 20/40 Bilateral: 20/40 Color: Pass 65180 - Vision Screening Results AMB Hemoglobin A1c AMB Hemoglobin A1c 5.6 % Last Edit by Charleen Martinez MA on 06/13/25 08:53 Results Reviewed Results Reviewed: Laboratory Last Values Hgb A1c (Clinic) 5.6 % (4.0-6.0) 06/13/25 08:43 Assessment & Plan Assessment & Plan (1) Encounter for subsequent annual wellness visit (AWV) in Medicare patient: Onset Date: ~06/13/25 Code(s): Z00.00 - Encounter for general adult medical examination without abnormal findings (2) CHF (congestive heart failure): Comment: continue f/up cardiology Code(s): I50.9 - Heart failure, unspecified Qualifiers: Heart failure type: unspecified Heart failure chronicity: chronic Qualified Code(s): I50.9 - Heart failure, unspecified (3) Coronary artery disease with angina pectoris: Code(s): I25.119 - Atherosclerotic heart disease of [place] coronary artery with unspecified angina pectoris Qualifiers: Coronary Disease-Associated Artery/Lesion type: [place] artery [place] vs. transplanted heart: [place] heart Qualified Code(s): I25.119 - Atherosclerotic heart disease of [place] coronary artery with unspecified angina pectoris (4) DNR (do not resuscitate): Code(s): Z66 - Do not resuscitate (5) Palliative care status: Code(s): Z51.5 - Encounter for palliative care (6) Palliative care encounter: Code(s): Z51.5 - Encounter for palliative care (7) Hearing loss: Code(s): H91.90 - Unspecified hearing loss, unspecified ear (8) Former smoker, stopped smoking in distant past: Comment: Reports that he was referred for a screening CT scan but once again he was not able to lie still or tolerate this procedure. Additional conversation was had around this and the decision was made not to pursue anything additional at this time. With the understanding that the niece already has a CT scan that can be done ordered by another provider should he want or be able to tolerate the CT scan for lung cancer screening. Today he does not present with any overt signs or symptoms such as hemoptysis or weight loss. Code(s): Z87.891 - Personal history of nicotine dependence (9) Frailty syndrome in geriatric patient: Code(s): R54 - Age-related physical debility (10) Physical deconditioning: Comment: They would like to revisit hospice care Code(s): R53.81 - Other malaise (11) Aspiration, chronic pulmonary: Code(s): T17.908A - Unspecified foreign body in respiratory tract, part unspecified causing other injury, initial encounter Qualifiers: Encounter type: sequela Qualified Code(s): T17.908S - Unspecified foreign body in respiratory tract, part unspecified causing other injury, sequela (12) History of multiple strokes: Code(s): Z86.73 - Personal history of transient ischemic attack (TIA), and cerebral infarction without residual deficits (13) Influenza vaccination declined: Code(s): Z28.21 - Immunization not carried out because of patient refusal (14) Glaucoma associated with ocular disorder: Comment: glaucoma, 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 Continue follow up with Ophthalmology as well as eyedrops prescribed as well as Acetazolamide. Code(s): H40.50X0 - Glaucoma secondary to other eye disorders, unspecified eye, stage unspecified Qualifiers: Laterality: left Glaucoma stage: severe stage Qualified Code(s): H40.52X3 - Glaucoma secondary to other eye disorders, left eye, severe stage (15) Cataracts, bilateral: Comment: He is currently being followed by [facility] in [place] Dr Willy Gerber with bilat cataracts will be having an extraction bilat Code(s): H26.9 - Unspecified cataract Qualifiers: Cataract type: age-related Age-related cataract type: nuclear Qualified Code(s): H25.13 - Age-related nuclear cataract, bilateral Plan , Orders: Orders AMB Hemoglobin A1c Today Z13.9 - Encounter for screening, unspecified Referrals Audiology Referral H91.90 - Unspecified hearing loss, unspecified ear Palliative Care Referral I25.119 - Atherosclerotic heart disease of [place] coronary artery with unspecified angina pectoris, I50.9 - Heart failure, unspecified, Z51.5 - Encounter for palliative care, Z66 - Do not resuscitate Medications: Discontinued clindamycin HCl (Cleocin HCl) Discontinued Reason: Patient Completed Course 150 mg PO TID 21 caps 0RF Quality Reporting (2019) Adult ([facility] 138/2//69) Smoking risk assessment performed?: Yes Patient Tobacco Use Status: Former Tobacco user Depression screening performed: Yes Screen Results: Yes Negative screen Recommended changes not done: EKG (active w cards) Systolic BP not done?: No Diastolic BP not done?: No BMI screening not done: No Sexual Activity Screening ([facility] 153) Sexually active?: No Immunizations ([facility] 147, 117) Annual Influenza Vaccine: No Flu Vaccine not done: patient reason Measles Antibody Test: No Mumps Antibody Test: No Rubella Antibody Test: No Varicella Antibody Test: No Anti Hepatitis A IgG Antigen test: No Anti Hepatitis B Virus Surface Ab test: No Fall Risk Screening ([facility] 139) Last assessed Fall Risk: 06/13/25 Fall risk assessment: 2 + Falls in past year Dementia Assessment ([facility] 149) Cognitive assessment recorded: Yes Assessment of cognition with standardized tool: Yes Depression/Bipolar (159/160/161/177) PHQ-9: Total score: 0 Ophthalmol:Cataracts Visual Acuity (133) Visual acuity exam performed: Yes (see results) Coding Level of Care Code Medicare Subsequent (G0439) Est Pt Level 4 ([id number]) Diagnoses Encounter for subsequent annual wellness visit (AWV) in Medicare patient Z00.00 Chronic congestive heart failure, unspecified heart failure type I50.9 Heart failure type: unspecified Heart failure chronicity: chronic Coronary artery disease involving [place] coronary artery of [place] heart with angina pectoris I25.119 Coronary Disease-Associated Artery/Lesion type: [place] artery [place] vs. 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 Laterality: left Glaucoma stage: severe stage Age-related nuclear cataract of both eyes H25.13 Cataract type: age-related Age-related cataract type: nuclear CPT Codes Advance Care Planning - Time spent: 16-45 minutes ([id number]) Vision Screening - Vision Screenin - Vision Screening ([id number]) Additional Codes PHQ-9 - 86053 - PHQ-9 Billing: Yes ([id number]) Advance Care Planning Advance Care Planning discussion: Completed/Scanned Date of discussion: 06/13/25 Who was present: hcp is now Magda Ruiz, form completed Forms completed: Health Care Proxy, MOLST and Comfort care/DNR Time spent: 16-45 minutes Actual minutes spent: 16
--- OUTSIDE RECORDS SUMMARY | 2025-06-13 08:28 | XMS_ITS | Clinical Summary ---
Author Organization [facility] Address [address] [place] [address] Phone Care Team Providers Care Home Care Physical Therapist Name Role Phone ShireenTamiLucian, Amy BAJWA Primary Care Provider [phone] Allergies Active Allergy Reactions Criticality Noted Date Comments Penicillin 08/26/2024 Penicillin G Hives 10/19/2012 Medications atorvastatin (LIPITOR) 80 mg tablet Take 1 tablet (80 mg total) by mouth at bedtime. at bedtime. 30 each 5 Active carvediloL (COREG) 6.25 mg tablet Take 1 tablet (6.25 mg total) by mouth 2 (two) times a day. 60 each 5 Active dilTIAZem CD (CARDIZEM CD) 120 mg 24 hr capsule Take 1 capsule (120 mg total) by mouth 1 (one) time each day. 30 each 5 Active gabapentin (NEURONTIN) 300 mg capsule Take 1 capsule (300 mg total) by mouth every 8 (eight) hours. 90 each 5 Active QUEtiapine (SEROquel) 100 mg tabletIndicatio ns:mood disorder Take 1 tablet (100 mg total) by mouth at bedtime. 30 each 5 Active hydrALAZINE (APRESOLINE) 10 mg tablet Take 1 tablet (10 mg total) by mouth every 8 (eight) hours. 90 each 5 Active losartan (COZAAR) 100 mg tablet Take 1 tablet (100 mg total) by mouth 1 (one) time each day. 30 each Active QUEtiapine (SEROquel) 50 mg tablet Take 2 tablets (100 mg total) by mouth at bedtime. 60 each Active Additional Information Patient not taking.Reported on 05/30/2025 amLODIPine (NORVASC) 2.5 mg tablet Take 1 tablet (2.5 mg total) by mouth 1 (one) time each day. 90 each Active aspirin 81 mg tablet Take 1 tablet by mouth 1 (one) time each day. Active clopidogreL (PLAVIX) 75 mg tablet Take 1 tablet (75 mg total) by mouth 1 (one) time each day. Active Active Problems Problem Noted Date Diagnosed Date Coronary artery disease invo lving [place] coronary artery of [place] heart without angina pectoris 06/01/2025 Assessment & Plan (06/01/2025 10:48 AM EDT): The patient offers no symptoms concerning for underlying ischemia within his current functional capacity. We will not make any changes to his cardioprotective medical therapies; continue carvedilol, atorvastatin, and DAPT with clopidogrel and daily ASA in addition to amlodipine as an antianginal.We discussed cardiac risk reduction through lifestyle modifications with healthy diet, and weight management. The patient was advised to seek emergent medical attention by calling 911 if they were to develop severe dyspnea, chest pain that did not resolve with rest or nitroglycerin, or if they were to faint. History of non-ST elevation myocardial infarctio n (NSTEMI) 06/01/2025 Assessment & Plan (06/01/2025 10:48 AM EDT): Status post coronary artery stent placement 05/12 Assessment & Plan (06/01/2025 10:48 AM EDT): Primary hypertension 06/01/2025 Assessment & Plan (06/01/2025 10:48 AM EDT): Blood pressure was elevated upon initial check but improved on recheck; we will not make any changes to his current antihypertensive regimen. Continue amlodipine, carvedilol, diltiazem, losartan, and hydralazine. His most metabolic panel was stable. Hyperlipidemia 06/01/2025 Assessment & Plan (06/01/2025 10:48 AM EDT): LDL goal for this patient was a history of coronary artery disease as well as diabetes is less than 55; his most recent lipid panel was completed 01/21/2025 showing an LDL of 49. Continue atorvastatin. Transient ischemic attack 03/16/2025 History of CVA (cerebrovascular accident) 2024 Assessment & Plan (06/01/2025 10:48 AM EDT): As outlined above. The patient was encouraged to follow-up with his PCP regarding his reports of leg weakness and back pain and he verbalized understanding and agreement. Orders: Cardiac event monitor; Future Stroke (CMS/HCC V24, CMS/HCC V28) 01/21/2025 Bilateral leg weakness 01/20/2025 Assessment & Plan (06/01/2025 10:48 AM EDT): Aspiration into respiratory tract 11/10/2024 FUO (fever of unknown origin) 11/09/2024 HCAP (healthcare-associated pneumonia) Sepsis (CMS/HCC V24, CMS/HCC V28) 08/26/2024 Resolved Problems Problem Noted Date Diagnosed Date Resolved Date Community acquired pneumonia of right lung, unspecified part of lung 09/12/2024 09/13/2024 Community acquired pneumonia 09/11/2024 09/13/2024 Encounters Date Type Department Care Team Description 06/08/2025 8:00 AM EDT Ancillary Procedure [facility] Cardiology [facility] - [address] [place] [address] Atrial tachycardia (CMS/HCC V24); History of CVA (cerebrovascular accident) 06/02/2025 Telephone [facility] - [address] [place] [address] Yuri Dumont MD 05/30/2025 1:40 PM EDT Office Visit [facility] [address] [place] [phone] Krystle Whitt NP Atrial tachycardia ([facility] V24) (Primary Dx); Chronic heart failure with preserved ejection fraction (HFpEF) ([facility] V24, [facility] V28); Coronary artery disease involving [place] coronary artery of [place] heart without angina pectoris; History of non-ST elevation myocardial infarction (NSTEMI); Status post coronary artery stent placement; Primary hypertension; Hyperlipidemia, unspecified hyperlipidemia type; History of CVA (cerebrovascular accident); Bilateral leg weakness; Hospital discharge follow-up 03/18/[address] 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 ESOPHAGOGASTRODUODENOSCOPY 03/14/14 PROCEDURE: MO ESOPHAGOGASTRODUODENOSCOPY TRANSORAL DIAGNOSTIC; COMMENT: erosive esophagitis and HH APPENDECTOMY 02/21 PROCEDURE: MO APPENDEC INDICATED PURPOSE OTH MAJOR PX NOT SPX Medical History Medical History Date Comments Hemiplegia following CVA (cerebrovascular accident) ([facility] V24, [facility] V28) 10/06/2012 DX:Hemiplegia following CVA (cerebrovascular accident) (HCC) Chronic pain 10/06/2012 DX:Chronic pain Lumbar disc [...] artery NSTEMI (non-ST elevated myoc ardial infarction) ([facility] V24, [facility] V28) 12/30/2013 DX:NSTEMI (non- ST elevated myocardial infarction) ([facility]) Left inguinal hernia 01/26/2014 DX:Left ing uinal hernia Recurrent appendicitis DX:Recurr ent appendicitis; COMMENT: s/p surgery in 02/2014 Incidental lung nodule DX:Incide ntal lung nodule; COMMENT: ct chest doen prior tosurgery, no evidnece, to f/u with pt Diet-controlled diabetes lorena litus ([facility] V24, [facility] V28) DX:Diet-controlled diabetes mellitus ([facility]) Microscopic hematuria DX:Microsc opic hematuria History of [...] Sign Reading Time Taken Comments Blood Pressure 138/72 05/30/2025 2:33 PM EDT Pulse 70 05/30/2025 1:59 PM EDT Temperature 36.5 C (97.7 F) 03/12/2025 1:16 PM EDT Respiratory Rate 22 03/12/2025 1:16 PM EDT Oxygen Saturation 98% 05/30/2025 1:59 PM EDT Inhaled Oxygen Concentration - - Weight 77.1 kg (170 lb) 05/30/2025 1:59 PM EDT Height 170.2 cm (5' 7 ) 05/30/2025 1:59 PM EDT Body Mass Index 26.63 05/30/2025 1:59 PM EDT Plan of Treatment Health Maintenance Due [...] Blood Sugar Control Test (HGBA1C) 07/22/2025 01/20/2025 Falls Risk Assessment 02/07/2026 02/07/2025 Social Influencers of Health Screening 02/07/2026 02/07/2025 Diabetes: Annual GFR (Glomerular Filtration Rate) 03/12/2026 03/12/2025, 02/04/2025, 01/26/2025, Additional history exists Hypertension/CHF/CAD Annual BMP Blood Test 03/12/2026 03/12/2025, 02/04/2025, 01/26/2025, Additional history exists Cholesterol Screening (Lipid Panel) 01/21/2030 01/21/2025 Depression [...] Procedure Name Priority Date/Time Associated Diagnosis Comments ECG ANNOTATED 03/14/2025 BASIC METABOLIC PANEL STAT 03/12/2025 9:50 AM EDT LIPID PANEL WITH REFLEX TO DIRECT LDL Routine 01/21/2025 6:03 AM EDT HEMOGLOBIN A1C Add-On 01/20/2025 8:29 AM EDT from Last 3 Months or Most Recently Relevant to Health Maintenance Results * ECG-Annotated (03/14/2025) us Provider Onbase MD ECG ORDERABLES Final Result * Basic metabolic panel (03/12/2025 9:50 AM EDT) Sodium 139 133 - 145 mmol/L LAB CHEMISTRY METHOD 03/12/2025 10:22 AM [facility] Potassium 4.2 3.5 - 5.5 mmol/L LAB CHEMISTRY METHOD 03/12/2025 10:22 AM [facility] Chloride 106 96 - 110 mmol/L LAB CHEMISTRY METHOD 03/12/2025 10:22 AM [facility] CO2 29 21 - 32 mmol/L LAB CHEMISTRY METHOD 03/12/2025 10:22 AM [facility] Anion Gap 4 3 - 11 LAB CHEMISTRY METHOD 03/12/2025 10:22 AM [facility] Glucose 98 70 - 100 mg/dL LAB CHEMISTRY METHOD 03/12/2025 10:22 AM [facility] BUN 12 5 - 25 mg/dL LAB CHEMISTRY METHOD 03/12/2025 10:22 AM [facility] Creatinine 1.15 0.70 - 1.30 mg/dL LAB CHEMISTRY METHOD 03/12/2025 10:22 AM [facility] eGFR 63 >=60 mL/min/1. 73m2 LAB CHEMISTRY METHOD 03/12/2025 10:22 AM [facility] Comment:Calculation based on the Chronic Kidney Disease Epidemiology Collaboration (CKD-EPI) equation refit without adjustment for race. BUN/Creatinine Ratio 10.4 LAB CHEMISTRY METHOD 03/12/2025 10:22 AM [facility] Calcium 9.2 8.5 - 10.5 mg/dL LAB CHEMISTRY METHOD 03/12/2025 10:22 AM [facility] Blood Venous blood specimen / Unknown Venipuncture / Unknown 03/12/2025 9:50 AM EDT 03/12/2025 10:22 AM EDT us Bruce Sahni MD LAB BLOOD ORDERABLES Final Resu lt [facility] [address] [place] [address], [place] [phone] * (ABNORMAL) Lipid panel with reflex to direct LDL (01/21/2025 6:03 AM EDT) Cholesterol 103 0 - 200 mg/dL LAB CHEMISTRY METHOD 01/21/2025 7:45 AM EDT [facility] Triglycerides 115 0 - 150 mg/dL LAB CHEMISTRY METHOD 01/21/2025 7:45 AM EDT [facility] HDL 31(L) >=40 mg/dL LAB CHEMISTRY METHOD 01/21/2025 7:45 AM EDT [facility] LDL Calculated 49 0 - 100 mg/dL LAB CHEMISTRY METHOD 01/21/2025 7:45 AM EDT [facility] VLDL Cholesterol Milind 23 mg/dL LAB CHEMISTRY METHOD 01/21/2025 7:45 AM EDT [facility] Non HDL Chol. (LDL+VLDL) 72 <145 mg/dL LAB CHEMISTRY METHOD 01/21/2025 7:45 AM EDT [facility] Chol/HDL Ratio 3.3 0.0 - 4.4 LAB CHEMISTRY METHOD 01/21/2025 7:45 AM T [facility] Blood Venous blood specimen / Unknown Venipuncture / Unknown 01/21/2025 6:03 AM EDT 01/21/2025 6:37 AM EDT us Socorro DE DIOS LAB BLOOD ORDERABLES Final Re sult [facility] [address] [place] [address], [place] [phone] * Hemoglobin A1c (01/20/2025 8:29 AM EDT) Hemoglobin A1C 6.3 <6.5 % LAB CHEMISTRY METHOD 01/20/2025 9:06 PM EDT [facility] Mean Bld Glu Estim. 134 mg/dL LAB CHEMISTRY METHOD 01/20/2025 9:06 PM EDT [facility] Blood Venous blood specimen / Unknown Venipuncture / Unknown 01/20/2025 8:29 AM EDT 01/20/2025 8:41 AM EDT us Socorro DE DIOS LAB BLOOD ORDERABLES Final Re sult [facility] [address] [place] [address], [place] [phone] from Last 3 Months or Most Recently Relevant to Health Maintenance Insurance [place] MEDICARE Advance Directives Documents on File Type Date Recorded Patient Third Cook Expl anation Advance Directives and Living Will 02/11/2025 3:21 PM PROXY Health Care Decision (hx) 12/05/2023 Elisa MCNEAL DIRECTIVE Health Care Decision (hx) 02/09/2018 AD [...] way: Code status discussion: discussion with healthcare sales representative publications To update the patient's code status, place [...] Agents on File Name Relationship Healthcare Agent [facility] p Communication Karen Mayberry [facility] Alternate Health Care Agent Care Teams Home Care Physical Therapist Relationship Specialty Start Date End Date Amy Win FNP [address] [place] [address] [place] [address] PCP - General Nurse Practitioner 01/25/25
[2025-06-13 08:36] VITALS: BP 132/72; PULSE 62; RESP 12; TEMP 36.2; O2SAT 99; BMI 28.0
== END 2025-06-13 09:25 | disposition home or self-care (01) ==
PROVIDERS: PCP Nurse Practitioner Family; Visit Provider Nurse Practitioner Family
DX: Z00.00 Encounter for general adult medical examination without abnormal findings (principal); I50.9 Heart failure, unspecified; I25.119 Atherosclerotic heart disease of native coronary artery with unspecified angina pectoris; H91.93 Unspecified hearing loss, bilateral; R54 Age-related physical debility; Z51.5 Encounter for palliative care; Z66 Do not resuscitate; Z87.891 Personal history of nicotine dependence; R53.81 Other malaise; T17.908S Unspecified foreign body in respiratory tract, part unspecified causing other injury, sequela; Z86.73 Personal history of transient ischemic attack (TIA), and cerebral infarction without residual deficits; Z28.21 Immunization not carried out because of patient refusal; H40.52X3 Glaucoma secondary to other eye disorders, left eye, severe stage; H25.13 Age-related nuclear cataract, bilateral; Z13.9 Encounter for screening, unspecified

== ENCOUNTER → 2025-06-13 08:15 | Outpatient (BNVA) | payer MEDICARE, MEDICAID, SELFPAY | PROVIDERS: PCP Nurse Practitioner Family; Visit Provider Nurse Practitioner Family | DX: Z51.5 Encounter for palliative care (principal); I50.9 Heart failure, unspecified; I25.119 Atherosclerotic heart disease of native coronary artery with unspecified angina pectoris; Z13.31 Encounter for screening for depression; Z13.1 Encounter for screening for diabetes mellitus; Z66 Do not resuscitate | CPT/HCPCS: 83036; 96127; 99212; 99497 ==